=== PATIENT | female | born 1980 | race Caucasian/White ===

== ENCOUNTER → 2019-04-16 10:40 | Outpatient (BNVA) | payer MEDICARE, MEDICAID, SELFPAY | PROVIDERS: Family Provider Nurse Practitioner Family; PCP Nurse Practitioner Family; Visit Provider Social Worker Clinical | DX: F31.63 Bipolar disorder, current episode mixed, severe, without psychotic features (principal); F43.12 Post-traumatic stress disorder, chronic; F41.0 Panic disorder [episodic paroxysmal anxiety]; F60.3 Borderline personality disorder; Z63.4 Disappearance and death of family member | CPT/HCPCS: 90791 ==

== ENCOUNTER → 2019-04-23 10:50 | Outpatient (BNVA) | payer MEDICARE, MEDICAID, SELFPAY | PROVIDERS: Family Provider Nurse Practitioner Family; PCP Nurse Practitioner Family; Visit Provider Nurse Practitioner Psychiatric/Mental Health | DX: F60.3 Borderline personality disorder (principal); F41.0 Panic disorder [episodic paroxysmal anxiety]; F43.12 Post-traumatic stress disorder, chronic; F31.63 Bipolar disorder, current episode mixed, severe, without psychotic features; Z63.4 Disappearance and death of family member | CPT/HCPCS: 99214 ==

== ENCOUNTER → 2019-05-05 08:44 | Outpatient (BNVA) | payer MEDICARE, MEDICAID, SELFPAY | PROVIDERS: Family Provider Nurse Practitioner Family; PCP Nurse Practitioner Family; Visit Provider Social Worker Clinical | DX: F43.12 Post-traumatic stress disorder, chronic (principal); Z63.4 Disappearance and death of family member; F31.63 Bipolar disorder, current episode mixed, severe, without psychotic features | CPT/HCPCS: 90834 ==

== ENCOUNTER → 2019-05-20 09:46 | Outpatient (BNVA) | payer MEDICARE, MEDICAID, SELFPAY | PROVIDERS: Family Provider Nurse Practitioner Family; PCP Nurse Practitioner Family; Visit Provider Social Worker Clinical | DX: F43.12 Post-traumatic stress disorder, chronic (principal); Z63.4 Disappearance and death of family member; F31.63 Bipolar disorder, current episode mixed, severe, without psychotic features | CPT/HCPCS: 90834 ==

== ENCOUNTER → 2019-05-27 09:42 | Outpatient (BNVA) | payer MEDICARE, MEDICAID, SELFPAY | PROVIDERS: Family Provider Nurse Practitioner Family; PCP Nurse Practitioner Family; Visit Provider Social Worker Clinical | DX: F60.3 Borderline personality disorder (principal); F43.12 Post-traumatic stress disorder, chronic; F31.63 Bipolar disorder, current episode mixed, severe, without psychotic features | CPT/HCPCS: 90834 ==

== ENCOUNTER → 2019-06-09 09:43 | Outpatient (BNVA) | payer MEDICARE, MEDICAID, SELFPAY | PROVIDERS: Family Provider Nurse Practitioner Family; PCP Nurse Practitioner Family; Visit Provider Social Worker Clinical | DX: F60.3 Borderline personality disorder (principal); Z63.4 Disappearance and death of family member; F31.63 Bipolar disorder, current episode mixed, severe, without psychotic features; F43.12 Post-traumatic stress disorder, chronic | CPT/HCPCS: 90834 ==

== ENCOUNTER → 2019-06-16 10:03 | Outpatient (BNVA) | payer MEDICARE, MEDICAID, SELFPAY | PROVIDERS: Family Provider Nurse Practitioner Family; PCP Nurse Practitioner Family; Visit Provider Social Worker Clinical | DX: F60.3 Borderline personality disorder (principal); Z63.4 Disappearance and death of family member; F41.0 Panic disorder [episodic paroxysmal anxiety]; F43.12 Post-traumatic stress disorder, chronic; F31.63 Bipolar disorder, current episode mixed, severe, without psychotic features | CPT/HCPCS: 90834 ==

== ENCOUNTER → 2019-06-22 08:57 | Outpatient (BNVA) | payer MEDICARE, MEDICAID, SELFPAY | PROVIDERS: Family Provider Nurse Practitioner Family; PCP Nurse Practitioner Family; Visit Provider Nurse Practitioner Psychiatric/Mental Health | DX: Z63.4 Disappearance and death of family member (principal); F60.3 Borderline personality disorder; F41.0 Panic disorder [episodic paroxysmal anxiety]; F43.12 Post-traumatic stress disorder, chronic; F31.63 Bipolar disorder, current episode mixed, severe, without psychotic features | CPT/HCPCS: 90834; 99214 ==

== ENCOUNTER → 2019-06-30 10:34 | Outpatient (BNVA) | payer MEDICARE, MEDICAID, SELFPAY | PROVIDERS: Family Provider Nurse Practitioner Family; PCP Nurse Practitioner Family; Visit Provider Social Worker Clinical | DX: Z63.4 Disappearance and death of family member (principal); F60.3 Borderline personality disorder; F43.12 Post-traumatic stress disorder, chronic; F31.63 Bipolar disorder, current episode mixed, severe, without psychotic features | CPT/HCPCS: 90834 ==

== ENCOUNTER → 2019-07-07 08:07 | Outpatient (BNVA) | payer MEDICARE, MEDICAID, SELFPAY | PROVIDERS: Family Provider Nurse Practitioner Family; PCP Nurse Practitioner Family; Visit Provider Social Worker Clinical | DX: Z63.4 Disappearance and death of family member (principal); F60.3 Borderline personality disorder; F43.12 Post-traumatic stress disorder, chronic; F31.63 Bipolar disorder, current episode mixed, severe, without psychotic features | CPT/HCPCS: 90834 ==

== ENCOUNTER → 2019-07-08 07:29 | Outpatient (BNVA) | payer MEDICARE, MEDICAID, SELFPAY | PROVIDERS: Family Provider Nurse Practitioner Family; PCP Nurse Practitioner Family; Visit Provider Nurse Practitioner Psychiatric/Mental Health | DX: F60.3 Borderline personality disorder (principal); F41.0 Panic disorder [episodic paroxysmal anxiety]; Z63.4 Disappearance and death of family member; F43.12 Post-traumatic stress disorder, chronic; F31.63 Bipolar disorder, current episode mixed, severe, without psychotic features | CPT/HCPCS: 99214 ==

== ENCOUNTER → 2019-07-13 08:12 | Outpatient (BNVA) | payer MEDICARE, MEDICAID, SELFPAY | PROVIDERS: Family Provider Nurse Practitioner Family; PCP Nurse Practitioner Family; Visit Provider Social Worker Clinical | DX: F60.3 Borderline personality disorder (principal); F43.12 Post-traumatic stress disorder, chronic; F31.4 Bipolar disorder, current episode depressed, severe, without psychotic features; Z63.4 Disappearance and death of family member | CPT/HCPCS: 90834 ==

== ENCOUNTER → 2019-07-20 08:27 | Outpatient (BNVA) | payer MEDICARE, MEDICAID, SELFPAY | PROVIDERS: Family Provider Nurse Practitioner Family; PCP Nurse Practitioner Family; Visit Provider Social Worker Clinical | DX: Z63.4 Disappearance and death of family member (principal); F60.3 Borderline personality disorder; F41.0 Panic disorder [episodic paroxysmal anxiety]; F43.12 Post-traumatic stress disorder, chronic | CPT/HCPCS: 90834 ==

== ENCOUNTER → 2019-07-22 08:29 | Outpatient (BNVA) | payer MEDICARE, MEDICAID, SELFPAY | PROVIDERS: Family Provider Nurse Practitioner Family; PCP Nurse Practitioner Family; Visit Provider Nurse Practitioner Psychiatric/Mental Health | DX: F41.0 Panic disorder [episodic paroxysmal anxiety] (principal); F43.12 Post-traumatic stress disorder, chronic; Z63.4 Disappearance and death of family member; F60.3 Borderline personality disorder; F31.63 Bipolar disorder, current episode mixed, severe, without psychotic features | CPT/HCPCS: 99214 ==

== ENCOUNTER → 2019-07-28 08:09 | Outpatient (BNVA) | payer MEDICARE, MEDICAID, SELFPAY | PROVIDERS: Family Provider Nurse Practitioner Family; PCP Nurse Practitioner Family; Visit Provider Social Worker Clinical | DX: Z63.4 Disappearance and death of family member (principal); F60.3 Borderline personality disorder; F41.0 Panic disorder [episodic paroxysmal anxiety]; F43.12 Post-traumatic stress disorder, chronic; F31.63 Bipolar disorder, current episode mixed, severe, without psychotic features | CPT/HCPCS: 90834 ==

== ENCOUNTER → 2019-08-04 08:11 | Outpatient (BNVA) | payer MEDICARE, MEDICAID, SELFPAY ==
[2019-05-25 13:06] VITALS: BP 101/73; BMI 35.1
== END ==
PROVIDERS: Family Provider Nurse Practitioner Family; PCP Nurse Practitioner Family; Visit Provider Social Worker Clinical
DX: Z63.4 Disappearance and death of family member (principal); F31.63 Bipolar disorder, current episode mixed, severe, without psychotic features; F43.12 Post-traumatic stress disorder, chronic; F60.3 Borderline personality disorder
CPT/HCPCS: 90834

== ENCOUNTER → 2019-08-05 08:12 | Outpatient (BNVA) | payer MEDICARE, MEDICAID, SELFPAY ==
[2019-05-25 13:06] VITALS: BP 101/73; BMI 35.1
== END ==
PROVIDERS: Family Provider Nurse Practitioner Family; PCP Nurse Practitioner Family; Visit Provider Nurse Practitioner Psychiatric/Mental Health
DX: F60.3 Borderline personality disorder (principal); F41.0 Panic disorder [episodic paroxysmal anxiety]; F43.12 Post-traumatic stress disorder, chronic; F31.63 Bipolar disorder, current episode mixed, severe, without psychotic features; Z63.4 Disappearance and death of family member
CPT/HCPCS: 99214

== ENCOUNTER → 2019-08-11 08:17 | Outpatient (BNVA) | payer MEDICARE, MEDICAID, SELFPAY ==
[2019-05-25 13:06] VITALS: BP 101/73; BMI 35.1
== END ==
PROVIDERS: Family Provider Nurse Practitioner Family; PCP Nurse Practitioner Family; Visit Provider Social Worker Clinical
DX: Z63.4 Disappearance and death of family member (principal); F60.3 Borderline personality disorder; F43.12 Post-traumatic stress disorder, chronic; F31.63 Bipolar disorder, current episode mixed, severe, without psychotic features
CPT/HCPCS: 90834

== ENCOUNTER → 2019-08-18 08:09 | Outpatient (BNVA) | payer MEDICARE, MEDICAID, SELFPAY ==
[2019-05-25 13:06] VITALS: BP 101/73; BMI 35.1
== END ==
PROVIDERS: Family Provider Nurse Practitioner Family; PCP Nurse Practitioner Family; Visit Provider Social Worker Clinical
DX: F60.3 Borderline personality disorder (principal); F43.12 Post-traumatic stress disorder, chronic; F31.63 Bipolar disorder, current episode mixed, severe, without psychotic features
CPT/HCPCS: 90834

== ENCOUNTER → 2019-08-19 08:22 | Outpatient (BNVA) | payer MEDICARE, MEDICAID, SELFPAY ==
[2019-05-25 13:06] VITALS: BP 101/73; BMI 35.1
== END ==
PROVIDERS: Family Provider Nurse Practitioner Family; PCP Nurse Practitioner Family; Visit Provider Nurse Practitioner Psychiatric/Mental Health
DX: Z63.4 Disappearance and death of family member (principal); F60.3 Borderline personality disorder; F41.0 Panic disorder [episodic paroxysmal anxiety]; F43.12 Post-traumatic stress disorder, chronic; F31.63 Bipolar disorder, current episode mixed, severe, without psychotic features
CPT/HCPCS: 99214

== ENCOUNTER → 2019-08-25 08:21 | Outpatient (BNVA) | payer MEDICARE, MEDICAID, SELFPAY ==
[2019-05-25 13:06] VITALS: BP 101/73; BMI 35.1
== END ==
PROVIDERS: Family Provider Nurse Practitioner Family; PCP Nurse Practitioner Family; Visit Provider Social Worker Clinical
DX: Z63.4 Disappearance and death of family member (principal); F60.3 Borderline personality disorder; F43.12 Post-traumatic stress disorder, chronic; F31.63 Bipolar disorder, current episode mixed, severe, without psychotic features
CPT/HCPCS: 90834

== ENCOUNTER → 2019-08-31 07:59 | Outpatient (BNVA) | payer MEDICARE, MEDICAID, SELFPAY ==
[2019-05-25 13:06] VITALS: BP 101/73; BMI 35.1
== END ==
PROVIDERS: Family Provider Nurse Practitioner Family; PCP Nurse Practitioner Family; Visit Provider Social Worker Clinical
DX: Z63.4 Disappearance and death of family member (principal); F60.3 Borderline personality disorder; F43.12 Post-traumatic stress disorder, chronic; F31.63 Bipolar disorder, current episode mixed, severe, without psychotic features
CPT/HCPCS: 90834

== ENCOUNTER → 2019-09-02 07:36 | Outpatient (BNVA) | payer MEDICARE, MEDICAID, SELFPAY ==
[2019-05-25 13:06] VITALS: BP 101/73; BMI 35.1
== END ==
PROVIDERS: Family Provider Nurse Practitioner Family; PCP Nurse Practitioner Family; Visit Provider Nurse Practitioner Psychiatric/Mental Health
DX: F41.0 Panic disorder [episodic paroxysmal anxiety] (principal); F43.12 Post-traumatic stress disorder, chronic; Z63.4 Disappearance and death of family member; F60.3 Borderline personality disorder; F31.63 Bipolar disorder, current episode mixed, severe, without psychotic features
CPT/HCPCS: 99214

== ENCOUNTER → 2019-09-08 08:11 | Outpatient (BNVA) | payer MEDICARE, MEDICAID, SELFPAY ==
[2019-05-25 13:06] VITALS: BP 101/73; BMI 35.1
== END ==
PROVIDERS: Family Provider Nurse Practitioner Family; PCP Nurse Practitioner Family; Visit Provider Social Worker Clinical
DX: Z63.4 Disappearance and death of family member (principal); F60.3 Borderline personality disorder; F41.0 Panic disorder [episodic paroxysmal anxiety]; F43.12 Post-traumatic stress disorder, chronic; F31.63 Bipolar disorder, current episode mixed, severe, without psychotic features
CPT/HCPCS: 90834

== ENCOUNTER → 2019-09-23 07:52 | Outpatient (BNVA) | payer MEDICARE, MEDICAID, SELFPAY ==
[2019-05-25 13:06] VITALS: BP 101/73; BMI 35.1
== END ==
PROVIDERS: Family Provider Nurse Practitioner Family; PCP Nurse Practitioner Family; Visit Provider Social Worker Clinical
DX: Z63.4 Disappearance and death of family member (principal); F60.3 Borderline personality disorder; F41.0 Panic disorder [episodic paroxysmal anxiety]; F43.12 Post-traumatic stress disorder, chronic; F31.63 Bipolar disorder, current episode mixed, severe, without psychotic features
CPT/HCPCS: 90834

== ENCOUNTER → 2019-09-29 08:23 | Outpatient (BNVA) | payer MEDICARE, MEDICAID, SELFPAY ==
[2019-05-25 13:06] VITALS: BP 101/73; BMI 35.1
== END ==
PROVIDERS: Family Provider Nurse Practitioner Family; PCP Nurse Practitioner Family; Visit Provider Social Worker Clinical
DX: F43.12 Post-traumatic stress disorder, chronic (principal); F60.3 Borderline personality disorder
CPT/HCPCS: 90834

== ENCOUNTER → 2019-09-30 07:56 | Outpatient (BNVA) | payer MEDICARE, MEDICAID, SELFPAY ==
[2019-05-25 13:06] VITALS: BP 101/73; BMI 35.1
== END ==
PROVIDERS: Family Provider Nurse Practitioner Family; PCP Nurse Practitioner Family; Visit Provider Nurse Practitioner Psychiatric/Mental Health
DX: F31.63 Bipolar disorder, current episode mixed, severe, without psychotic features (principal); Z63.4 Disappearance and death of family member; F60.3 Borderline personality disorder; F41.0 Panic disorder [episodic paroxysmal anxiety]; F43.12 Post-traumatic stress disorder, chronic
CPT/HCPCS: 99214

== ENCOUNTER → 2019-10-14 07:57 | Outpatient (BNVA) | payer MEDICARE, MEDICAID, SELFPAY ==
[2019-05-25 13:06] VITALS: BP 101/73; BMI 35.1
== END ==
PROVIDERS: Family Provider Nurse Practitioner Family; PCP Nurse Practitioner Family; Visit Provider Social Worker Clinical
DX: F60.3 Borderline personality disorder (principal); F43.12 Post-traumatic stress disorder, chronic; F31.63 Bipolar disorder, current episode mixed, severe, without psychotic features
CPT/HCPCS: 90834

== ENCOUNTER → 2019-10-19 08:33 | Outpatient (BNVA) | payer MEDICARE, MEDICAID, SELFPAY ==
[2019-05-25 13:06] VITALS: BP 101/73; BMI 35.1
== END ==
PROVIDERS: Family Provider Nurse Practitioner Family; PCP Nurse Practitioner Family; Visit Provider Social Worker Clinical
DX: Z63.4 Disappearance and death of family member (principal); F60.3 Borderline personality disorder; F41.0 Panic disorder [episodic paroxysmal anxiety]; F43.12 Post-traumatic stress disorder, chronic; F31.63 Bipolar disorder, current episode mixed, severe, without psychotic features
CPT/HCPCS: 90832

== ENCOUNTER 2019-10-19 12:21 | Outpatient (CLI) | payer MEDICARE, MEDICAID, SELFPAY ==
[2019-05-25 13:06] VITALS: BP 101/73; BMI 35.1
[2019-10-19 13:05] LABS: Basophils % 0.3 %; Eosinophils # 0.1 10^3/uL (0.0-0.8); Eosinophils % 1.6 %; Hematocrit 43.2 % (37.0-47.0); Hemoglobin 14.1 g/dL (11.5-15.3); Lymphocytes % 31.7 %; Mean Corpuscular HGB Conc 32.6 g/dL (30.0-36.0); Monocytes # 0.4 10^3/uL (0.2-0.9); Monocytes % 6.2 %; Neutrophils # 3.75 10^3/uL (1.8-7.7); Neutrophils % 59.7 %; Nucleated Red Blood Cells % 0 %; Platelet Count 277 10^3/cmm (130-400); Red Blood Count 4.41 10^6/uL (4.1-5.3); Red Cell Distribution Width 12.3 % (12.1-15.1); White Blood Count 6.3 10^3/uL (4.0-10.0)
[2019-10-19 13:39] LABS: INR 0.92 (0.8-1.2)
[2019-10-19 13:56] LABS: Calcium 9.3 mg/dL (8.5-10.5); Parathyroid Hormone 46.3 pg/mL (15-65)
[2019-10-19 14:05] LABS: Folate Level 6.8 ng/mL (4.8-37.3)
[2019-10-19 14:07] LABS: Alanine Aminotransferase 7 U/L (0-33); Albumin Level 4.5 g/dL (3.5-5.2); Alkaline Phosphatase 90 IU/L (35-105); Anion Gap 13.9 (5-19); Aspartate Amino Transferase 20 U/L (0-32); Blood Urea Nitrogen 7 mg/dL (6-20); Calcium 8.8 mg/dL (8.5-10.5); Carbon Dioxide 23 mmol/L (22-29); Chloride 105 mmol/L (98-107); Chol HDL Ratio 3.27 mg/dL (0.0-4.40); Cholesterol 170 mg/dL (0-200); Estmated Average Glucose 103; Globulin 2.5 g/dL (1.3-4.6); Glomerular Filtration Rate 79.9 mL/min (90-130); Glucose 122 mg/dL (65-115); HDL Cholesterol 52 mg/dL (60-100); Hemoglobin A1C 5.2 % (4.0-6.0); Iron 169 ug/dL (37-145); LDL Cholesterol Calculated 96 mg/dL (50-129); LDL HDL Ratio 1.85 RATIO (0.00-3.22); Osmolality Calculated 283 mOsm/kg (285-295); Percent Saturation 58.8 % (20-50); Phosphorus 2.4 mg/dL (2.5-4.5); Potassium 3.9 mmol/L (3.5-5.1); Sodium 138 mmol/L (136-145); Thyroid Stimulating Hormone 0.82 uIU/mL (0.27-4.20); Total Bilirubin 0.4 mg/dL (0.15-1.2); Total Iron Binding Capacity 287 mcg/dl; Triglycerides 112 mg/dL (0-150); Unsaturated Iron Binding 118 ug/dL (112-347); Vitamin B12 677 pg/mL (232-1245)
== END 2019-10-19 12:22 | disposition home or self-care (01) ==
LOC: LAB 12:25
PROVIDERS: PCP Nurse Practitioner Family; Visit Provider Surgery
DX: E66.9 Obesity, unspecified (principal); E11.9 Type 2 diabetes mellitus without complications
CPT/HCPCS: 36415; 80053; 80061; 82248; 82310; 82607; 82746; 83036; 83540; 83550; 83735; 83970; 84100; 84443; 85025; 85610

== ENCOUNTER → 2019-10-21 09:24 | Outpatient (BNVA) | payer MEDICARE, MEDICAID, SELFPAY ==
[2019-05-25 13:06] VITALS: BP 101/73; BMI 35.1
== END ==
PROVIDERS: PCP Nurse Practitioner Family; Visit Provider Nurse Practitioner Psychiatric/Mental Health
DX: F31.63 Bipolar disorder, current episode mixed, severe, without psychotic features (principal); Z63.4 Disappearance and death of family member; F60.3 Borderline personality disorder; F41.0 Panic disorder [episodic paroxysmal anxiety]; F43.12 Post-traumatic stress disorder, chronic
CPT/HCPCS: 99214

== ENCOUNTER → 2019-10-27 08:49 | Outpatient (BNVA) | payer MEDICARE, MEDICAID, SELFPAY ==
[2019-05-25 13:06] VITALS: BP 101/73; BMI 35.1
== END ==
PROVIDERS: Family Provider Nurse Practitioner Family; PCP Nurse Practitioner Family; Visit Provider Social Worker Clinical
DX: Z63.4 Disappearance and death of family member (principal); F60.3 Borderline personality disorder; F43.12 Post-traumatic stress disorder, chronic; F31.63 Bipolar disorder, current episode mixed, severe, without psychotic features
CPT/HCPCS: 90834

== ENCOUNTER → 2019-10-28 08:30 | Outpatient (BNVA) | payer MEDICARE, MEDICAID, SELFPAY ==
[2019-05-25 13:06] VITALS: BP 101/73; BMI 35.1
== END ==
PROVIDERS: Family Provider Nurse Practitioner Family; PCP Nurse Practitioner Family; Visit Provider Nurse Practitioner Psychiatric/Mental Health
DX: F31.63 Bipolar disorder, current episode mixed, severe, without psychotic features (principal); Z63.4 Disappearance and death of family member; F60.3 Borderline personality disorder; F41.0 Panic disorder [episodic paroxysmal anxiety]; F43.12 Post-traumatic stress disorder, chronic
CPT/HCPCS: 99214

== ENCOUNTER → 2019-11-03 08:12 | Outpatient (BNVA) | payer MEDICARE, MEDICAID, SELFPAY ==
[2019-05-25 13:06] VITALS: BP 101/73; BMI 35.1
== END ==
PROVIDERS: Family Provider Nurse Practitioner Family; PCP Nurse Practitioner Family; Visit Provider Social Worker Clinical
DX: Z63.4 Disappearance and death of family member (principal); F60.3 Borderline personality disorder; F41.0 Panic disorder [episodic paroxysmal anxiety]; F43.12 Post-traumatic stress disorder, chronic; F31.63 Bipolar disorder, current episode mixed, severe, without psychotic features
CPT/HCPCS: 90832

== ENCOUNTER → 2019-11-04 08:06 | Outpatient (BNVA) | payer MEDICARE, MEDICAID, SELFPAY ==
[2019-05-25 13:06] VITALS: BP 101/73; BMI 35.1
== END ==
PROVIDERS: Family Provider Nurse Practitioner Family; PCP Nurse Practitioner Family; Visit Provider Nurse Practitioner Psychiatric/Mental Health
DX: F31.63 Bipolar disorder, current episode mixed, severe, without psychotic features (principal); Z63.4 Disappearance and death of family member; F60.3 Borderline personality disorder; F41.0 Panic disorder [episodic paroxysmal anxiety]; F43.12 Post-traumatic stress disorder, chronic; F41.1 Generalized anxiety disorder
CPT/HCPCS: 99214

== ENCOUNTER → 2019-11-13 08:42 | Outpatient (BNVA) | payer MEDICARE, MEDICAID, SELFPAY ==
[2019-05-25 13:06] VITALS: BP 101/73; BMI 35.1
== END ==
PROVIDERS: PCP Nurse Practitioner Family; Visit Provider Internal Medicine
DX: E66.9 Obesity, unspecified (principal)
CPT/HCPCS: 87635

== ENCOUNTER 2019-11-17 07:27 | Inpatient (IN) | payer MEDICARE, MEDICAID, SELFPAY ==
[2019-05-25 13:06] VITALS: BP 101/73; BMI 35.1
[2019-11-05 11:09] VITALS: BMI 32.3
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
[2019-11-17] VITALS (21 sets, daily range): BP systolic 101–177; BP diastolic 72–86; PULSE 71–106; RESP 14–22; TEMP 36.6–37.5; O2SAT 94–100
[2019-11-17] MEDS: heparin 5,000 unit/mL INJ 1 mL 5000 UNIT SUBCUT (08:06)
[2019-11-17] MEDS: sodium chloride 0.9% 1,000 ML 999 ML IV (08:06)
--- NOTE | 2019-11-17 08:12 | P.ANESUD_ITS ---
Pre-Anesthetic Update Pre-Anesthetic Assessment: Date of Surgery/Procedure: 11/17/19 Preop Maite gnosis: obesity Proposed Procedure: Operation Date: 11/17/19 09:35 Proposed Procedures p Laparoscopic Gastric Sleeve w/ EGD 84104 60197 E66.9(Not Applicable) - Jesse Pacheco MD s EGD(Not Applicable) - Jesse Pacheco MD Any changes to Pre-Anesthetic Assessment?: No Last Intake: Intake Last Liquid Date 11/16/19 Last Liquid Time 22:00 Last Solid Date 10/25/19 Last Solid Time 18:00 Vitals: Temperature 98.0 F 11/17/19 07:49 Temperature Source Temporal Artery S can 11/17/19 07:49 Pulse Rate 88 11/17/19 07:49 Pulse Rhythm 11/17/19 07:49 Pulse Strength 3+ Normal 11/17/19 07:49 Respiratory Rate 18 11/17/19 07:49 Blood Pressure 177/77 11/17/19 07:49 Blood Pressure Jenny n 110 11/17/19 07:49 Pulse Oximetry 100 11/17/19 07:49 Oxygen Delivery Me thod 11/17/19 07:49 Exam: Pre-Anes Outpt Exam: alert, oriented x 3, clear to auscultation bilaterally and regular rate & rhythm Other Pertinent Information: Other Pertinent Information: Scopolamine patch applied - patient had some ponv previously Cardiac Studies: No Data to Display
[2019-11-17] MEDS: scopolamine 1.5 Patch 1 PATCH TRANSDERMA (08:18)
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
[2019-11-17] MEDS: pantoprazole 40 mg SDV IVP (09:18)
[2019-11-17] MEDS: midazolam 1 mg/mL INJ 2 mL 2 MG IVP (09:18)
--- NOTE | 2019-11-17 11:01 | PC.CHAP ---
Pastoral Care Encounter/Spiritual Assessment Type of Contact [] Declined latex caster visit [] Patient/Family/Request visit [] Outpatient visit [] Follow-up visit [] Physician referral [] Code/Alert [] Routine visit [] Staff referral [] Actively dying [] Patient sleeping [] Family support [] [] Out of room [] Palliative care [] [] Receiving care in room [] Pre-surgical visit [] Trauma [] Long length of stay [] ICU visit [] Other: Relational/Emotional Strength [] Patient feels connected with others/family/visitors/staff [] Distress [] Loneliness/isolation [] Abandonment Spirituality of Patient [] Person of Kristy [] Attends Jewish of their Kristy [] Believes in Prayer [] Reads Bible or Quaker materials [] There are Spiritual issues to be addressed Catering Assistant Interventions [] Prayer [] Active listening [] Non-anxious presence [] Spiritual/emotional support [] Crisis/trauma care [] Spiritual counseling [] Bereavement support [] Provided bereavement packet [] Provided Bible/devotional materials [] Provided toy/stuffed animal, coloring book to patient or family member [] Provided Communion [] Anointing/Corrigan [] Salvation [] Completed spiritual assessment [] Other: Impact on Illness or Injury [] Angry [] Fearful [] Anxious [] Often cries [] Exhaustion [] Unable to work [] Unable to attend church [] Unable to walk/stand [] Unable to read [] Unable to drive [] Unable to eat/drink [] Unable to sleep [] Unable to be with family [] Patient intubated [] Other: Summary Patient discharged. Time spent with patient
[2019-11-17] MEDS: lidocaine 2% INJ 20 mL INJECTION (11:59)
--- NOTE | 2019-11-17 12:10 | SUR.OPER ---
family updated of surgical status
--- NOTE | 2019-11-17 13:49 | PM.OP ---
Operative Report Date of procedure: November 17, 2019 Pre-op Diagnosis: obesity Post-op diagnosis: same Procedure Done: Laparoscopic vertical Sleeve Gastrectomy Implants: Large piece of Surgicel Specimens removed/disposition: Subtotal gastrectomy sutures marked proximal/fundus Surgeon: Jesse Pacheco Supervisor Covering And Lining: Surgical pravin Gordon Circulating nurse Flaca Anesthesia: General (health care specialist Yogi and Leo) Estimated blood loss (mL): 25 IV fluids (mL): 1,100 Urine output (mL): 500 Complications: No immediate complications Condition: stable Disposition: floor Brief History: This is a pleasant 39-year-old female patient with his obesity and multiple medical comorbidities associated with this condition, patient undergone supervised medical weight loss and met the criteria for laparoscopic vertical sleeve gastrectomy. Informed consent per chart Procedure: Patient was identified in holding area , appropriate pharmacologic DVT prophylaxis was given and preoperative IV fluid hydration, patient was then taken to the operating room where the patient was placed in supine position, intubated by anesthesia prophylactic antibiotics were given per protocol,Time-out was done verifying the patient's name/date of /planned procedure and destination after the procedure, all were in agreement. SCDs confirmed to be functioning, and beta judy protocol was confirmed. A Gonzalez catheter was inserted by the circulating nurse revealing clear urine. A foot board was applied to secure the patient while the patient is placed in reversed Trendelenburg, all pressure points were padded, and the patient was appropriately secured to the table, anesthesia was asked to rotate the table back and forth to verify that the patient is appropriately secured, and that was the case. The abdomen was prepped and draped under the usual sterile technique. A 1 cm transverse incision was made with a 15 blade scalpel approximately 15 cm below the xiphoid process and 3 cm left of the midline. A 12 mm optical trocar port was placed under direct vision into the peritoneal cavity without evidence of injury to peritoneal structures upon entry. The peritoneal cavity was insufflated with carbon dioxide gas up to 15 mmHg pressure. A 45? angle laparoscopy was placed through the port into the peritoneal cavity there was no significant blood, fluid, or evidence of intra-abdominal injury under direct visualization a 5 mm trocar port was placed in the left lateral flank and 12 mm trocar port was placed in the right epigastric region and a fourth 5 mm trocar port was placed in the mid epigastric region more caudad than and medial to the previous port. A subxiphoid stab incision was made and dissection into the peritoneum with 5 mm obturator. A grasping laparoscopic clamp was inserted through here and clamped to the right carmita of the diaphragm to elevate The liver for the entirety of the case. Patient was then placed in the reversed Trendelenburg Following this, the greater curvature of the stomach was freed from the omentum using the harmonic scalpel. This division included the short gastric vessels proximally. This dissection was carried from approximately 4 cm-6 cm proximal to the pylorus and extending all the way up to the angle of Hiss. During this process the posterior aspect of the stomach was mobilized from the underlying peritoneum. With the greater curvature of the stomach exposed from within 4-6 cm of the pylorus and extending to the angle of Hiss, which also included the posterior stomach, a 40 Polish bougie passed under direct vision through the esophagus, stomach, and into the first part of the duodenum by the anesthesia provider and under direct guidance and visualization by me, via the laparoscopy. Using the bougie 40 Polish aligned along the lesser curvature of the stomach as a template the laparoscopic vertical gastric sleeve was performed starting from a point about 5 cm from the pylorus along the greater curvature. Using the [place] Laparoscopic VY linear cutting stapler with Seam guarded enforcement, a series of phil were used to transect the stomach in a vertical fashion along the left side of the template. This was carried all the way to the angle of Hiss.Green loads were used for all stapler loads with buttress material. The staple line along the remaining tubularized stomach was tested for leaks and bleeding under direct vision as the 40 Polish bougie was exchanged (and there was no evidence of blood on the tip of the bougie) by a standard diagnostic EGD via the mouth by my self after I scrubbed out and insufflation and the staple line submerged under water,meanwhile a clamp was applied distally onto the end of the tubularized stomach to allow insufflation test for leak. There was no evidence of leak .There was adequate hemostasis along the staple line. EGD was taken out at this point after deflation of the tubularized stomach. I scrubbed back in, multiple 5 mm clip perinatal coordinator were applied onto the staple line for minor oozing There was a small hematoma at the posterior aspect of the proximal part of the conduit 1 x 1 cm. I elected to place a [id number] 0 silk suture for stabilization and I did place a large piece of Surgicel at that site. The transected partial stomach, which included the greater curvature, was removed from the peritoneum through the first 12 mm trocar site. Prior to closure of the fascia. An interrupted 0 Vicryl suture on a granny needle suture passer was used to close the right epigastric and the other 12 mm trocar left of the midline fascial defects under direct visualization. The other trocars were removed under direct vision and no evidence of bleeding was identified. The pneumoperitoneum was decompressed. All skin incisions were irrigated with saline, then closed with phil, followed by application of sterile dressings. The patient was extubated and taken to the recovery room with normal vital signs. I was present for the whole entire procedure.
--- NOTE | 2019-11-17 14:11 | PM.PACU ---
PACU note PACU note: Feeling some tightness in her abdomen, pain /10 Post-Anesthesia Exam: awake and vital signs stable Disposition: admitted
[2019-11-17] MEDS: ondansetron 2 mg/ML SDV 2 mL 4 MG IVP ×3 (14:28→19:45)
[2019-11-17] MEDS: fentaNYL 50 mcg/mL INJ 2mL IVP (14:39)
[2019-11-17] MEDS: metoclopramide 5 mg/mL SDV 2 mL 10 MG IVP (14:39)
[2019-11-17] MEDS: lactated ringers 1,000 ML 150 ML IV ×2 (15:16→23:55)
[2019-11-17] MEDS: famotidine 20 mg/2 mL INJ IVP (16:01)
[2019-11-17 16:38] LABS: Glucose Point of Care 136 mg/dL (70-110)
[2019-11-17] MEDS: morphine 4 mg/mL SDV 1 mL 2 MG IVP ×3 (17:05→23:51)
--- NOTE | 2019-11-17 17:33 | PC.NUTR ---
NUTR CONSULT: interviewed pt post op, sleeve. Pt reported 87 lb wt loss in 1 yr prior to surgery. Discussed PRO goals of 65 g/day and fluid goals of 64 oz per day. Pt reported understanding. Will send 1 prosource jello /day after diet advances.
--- NOTE | 2019-11-17 18:02 | PC.NURSE ---
SHIFT SUMMARY PATIENT HAS DONE WELL SINCE ARRIVING TO FLOOR FROM THE OR. SURGICAL INCISION SITES C/D/I. PAIN CONTROLLED WELL NAUSEA. PATIENT RECEIVED OFFIRMEV AND ONE DOSE OF MORPHINE. PATIENT HAD 300ML OF URINE OUTPUT. GOOD VITALS. PATIENT AMBULATED 224 FEET AROUND THE FLOOR FOR THE FIRST TIME AROUND 1700. TOLERATED VERY WELL. CURRENTLY RESTING IN BED WITH NO COMPLAINTS AT THIS TIME.
[2019-11-17 20:28] LABS: Glucose Point of Care 129 mg/dL (70-110)
[2019-11-18] VITALS (13 sets, daily range): BP systolic 114–161; BP diastolic 76–89; PULSE 52–82; RESP 14–18; TEMP 36.5–36.9; O2SAT 94–98
[2019-11-18 05:09] LABS: Hematocrit 38.6 % (37.0-47.0); Hemoglobin 12.8 g/dL (11.5-15.3)
[2019-11-18] MEDS: famotidine 20 mg/2 mL INJ IVP ×2 (05:18→15:44)
[2019-11-18] MEDS: ondansetron 2 mg/ML SDV 2 mL 4 MG IVP (05:19)
[2019-11-18] MEDS: morphine 4 mg/mL SDV 1 mL 2 MG IVP ×4 (05:19→23:39)
[2019-11-18] MEDS: lactated ringers 1,000 ML 150 ML IV ×4 (05:25→23:34)
[2019-11-18 05:33] LABS: Anion Gap 12.7 (5-19); Blood Urea Nitrogen 5 mg/dL (6-20); Calcium 8.5 mg/dL (8.5-10.5); Carbon Dioxide 24 mmol/L (22-29); Chloride 106 mmol/L (98-107); Glomerular Filtration Rate 137.4 mL/min (90-130); Glucose 95 mg/dL (65-115); Osmolality Calculated 284 mOsm/kg (285-295); Potassium 3.7 mmol/L (3.5-5.1); Sodium 139 mmol/L (136-145)
--- NOTE | 2019-11-18 06:04 | P.PN_ITS ---
Subjective Subjective: Interval history: Patient overall did well overnight and no acute events reported. Pain is under control. Vitals/I&O/Wt Last Vital Signs Temp 98.1 F 11/18/19 04:00 Pulse 71 11/18/19 05:42 Resp 18 11/18/19 05:19 BP 161/83 11/18/19 04:00 Pulse Ox 96 11/18/19 05:42 11/17/19 11/17/19 11/18/19 14:59 22:59 06:59 Intake Total 1150 / 1150 1000 / 2150 825 / 2975 Output Total 1025 / 1025 300 / 1325 Balance 125 / 125 700 / 825 825 / 1650 Physical Exam Narrative: EXAM NARRATIVE: Patient is conscious alert oriented X3 BMI 32 Head and neck examination PERRLA no masses no cervical lymphadenopathy no jaundice Cardiac examination audible S1-S2 no murmurs no gallops no arrhythmias Chest is clear bilateral,abscence of Rhonchi or wheezes,no surgical emphysema Abdomen nontender nondistended soft no organomegaly guarding or rigidity/no signs of peritonitis Dressing in place dry Extremities no cyanosis no clubbing no edema Urinary Catheter Management^: Gonzalez: Cath Placed During This Visit: yes Urinary Catheter Date of Insertion: 11/17/19 Urinary Catheter Time of Insertion: 11:42 Data : 11/18/19 04:10 11/18/19 04:10 A&P Assessment and plan (1) S/P laparoscopic sleeve gastrectomy: Patient undergone uneventful laparoscopic sleeve gastrectomy 11/17/2019 Encourage ambulation Incentive spirometer every hour Resume heparin subcu every 8 hours DC Gonzalez catheter Upper GI study pending once this is cleared with start the patient on her phase 1 of her diet Assurance and education All questions have been answered and all concerns have been addressed to patient's satisfaction. Status: Acute Attestations Medical Necessity Statement*: Medical necessity care is expected to cross 2 midnights Time Spent in Patient Care: (>than 50% of time spent in counselling and/or direct pt care on unit) . Coding Level of Care Code Acute Hand Buffing Wheel Former for Chg Fwd Diagnoses S/P laparoscopic sleeve gastrectomy Z98.84
[2019-11-18 07:00] LABS: Glucose Point of Care 99 mg/dL (70-110)
[2019-11-18] MEDS: heparin 5,000 unit/mL INJ 1 mL 5000 UNIT SUBCUT ×3 (07:16→23:34)
--- NOTE | 2019-11-18 08:00 | FL_ITS ---
WS: [id number] Limited upper GI examination. HISTORY: Status post gastric sleeve. Fluoroscopy time: 1.3 minutes. Patient swallowed Gastrografin mixture without difficulty. There is delayed emptying from the esophag us into the stomach pouch. To and fro motion of barium in the distal esophagus. The distal esophagus was mildly dilated. There is edema at the surgical site but contrast does eventually flow through the gastric sleeve. There is no extravasation of contrast. FL/FL upper GI series [id number] IMPRESSION: 1. No extravasation of Gastrografin from the stomach. 2. Mild delayed emptying of the esophagus resulting in mild distal esophageal d ilatation.
--- NOTE | 2019-11-18 09:16 | ANE.PACU2 ---
Inpatient post-anesthesia follow up: Airway intact: Yes Vital signs: Temperature 97.8 F Pulse Rate 52 Respiratory Rate 18 Blood Pressure 130/84 Pulse Oximetry 94 Oxygen Delivery Me thod [ Room Air Current Rate & Del shaheen] Oxygen Delivery Me thod Room Air Oxygen Flow Rate Fraction of Inspir ed Oxygen Hydration adequate: Yes Nausea and vomiting: No Pain level: 6 Mental status: Baseline Additional Comments: some mild ponv
[2019-11-18 10:58] LABS: Glucose Point of Care 103 mg/dL (70-110)
[2019-11-18] MEDS: HYDROcodone-acetaminophen 5-325 mg Tablet 1 TAB PO ×2 (12:43→18:37)
[2019-11-18 17:00] LABS: Glucose Point of Care 99 mg/dL (70-110)
--- NOTE | 2019-11-18 18:00 | PC.NURSE ---
SHIFT SUMMARY PATIENT HAS DONE WELL TODAY. SHE HAS AMBULATED 325 FEET 4 DIFFERENT TIMES TODAY. PAIN IS MORE CONTROLLED WITH THE ORAL PAIN MEDICATION. PATIENT HAS HAD 600ML OF URINE OUTPUT THIS FAR. GOOD PO INTAKE. CONTINUE TO ENCOURAGE AMBULATION.
--- NOTE | 2019-11-18 21:06 | PC.NURSE ---
UPON DOING PHYSICAL ASSESSMENT ON PT, SHE TOLD THIS NURSE SHE HAD TAKEN HER NIGHTTIME MEDICATIONS . THIS NURSE ASKED IF THESE WERE MEDICATIONS SHE BROUGHT FROM HOME AND THE PT SAID YES, SHE STATED SHE TOOK HER TRAZADONE, GABAPENTIN, AND PRAZOSIN. THIS NURSE THEN EXPLAINED THE HOSPITAL HOME MEDICATION POLICY, AND THAT WE CANNOT GIVE HER HER HOME MEDS UNLESS CONTINUED BY THE DOCTOR AND THAT THE MEDICATIONS WOULD NEED TO BE LOCKED AWAY IN THE PYXIS. SHE STATED SHE UNDERSTANDS AND DID NOT REALIZE OUR POLICY. DR. GARAY WAS NOTIFIED AND THE PT'S MEDICATIONS ARE LOCKED IN THE PYXIS NOW.
[2019-11-18 21:15] LABS: Glucose Point of Care 92 mg/dL (70-110)
[2019-11-19] VITALS: BP 130/73; PULSE 72; RESP 18; TEMP 36.9; O2SAT 94
[2019-11-19] MEDS: famotidine 20 mg/2 mL INJ IVP (03:40)
[2019-11-19] MEDS: HYDROcodone-acetaminophen 5-325 mg Tablet 1 TAB PO (03:44)
[2019-11-19 04:00] VITALS: BP 129/77; PULSE 61; RESP 18; TEMP 36.9; O2SAT 96
[2019-11-19 05:00] LABS: Hematocrit 37.7 % (37.0-47.0); Hemoglobin 12.3 g/dL (11.5-15.3)
[2019-11-19 05:28] LABS: Anion Gap 12.6 (5-19); Blood Urea Nitrogen 4 mg/dL (6-20); Calcium 8.4 mg/dL (8.5-10.5); Carbon Dioxide 26 mmol/L (22-29); Chloride 106 mmol/L (98-107); Glomerular Filtration Rate 111.3 mL/min (90-130); Glucose 93 mg/dL (65-115); Osmolality Calculated 287 mOsm/kg (285-295); Potassium 3.6 mmol/L (3.5-5.1); Sodium 141 mmol/L (136-145)
--- NOTE | 2019-11-19 07:08 | PM.DCS ---
Discharge Providers Date of Admission: 11/17/19 07:27 Date of Discharge: November 19, 2019 Attending Provider at Admission: Jesse Pacheco MD Attending Provider at Discharge: Jesse Pacheco MD Primary Care Provider: Antoinette Purdy APN Diagnoses at Discharge Discharge Diagnosis (1) S/P laparoscopic sleeve gastrectomy: Status: Resolved Reason for Visit Reason for Visit: Obesity Hospital Course Discharge Summary: This is a pleasant 39 years old female patient with history of obesity and associated multiple medical comorbidities. Patient undergone uneventful laparoscopic vertical sleeve gastrectomy on 11 16 and she was kept as an inpatient past 2 midnights to make sure that she is tolerating well p.o. intake and continues to have bowel activity and kept hydrated with IV fluids. Patient laboratory blood work showed stable H&H and patient continue to ambulate with stable vital signs and good urine output. Patient continues to pass gas and tolerating p.o. intake well. We will plan to discharge home today and return to Bariatric surgery office in 1 week. Upper GI study showed: Addendum. Contrast was noted extending into the duodenum real-time fluoroscopic evaluation. Addendum Dictated By: Sera Arntet DO Addendum Signed By: Sera Arnett DOSigned Date/Time:11/18/19 1159 Addendum Cosigned By: WS: [id number] Limited upper GI examination. HISTORY: Status post gastric sleeve. Fluoroscopy time: 1.3 minutes. Patient swallowed Gastrografin mixture without difficulty. There is delayed emptying from the esophagus into the stomach pouch. To and fro motion of barium in the distal esophagus. The distal esophagus was mildly dilated. There is edema at the surgical site but contrast does eventually flow through the gastric sleeve. There is no extravasation of contrast. FL/FL upper GI series [id number] IMPRESSION: 1. No extravasation of Gastrografin from the stomach. Medical necessity: She required hospitalization past 2 midnights to make sure that she continues to tolerate p.o. intake and continue hydration. Physical Exam Narrative: EXAM NARRATIVE: Patient is conscious alert oriented X3 BMI 32 Head and neck examination PERRLA no masses no cervical lymphadenopathy no jaundice Cardiac examination audible S1-S2 no murmurs no gallops no arrhythmias Chest is clear bilateral,abscence of Rhonchi or wheezes,no surgical emphysema Abdomen nontender nondistended soft no organomegaly guarding or rigidity/no signs of peritonitis, incisions are clean dry and intact and skin phil in place Extremities no cyanosis no clubbing no edema Urinary Catheter Management^: Gonzalez: Cath Placed During This Visit: yes Urinary Catheter Date of Insertion: 11/17/19 Urinary Catheter Time of Insertion: 11:42 Discharge Data Data Completed and Pending: Completed Studies During Hospitalization Category Date Time Status FL upper GI rebecca s [id number] Routine Exams 11/18/19 08:00 Completed Pending at discharge Category Date Time Status Pathology: Surgic al [PTH] Routine Pth 11/17/19 14:05 Received Labs from last 24 hours 11/19/19 11/19/19 11/18/19 04:15 04:15 21:04 Hgb 12.3 Hct 37.7 Sodium 141 Potassium 3.6 Chloride 106 Carbon Dioxide 26 Anion Gap 12.6 BUN 4 L Creatinine 0.6 GFR Calculation 111.3 Glucose 93 POC Glucose 92 Calculated Osmolal ity 287 Calcium 8.4 L 11/18/19 11/18/19 16:33 10:55 Hgb Hct Sodium Potassium Chloride Carbon Dioxide Anion Gap BUN Creatinine GFR Calculation Glucose POC Glucose 99 103 Calculated Osmolal ity Calcium Vitals: Last Vital Signs Temp 98.5 F 11/19/19 04:00 Pulse 61 11/19/19 04:00 Resp 18 11/19/19 04:00 BP 129/77 11/19/19 04:00 Pulse Ox 96 11/19/19 04:00 Discharge Plan Discharge Patient Disposition: Home Condition: Stable Prescriptions: [place] 5-325 mg tablet 1 tab PO Q6H PRN (Reason: pain) Qty: 28 RF: 0 scopolamine base 1 mg over 3 days patch 3 day 1 patch TRANSDERMA Q3D PRN (Reason: nausea and vomiting) Qty: 1 RF: 3 Continued haloperidol 5 mg tablet 5 mg PO BID PRN (Reason: agitation) Qty: 60 RF: 3 gabapentin 600 mg tablet 600 mg PO TID Qty: 90 RF: 3 lamotrigine [Lamictal] 100 mg tablet 100 mg PO QAM Qty: 30 RF: 3 prazosin 2 mg capsule 4 mg PO .bedtime Qty: 60 RF: 3 trazodone 100 mg tablet 100 mg PO .bedtime PRN (Reason: sleep) Qty: 30 RF: 3 venlafaxine [Effexor XR] 150 mg capsule,extended release 24hr 150 mg PO QAM Qty: 30 RF: 3 potassium chloride 10 mEq tablet,ER particles/crystals 10 meq PO DAILY RF: 0 furosemide [Lasix] 20 mg tablet 20 mg PO QAM RF: 0 linaclotide 145 mcg capsule 145 mcg PO QAM RF: 0 lorazepam 1 mg tablet 1 mg PO BID PRN (Reason: anxiety) Qty: 60 RF: 3 Discontinued phentermine 37.5 mg tablet 37.5 mg PO QAM RF: 0 Discharge Orders: Discharge Order (Routine); Ordered 11/19/19 Ordered By: Jesse Pacheco Referrals: Jesse Pacheco MD [Physician] - (Return to Bariatric surgery in 1 week) Discharge Diet: As Directed Discharge Activity: Limit activity as instructed Activity Restrictions/Additional Instructions: 1. Patient can shower after 48 hours from surgery 2. Patient can shower but no soaking in a tub or [place] or swimming pool 3. Up and walking as tolerated 4. Do lift more than 5 pounds first 2 weeks after surgery and not more than 25 pounds 6 to 8 weeks after surgery. 5. Do not operate heavy machinery or drive while using pain medications. 6.Contact the office or return to the ER for worsening nausea vomiting fevers or chills, or noticing any redness around incision sites or discharge. 7. Avoid constipation 8. Stop Phentermine. 9. Please contact me through the hospital reduction furnace operator helper at any time for any concerns or questions. Discharge Attestations Time Spent in Discharge Care*: less than 30 min Specific Discharge Activities: Specific discharge activities: educating patient Status at Discharge: Cognitive status at discharge: cognitively intact, Behavioral status at discharge: cooperative, Overall status at discharge: patient is progressing back to baseline Quality Metrics Clinical Quality Measures During this hospital stay, did patient experience: None Coding Level of Care Code Acute Comptometrist for Chg Fwd Diagnoses S/P laparoscopic sleeve gastrectomy Z98.84
--- NOTE | 2019-11-19 07:28 | P.PN_ITS ---
Subjective Subjective: Interval history: Overall patient did well overnight and had no acute events. Continues to tolerate well p.o. intake and continues to pass gas. Lab work appropriate and stable. Upper GI study was done and showed normal surgical anatomy status post laparoscopic vertical sleeve gastrectomy Vitals/I&O/Wt Last Vital Signs Temp 98.5 F 11/19/19 04:00 Pulse 61 11/19/19 04:00 Resp 18 11/19/19 04:00 BP 129/77 11/19/19 04:00 Pulse Ox 96 11/19/19 04:00 11/18/19 11/19/19 11/19/19 22:59 06:59 14:59 Intake Total 1460 / 2460 600 / 3060 Output Total 300 / 600 1500 / 2100 Balance 1160 / 1860 -900 / 960 Physical Exam Narrative: EXAM NARRATIVE: Patient is conscious alert oriented X3 BMI 32 Head and neck examination PERRLA no masses no cervical lymphadenopathy no jaundice Cardiac examination audible S1-S2 no murmurs no gallops no arrhythmias Chest is clear bilateral,abscence of Rhonchi or wheezes,no surgical emphysema Abdomen nontender nondistended soft no organomegaly guarding or rigidity/no signs of peritonitis Incisions are clean dry and intact Extremities no cyanosis no clubbing no edema Urinary Catheter Management^: Gonzalez: Cath Placed During This Visit: yes Urinary Catheter Date of Insertion: 11/17/19 Urinary Catheter Time of Insertion: 11:42 Data : 11/19/19 04:15 11/19/19 04:15 A&P Assessment and plan (1) S/P laparoscopic sleeve gastrectomy: Patient undergone uneventful laparoscopic sleeve gastrectomy 11/17/2019 Encourage ambulation Incentive spirometer every hour We will plan to discharge home today Assurance and education All questions have been answered and all concerns have been addressed to patient's satisfaction. Status: Resolved Attestations Medical Necessity Statement*: Patient required inpatient admission to make sure patient's pain under control with IV pain medications and maintained to continue appropriate tolerance to p.o. intake. Time Spent in Patient Care: (>than 50% of time spent in counselling and/or direct pt care on unit) . Coding Level of Care Code Acute Curtain Roller Assembler for Chg Fwd Diagnoses S/P laparoscopic sleeve gastrectomy Z98.84
[2019-11-19 07:31] LABS: Glucose Point of Care 93 mg/dL (70-110)
[2019-11-19 07:32] VITALS: BP 128/79; PULSE 76; RESP 16; TEMP 36.9; O2SAT 92
[2019-11-19] MEDS: ondansetron 2 mg/ML SDV 2 mL 4 MG IVP (07:44)
[2019-11-19] MEDS: heparin 5,000 unit/mL INJ 1 mL 5000 UNIT SUBCUT (07:54)
[2019-11-19 08:57] VITALS: BP 128/79; PULSE 76; RESP 16; TEMP 36.9; O2SAT 92
== END 2019-11-19 09:14 | disposition home or self-care (01) | DRG 620 ==
PROVIDERS: Admitting Provider Surgery; PCP Nurse Practitioner Family; Visit Provider Surgery
PROC: 0DB64Z3 Excision of Stomach, Percutaneous Endoscopic Approach, Vertical (ICD-10-PCS; CPT 43775; principal; 2019-11-17 09:35)
PROC: 0DJ08ZZ Inspection of Upper Intestinal Tract, Via Natural or Artificial Opening Endoscopic (ICD-10-PCS; CPT 43235; 2019-11-17 09:35)
DX: E66.9 Obesity, unspecified (principal); F31.63 Bipolar disorder, current episode mixed, severe, without psychotic features; Z68.32 Body mass index [BMI] 32.0-32.9, adult; Z63.4 Disappearance and death of family member; F60.3 Borderline personality disorder; H60-H95 Diseases of the ear and mastoid process; K58.9 Irritable bowel syndrome, unspecified; Z87.891 Personal history of nicotine dependence; F41.0 Panic disorder [episodic paroxysmal anxiety]; F43.12 Post-traumatic stress disorder, chronic; G47.30 Sleep apnea, unspecified
CPT/HCPCS: 12345; 36415; 36416; 51702; 74240; 80048; 82962; 85014; 85018; 88309; 96365; 96372; 96374; 96375; C9113; J0131; J0690; J1100; J1644; J2250; J2270; J2405; J2704; J2710; J2765; J3010; J3490; J7030

== ENCOUNTER → 2019-11-24 08:41 | Outpatient (BNVA) | payer MEDICARE, MEDICAID, SELFPAY ==
[2019-05-25 13:06] VITALS: BP 101/73; BMI 35.1
== END ==
PROVIDERS: PCP Nurse Practitioner Family; Visit Provider Social Worker Clinical
DX: F43.12 Post-traumatic stress disorder, chronic (principal); F31.63 Bipolar disorder, current episode mixed, severe, without psychotic features; F60.3 Borderline personality disorder; Z63.4 Disappearance and death of family member
CPT/HCPCS: 90832

== ENCOUNTER → 2019-12-15 07:39 | Outpatient (BNVA) | payer MEDICARE, MEDICAID, SELFPAY ==
[2019-05-25 13:06] VITALS: BP 101/73; BMI 35.1
== END ==
PROVIDERS: PCP Nurse Practitioner Family; Visit Provider Nurse Practitioner Psychiatric/Mental Health
DX: F31.63 Bipolar disorder, current episode mixed, severe, without psychotic features (principal); Z63.4 Disappearance and death of family member; F60.3 Borderline personality disorder; F41.0 Panic disorder [episodic paroxysmal anxiety]; F43.12 Post-traumatic stress disorder, chronic
CPT/HCPCS: 99214

== ENCOUNTER → 2019-12-21 08:39 | Outpatient (BNVA) | payer MEDICARE, MEDICAID, SELFPAY ==
[2019-05-25 13:06] VITALS: BP 101/73; BMI 35.1
== END ==
PROVIDERS: PCP Nurse Practitioner Family; Visit Provider Social Worker Clinical
DX: Z63.4 Disappearance and death of family member (principal); F60.3 Borderline personality disorder; F43.12 Post-traumatic stress disorder, chronic; F31.63 Bipolar disorder, current episode mixed, severe, without psychotic features
CPT/HCPCS: 90834

== ENCOUNTER → 2019-12-28 08:22 | Outpatient (BNVA) | payer MEDICARE, MEDICAID, SELFPAY ==
[2019-05-25 13:06] VITALS: BP 101/73; BMI 35.1
== END ==
PROVIDERS: PCP Nurse Practitioner Family; Visit Provider Social Worker Clinical
DX: F31.63 Bipolar disorder, current episode mixed, severe, without psychotic features (principal); F43.12 Post-traumatic stress disorder, chronic; F60.3 Borderline personality disorder; Z63.4 Disappearance and death of family member
CPT/HCPCS: 90834

== ENCOUNTER → 2019-12-29 07:38 | Outpatient (BNVA) | payer MEDICARE, MEDICAID, SELFPAY ==
[2019-05-25 13:06] VITALS: BP 101/73; BMI 35.1
== END ==
PROVIDERS: PCP Nurse Practitioner Family; Visit Provider Nurse Practitioner Psychiatric/Mental Health
DX: F31.63 Bipolar disorder, current episode mixed, severe, without psychotic features (principal); Z63.4 Disappearance and death of family member; F60.3 Borderline personality disorder; F41.0 Panic disorder [episodic paroxysmal anxiety]; F43.12 Post-traumatic stress disorder, chronic; F33.1 Major depressive disorder, recurrent, moderate; F41.1 Generalized anxiety disorder
CPT/HCPCS: 99214

== ENCOUNTER 2020-01-05 12:07 | Emergency (ER) | payer MEDICARE, MEDICAID, SELFPAY ==
[2019-05-25 13:06] VITALS: BP 101/73; BMI 35.1
[2020-01-05 12:28] VITALS: BP 113/70; PULSE 93; RESP 20; TEMP 36.7; O2SAT 100; BMI 28.2
--- NOTE | 2020-01-05 12:44 | XRR_ITS ---
PROCEDURE INFORMATION: Exam: XR Left Ribs with PA Chest, 3 Views Exam date and time: 01/05/2020 1:18 PM Age: 39 years old Clinical indication: Pain and injury or trauma; Fall; Rib area, left side; Blunt trauma; Chest wall pain; Injury date: 01/04/20; Additional info: Pain, trauma TECHNIQUE: Imaging protocol: XR Left ribs 3 views with PA chest. COMPARISON: No relevant prior studies available. FINDINGS: Lungs: Unremarkable. No consolidation. Pleural space: Unremarkable. No pleural effusion. No pneumothorax. Heart/Mediastinum: Unremarkable. No cardiomegaly. Bones/joints: Unremarkable. XR/XR ribs LT mn 3V w CXR1V [id number] IMPRESSION: There is no evidence for acute fracture or malalignment.
[2020-01-05] MEDS: HYDROcodone-acetaminophen 5-325 mg Tablet 2 TAB PO (13:47)
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
[2020-01-05 14:00] VITALS: BP 135/79; PULSE 70; RESP 15; O2SAT 97
== END 2020-01-05 14:00 | disposition home or self-care (01) ==
PROVIDERS: Emergency Provider Family Medicine; PCP Nurse Practitioner Family
DX: R07.81 Pleurodynia (principal); Z87.891 Personal history of nicotine dependence
CPT/HCPCS: 12345; 71101; 99282; 99283

== ENCOUNTER → 2020-01-11 07:59 | Outpatient (BNVA) | payer MEDICARE, MEDICAID, SELFPAY ==
[2019-05-25 13:06] VITALS: BP 101/73; BMI 35.1
== END ==
PROVIDERS: PCP Nurse Practitioner Family; Visit Provider Social Worker Clinical
DX: Z63.4 Disappearance and death of family member (principal); F60.3 Borderline personality disorder; F43.12 Post-traumatic stress disorder, chronic; F31.63 Bipolar disorder, current episode mixed, severe, without psychotic features
CPT/HCPCS: 90834

== ENCOUNTER 2020-01-11 12:42 | Emergency (ER) | payer MEDICARE, MEDICAID, SELFPAY ==
[2019-05-25 13:06] VITALS: BP 101/73; BMI 35.1
[2020-01-11 13:00] VITALS: BP 114/79; PULSE 92; RESP 14; TEMP 36.7; O2SAT 98; BMI 28.8
[2020-01-11 13:24] LABS: HCG Qualitative Urine. Negative (Negative)
[2020-01-11 13:29] LABS: Add Urine Microscopic? YES; Bilirubin Urine Neg (Negative); Blood Urine Neg (Negative); Glucose Urine UA Norm (Normal); Ketones Urine Negative (Negative); Leukocyte Esterase Urine 2+ (Negative); Nitrate Urine Negative (Negative); Protein Urine Neg (Negative); Sulfosalicylic Acid Urine Negative (Negative); Urine Appearance Clear (CLEAR); Urine Color Straw (Yellow); Urobilinogen Urine Norm (Negative); pH Urine 8 (5-7)
[2020-01-11 13:30] LABS: Add Urine Culture? Yes; Bacteria Urine 2+ /hpf
--- NOTE | 2020-01-11 13:43 | ECG_ITS ---
[facility] Test Date: 2020-01-11 Pat Name: Kristy Saba Department: Room: Gender: Female Marine Resource Economist: chris WEIB: 1980 Requested By: Rohan Dillon Order Number: [id number] Tse MD: Lyn Bernstein M.D. Measurements Intervals [place] Rate: 72 P: 30 FL: 143 QRS: 42 QRSD: 87 T: 30 QT: 371 QTc: 406 Interpretive Statements SINUS RHYTHM Compared to ECG 10/14/2017 13:49:30 No significant changes Electronically Signed On 01-12-2020 7:17:54 CDT by Lyn Bernstein M.D. [email or web address]
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
[2020-01-11 14:00] LABS: Basophils % 0.4 %; Eosinophils # 0.2 10^3/uL (0.0-0.8); Eosinophils % 3.1 %; Hematocrit 42.6 % (37.0-47.0); Hemoglobin 14.1 g/dL (11.5-15.3); Lymphocytes # 2.2 10^3/uL (0.8-4.8); Lymphocytes % 30.3 %; Mean Corpuscular HGB Conc 33.1 g/dL (30.0-36.0); Mean Corpuscular Volume 96.8 fL (81-99); Mean Platelet Volume 11.3 fL (7.4-10.4); Monocytes # 0.5 10^3/uL (0.2-0.9); Monocytes % 7.2 %; Neutrophils # 4.32 10^3/uL (1.8-7.7); Neutrophils % 58.7 %; Nucleated Red Blood Cells % 0 %; Platelet Count 260 10^3/cmm (130-400); Red Cell Distribution Width 13.8 % (12.1-15.1); White Blood Count 7.4 10^3/uL (4.0-10.0)
[2020-01-11 14:13] LABS: Alanine Aminotransferase < 5 U/L (0-33); Albumin Level 4.3 g/dL (3.5-5.2); Alkaline Phosphatase 112 IU/L (35-105); Anion Gap 11.8 (5-19); Aspartate Amino Transferase 12 U/L (0-32); Blood Urea Nitrogen 7 mg/dL (6-20); Calcium 9.5 mg/dL (8.5-10.5); Carbon Dioxide 27 mmol/L (22-29); Chloride 104 mmol/L (98-107); Globulin 1.7 g/dL (1.3-4.6); Glomerular Filtration Rate 111.3 mL/min (90-130); Glucose 102 mg/dL (65-115); Lipase 28 U/L (13-60); Osmolality Calculated 286 mOsm/kg (285-295); Potassium 3.8 mmol/L (3.5-5.1); Sodium 139 mmol/L (136-145); Total Bilirubin 0.3 mg/dL (0.15-1.2)
[2020-01-11 14:21] LABS: Troponin T (5th) Once 6 ng/L (0-10)
[2020-01-11] MEDS: morphine 4 mg/mL SDV 1 mL 2 MG IVP (14:38)
[2020-01-11 15:11] VITALS: BP 116/80; PULSE 75; RESP 15; O2SAT 97
--- NOTE | 2020-01-11 17:35 | PC.NURSE ---
Read and agree with assessment.
== END 2020-01-11 15:11 | disposition home or self-care (01) ==
PROVIDERS: Emergency Medicine; Emergency Provider Physician Assistant; PCP Nurse Practitioner Family
DX: R07.81 Pleurodynia (principal); R07.89 Other chest pain; K59.01 Slow transit constipation; Z87.891 Personal history of nicotine dependence; Z79.899 Other long term (current) drug therapy
CPT/HCPCS: 12345; 80053; 81001; 81025; 83690; 84484; 85025; 87086; 93005; 96374; 99282; 99283; J2270

== ENCOUNTER → 2020-01-12 07:58 | Outpatient (BNVA) | payer MEDICARE, MEDICAID, SELFPAY ==
[2019-05-25 13:06] VITALS: BP 101/73; BMI 35.1
== END ==
PROVIDERS: PCP Nurse Practitioner Family; Visit Provider Nurse Practitioner Psychiatric/Mental Health
DX: F31.63 Bipolar disorder, current episode mixed, severe, without psychotic features (principal); F41.0 Panic disorder [episodic paroxysmal anxiety]; F60.3 Borderline personality disorder; F43.12 Post-traumatic stress disorder, chronic; Z63.4 Disappearance and death of family member
CPT/HCPCS: 99214

== ENCOUNTER → 2020-01-18 07:52 | Outpatient (BNVA) | payer MEDICARE, MEDICAID, SELFPAY ==
[2019-05-25 13:06] VITALS: BP 101/73; BMI 35.1
== END ==
PROVIDERS: PCP Nurse Practitioner Family; Visit Provider Social Worker Clinical
DX: F43.12 Post-traumatic stress disorder, chronic (principal); F31.63 Bipolar disorder, current episode mixed, severe, without psychotic features; F60.3 Borderline personality disorder
CPT/HCPCS: 90832

== ENCOUNTER → 2020-01-25 08:10 | Outpatient (BNVA) | payer MEDICARE, MEDICAID, SELFPAY ==
[2019-05-25 13:06] VITALS: BP 101/73; BMI 35.1
== END ==
PROVIDERS: PCP Nurse Practitioner Family; Visit Provider Social Worker Clinical
DX: Z63.4 Disappearance and death of family member (principal); F60.3 Borderline personality disorder; F43.12 Post-traumatic stress disorder, chronic; F31.63 Bipolar disorder, current episode mixed, severe, without psychotic features; F41.0 Panic disorder [episodic paroxysmal anxiety]
CPT/HCPCS: 90832

== ENCOUNTER → 2020-01-26 07:49 | Outpatient (BNVA) | payer MEDICARE, MEDICAID, SELFPAY ==
[2019-05-25 13:06] VITALS: BP 101/73; BMI 35.1
== END ==
PROVIDERS: PCP Nurse Practitioner Family; Visit Provider Nurse Practitioner Psychiatric/Mental Health
DX: F31.63 Bipolar disorder, current episode mixed, severe, without psychotic features (principal); F43.12 Post-traumatic stress disorder, chronic; F60.3 Borderline personality disorder; F41.0 Panic disorder [episodic paroxysmal anxiety]; Z63.4 Disappearance and death of family member
CPT/HCPCS: 99214

== ENCOUNTER → 2020-02-01 08:16 | Outpatient (BNVA) | payer MEDICARE, MEDICAID, SELFPAY ==
[2019-05-25 13:06] VITALS: BP 101/73; BMI 35.1
== END ==
PROVIDERS: PCP Nurse Practitioner Family; Visit Provider Social Worker Clinical
DX: F60.3 Borderline personality disorder (principal); F43.12 Post-traumatic stress disorder, chronic; F31.63 Bipolar disorder, current episode mixed, severe, without psychotic features; F41.0 Panic disorder [episodic paroxysmal anxiety]
CPT/HCPCS: 90832

== ENCOUNTER 2020-02-17 10:12 | Outpatient (CLI) | payer MEDICARE, MEDICAID, SELFPAY ==
[2019-05-25 13:06] VITALS: BP 101/73; BMI 35.1
[2020-02-17 11:04] LABS: Basophils % 0.5 %; Eosinophils # 0.2 10^3/uL (0.0-0.8); Eosinophils % 2.5 %; Hematocrit 41.8 % (37.0-47.0); Hemoglobin 14.6 g/dL (11.5-15.3); Lymphocytes # 2.2 10^3/uL (0.8-4.8); Mean Corpuscular HGB Conc 34.9 g/dL (30.0-36.0); Mean Corpuscular Hemoglobin 32.4 pg (28.0-34.0); Mean Corpuscular Volume 92.9 fL (81-99); Mean Platelet Volume 10.4 fL (7.4-10.4); Monocytes # 0.7 10^3/uL (0.2-0.9); Monocytes % 9.1 %; Neutrophils # 4.21 10^3/uL (1.8-7.7); Neutrophils % 57.4 %; Nucleated Red Blood Cells % 0 %; Platelet Count 283 10^3/cmm (130-400); Red Cell Distribution Width 13.4 % (12.1-15.1); White Blood Count 7.3 10^3/uL (4.0-10.0)
[2020-02-17 11:48] LABS: Alanine Aminotransferase 9 U/L (0-33); Albumin Level 4.7 g/dL (3.5-5.2); Alkaline Phosphatase 133 IU/L (35-105); Anion Gap 17.3 (5-19); Aspartate Amino Transferase 15 U/L (0-32); Blood Urea Nitrogen 6 mg/dL (6-20); Calcium 9.8 mg/dL (8.5-10.5); Carbon Dioxide 25 mmol/L (22-29); Chloride 98 mmol/L (98-107); Globulin 2.4 g/dL (1.3-4.6); Glomerular Filtration Rate 111.3 mL/min (90-130); Glucose 98 mg/dL (65-115); Iron 81 ug/dL (37-145); Magnesium 1.8 mg/dL (1.7-2.3); Osmolality Calculated 282 mOsm/kg (285-295); Percent Saturation 29.1 % (20-50); Phosphorus 3.7 mg/dL (2.5-4.5); Potassium 3.3 mmol/L (3.5-5.1); Sodium 137 mmol/L (136-145); Total Bilirubin 0.9 mg/dL (0.15-1.2); Total Iron Binding Capacity 278 mcg/dl; Total Protein 7.1 g/dL (6.6-8.7); Unsaturated Iron Binding 197 ug/dL (112-347); Vitamin B12 1031 pg/mL (232-1245)
[2020-02-17 11:54] LABS: Calcium 10.1 mg/dL (8.5-10.5); Parathyroid Hormone 44.2 pg/mL (15-65)
[2020-02-17 12:02] LABS: Folate Level 6.2 ng/mL (4.8-37.3)
== END 2020-02-17 10:13 | disposition home or self-care (01) ==
LOC: LAB 10:19
PROVIDERS: PCP Nurse Practitioner Family; Visit Provider Surgery
DX: E88.81 Metabolic syndrome and other insulin resistance (principal)
CPT/HCPCS: 80053; 82310; 82607; 82746; 83540; 83550; 83735; 83970; 84100; 84443; 85025

== ENCOUNTER → 2020-02-18 07:49 | Outpatient (BNVA) | payer MEDICARE, MEDICAID, SELFPAY ==
[2019-05-25 13:06] VITALS: BP 101/73; BMI 35.1
== END ==
PROVIDERS: PCP Nurse Practitioner Family; Visit Provider Social Worker Clinical
DX: F60.3 Borderline personality disorder (principal); F43.12 Post-traumatic stress disorder, chronic; F31.63 Bipolar disorder, current episode mixed, severe, without psychotic features; Z63.4 Disappearance and death of family member
CPT/HCPCS: 90834

== ENCOUNTER → 2020-02-23 07:34 | Outpatient (BNVA) | payer MEDICARE, MEDICAID, SELFPAY ==
[2019-05-25 13:06] VITALS: BP 101/73; BMI 35.1
== END ==
PROVIDERS: PCP Nurse Practitioner Family; Visit Provider Nurse Practitioner Psychiatric/Mental Health
DX: F31.63 Bipolar disorder, current episode mixed, severe, without psychotic features (principal); F41.0 Panic disorder [episodic paroxysmal anxiety]; F43.12 Post-traumatic stress disorder, chronic; F17.210 Nicotine dependence, cigarettes, uncomplicated; F60.3 Borderline personality disorder
CPT/HCPCS: 99214

== ENCOUNTER → 2020-02-29 08:07 | Outpatient (BNVA) | payer MEDICARE, MEDICAID, SELFPAY ==
[2019-05-25 13:06] VITALS: BP 101/73; BMI 35.1
== END ==
PROVIDERS: PCP Nurse Practitioner Family; Visit Provider Social Worker Clinical
DX: F43.12 Post-traumatic stress disorder, chronic (principal); F31.63 Bipolar disorder, current episode mixed, severe, without psychotic features; F60.3 Borderline personality disorder
CPT/HCPCS: 90832

== ENCOUNTER → 2020-03-16 07:49 | Outpatient (BNVA) | payer MEDICARE, MEDICAID, SELFPAY ==
[2019-05-25 13:06] VITALS: BP 101/73; BMI 35.1
== END ==
PROVIDERS: PCP Nurse Practitioner Family; Visit Provider Social Worker Clinical
DX: Z63.4 Disappearance and death of family member (principal); F60.3 Borderline personality disorder; F43.12 Post-traumatic stress disorder, chronic; F31.63 Bipolar disorder, current episode mixed, severe, without psychotic features
CPT/HCPCS: 90834

== ENCOUNTER → 2020-03-21 07:38 | Outpatient (BNVA) | payer MEDICARE, MEDICAID, SELFPAY ==
[2019-05-25 13:06] VITALS: BP 101/73; BMI 35.1
== END ==
PROVIDERS: PCP Nurse Practitioner Family; Visit Provider Nurse Practitioner Psychiatric/Mental Health
DX: F31.63 Bipolar disorder, current episode mixed, severe, without psychotic features (principal); F43.12 Post-traumatic stress disorder, chronic; F60.3 Borderline personality disorder; F41.0 Panic disorder [episodic paroxysmal anxiety]; Z63.4 Disappearance and death of family member
CPT/HCPCS: 99214

== ENCOUNTER → 2020-03-23 09:13 | Outpatient (BNVA) | payer MEDICARE, MEDICAID, SELFPAY ==
[2019-05-25 13:06] VITALS: BP 101/73; BMI 35.1
== END ==
PROVIDERS: PCP Nurse Practitioner Family; Visit Provider Social Worker Clinical
DX: Z63.4 Disappearance and death of family member (principal); F60.3 Borderline personality disorder; F41.0 Panic disorder [episodic paroxysmal anxiety]; F43.12 Post-traumatic stress disorder, chronic; F31.63 Bipolar disorder, current episode mixed, severe, without psychotic features
CPT/HCPCS: 90832

== ENCOUNTER → 2020-03-30 08:46 | Outpatient (BNVA) | payer MEDICARE, MEDICAID, SELFPAY ==
[2019-05-25 13:06] VITALS: BP 101/73; BMI 35.1
== END ==
PROVIDERS: PCP Nurse Practitioner Family; Visit Provider Social Worker Clinical
DX: F31.63 Bipolar disorder, current episode mixed, severe, without psychotic features (principal); F43.12 Post-traumatic stress disorder, chronic; F41.0 Panic disorder [episodic paroxysmal anxiety]; F60.3 Borderline personality disorder
CPT/HCPCS: 90832

== ENCOUNTER → 2020-04-04 08:48 | Outpatient (BNVA) | payer MEDICARE, MEDICAID, SELFPAY ==
[2019-05-25 13:06] VITALS: BP 101/73; BMI 35.1
== END ==
PROVIDERS: PCP Nurse Practitioner Family; Visit Provider Nurse Practitioner Psychiatric/Mental Health
DX: F31.63 Bipolar disorder, current episode mixed, severe, without psychotic features (principal); Z63.4 Disappearance and death of family member; F60.3 Borderline personality disorder; F41.0 Panic disorder [episodic paroxysmal anxiety]; F43.12 Post-traumatic stress disorder, chronic
CPT/HCPCS: 99214

== ENCOUNTER → 2020-04-13 08:47 | Outpatient (BNVA) | payer MEDICARE, MEDICAID, SELFPAY ==
[2019-05-25 13:06] VITALS: BP 101/73; BMI 35.1
== END ==
PROVIDERS: PCP Nurse Practitioner Family; Visit Provider Social Worker Clinical
DX: F31.63 Bipolar disorder, current episode mixed, severe, without psychotic features (principal); F60.3 Borderline personality disorder; F43.12 Post-traumatic stress disorder, chronic; Z63.4 Disappearance and death of family member; F10.20 Alcohol dependence, uncomplicated
CPT/HCPCS: 90834

== ENCOUNTER → 2020-04-18 08:12 | Outpatient (BNVA) | payer MEDICARE, MEDICAID, SELFPAY ==
[2019-05-25 13:06] VITALS: BP 101/73; BMI 35.1
== END ==
PROVIDERS: PCP Nurse Practitioner Family; Visit Provider Nurse Practitioner Psychiatric/Mental Health
DX: F31.63 Bipolar disorder, current episode mixed, severe, without psychotic features (principal); F43.12 Post-traumatic stress disorder, chronic; Z63.4 Disappearance and death of family member; F60.3 Borderline personality disorder; F10.10 Alcohol abuse, uncomplicated; F41.0 Panic disorder [episodic paroxysmal anxiety]
CPT/HCPCS: 99214

== ENCOUNTER → 2020-04-20 09:02 | Outpatient (BNVA) | payer MEDICARE, MEDICAID, SELFPAY ==
[2019-05-25 13:06] VITALS: BP 101/73; BMI 35.1
== END ==
PROVIDERS: PCP Nurse Practitioner Family; Visit Provider Social Worker Clinical
DX: F60.3 Borderline personality disorder (principal); F43.12 Post-traumatic stress disorder, chronic; F31.63 Bipolar disorder, current episode mixed, severe, without psychotic features; Z63.4 Disappearance and death of family member; F10.10 Alcohol abuse, uncomplicated
CPT/HCPCS: 90832

== ENCOUNTER → 2020-04-27 08:28 | Outpatient (BNVA) | payer MEDICARE, MEDICAID, SELFPAY ==
[2019-05-25 13:06] VITALS: BP 101/73; BMI 35.1
== END ==
PROVIDERS: PCP Nurse Practitioner Family; Visit Provider Social Worker Clinical
DX: F10.10 Alcohol abuse, uncomplicated (principal); F60.3 Borderline personality disorder; F43.12 Post-traumatic stress disorder, chronic; F31.63 Bipolar disorder, current episode mixed, severe, without psychotic features
CPT/HCPCS: 90832

== ENCOUNTER → 2020-05-12 07:48 | Outpatient (BNVA) | payer MEDICARE, MEDICAID, SELFPAY ==
[2019-05-25 13:06] VITALS: BP 101/73; BMI 35.1
== END ==
PROVIDERS: PCP Nurse Practitioner Family; Visit Provider Social Worker Clinical
DX: F10.10 Alcohol abuse, uncomplicated (principal); F60.3 Borderline personality disorder; Z63.4 Disappearance and death of family member; F43.12 Post-traumatic stress disorder, chronic; F31.63 Bipolar disorder, current episode mixed, severe, without psychotic features
CPT/HCPCS: 90832

== ENCOUNTER 2020-05-18 11:55 | Emergency (ER) | payer MEDICARE, MEDICAID, SELFPAY ==
[2019-05-25 13:06] VITALS: BP 101/73; BMI 35.1
[2020-05-18 12:22] VITALS: BP 103/71; PULSE 89; RESP 18; TEMP 36.1; O2SAT 99; BMI 27.4
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
[2020-05-18 12:42] VITALS: BP 112/78; PULSE 90; RESP 29; O2SAT 100
--- NOTE | 2020-05-18 12:47 | XR_ITS ---
WS: [id number] Portable AP upright chest, 05/18/2020 Clinical Data: chest pain/syncope Comparison: [place] chest, 01/05/2020. Findings: No nodules, masses or effusions are seen. The heart is normal. The pulmonary vascularity is not increased. No pneumonia or pneumothorax is seen. Monitor leads are on the chest wall. XR/XR chest 1V portable [id number] Impression: Negative chest.
[2020-05-18 13:10] VITALS: BP 103/73; PULSE 86; RESP 28; O2SAT 100
--- NOTE | 2020-05-18 13:10 | ECG_ITS ---
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 Measurements Intervals [place] Rate: 66 P: 37 DE: 149 QRS: 48 QRSD: 85 T: 47 QT: 380 QTc: 399 Interpretive Statements SINUS RHYTHM Compared to ECG 01/11/2020 14:25:22 No significant changes Electronically Signed On 05-18-2020 20:56:24 ENVIRONMENTAL QUALITY ANALYST by Dany Aguirre M.D. [id number]
[2020-05-18 13:15] LABS: Basophils % 0.5 %; Eosinophils # 0.3 10^3/uL (0.0-0.8); Eosinophils % 3.1 %; Hematocrit 43.1 % (37.0-47.0); Hemoglobin 14.5 g/dL (11.5-15.3); Lymphocytes # 2.8 10^3/uL (0.8-4.8); Lymphocytes % 34.5 %; Mean Corpuscular HGB Conc 33.6 g/dL (30.0-36.0); Mean Corpuscular Hemoglobin 33.6 pg (28.0-34.0); Mean Corpuscular Volume 99.8 fL (81-99); Mean Platelet Volume 10.9 fL (7.4-10.4); Monocytes # 0.5 10^3/uL (0.2-0.9); Monocytes % 5.8 %; Neutrophils # 4.48 10^3/uL (1.8-7.7); Nucleated Red Blood Cells % 0 %; Platelet Count 253 10^3/cmm (130-400); Red Blood Count 4.32 10^6/uL (4.1-5.3)
[2020-05-18 13:16] LABS: Add Urine Microscopic? NO
[2020-05-18 13:18] VITALS: BP 106/74; BP 107/72; BP 82/54; PULSE 67; PULSE 68; PULSE 69
[2020-05-18 13:25] VITALS: BP 82/54; PULSE 74; RESP 31; O2SAT 99
[2020-05-18 13:29] LABS: Amphetamines Screen Urine Positive (Negative); Barbiturates Screen Urine Negative (Negative); Benzodiazepines Screen Urine Positive (Negative); Cocaine Screen Urine Negative (Negative); Opiate Screen Urine Negative (Negative); PCP Screen Urine Negative (Negative); THC Screen Urine Positive (Negative)
[2020-05-18] MEDS: ketorolac 30 mg/mL INJ IVP (13:52)
[2020-05-18] MEDS: sodium chloride 0.9% 1,000 ML 999 ML IV (13:53)
[2020-05-18 14:24] LABS: HCG, Serum Qual Negative (Negative)
[2020-05-18 14:36] LABS: Troponin(5th) Baseline 6 ng/L (0-10)
[2020-05-18 14:36] LABS: D Dimer 0.28 ug/mIFEU (0-0.59)
[2020-05-18 14:42] LABS: Bilirubin Urine Neg (Negative); Blood Urine Neg (Negative); Glucose Urine UA Norm (Normal); Ketones Urine Negative (Negative); Leukocyte Esterase Urine Negative (Negative); Nitrate Urine Negative (Negative); Protein Urine Neg (Negative); Sulfosalicylic Acid Urine Negative (Negative); Urine Appearance Clear (CLEAR); Urine Color Yellow (Yellow); Urobilinogen Urine Norm (Negative); pH Urine 7 (5-7)
--- NOTE | 2020-05-18 15:10 | ECG_ITS ---
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 Measurements Intervals [place] Rate: 63 P: 35 VA: 151 QRS: 38 QRSD: 90 T: 47 QT: 407 QTc: 420 Interpretive Statements SINUS RHYTHM Compared to ECG 05/18/2020 13:26:19 No significant changes Electronically Signed On 05-18-2020 21:01:52 TANK CLEANER by Dany Aguirre M.D. [id number]
[2020-05-18 15:28] LABS: Alanine Aminotransferase < 5 U/L (0-33); Albumin Level 4.3 g/dL (3.5-5.2); Alkaline Phosphatase 102 IU/L (35-105); Anion Gap 13.7 (5-19); Aspartate Amino Transferase 13 U/L (0-32); Blood Urea Nitrogen 6 mg/dL (6-20); Calcium 8.8 mg/dL (8.5-10.5); Carbon Dioxide 24 mmol/L (22-29); Chloride 106 mmol/L (98-107); Globulin 2.2 g/dL (1.3-4.6); Glomerular Filtration Rate 79.4 mL/min (90-130); Glucose 70 mg/dL (65-115); NT Pro B Type Natriuretic Pept 70 pg/mL (0-125); Osmolality Calculated 286 mOsm/kg (285-295); Potassium 3.7 mmol/L (3.5-5.1); Sodium 140 mmol/L (136-145); Total Bilirubin 0.3 mg/dL (0.15-1.2); Total Protein 6.5 g/dL (6.6-8.7)
[2020-05-18 16:02] LABS: Troponin 5 2HR Delta 0 ABS# (0-10)
[2020-05-18 16:47] VITALS: BP 115/77; PULSE 67; RESP 22; O2SAT 97
[2020-05-23 12:24] LABS: Lamotrigine (Lamictal) Level 2.6 mcg/mL (4.0-18.0)
== END 2020-05-18 16:51 | disposition home or self-care (01) ==
PROVIDERS: Emergency Provider Physician Assistant; PCP Nurse Practitioner Family
DX: I95.2 Hypotension due to drugs (principal); F17.210 Nicotine dependence, cigarettes, uncomplicated; Z79.899 Other long term (current) drug therapy; R07.9 Chest pain, unspecified
CPT/HCPCS: 36415; 71045; 80053; 80175; 80306; 81003; 83880; 84484; 84703; 85025; 85378; 93005; 96361; 96374; 99284; J1885; J7030

== ENCOUNTER → 2020-05-23 09:37 | Outpatient (BNVA) | payer OTHER, SELFPAY ==
[2019-05-25 13:06] VITALS: BP 101/73; BMI 35.1
== END ==
PROVIDERS: PCP Nurse Practitioner Family; Visit Provider Nurse Practitioner Psychiatric/Mental Health
DX: F31.63 Bipolar disorder, current episode mixed, severe, without psychotic features (principal)
CPT/HCPCS: 80061; 83036

== ENCOUNTER → 2020-06-02 08:00 | Outpatient (BNVA) | payer MEDICARE, MEDICAID, SELFPAY ==
[2020-05-24 10:26] VITALS: BP 111/73; BMI 27.4
== END ==
PROVIDERS: PCP Nurse Practitioner Family; Visit Provider Nurse Practitioner Psychiatric/Mental Health
DX: F31.63 Bipolar disorder, current episode mixed, severe, without psychotic features (principal); F43.12 Post-traumatic stress disorder, chronic; F10.10 Alcohol abuse, uncomplicated; F12.20 Cannabis dependence, uncomplicated; Z63.4 Disappearance and death of family member; F60.3 Borderline personality disorder; F41.0 Panic disorder [episodic paroxysmal anxiety]
CPT/HCPCS: 99214

== ENCOUNTER → 2020-07-06 07:12 | Outpatient (BNVA) | payer MEDICARE, MEDICAID, SELFPAY ==
[2020-05-24 10:26] VITALS: BP 111/73; BMI 27.4
== END ==
PROVIDERS: PCP Nurse Practitioner Family; Visit Provider Nurse Practitioner Psychiatric/Mental Health
DX: F31.63 Bipolar disorder, current episode mixed, severe, without psychotic features (principal); F43.12 Post-traumatic stress disorder, chronic; F60.3 Borderline personality disorder; F12.20 Cannabis dependence, uncomplicated; F41.0 Panic disorder [episodic paroxysmal anxiety]; Z63.4 Disappearance and death of family member; F10.10 Alcohol abuse, uncomplicated
CPT/HCPCS: 99214

== ENCOUNTER → 2020-07-20 12:01 | Outpatient (BNVA) | payer MEDICARE, MEDICAID, SELFPAY ==
[2020-05-24 10:26] VITALS: BP 111/73; BMI 27.4
== END ==
PROVIDERS: PCP Nurse Practitioner Family; Visit Provider Nurse Practitioner Psychiatric/Mental Health
DX: F43.12 Post-traumatic stress disorder, chronic (principal); F31.63 Bipolar disorder, current episode mixed, severe, without psychotic features; F41.0 Panic disorder [episodic paroxysmal anxiety]; F17.210 Nicotine dependence, cigarettes, uncomplicated; F60.3 Borderline personality disorder; F12.20 Cannabis dependence, uncomplicated; Z63.4 Disappearance and death of family member; Z79.899 Other long term (current) drug therapy
CPT/HCPCS: 99214

== ENCOUNTER → 2020-07-22 08:33 | Outpatient (BNVA) | payer MEDICARE, MEDICAID, SELFPAY ==
[2020-05-24 10:26] VITALS: BP 111/73; BMI 27.4
== END ==
PROVIDERS: PCP Nurse Practitioner Family; Visit Provider Nurse Practitioner Psychiatric/Mental Health
DX: Z79.899 Other long term (current) drug therapy (principal); F12.20 Cannabis dependence, uncomplicated; F10.10 Alcohol abuse, uncomplicated
CPT/HCPCS: 80053; 80306; 80307

== ENCOUNTER → 2020-08-03 09:22 | Outpatient (BNVA) | payer MEDICARE, MEDICAID, SELFPAY ==
[2020-05-24 10:26] VITALS: BP 111/73; BMI 27.4
== END ==
PROVIDERS: PCP Nurse Practitioner Family; Visit Provider Nurse Practitioner Psychiatric/Mental Health
DX: F31.63 Bipolar disorder, current episode mixed, severe, without psychotic features (principal); F43.12 Post-traumatic stress disorder, chronic; F12.20 Cannabis dependence, uncomplicated; F17.210 Nicotine dependence, cigarettes, uncomplicated; F41.0 Panic disorder [episodic paroxysmal anxiety]; F60.3 Borderline personality disorder; F10.10 Alcohol abuse, uncomplicated; Z63.4 Disappearance and death of family member
CPT/HCPCS: 99214

== ENCOUNTER → 2020-09-14 09:54 | Outpatient (BNVA) | payer MEDICARE, MEDICAID, SELFPAY ==
[2020-05-24 10:26] VITALS: BP 111/73; BMI 27.4
== END ==
PROVIDERS: PCP Nurse Practitioner Family; Visit Provider Nurse Practitioner Psychiatric/Mental Health
DX: F31.63 Bipolar disorder, current episode mixed, severe, without psychotic features (principal); F43.12 Post-traumatic stress disorder, chronic; F10.10 Alcohol abuse, uncomplicated; F12.20 Cannabis dependence, uncomplicated; Z03.89 Encounter for observation for other suspected diseases and conditions ruled out; Z63.4 Disappearance and death of family member; F60.3 Borderline personality disorder; F41.0 Panic disorder [episodic paroxysmal anxiety]
CPT/HCPCS: 99214

== ENCOUNTER → 2020-09-28 07:09 | Outpatient (BNVA) | payer MEDICARE, MEDICAID, SELFPAY ==
[2020-05-24 10:26] VITALS: BP 111/73; BMI 27.4
== END ==
PROVIDERS: PCP Nurse Practitioner Family; Visit Provider Nurse Practitioner Psychiatric/Mental Health
DX: F31.63 Bipolar disorder, current episode mixed, severe, without psychotic features (principal); F43.12 Post-traumatic stress disorder, chronic; F10.10 Alcohol abuse, uncomplicated; F12.20 Cannabis dependence, uncomplicated; Z63.4 Disappearance and death of family member; F60.3 Borderline personality disorder; F41.0 Panic disorder [episodic paroxysmal anxiety]
CPT/HCPCS: 99214

== ENCOUNTER → 2020-10-03 08:49 | Outpatient (BNVA) | payer MEDICARE, MEDICAID, SELFPAY ==
[2020-05-24 10:26] VITALS: BP 111/73; BMI 27.4
== END ==
PROVIDERS: PCP Nurse Practitioner Family; Visit Provider Social Worker Clinical
DX: F60.3 Borderline personality disorder (principal); F43.12 Post-traumatic stress disorder, chronic; F10.10 Alcohol abuse, uncomplicated; F31.63 Bipolar disorder, current episode mixed, severe, without psychotic features
CPT/HCPCS: 90834

== ENCOUNTER → 2020-10-12 07:06 | Outpatient (BNVA) | payer MEDICARE, MEDICAID, SELFPAY ==
[2020-05-24 10:26] VITALS: BP 111/73; BMI 27.4
== END ==
PROVIDERS: PCP Nurse Practitioner Family; Visit Provider Nurse Practitioner Psychiatric/Mental Health
DX: F31.63 Bipolar disorder, current episode mixed, severe, without psychotic features (principal); F43.12 Post-traumatic stress disorder, chronic; F10.10 Alcohol abuse, uncomplicated; F12.20 Cannabis dependence, uncomplicated; Z63.4 Disappearance and death of family member; F60.3 Borderline personality disorder; F41.0 Panic disorder [episodic paroxysmal anxiety]
CPT/HCPCS: 99214

== ENCOUNTER → 2020-10-26 07:12 | Outpatient (BNVA) | payer MEDICARE, MEDICAID, SELFPAY ==
[2020-05-24 10:26] VITALS: BP 111/73; BMI 27.4
== END ==
PROVIDERS: PCP Nurse Practitioner Family; Visit Provider Nurse Practitioner Psychiatric/Mental Health
DX: F31.63 Bipolar disorder, current episode mixed, severe, without psychotic features (principal); F43.12 Post-traumatic stress disorder, chronic; F10.10 Alcohol abuse, uncomplicated; F12.20 Cannabis dependence, uncomplicated; Z63.4 Disappearance and death of family member; F60.3 Borderline personality disorder; F41.0 Panic disorder [episodic paroxysmal anxiety]
CPT/HCPCS: 99214

== ENCOUNTER → 2020-11-09 07:32 | Outpatient (BNVA) | payer MEDICARE, MEDICAID, SELFPAY ==
[2020-05-24 10:26] VITALS: BP 111/73; BMI 27.4
== END ==
PROVIDERS: PCP Nurse Practitioner Family; Visit Provider Nurse Practitioner Psychiatric/Mental Health
DX: F43.12 Post-traumatic stress disorder, chronic (principal); F31.63 Bipolar disorder, current episode mixed, severe, without psychotic features; F10.10 Alcohol abuse, uncomplicated; F12.20 Cannabis dependence, uncomplicated; Z63.4 Disappearance and death of family member; F60.3 Borderline personality disorder; F41.0 Panic disorder [episodic paroxysmal anxiety]
CPT/HCPCS: 99214

== ENCOUNTER → 2020-11-23 08:15 | Outpatient (BNVA) | payer MEDICARE, MEDICAID, SELFPAY ==
[2020-05-24 10:26] VITALS: BP 111/73; BMI 27.4
== END ==
PROVIDERS: PCP Nurse Practitioner Family; Visit Provider Nurse Practitioner Psychiatric/Mental Health
DX: F31.63 Bipolar disorder, current episode mixed, severe, without psychotic features (principal); F43.12 Post-traumatic stress disorder, chronic; F10.10 Alcohol abuse, uncomplicated; F12.20 Cannabis dependence, uncomplicated; Z63.4 Disappearance and death of family member; F60.3 Borderline personality disorder; F41.0 Panic disorder [episodic paroxysmal anxiety]
CPT/HCPCS: 99214

== ENCOUNTER → 2020-11-24 11:59 | Outpatient (BNVA) | payer MEDICARE, MEDICAID, SELFPAY ==
[2020-05-24 10:26] VITALS: BP 111/73; BMI 27.4
== END ==
PROVIDERS: PCP Nurse Practitioner Family; Visit Provider Nurse Practitioner Family
DX: M79.604 Pain in right leg (principal); M79.671 Pain in right foot; M25.571 Pain in right ankle and joints of right foot
CPT/HCPCS: 73590; 73610; 73630

== ENCOUNTER → 2020-11-28 14:01 | Outpatient (BNVA) | payer MEDICARE, MEDICAID, SELFPAY ==
[2020-05-24 10:26] VITALS: BP 111/73; BMI 27.4
== END ==
PROVIDERS: PCP Nurse Practitioner Family; Visit Provider Surgery
DX: E66.9 Obesity, unspecified (principal); Z98.84 Bariatric surgery status
CPT/HCPCS: 80053; 80061; 82310; 82607; 82728; 82746; 83550; 83735; 83970; 84100; 84443; 85025; 85610

== ENCOUNTER → 2021-01-04 10:08 | Outpatient (BNVA) | payer MEDICARE, MEDICAID, SELFPAY ==
[2020-12-12 13:27] VITALS: BP 111/73; BMI 27.4
== END ==
PROVIDERS: PCP Nurse Practitioner Family; Visit Provider Nurse Practitioner Psychiatric/Mental Health
DX: F31.63 Bipolar disorder, current episode mixed, severe, without psychotic features (principal); F43.12 Post-traumatic stress disorder, chronic; F41.0 Panic disorder [episodic paroxysmal anxiety]; F60.3 Borderline personality disorder; F12.20 Cannabis dependence, uncomplicated; Z63.4 Disappearance and death of family member; F10.10 Alcohol abuse, uncomplicated
CPT/HCPCS: 99214

== ENCOUNTER → 2021-01-06 09:35 | Outpatient (BNVA) | payer MEDICARE, MEDICAID, SELFPAY ==
[2020-12-12 13:27] VITALS: BP 111/73; BMI 27.4
== END ==
PROVIDERS: PCP Nurse Practitioner Family; Visit Provider Surgery
DX: Z20.822 Contact with and (suspected) exposure to COVID-19 (principal)
CPT/HCPCS: 87635

== ENCOUNTER 2021-01-11 06:56 | Day surgery (SDC) | payer MEDICARE, MEDICAID, SELFPAY ==
[2020-05-24 10:26] VITALS: BP 111/73; BMI 27.4
[2020-12-12 13:27] VITALS: BP 111/73; BMI 27.4
[2021-01-05 13:14] VITALS: BMI 22.1
--- NOTE | 2021-01-11 07:10 | ANES.PREANE2 ---
Pre-Anesthetic Assessment Pre-Anesthetic Assessment: Height/Weight: Height 1.65 m Weight 62.142 kg Preop Diagnosis: obesity Proposed Procedure: Operation Date: 01/11/21 07:45 Proposed Procedures p EGD/colon 59074 [id number](Not Applicable) - Jesse Pacheco MD s Colonoscopy(Not Applicable) - Jesse Pacheco MD Was Beta Hesham taken within 24 hours: N/A Was Clonidine taken within 24 hours: N/A Social: Social History: Alcohol and Tobacco Packs per day: 1 Exam: Pre-Anes Outpt Exam: alert, oriented x 3, clear to auscultation bilaterally and regular rate & rhythm Airway: Submandibular: WNL Cervical ROM: WNL MP: 2 GI: GI: GERD Neuropsych: Neuropsych: Anxiety and Bipolar Anesthetic Plan: ASA status: 3 Anesthesia: Anesthesia Evaluation and MAC Risk of > 500 ml blood loss (7ml/kg in children): No PFSH Anesthesia PFSH: Medical History Alcohol abuse, episodic drinking behavior Bereavement Bipolar disorder, current episode mixed, severe, without psychotic features Borderline personality disorder Cannabis dependence, episodic use In early remission Hearing loss associated with syndrome of both ears Irritable bowel syndrome Nicotine dependence, cigarettes, uncomplicated Panic attack Post-traumatic stress disorder, chronic Progressive deafness with fixation of stapes Sleep apnea Surgical History History of endometrial ablation History of partial hysterectomy History of tonsillectomy S/P laparoscopic sleeve gastrectomy Family History Mother CHF (congestive heart failure) COPD (chronic obstructive pulmonary disease) Arthritis, rheumatoid Panic disorder Father , Unknown No problems noted. Grandmother , COPD COPD (chronic obstructive pulmonary disease) Grandfather , CHF CHF (congestive heart failure) Denies family history of Anesthesia complication Bleeding disorder Social History Second hand smoke exposure: Yes Smoking risk assessment/counseling performed?: No Alcohol intake: current Alcohol intake frequency: few times a month Alcohol type: wine Desire information about substance/drug rehabilitation?: No Adopted: No Caregiver/support person: No Lives independently: Yes Household members: children Housing: Manufactured/Mobile home Marital status: Legally Number of children: 2 Number of grandchildren: 0 Highest education level completed: Associate Degree: Occupational, Technical, Vocational Program Education level details: Business service: No Current occupational status: disabled Current occupational exposures/hazards: No Pets and animals: Yes Pets & animals: cat(s), dog(s) and turtle(s) History of recent travel: Yes Details: [place] and doctor is in [place] Out of state: Yes Leisure activites: music, reading and other Leisure activities details: clean Sexually active: Yes Are you practicing safe sex: Yes Current gender identity: Female Kristy/Synagogue: [employer] Special kristy needs: No Agree to transfusion: Yes Financial difficulty paying for basics: Somewhat Hard Female Reproductive History: Para: 2 Spontaneous abortions: No Data Anesthesia Cardiac Studies: No Data to Display
[2021-01-11 07:27] VITALS: BP 116/82; PULSE 77; RESP 16; TEMP 36.6; O2SAT 100
--- NOTE | 2021-01-11 07:28 | P.HP_ITS ---
Same Day Surgery H&P Indication for Procedure/HPI DATE OF PROCEDURE: January 11, 2021 CHIEF COMPLAINT/INDICATIONFOR SURGICAL PROCEDURE: Blood in stool PREOP DIAGNOSIS: Bleeding per rectum PLANNED PROCEDRUE: Operation Date: 01/11/21 07:45 Proposed Procedures p EGD/colon 62082 [id number](Not Applicable) - Jesse Pacheco MD s Colonoscopy(Not Applicable) - Jesse Pacheco MD 10/20/2020 Patient has a follow-up today over telehealth. She is a status post laparoscopic vertical sleeve gastrectomy November 2019. And she is down to 152 pounds. Patient overall is doing well and has been having some hypoglycemic episodes likely due to dumping syndrome and has been followed up on by her primary care provider closely. Patient was educated in the past about the importance of less carbs and more proteins. She does report that her blood pressure is better now and she does not have more syncopal episodes. Overall has been compliant with physical activity and exercise in addition to bariatric vitamins. November 16, 2020 Patient comes today as a follow-up and she has been a year out from her laparoscopic vertical sleeve gastrectomy. Patient has been compliant with her bariatric vitamins, proteins and hydration in addition to physical activity. She is managed to decrease concentrated sweets and her dumping episodes are much less, she reports that she has been having muscle spasms and she is seeing Dr. Ruth with that regard. The weight that the patient is describing is more like a carpopedal spasms and last time her calcium was checked was within normal limits, 8.7 and that was on July 22, 2020, and parathyroid hormone last time was checked on February 17, 2020 and that was 44.2 which is within normal limits also. She reports that she had a big splash of blood per stool today and she has been very concerned about that. Patient is down to 152 pounds with a BMI of 24.5 Interim history 01/11/2021 Patient comes today for diagnostic EGD and colonoscopy. Patient reports that she continues to have blood in stool. ROS All systems have been reviewed negative except as per the above or per problem list. Medications/Allergies* Home Medications Medication Instructions Recorded Confirmed Type linaclotide 145 mcg capsule 145 mcg PO QAM 03/25/19 01/05/21 History ihfmdggw-zjzlbfxv-dyzj 45 mg-folic 1 cap PO QAM cap 05/05/20 01/05/21 History acid 800 mcg-vit K 120 mcg capsule hkozqcn-zkhpwlcvnlbsb-lgbzveoo 2 tab PO PRN 05/18/20 01/05/21 History [Excedrin Migraine] cetirizine [Zyrtec] 10 mg PO QAM 05/18/20 01/05/21 History furosemide [Lasix] See Rx Instructions .ROUTE .COMPLEX 05/18/20 01/05/21 History gabapentin See Rx Instructions .ROUTE .COMPLEX 05/18/20 01/05/21 History venlafaxine 75 mg capsule,extended 75 mg PO QAM 09/14/20 01/05/21 History release 24 hr Allergies/Adverse Reactions Allergy/AdvReac Type Severity Reaction Status Date / Time monosodium glutamate Allergy Severe ALGY-Anaphy Verified 01/11/21 07:30 laxis duloxetine Allergy Intermediate Break out/ Verified 01/11/21 07:30 Hives gluten Allergy Intermediate Break out/ Verified 01/11/21 07:30 Hives lactase [From Dairy Aid] Allergy Intermediate Break out/ Verified 01/11/21 07:30 Hives paroxetine Allergy Intermediate Break out/ Verified 01/11/21 07:30 Hives soy Allergy Intermediate Break out/ Verified 01/11/21 07:30 Hives propranolol Allergy rash Verified 01/11/21 07:30 scopolamine Allergy Unknown Verified 01/11/21 07:30 [From Transderm-Scop] atropine AdvReac Intermediate Break out Verified 01/11/21 07:30 /Hives citalopram AdvReac Intermediate Hives Verified 01/11/21 07:30 Pertinent History/Comorbid Conditions* Medical History (Updated 01/04/21 @ 11:55 by Sri Wellington [facility]) Alcohol abuse, episodic drinking behavior Bereavement Bipolar disorder, current episode mixed, severe, without psychotic features Borderline personality disorder Cannabis dependence, episodic use Hearing loss associated with syndrome of both ears Irritable bowel syndrome Nicotine dependence, cigarettes, uncomplicated Panic attack Post-traumatic stress disorder, chronic Progressive deafness with fixation of stapes Sleep apnea Surgical History (Updated 10/22/20 @ 09:12 by Jesse Pacheco MD) History of endometrial ablation History of partial hysterectomy History of tonsillectomy S/P laparoscopic sleeve gastrectomy Family History (Updated 05/07/19 @ 13:49 by Tamiko Pace, RN) Father, Unknown Grandfather, CHF Grandmother, COPD Arthritis, rheumatoid Mother CHF (congestive heart failure) Mother Grandfather Panic disorder Mother COPD (chronic obstructive pulmonary disease) Mother Grandmother Denies family history of Anesthesia complication Bleeding disorder Social History Second hand smoke exposure: Yes Smoking risk assessment/counseling performed?: No Alcohol intake: current Alcohol intake frequency: few times a month Alcohol type: wine Desire information about substance/drug rehabilitation?: No Adopted: No Caregiver/support person: No Lives independently: Yes Household members: children Housing: Manufactured/Mobile home Marital status: Legally Number of children: 2 Number of grandchildren: 0 Highest education level completed: Associate Degree: Occupational, Technical, Vocational Program Education level details: Business service: No Current occupational status: disabled Current occupational exposures/hazards: No Pets and animals: Yes Pets & animals: cat(s), dog(s) and turtle(s) History of recent travel: Yes Details: [place] and doctor is in [place] Out of state: Yes Leisure activites: music, reading and other Leisure activities details: clean Sexually active: Yes Are you practicing safe sex: Yes Current gender identity: Female Kristy/Bahai: Cheondoism Special kristy needs: No Agree to transfusion: Yes Financial difficulty paying for basics: Somewhat Hard Pertinent Exam Findings alert, oriented x 3, clear to auscultation bilaterally, regular rate & rhythm and procedure specific exam findings (Abdominal examination nontender nondistended soft) Recommendations Surgery/Procedure today (Diagnostic EGD and colonoscopy) Other Plans: Plan of care; After thorough history and physical examination and reviewing the chart, plan to perform a diagnostic esophagogastroduodenoscopy and diagnostic colonoscopy with possible biopsy and possible polypectomy. I discussed with the patient in detail the risks,benefits,alternatives and indications.The risk of aspiration, bleeding, soft tissue injury, perforation of the stomach/esophagus/colon and other potential concomitant complications were explained to the patient in details also the potential need for Thoracotomy and or Laproscoy/Laparotomy to repair any related complications including but not limited to colectomy and or Closotomy. The patient understood this well and did agree to proceed. Rationale was carefully and clearly discussed with the patient.Appropriate informed consent have been reviewed and signed Verbal and written Instructions were given to the patient for colonoscopy prep Coding Level of Care Code Acute Director Of Event Sales for [facility] Fwd
[2021-01-11] MEDS: sodium chloride 0.9% 1,000 ML 30 ML IV (07:29)
[2021-01-11 08:20] VITALS: BP 81/49; PULSE 77; RESP 16; TEMP 36.1; O2SAT 97
[2021-01-11 08:33] VITALS: BP 94/60; PULSE 78; RESP 18; O2SAT 99
[2021-01-11 08:41] VITALS: BP 101/68; PULSE 73; RESP 18; TEMP 36.2; O2SAT 99
--- NOTE | 2021-01-11 08:45 | ANE.PACU2 ---
Inpatient post-anesthesia follow up: Airway intact: Yes Vital signs: Temperature 97.1 F Pulse Rate 73 Respiratory Rate 18 Blood Pressure 101/68 Pulse Oximetry 99 Oxygen Delivery Me thod Room Air Oxygen Flow Rate 3 Fraction of Inspir ed Oxygen Hydration adequate: Yes Nausea and vomiting: No Pain level: 1 Mental status: Baseline
[2021-01-12 13:16] LABS: H. Pylori / CLO Test Negative
== END 2021-01-11 09:00 | disposition home or self-care (01) ==
PROVIDERS: PCP Nurse Practitioner Family; Visit Provider Surgery
PROC: 0DJ08ZZ Inspection of Upper Intestinal Tract, Via Natural or Artificial Opening Endoscopic (ICD-10-PCS; CPT 43235; principal; 2021-01-11 07:45)
PROC: 0DJD8ZZ Inspection of Lower Intestinal Tract, Via Natural or Artificial Opening Endoscopic (ICD-10-PCS; CPT 45378; 2021-01-11 07:45)
DX: K92.1 Melena (principal); Z98.84 Bariatric surgery status; G47.30 Sleep apnea, unspecified; Z82.49 Family history of ischemic heart disease and other diseases of the circulatory system; K21.00 Gastro-esophageal reflux disease with esophagitis, without bleeding; D12.4 Benign neoplasm of descending colon
CPT/HCPCS: 43239; 45380; 87077; 88305; 96360; J2704; J7030

== ENCOUNTER 2021-01-20 13:50 | Emergency (ER) | payer MEDICARE, MEDICAID, SELFPAY ==
[2020-12-12 13:27] VITALS: BP 111/73; BMI 27.4
[2021-01-20 16:28] VITALS: BP 154/84; PULSE 120; RESP 22; TEMP 37.6; O2SAT 99; BMI 23.4
[2021-01-20 17:33] VITALS: BP 148/78; PULSE 117; RESP 20; O2SAT 98
--- NOTE | 2021-01-20 17:43 | W.ED.ANXIETY ---
HPI - Anxiety General: Chief Complaint: Anxiety Stated Complaint: hands tammy, much pain Time Seen by Provider: 01/20/21 17:38 History of Present Illness: HPI narrative: 40-year-old female comes in today with hand cramps and shaking. Patient states that she has had this on and off since her bariatric surgery. Patient appears well. Patient appears in no acute distress. Patient does have some tremors in her hands. Patient has a history of GERD, bipolar disorder, alcohol abuse, MD complaint: anxiety Review of Systems General: Reports: 10 or more systems reviewed and unremarkable except in HPI and below Musc: Reports: other (Cramps in hands and tremors) PFSH ED PFSH: Medical History Alcohol abuse, episodic drinking behavior Bereavement Bipolar disorder, current episode mixed, severe, without psychotic features Borderline personality disorder Cannabis dependence, episodic use In early remission Hearing loss associated with syndrome of both ears Irritable bowel syndrome Nicotine dependence, cigarettes, uncomplicated Panic attack Post-traumatic stress disorder, chronic Progressive deafness with fixation of stapes Sleep apnea Surgical History History of endometrial ablation History of partial hysterectomy History of tonsillectomy S/P laparoscopic sleeve gastrectomy Family History Mother CHF (congestive heart failure) COPD (chronic obstructive pulmonary disease) Arthritis, rheumatoid Panic disorder Father , Unknown No problems noted. Grandmother , COPD COPD (chronic obstructive pulmonary disease) Grandfather , CHF CHF (congestive heart failure) Denies family history of Anesthesia complication Bleeding disorder Social History Second hand smoke exposure: Yes Smoking risk assessment/counseling performed?: No Alcohol intake: current Alcohol intake frequency: few times a month Alcohol type: wine Desire information about substance/drug rehabilitation?: No Adopted: No Caregiver/support person: No Lives independently: Yes Household members: children Housing: Manufactured/Mobile home Marital status: Legally Number of children: 2 Number of grandchildren: 0 Highest education level completed: Associate Degree: Occupational, Technical, Vocational Program Education level details: Business service: No Current occupational status: disabled Current occupational exposures/hazards: No Pets and animals: Yes Pets & animals: cat(s), dog(s) and turtle(s) History of recent travel: Yes Details: [place] and doctor is in [place] Out of state: Yes Leisure activites: music, reading and other Leisure activities details: clean Sexually active: Yes Are you practicing safe sex: Yes Current gender identity: Female Kristy/Jainism: Caodaism Special kristy needs: No Agree to transfusion: Yes Financial difficulty paying for basics: Somewhat Hard Female Reproductive History: Para: 2 Spontaneous abortions: No Physical Exam Const: COMMON NORMALS: no acute distress and patient oriented x3 GENERAL APPEARANCE: cooperative HENMT: COMMON NORMALS: normocephalic and Normal external nose present HEAD & SCALP: normal to inspection and normocephalic NOSE: Normal external nose present MOUTH: Normal oral and palatal mucosa present Eye: GENERAL EYE: appearance normal, both eyes and all related structures Neck/C-Spine: COMMON NORMALS: full ROM Chest: COMMONS NORMALS: normal inspection of the chest Resp: COMMON NORMALS: normal respiratory effort EFFORT & INSPECTION: Yes able to speak in complete sentences Cardio: COMMON NORMALS: regular rate and regular rhythm RATE: regular rate RHYTHM: regular rhythm GI: COMMON NORMALS: non-tender : COMMON NORMALS: Yes no CVA tenderness BLADDER/KIDNEY EXAM: Yes no CVA tenderness Back/Pelvis: COMMON NORMALS: no CVA tenderness and thoracic and lumbar spine normal to inspection Extremity: COMMON NORMALS: normal to inspection NARRATIVE EXTREMITY EXAM: Patient's hands have 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 Normal sensation to touch. Neuro: COMMON NORMALS: patient oriented x3 and moves all extremities Psych: COMMON NORMALS: mental status grossly normal and cooperative Skin: COMMON NORMALS: no rashes or lesions noted GENERAL SKIN EXAM: no rashes or lesions noted Course Vital Signs: Vital signs: Vital Signs Temperature 99.7 F H 01/20/21 16:28 Pulse Rate 117 H 01/20/21 17:33 Respiratory Rate 20 H 01/20/21 17:33 Blood Pressure 148/78 01/20/21 17:33 Pulse Oximetry 98 01/20/21 17:33 MDM - Anxiety MDM Narrative: Medical decision making narrative: Patient came in for evaluation of cramps in her hands. Patient reports that she gets spasms in the. Patient appears well. Patient appears no acute distress. Patient has had a bariatric procedure done for weight loss. Differential diagnosis includes electrolyte imbalance, anxiety, carpal tunnel syndrome. Laboratory values noted a low magnesium at 1.5, patient was given 1/2 mg Ativan for some relief of symptoms. Patient be started on magnesium 400 mg 3 times a day to help with the cramps in her muscles. Patient was recommended to follow-up with primary care for further instruction and evaluation. Patient was physically stable and had no signs of serious illness or injury. Lab Data: Labs: Lab Results 01/20/21 18:03 Sodium 140 mmol/L mmol/L (136-145) Potassium 3.5 mmol/L mmol/L (3.5-5.1) Chloride 103 mmol/L mmol/L (98-107) Carbon Dioxide 24 mmol/L mmol/L (22-29) Anion Gap 16.5 (5-19) BUN 9 mg/dL mg/dL (6-20) Creatinine 0.4 mg/dL L mg/dL (0.5-0.9) GFR Calculation 176.8 mL/min H mL /min (90-130) Glucose 95 mg/dL mg/dL (65-115) Calculated Osmolal ity 288 mOsm/kg mOsm/ kg (285-295) Calcium 8.7 mg/dL mg/dL (8.5-10.5) Magnesium 1.5 mg/dL L mg/dL (1.7-2.3) Total Bilirubin 1.5 mg/dL H mg/dL (0.15-1.2) AST 23 U/L U/L (0-32) ALT 9 U/L U/L (0-33) Alkaline Phosphata se 106 IU/L H IU/L (35-105) Total Protein 6.1 g/dL L g/dL (6.6-8.7) Albumin 4.0 g/dL g/dL (3.5-5.2) Globulin 2.1 g/dL g/dL (1.3-4.6) Discharge Plan Discharge Patient Disposition: Home Clinical Impression: Hypomagnesemia, Cramp in muscle Condition: Stable Prescriptions: New magnesium oxide 400 mg magnesium tablet 400 mg PO TID Qty: 30 RF: 0 lorazepam 0.5 mg tablet 0.5 mg PO BID PRN (Reason: muscle spasm, anxiety) Qty: 10 RF: 0 No Action Bariatric Multivitamins 45 mg iron- 800 mcg-120 mcg capsule 1 cap PO QAM RF: 0 prazosin 1 mg capsule 1 mg PO BEDTIME Qty: 30 RF: 3 naltrexone 50 mg tablet 50 mg PO .morning Qty: 30 RF: 3 lamotrigine [Lamictal] 25 mg tablet 50 mg PO .morning Qty: 60 RF: 3 ondansetron HCl [Zofran] 4 mg tablet 4 mg PO Q8H PRN (Reason: Nausea) Qty: 90 RF: 2 olanzapine [Zyprexa Zydis] 5 mg tablet,disintegrating 5 mg PO DAILY PRN (Reason: severe anxiety/agitation) Qty: 30 RF: 2 linaclotide 145 mcg capsule 145 mcg PO QAM RF: 0 pantoprazole [Protonix] 40 mg tablet,delayed release (DR/EC) 40 mg PO DAILY Qty: 30 RF: 2 venlafaxine [Effexor XR] 75 mg capsule,extended release 24hr 75 mg PO QAM RF: 0 (DME) pair of crutches See Rx Instructions .Route .MEDSUPPLY Qty: 1 RF: 0 polyethylene glycol 3350 [Miralax] 17 gram/dose powder 17 gm PO DAILY PRN (Reason: constipation) Qty: 119 RF: 0 gabapentin 600 mg Tablet See Rx Instructions .ROUTE .COMPLEX RF: 0 cetirizine [Zyrtec] 10 mg Tablet 10 mg PO QAM RF: 0 furosemide [Lasix] 20 mg Tablet See Rx Instructions .ROUTE .COMPLEX RF: 0 Excedrin Migraine 250-250-65 mg Tablet 2 tab PO PRN RF: 0 Discharge Orders: Discharge ED (Routine); Ordered 01/20/21 Ordered By: Nicholas Quarles Referrals: Antoinette Purdy APN [Primary Care Provider] - Discharge Diet: Usual diet Discharge Activity: Increase activity as tolerated Patient Instructions: Hypomagnesemia (ED), Opioid Safety Activity Restrictions/Additional Instructions: Healthy diet and activity. Plenty of water with medication. Take magnesium with each meal 3 times a day. Follow-up with primary care in 1 week for recheck. Return to the emergency department for new concerns. Coding Level of Care Code ED Inventory Specialist for Crist[facility] Exam Comprehensive
[2021-01-20] MEDS: LORazepam 0.5 mg Tablet PO (18:11)
[2021-01-20 18:32] LABS: Alanine Aminotransferase 9 U/L (0-33); Alkaline Phosphatase 106 IU/L (35-105); Anion Gap 16.5 (5-19); Aspartate Amino Transferase 23 U/L (0-32); Blood Urea Nitrogen 9 mg/dL (6-20); Calcium 8.7 mg/dL (8.5-10.5); Carbon Dioxide 24 mmol/L (22-29); Chloride 103 mmol/L (98-107); Globulin 2.1 g/dL (1.3-4.6); Glomerular Filtration Rate 176.8 mL/min (90-130); Glucose 95 mg/dL (65-115); Magnesium 1.5 mg/dL (1.7-2.3); Osmolality Calculated 288 mOsm/kg (285-295); Potassium 3.5 mmol/L (3.5-5.1); Sodium 140 mmol/L (136-145); Total Bilirubin 1.5 mg/dL (0.15-1.2); Total Protein 6.1 g/dL (6.6-8.7)
[2021-01-20 18:36] LABS: Creatinine Clr Calc Pharmacy 176.4423
[2021-01-20] MEDS: magnesium oxide 400 mg tablet PO (19:38)
[2021-01-20 19:39] VITALS: BP 148/78; PULSE 117; RESP 20; TEMP 37.6; O2SAT 98
== END 2021-01-20 19:40 | disposition home or self-care (01) ==
PROVIDERS: Emergency Provider Nurse Practitioner Family; PCP Nurse Practitioner Family
DX: E83.42 Hypomagnesemia (principal); R25.2 Cramp and spasm; Z77.22 Contact with and (suspected) exposure to environmental tobacco smoke (acute) (chronic)
CPT/HCPCS: 80053; 83735; 99283

== ENCOUNTER 2021-01-23 08:06 | Emergency (ER) | payer MEDICARE, MEDICAID, SELFPAY ==
[2020-12-12 13:27] VITALS: BP 111/73; BMI 27.4
[2021-01-23 08:11] VITALS: BP 129/92; PULSE 86; RESP 18; TEMP 36.6; O2SAT 98; BMI 22.7
--- NOTE | 2021-01-23 08:17 | ED_ITS ---
Documented by User: ANU Reynoso 01/23/21 10:01 HPI - Extremity Problem General: Chief complaint: Extremity Injury, Upper Stated complaint: Right shoulder pain from fall Time Seen by Provider: 01/23/21 08:08 History of Present Illness: HPI Narrative: Patient is a 40-year-old female comes to the ED with right shoulder pain. Patient says symptoms started after she had a fall yesterday. Patient says she was at home when she tripped over some stuff on the floor and fell into some wooden furniture. She says her right shoulder hit the furniture. She denies any head trauma or loss of consciousness. She is taking some Tylenol last night to help with pain but has not taken anything this morning. She has a shoulder sling that she put on before coming to the ED. She rates her pain currently a 9 out of 10. She says any movement of right arm causes pain in the shoulder. Associated symptoms: Deny chest pain, fever(s) or rash Review of Systems Const: Denies: fever(s), chills or fatigue Eyes: Denies: change in vision or eye discomfort ENMT: Denies: throat pain, odynophagia, nasal discharge or nasal congestion Card: Denies: chest pain, palpitations, edema, swelling of feet/ankles, dyspnea on exertion or orthopnea Resp: Denies: dyspnea, productive cough or non-productive cough GI: Denies: abdominal pain, nausea, vomiting, diarrhea, constipation or hematochezia : Denies: flank pain, dysuria or hematuria Musc: Reports: extremity pain (right shoulder) and limited range of motion (right shoulder due to pain); Denies: neck pain, back pain or extremity swelling Skin/Breast: Denies: rash or new lesions Neuro: Denies: headache(s), numbness in extremities or weakness in extremities PFSH ED PFSH: Medical History Alcohol abuse, episodic drinking behavior Bereavement Bipolar disorder, current episode mixed, severe, without psychotic features Borderline personality disorder Cannabis dependence, episodic use Hearing loss associated with syndrome of both ears Irritable bowel syndrome Nicotine dependence, cigarettes, uncomplicated Panic attack Post-traumatic stress disorder, chronic Progressive deafness with fixation of stapes Sleep apnea Surgical History History of endometrial ablation History of partial hysterectomy History of tonsillectomy S/P laparoscopic sleeve gastrectomy Family History Mother CHF (congestive heart failure) COPD (chronic obstructive pulmonary disease) Arthritis, rheumatoid Panic disorder Father , Unknown No problems noted. Grandmother , COPD COPD (chronic obstructive pulmonary disease) Grandfather , CHF CHF (congestive heart failure) Denies family history of Anesthesia complication Bleeding disorder Social History Second hand smoke exposure: Yes Smoking risk assessment/counseling performed?: No Alcohol intake: current Alcohol intake frequency: few times a month Alcohol type: wine Desire information about substance/drug rehabilitation?: No Adopted: No Caregiver/support person: No Lives independently: Yes Household members: children Housing: Manufactured/Mobile home Marital status: Legally Number of children: 2 Number of grandchildren: 0 Highest education level completed: Associate Degree: Occupational, Technical, Vocational Program Education level details: Business service: No Current occupational status: disabled Current occupational exposures/hazards: No Pets and animals: Yes Pets & animals: cat(s), dog(s) and turtle(s) History of recent travel: Yes Details: [place] and doctor is in [place] Out of state: Yes Leisure activites: music, reading and other Leisure activities details: clean Sexually active: Yes Are you practicing safe sex: Yes Current gender identity: Female Kristy/Scientology: Jain Special kristy needs: No Agree to transfusion: Yes Financial difficulty paying for basics: Somewhat Hard Female Reproductive History: Para: 2 Spontaneous abortions: No Physical Exam Const: COMMON NORMALS: no acute distress, patient oriented x3, healthy appearing and alert GENERAL APPEARANCE: cooperative and comfortable HENMT: COMMON NORMALS: normocephalic HEAD & SCALP: normocephalic MOUTH: Normal oral and palatal mucosa present THROAT: posterior oropharynx normal and uvula midline Eye: COMMON NORMALS: Equal, round and reactive pupils present PUPIL: Yes Equal, round and reactive pupils present Neck/C-Spine: COMMON NORMALS: supple GENERAL: Yes normal visual inspection Resp: COMMON NORMALS: normal respiratory effort, No retractions, No use of accessory muscles and clear to auscultation bilaterally AUSCULTATION: clear to auscultation bilaterally Cardio: COMMON NORMALS: regular rate, regular rhythm, S1 normal heart sound present, S2 normal heart sound present, No gallops present (Cardio), No clicks present (Cardio), No murmurs present (Cardio) and Peripheral pulses 2+ throughout RATE: regular rate RHYTHM: regular rhythm HEART SOUNDS: S1 normal heart sound present and S2 normal heart sound present PERIPHERAL PULSES: Peripheral pulses 2+ throughout GI: COMMON NORMALS: Normal to inspection, nondistended, normoactive bowel sherman nds present, Soft to palpation, non-tender and no masses PALPATION: Yes Soft to palpation : COMMON NORMALS: Yes no CVA tenderness BLADDER/KIDNEY EXAM: Yes no CVA tenderness Back/Pelvis: COMMON NORMALS: no CVA tenderness Extremity: GENERAL: Yes normal exam except as noted RIGHT UPPER EXTREMITY: Yes shoulder joint (Tenderness over AC joint. No tenderness over right clavicle.) Right shoulder: Yes Right shoulder joint inspection exam (No visible tenting, swelling or ecchymosis noted.), Yes palpation, Yes Right shoulder joint ROM exam (Limited abduction due to pain.) and Yes Right shoulder joint neurovascular exam (Intact) Neuro: COMMON NORMALS: patient oriented x3 and moves all extremities SENSORIUM/ORIENTATION: Yes alert Skin: GENERAL SKIN EXAM: dry skin Course Vital Signs: Vital signs: Vital Signs Temperature 97.9 F 01/23/21 08:11 Pulse Rate 86 01/23/21 08:11 Respiratory Rate 18 01/23/21 08:11 Blood Pressure 129/92 01/23/21 08:11 Pulse Oximetry 98 01/23/21 08:11 MDM - Extremity (Nontraumatic) MDM Narrative: Medical decision making narrative: Patient is a 40-year-old female comes to the ED with right shoulder injury. Exam shows some right shoulder AC joint tenderness and limited range of motion in right arm due to pain. Neurovascular tact. X-ray of right shoulder showed nondisplaced mildly comminuted fracture involving right humeral head and neck. Patient was put in a shoulder immobilizer and I placed order with case management for patient referred to orthopedic for follow-up and further evaluation of shoulder fracture. Patient was diagnosed with a right humeral head fracture and discharged home in a shoulder immobilizer. She was sent home with a prescript ion for ibuprofen 800 mg and hydrocodone 5-325 mg 8 tablets. She was told case management will contact her in the next several days set up an appoint with orthopedic doctor for further evaluation. Return to ED precautions given. Patient understood and agreed with plan. Imaging Data^: Xray Ortho: Attestation: I personally reviewed and interpreted this imaging study as follows: Radiologist's impression: [facility] [address] [place] [address] XRay Report Signed Patient: Kristy Saba Unit #: [id number] : 1980 Age/Sex: 40 / F ADM Date: 01/23/21 Loc: ER Room/Bed: Attending Dr: Ordering Provider/Ordering MD: Rohan Dillon Date of Service: 01/23/21 Procedure(s): XR shoulder RT min 2V* [id number] Accession Number(s): [id number] Report Number: [id number] WS: [id number] RIGHT SHOULDER: 3 VIEW(S) TECHNIQUE: Internal and external rotation with Y view. HISTORY: fall with shoulder pain COMPARISON: 05/21/2006 Comminuted nondisplaced fracture involving the RIGHT humeral neck and head. Avulsion fractures extend to the greater and lesser trochanters. Fracture extends through the head and neck. Mild narrowing of the AC joint. Slight subluxation inferiorly at the glenohumeral joint. XR/XR shoulder RT min 2V* [id number] IMPRESSION: 1. Nondisplaced mildly comminuted fracture involving the RIGHT humeral head and neck. 2. Mild inferior subluxation of the humeral head is probably related to joint effusion from the trauma. Dictated By: Sera Arnett DO Signed By: Sera Arnett DO Signed Date/Time: 01/23/21835 DD/ 3 Discharge Plan Discharge Patient Disposition: Home Clinical Impression: Fracture of head of humerus Qualifiers: Encounter type: initial encounter Fracture type: closed Laterality: right Qualified Code(s): S42.291A - Other displaced fracture of upper end of right humerus, initial encounter for closed fracture Condition: Stable Prescriptions: New ibuprofen 800 mg tablet 800 mg PO Q8H PRN (Reason: pain) Qty: 30 RF: 0 No Action Bariatric Multivitamins 45 mg iron- 800 mcg-120 mcg capsule 1 cap PO QAM RF: 0 prazosin 1 mg capsule 1 mg PO BEDTIME Qty: 30 RF: 3 naltrexone 50 mg tablet 50 mg PO .morning Qty: 30 RF: 3 lamotrigine [Lamictal] 25 mg tablet 50 mg PO .morning Qty: 60 RF: 3 ondansetron HCl [Zofran] 4 mg tablet 4 mg PO Q8H PRN (Reason: Nausea) Qty: 90 RF: 2 olanzapine [Zyprexa Zydis] 5 mg tablet,disintegrating 5 mg PO DAILY PRN (Reason: severe anxiety/agitation) Qty: 30 RF: 2 linaclotide 145 mcg capsule 145 mcg PO QAM RF: 0 pantoprazole [Protonix] 40 mg tablet,delayed release (DR/EC) 40 mg PO DAILY Qty: 30 RF: 2 venlafaxine [Effexor XR] 75 mg capsule,extended release 24hr 75 mg PO QAM RF: 0 (DME) pair of crutches See Rx Instructions .Route .MEDSUPPLY Qty: 1 RF: 0 magnesium oxide 400 mg magnesium tablet 400 mg PO TID Qty: 30 RF: 0 lorazepam 0.5 mg tablet 0.5 mg PO BID PRN (Reason: muscle spasm, anxiety) Qty: 10 RF: 0 polyethylene glycol 3350 [Miralax] 17 gram/dose powder 17 gm PO DAILY PRN (Reason: constipation) Qty: 119 RF: 0 gabapentin 600 mg Tablet See Rx Instructions .ROUTE .COMPLEX RF: 0 cetirizine [Zyrtec] 10 mg Tablet 10 mg PO QAM RF: 0 furosemide [Lasix] 20 mg Tablet See Rx Instructions .ROUTE .COMPLEX RF: 0 Excedrin Migraine 250-250-65 mg Tablet 2 tab PO PRN RF: 0 Discharge Orders: Discharge ED (Routine); Ordered 01/23/21 Ordered By: Rohan Dillon Referrals: Antoinette Purdy APN [Primary Care Provider] - Discharge Diet: Regular Discharge Activity: Limit activity as instructed Patient Instructions: Fractures - Humerus, Shoulder Immobilizer (ED), Opioid Safety Activity Restrictions/Additional Instructions: Follow-up with medical provider as directed. Case management will be contacting you in the next several days to set up an appointment with orthopedic doctor. take medications as prescribed. Wear shoulder immobilizer and limit any activity with right arm. Return to the ER or your medical provider if condition worsens. Please read and understand discharge instructions. Thank you for choosing [facility] for your healthcare needs today. Please realize this is an emergency room and that we are providing you with a medical screening exam and this may not be complete and all inclusive of all the testing and or work up that you may need to determine your ailment or severity of your illness. It is very important that you follow up as instructed or that you return to the Emergency Department should you have concerns or if your condition changes or worsens in any way. Coding Level of Care Code ED Supervisor Felting for Chg Fwd Exam Comprehensive Documented by User: Robert Cespedes DO 01/23/21 14:23 HPI - Extremity Problem General: Chief complaint: Extremity Injury, Upper Stated complaint: Right shoulder pain from fall Time Seen by Provider: 01/23/21 08:08 [facility] ED [facility]: Medical History Alcohol abuse, episodic drinking behavior Bereavement Bipolar disorder, current episode mixed, severe, without psychotic features Borderline personality disorder Cannabis dependence, episodic use Hearing loss associated with syndrome of both ears Irritable bowel syndrome Nicotine dependence, cigarettes, uncomplicated Panic attack Post-traumatic stress disorder, chronic Progressive deafness with fixation of stapes Sleep apnea Surgical History History of endometrial ablation History of partial hysterectomy History of tonsillectomy S/P laparoscopic sleeve gastrectomy Family History Mother CHF (congestive heart failure) COPD (chronic obstructive pulmonary disease) Arthritis, rheumatoid Panic disorder Father , Unknown No problems noted. Grandmother , COPD COPD (chronic obstructive pulmonary disease) Grandfather , CHF CHF (congestive heart failure) Denies family history of Anesthesia complication Bleeding disorder Social History Second hand smoke exposure: Yes Smoking risk assessment/counseling performed?: No Alcohol intake: current Alcohol intake frequency: few times a month Alcohol type: wine Desire information about substance/drug rehabilitation?: No Adopted: No Caregiver/support person: No Lives independently: Yes Household members: children Housing: Manufactured/Mobile home Marital status: Legally Number of children: 2 Number of grandchildren: 0 Highest education level completed: Associate Degree: Occupational, Technical, Vocational Program Education level details: Business service: No Current occupational status: disabled Current occupational exposures/hazards: No Pets and animals: Yes Pets & animals: cat(s), dog(s) and turtle(s) History of recent travel: Yes Details: [place] and doctor is in [place] Out of state: Yes Leisure activites: music, reading and other Leisure activities details: clean Sexually active: Yes Are you practicing safe sex: Yes Current gender identity: Female Kristy/Scientology: Jain Special kristy needs: No Agree to transfusion: Yes Financial difficulty paying for basics: Somewhat Hard Course Vital Signs: Vital signs: Vital Signs Temperature 97.9 F 01/23/21 08:11 Pulse Rate 86 01/23/21 08:11 Respiratory Rate 18 01/23/21 08:11 Blood Pressure 129/92 01/23/21 08:11 Pulse Oximetry 98 01/23/21 08:11 MDM - Extremity (Nontraumatic) MDM Narrative: Medical decision making narrative: Reviewed chart agree with assessment and plan Discharge Plan Discharge Patient Disposition: Home Clinical Impression: Fracture of head of humerus Qualifiers: Encounter type: initial encounter Fracture type: closed Laterality: right Qualified Code(s): S42.291A - Other displaced fracture of upper end of right humerus, initial encounter for closed fracture Condition: Stable Prescriptions: New ibuprofen 800 mg tablet 800 mg PO Q8H PRN (Reason: pain) Qty: 30 RF: 0 No Action Bariatric Multivitamins 45 mg iron- 800 mcg-120 mcg capsule 1 cap PO QAM RF: 0 prazosin 1 mg capsule 1 mg PO BEDTIME Qty: 30 RF: 3 naltrexone 50 mg tablet 50 mg PO .morning Qty: 30 RF: 3 lamotrigine [Lamictal] 25 mg tablet 50 mg PO .morning Qty: 60 RF: 3 ondansetron HCl [Zofran] 4 mg tablet 4 mg PO Q8H PRN (Reason: Nausea) Qty: 90 RF: 2 olanzapine [Zyprexa Zydis] 5 mg tablet,disintegrating 5 mg PO DAILY PRN (Reason: severe anxiety/agitation) Qty: 30 RF: 2 linaclotide 145 mcg capsule 145 mcg PO QAM RF: 0 pantoprazole [Protonix] 40 mg tablet,delayed release (DR/EC) 40 mg PO DAILY Qty: 30 RF: 2 venlafaxine [Effexor XR] 75 mg capsule,extended release 24hr 75 mg PO QAM RF: 0 (DME) pair of crutches See Rx Instructions .Route .MEDSUPPLY Qty: 1 RF: 0 magnesium oxide 400 mg magnesium tablet 400 mg PO TID Qty: 30 RF: 0 lorazepam 0.5 mg tablet 0.5 mg PO BID PRN (Reason: muscle spasm, anxiety) Qty: 10 RF: 0 polyethylene glycol 3350 [Miralax] 17 gram/dose powder 17 gm PO DAILY PRN (Reason: constipation) Qty: 119 RF: 0 gabapentin 600 mg Tablet See Rx Instructions .ROUTE .COMPLEX RF: 0 cetirizine [Zyrtec] 10 mg Tablet 10 mg PO QAM RF: 0 furosemide [Lasix] 20 mg Tablet See Rx Instructions .ROUTE .COMPLEX RF: 0 Excedrin Migraine 250-250-65 mg Tablet 2 tab PO PRN RF: 0 Discharge Orders: Discharge ED (Routine); Ordered 01/23/21 Ordered By: Rohan Dillon Referrals: Purdy,TEOFILO Curry [Primary Care Provider] - Discharge Diet: Regular Discharge Activity: Limit activity as instructed Patient Instructions: Fractures - Humerus, Shoulder Immobilizer (ED), Opioid Safety Activity Restrictions/Additional Instructions: Follow-up with medical provider as directed. Case management will be contacting you in the next several days to set up an appointment with orthopedic doctor. take medications as prescribed. Wear shoulder immobilizer and limit any activity with right arm. Return to the ER or your medical provider if condition worsens. Please read and understand discharge instructions. Thank you for choosing [facility] for your healthcare needs today. Please realize this is an emergency room and that we are providing you with a medical screening exam and this may not be complete and all inclusive of all the testing and or work up that you may need to determine your ailment or severity of your illness. It is very important that you follow up as instructed or that you return to the Emergency Department should you have concerns or if your condition changes or worsens in any way. Coding Level of Care Code ED Supervisor Felting for Cristhian Lu Exam Comprehensive
--- NOTE | 2021-01-23 08:24 | XR_ITS ---
WS: [id number] RIGHT SHOULDER: 3 VIEW(S) TECHNIQUE: Internal and external rotation with Y view. HISTORY: fall with shoulder pain COMPARISON: 05/21/2006 Comminuted nondisplaced fracture involving the RIGHT humeral neck and head. Avulsion fractures extend to the greater and lesser trochanters. Fracture extends through the head and neck. Mild narrowing of the AC joint. Slight subluxation inferiorly at the glenohumeral joint. XR/XR shoulder RT min 2V* [id number] IMPRESSION: 1. Nondisplaced mildly comminuted fracture involving the RIGHT humeral head an d neck. 2. Mild inferior subluxation of the humeral head is probably related to joint effusion from the trauma.
[2021-01-23] MEDS: HYDROcodone-acetaminophen 5-325 mg Tablet 1 TAB PO (08:39)
--- NOTE | 2021-01-23 09:56 | DCPLANNER ---
department store manager had message to schedule a follow up appointment for patient with ortho. department store manager called the ortho clinic, spoke with Jessenia, gave clinic patients information. department store manager was told that patients information would be printed and reviewed. Clinic will call patient with appointment information.
--- NOTE | 2021-01-25 15:02 | DCPLANNER ---
Patient had a follow up appointment scheduled for 01.25.[address] Melvin at [facility] - patient did attend appointment.
== END 2021-01-23 09:18 | disposition home or self-care (01) ==
PROVIDERS: Emergency Provider Physician Assistant; PCP Nurse Practitioner Family
DX: S42.291A Other displaced fracture of upper end of right humerus, initial encounter for closed fracture (principal); W01.190A Fall on same level from slipping, tripping and stumbling with subsequent striking against furniture, initial encounter; Y92.019 Unspecified place in single-family (private) house as the place of occurrence of the external cause
CPT/HCPCS: 29240; 73030; 99283

== ENCOUNTER → 2021-02-06 07:11 | Outpatient (BNVA) | payer MEDICARE, MEDICAID, SELFPAY ==
[2020-12-12 13:27] VITALS: BP 111/73; BMI 27.4
== END ==
PROVIDERS: PCP Nurse Practitioner Family; Visit Provider Nurse Practitioner Psychiatric/Mental Health
DX: F60.3 Borderline personality disorder (principal); F31.63 Bipolar disorder, current episode mixed, severe, without psychotic features; F43.12 Post-traumatic stress disorder, chronic; F10.10 Alcohol abuse, uncomplicated; F41.0 Panic disorder [episodic paroxysmal anxiety]; F12.20 Cannabis dependence, uncomplicated; Z63.4 Disappearance and death of family member
CPT/HCPCS: 99214

== ENCOUNTER → 2021-02-28 07:58 | Outpatient (BNVA) | payer MEDICARE, MEDICAID, SELFPAY ==
[2020-12-12 13:27] VITALS: BP 111/73; BMI 27.4
== END ==
PROVIDERS: PCP Nurse Practitioner Family; Visit Provider Social Worker Clinical
DX: F60.3 Borderline personality disorder (principal); F43.12 Post-traumatic stress disorder, chronic; F10.10 Alcohol abuse, uncomplicated; F31.63 Bipolar disorder, current episode mixed, severe, without psychotic features
CPT/HCPCS: 90834

== ENCOUNTER → 2021-03-08 16:03 | Outpatient (BNVA) | payer MEDICARE, MEDICAID, SELFPAY ==
[2020-12-12 13:27] VITALS: BP 111/73; BMI 27.4
== END ==
PROVIDERS: PCP Nurse Practitioner Family; Visit Provider Specialist
DX: S42.211D Unspecified displaced fracture of surgical neck of right humerus, subsequent encounter for fracture with routine healing (principal); X58.XXXD Exposure to other specified factors, subsequent encounter; M75.01 Adhesive capsulitis of right shoulder
CPT/HCPCS: 73030

== ENCOUNTER → 2021-03-13 07:36 | Outpatient (BNVA) | payer MEDICARE, MEDICAID, SELFPAY ==
[2020-12-12 13:27] VITALS: BP 111/73; BMI 27.4
== END ==
PROVIDERS: PCP Nurse Practitioner Family; Visit Provider Nurse Practitioner Psychiatric/Mental Health
DX: F31.63 Bipolar disorder, current episode mixed, severe, without psychotic features (principal); F43.12 Post-traumatic stress disorder, chronic; F60.3 Borderline personality disorder; F10.10 Alcohol abuse, uncomplicated; F41.0 Panic disorder [episodic paroxysmal anxiety]; F12.20 Cannabis dependence, uncomplicated; Z63.4 Disappearance and death of family member
CPT/HCPCS: 99214

== ENCOUNTER → 2021-05-19 09:44 | Outpatient (BNVA) | payer MEDICARE, MEDICAID, SELFPAY ==
[2020-12-12 13:27] VITALS: BP 111/73; BMI 27.4
== END ==
PROVIDERS: PCP Nurse Practitioner Family; Visit Provider Social Worker Clinical
DX: F60.3 Borderline personality disorder (principal); F43.12 Post-traumatic stress disorder, chronic; F10.10 Alcohol abuse, uncomplicated; F31.63 Bipolar disorder, current episode mixed, severe, without psychotic features
CPT/HCPCS: 90834

== ENCOUNTER 2021-05-25 12:05 | Inpatient (IN) | payer MEDICARE, MEDICAID, SELFPAY ==
[2020-12-12 13:27] VITALS: BP 111/73; BMI 27.4
[2021-05-25 12:17] VITALS: BP 144/105; PULSE 122; RESP 20; TEMP 36.6; O2SAT 95; BMI 22.8
--- NOTE | 2021-05-25 12:40 | W.ED.GENADLT ---
HPI - General Adult General: Chief complaint: Psychiatric Symptoms Stated complaint: SI Time Seen by Provider: 05/25/21 12:30 History of Present Illness: HPI: [41]yo patient w/ hx of depression and PTSD BIBA for suicidal ideation, depression, and worsening PTSD symptoms. She tells me that she is having flashbacks of her and for the last few days is contemplating suicide. On arrival, the patient is AAOx3 and cooperative with my evaluation. No focal complaints of chest pain, shortness of breath, palpitations, N/V, focal GI/ complaints. Currently HI. No complaints of hallucinations. Onset: 3-4 days ago Duration: ongoing Location: home Severity: severe Associated symptoms: Deny chest pain, dyspnea, nausea, rash, palpitations or vomiting Review of Systems Const: Denies: fever(s) or chills Eyes: Denies: change in vision ENMT: Denies: mouth pain Card: Denies: chest pain or palpitations Resp: Denies: dyspnea or non-productive cough GI: Denies: abdominal pain, nausea, vomiting or diarrhea : Denies: dysuria Musc: Denies: extremity pain Skin/Breast: Denies: rash or new lesions Neuro: Denies: weakness in extremities Psych: Reports: other (+depressed mood) Lennox/Lymph: Denies: easy bruising PFSH ED PFSH: Medical History Alcohol abuse, episodic drinking behavior Bereavement Bipolar disorder, current episode mixed, severe, without psychotic features Bleeding per rectum Borderline personality disorder Cannabis dependence, episodic use Hearing 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 Grandmother , COPD COPD (chronic obstructive pulmonary disease) Grandfather , CHF CHF (congestive heart failure) Denies family history of Anesthesia complication Bleeding disorder Social History Smoking and tobacco status: current every day smoker cigarettes Packs smoked per day: 0.5 Second hand smoke exposure: Yes Smoking risk assessment/counseling performed?: No Alcohol intake: current Alcohol intake frequency: few times a month Alcohol type: wine Desire information about substance/drug rehabilitation?: No Adopted: No Caregiver/support person: No Lives independently: Yes Household members: children Housing: Manufactured/Mobile home Marital status: Legally Number of children: 2 Number of grandchildren: 0 Highest education level completed: Associate Degree: Occupational, Technical, Vocational Program Education level details: Business service: No Current occupational status: disabled Current occupational exposures/hazards: No Pets and animals: Yes Pets & animals: cat(s), dog(s) and turtle(s) History of recent travel: Yes Details: [place] and doctor is in [place] Out of state: Yes Leisure activites: music, reading and other Leisure activities details: clean Sexually active: Yes Are you practicing safe sex: Yes Current gender identity: Female Kristy/Pentecostal: Spiritism Special kristy needs: No Agree to transfusion: Yes Financial difficulty paying for basics: Somewhat Hard Female Reproductive History: Para: 2 Spontaneous abortions: No Physical Exam Const: COMMON NORMALS: alert HENMT: COMMON NORMALS: atraumatic HEAD & SCALP: atraumatic MOUTH: moist mucous membranes not abnormal Eye: COMMON NORMALS: EOMs intact bilaterally and conjunctivae normal CONJUNCTIVA: Yes conjunctivae normal Neck/C-Spine: COMMON NORMALS: full ROM and supple Resp: COMMON NORMALS: normal respiratory effort and clear to auscultation bilaterally AUSCULTATION: clear to auscultation bilaterally Cardio: COMMON NORMALS: regular rate RATE: regular rate GI: COMMON NORMALS: Soft to palpation and non-tender PALPATION: Yes Soft to palpation Extremity: COMMON NORMALS: full ROM Neuro: SENSORIUM/ORIENTATION: Yes alert MOTOR EXAM: No Abnormal motor strength present and Other motor observations present (no focal motor deficits) Psych: COMMON NORMALS: speech normal SPEECH: Yes normal speech MOOD & AFFECT: Yes depressed mood Course Vital Signs: Vital signs: Vital Signs Temperature 97.8 F 05/25/21 12:17 Pulse Rate 122 H 05/25/21 12:17 Respiratory Rate 20 H 05/25/21 12:17 Blood Pressure 144/105 05/25/21 12:17 Pulse Oximetry 95 05/25/21 12:17 MDM - General Adult Medical Decision Making [41]yo patient w/ hx of PTSD, depression presenting for depression, PTSD flare, and suicidal ideation. HDS, exam within normal limit Thoughts are linear and organized, and the patient has no AH/VH, or HI. Clinically the patient displays no overt toxidrome; they are well appearing, with low suspicion for toxic ingestion given history and exam. Symptoms unlikely 2/2 anemia, hypothyroidism, infection, or ICH. Workup: CBC, CMP, Lipase, salicylate/tylenol, TSH/free T4, UDS, hcg Lab findings: wnl [1:30pm] On reassessment, labs and workup wnl. Patient is hemodynamically stable with no acute medical complaints. Case discussed with psychiatric provider Dr. Link at [facility] psych inpatient with recommendation for admission Disposition: Psych Discharge Plan Discharge Patient Disposition: Admitted As Inpatient Clinical Impression: Depression, Acute post-traumatic stress disorder Condition: Stable Coding Level of Care Code ED Dynamite Cartridge Crimper for Cristhian Lu
[2021-05-25] MEDS: LORazepam 2 mg Tablet PO (12:43)
[2021-05-25 13:11] LABS: Basophils % 0.7 %; Eosinophils % 0.7 %; Hematocrit 39.6 % (37.0-47.0); Hemoglobin 13.8 g/dL (11.5-15.3); Lymphocytes # 1.6 10^3/uL (0.8-4.8); Lymphocytes % 37.6 %; Mean Corpuscular HGB Conc 34.8 g/dL (30.0-36.0); Mean Corpuscular Hemoglobin 37.2 pg (28.0-34.0); Mean Corpuscular Volume 106.7 fl (81-99); Mean Platelet Volume 9.1 fL (7.4-10.4); Monocytes # 0.5 10^3/uL (0.2-0.9); Monocytes % 10.8 %; Neutrophils # 2.13 10^3/uL (1.8-7.7); Nucleated Red Blood Cells % 0 %; Platelet Count 170 10^3/cmm (130-400); Red Blood Count 3.71 10^6/uL (4.1-5.3); Red Cell Distribution Width 13.7 % (12.1-15.1); White Blood Count 4.3 10^3/uL (4.0-10.0)
[2021-05-25 13:42] LABS: Alanine Aminotransferase 40 U/L (0-33); Albumin Level 3.9 g/dL (3.5-5.2); Alkaline Phosphatase 201 IU/L (35-105); Anion Gap 17.2 (5-19); Aspartate Amino Transferase 122 U/L (0-32); Blood Urea Nitrogen 7 mg/dL (6-20); Calcium 8.4 mg/dL (8.5-10.5); Carbon Dioxide 23 mmol/L (22-29); Chloride 106 mmol/L (98-107); Free T4 Free Thyroxine 0.67 ng/dL (0.82-1.77); Globulin 2.1 g/dL (1.3-4.6); Glucose 107 mg/dL (65-115); Lipase 55 U/L (13-60); Osmolality Calculated 294 mOsm/kg (285-295); Potassium 3.2 mmol/L (3.5-5.1); Sodium 143 mmol/L (136-145); Thyroid Stimulating Hormone 0.97 uIU/mL (0.27-4.20); Total Bilirubin 0.7 mg/dL (0.15-1.2)
[2021-05-25 13:43] LABS: HCG, Serum Qual Negative (Negative)
[2021-05-25] MEDS: LORazepam 1 mg Tablet PO (14:46)
[2021-05-25 15:30] LABS: Add Urine Microscopic? NO; Charge for UA Resulting for Rev
[2021-05-25 15:32] LABS: Bilirubin Urine Neg (Negative); Blood Urine Neg (Negative); Glucose Urine UA Norm (Normal); Ketones Urine Negative (Negative); Leukocyte Esterase Urine Negative (Negative); Nitrate Urine Negative (Negative); Protein Urine Neg (Negative); Urine Appearance Clear (CLEAR); Urine Color Yellow (Yellow); Urobilinogen Urine Neg (Negative); pH Urine 7 (5-7)
[2021-05-25 16:13] LABS: Amphetamines Screen Urine Negative (Negative); Barbiturates Screen Urine Negative (Negative); Benzodiazepines Screen Urine Negative (Negative); Cocaine Screen Urine Negative (Negative); Opiate Screen Urine Negative (Negative); PCP Screen Urine Negative (Negative); THC Screen Urine Negative (Negative)
[2021-05-25 16:15] VITALS: BP 115/82; PULSE 100; RESP 20; O2SAT 98
[2021-05-25 18:37] VITALS: BP 112/67; PULSE 97; RESP 18; TEMP 36.4; O2SAT 97
[2021-05-25 19:00] VITALS: BP 100/67; PULSE 114; RESP 17; TEMP 36.6; O2SAT 98
[2021-05-25] MEDS: prazosin 1 mg Capsule PO (20:11)
[2021-05-25] MEDS: gabapentin 300 mg Capsule PO (20:11)
[2021-05-26] MEDS: venlafaxine ER (24HR) 150 mg Capsule PO (05:49)
[2021-05-26] MEDS: naltrexone hcl 50 mg Tablet PO (05:49)
[2021-05-26] MEDS: lamoTRIgine 25 mg Tablet 50 MG PO (05:49)
[2021-05-26] MEDS: ibuprofen 800 mg tablet PO (05:49)
[2021-05-26] MEDS: ondansetron 4 MG Tablet PO (05:49)
[2021-05-26 06:00] VITALS: BP 119/75; PULSE 78; RESP 16; TEMP 36.8; O2SAT 96
[2021-05-26] MEDS: pantoprazole DR 40 mg Tablet PO (06:00)
[2021-05-26] MEDS: multivitamin therapeutic Tablet 1 TAB PO (08:14)
[2021-05-26] MEDS: folic acid 1 mg Tablet PO (08:14)
[2021-05-26] MEDS: thiamine 100 mg Tablet PO (08:14)
[2021-05-26] MEDS: OLANZapine 5 mg ODT PO ×2 (08:15→16:14)
[2021-05-26] MEDS: gabapentin 300 mg Capsule PO ×3 (08:21→19:38)
[2021-05-26 08:51] LABS: Alanine Aminotransferase 39 U/L (0-33); Albumin Level 4.2 g/dL (3.5-5.2); Alkaline Phosphatase 213 IU/L (35-105); Anion Gap 16.6 (5-19); Aspartate Amino Transferase 128 U/L (0-32); Blood Urea Nitrogen 11 mg/dL (6-20); Calcium 9.4 mg/dL (8.5-10.5); Carbon Dioxide 24 mmol/L (22-29); Chloride 100 mmol/L (98-107); Glomerular Filtration Rate 110.2 mL/min (90-130); Glucose 142 mg/dL (65-115); Osmolality Calculated 286 mOsm/kg (285-295); Potassium 3.6 mmol/L (3.5-5.1); Sodium 137 mmol/L (136-145); Total Bilirubin 2.1 mg/dL (0.15-1.2); Total Protein 6.2 g/dL (6.6-8.7)
[2021-05-26] MEDS: LORazepam 2 mg Tablet PO (09:02)
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
[2021-05-26 14:00] VITALS: BP 124/78; PULSE 90; RESP 18; TEMP 36.6; O2SAT 100
[2021-05-26] MEDS: acetaminophen 325 mg Tablet 650 MG PO (16:14)
[2021-05-26 19:25] VITALS: BP 114/69; PULSE 77; RESP 17; TEMP 36.6; O2SAT 96
[2021-05-26] MEDS: prazosin 1 mg Capsule PO (19:38)
[2021-05-26 22:47] VITALS: BP 114/69; PULSE 77; RESP 17; TEMP 36.6; O2SAT 96
[2021-05-27 06:00] VITALS: BP 109/65; PULSE 67; RESP 17; TEMP 36.7; O2SAT 96
[2021-05-27] MEDS: ibuprofen 800 mg tablet PO (06:29)
[2021-05-27] MEDS: lamoTRIgine 25 mg Tablet 50 MG PO (06:29)
[2021-05-27] MEDS: naltrexone hcl 50 mg Tablet PO (06:29)
[2021-05-27] MEDS: pantoprazole DR 40 mg Tablet PO (06:30)
[2021-05-27] MEDS: ondansetron 4 MG Tablet PO (06:30)
[2021-05-27] MEDS: venlafaxine ER (24HR) 150 mg Capsule PO ×2 (06:32→08:35)
[2021-05-27] MEDS: multivitamin therapeutic Tablet 1 TAB PO (08:17)
[2021-05-27] MEDS: gabapentin 300 mg Capsule PO ×3 (08:17→20:02)
[2021-05-27] MEDS: thiamine 100 mg Tablet PO (08:17)
[2021-05-27] MEDS: folic acid 1 mg Tablet PO (08:17)
[2021-05-27] MEDS: OLANZapine 5 mg ODT PO ×2 (12:11→20:48)
--- NOTE | 2021-05-27 12:14 | W.PM.NPUPNS ---
Subjective NPU Subjective: She did not sleep very well again last night. I forgot to put in the order for the Restoril. She is more anxious at this moment because she has no interaction with one of the other female patients that she did not want to describe. She feels that overall her anxiety is still bad but about the same as when she came in. Her is much younger, only 25 years old. He has called the unit and insisted that she be released. She says that it is because he is and very attached to her. They have been together for 2 years. She has 4 children. The older 2 are older and raised younger actually stepchildren. They are the children of her . The tubes that are home are 18 and 16 years old and female. They did not see her as their parent. They are very responsible and do not really need supervision. They get along well with her . Mental Status Exam MSE Comments: This is an appropriate weight 41-year-old female who appears approximately her stated age and is in no acute distress.? She is pleasant and cooperative with the evaluation.? She is fairly well groomed and in hospital scrubs.? She was found in the day room just finishing her lunch.? psychomotor activity is normal. Speech is at a regular rate and rhythm, normal volume, good articulation, not pressured. Alert, oriented X3 Attention and concentration appear to be normal. Memory is intact Mood is depressed and anxious Affect is more dysphoric. Thought process is logical and goal-directed. Thought content: Denies auditory and visual hallucinations. No delusions or paranoia are noted. recent but no current suicidal ideation, and no homicidal ideation. Fund of knowledge is average. Insight and judgment appear to be fair. Impulse control is fair. Cognition: Patient Appearance: Appropriate Level of Consciousness: Awake, Alert and Appropriate Patient Cognition Impaired: No Ability to Follow Directions: Excellent Patient Orientation (long list): Person, Place, Time, Name, Birthday, Day of Week and Month Comprehension Ability: No Impairment Hallucination Type: None Delusion Description: Not Present Thought Process: Appropriate Affect: Affect Description: Calm and Flat Depressive Symptoms: Feelings of Worthlessness, Hopelessness, Increased Anxiety, Increased Irritability and Unhappiness Behavior: Patient Behavior: Appropriate Speech Pattern: Mumbled Vitals/I&O/Wt Last Vital Signs Temp 98.1 F 05/27/21 06:00 Pulse 67 03/12/22 06:00 Resp 17 05/27/21 06:00 BP 109/65 05/27/21 06:00 Pulse Ox 96 05/27/21 06:00 Weight last 48 hrs Weight 64.41 kg Data NPU : 05/25/21 12:55 05/26/21 08:15 A&P Assessment and plan (1) Depression: Status: Acute (2) Acute post-traumatic stress disorder: Status: Acute (3) Cannabis dependence, episodic use: Status: Acute (4) Bipolar disorder, current episode mixed, severe, without psychotic features: Status: Suspected (5) Post-traumatic stress disorder, chronic: Status: Chronic (6) Bereavement: Status: Acute (7) Borderline personality disorder: Status: Chronic Plan This is a 42-year-old female with multiple traumatic events in her history and multiple past suicide attempts and hospitalizations with a diagnosis of bipolar, PTSD and borderline personality disorder Plan: 1. Continue current medication. Increase Effexor to 300 mg and add Restoril 15 mg QHS PRN. 2. Continue every 15 minute checks for safety. 3. Encourage individual, group and milieu therapies. 4. Encourage sober living treatment after discharge at the highest level of care to which she is willing to commit. 5. We will monitor for safety for herself in the community prior to discharge. Involuntary Hold Information 96 Hour Hold: 96 Hour Involuntary Admission: No Attestations NPU Medical Necessity Statement*: Inpatient hospitalization is medically necessary and the clinically appropriate intervention at this time. We will initiate medications and make changes as indicated. Coding Level of Care Code Acute Market Research Interviewer for Cristhian Lu Diagnoses Depression F32.A Acute post-traumatic stress disorder F43.11 Cannabis dependence, episodic use F12.20 Bipolar disorder, current episode mixed, severe, without psychotic features F31.63 Post-traumatic stress disorder, chronic F43.12 Bereavement Z63.4 Borderline personality disorder F60.3
[2021-05-27] MEDS: LORazepam 2 mg Tablet PO (12:58)
[2021-05-27 13:22] VITALS: BP 97/62; PULSE 103; RESP 17; TEMP 36.7; O2SAT 99
[2021-05-27] MEDS: blistex lip oint 7 gm Tube 1 APPLIC TOPICAL (16:24)
[2021-05-27] MEDS: nicotine 21 mg Patch 1 PATCH TRANSDERMA (16:32)
[2021-05-27] MEDS: prazosin 1 mg Capsule PO (20:02)
[2021-05-27] MEDS: temazepam 15 mg Capsule PO (20:06)
[2021-05-27 22:00] VITALS: BP 123/88; PULSE 88; RESP 17; TEMP 36.6; O2SAT 97
[2021-05-28 05:49] VITALS: BP 109/65; PULSE 77; RESP 17; TEMP 36.8; O2SAT 98
[2021-05-28 05:50] VITALS: BMI 23.2
[2021-05-28] MEDS: ibuprofen 800 mg tablet PO (05:58)
[2021-05-28] MEDS: ondansetron 4 MG Tablet PO (05:59)
[2021-05-28] MEDS: lamoTRIgine 25 mg Tablet 50 MG PO (05:59)
[2021-05-28] MEDS: pantoprazole DR 40 mg Tablet PO (05:59)
[2021-05-28] MEDS: naltrexone hcl 50 mg Tablet PO (05:59)
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
[2021-05-28 08:20] VITALS: BP 109/65; PULSE 77; RESP 17; TEMP 36.8; O2SAT 98
[2021-05-28] MEDS: gabapentin 300 mg Capsule PO (11:20)
[2021-05-28] MEDS: folic acid 1 mg Tablet PO (11:20)
[2021-05-28] MEDS: thiamine 100 mg Tablet PO (11:21)
[2021-05-28] MEDS: multivitamin therapeutic Tablet 1 TAB PO (11:21)
[2021-05-28] MEDS: venlafaxine ER (24HR) 150 mg Capsule 300 MG PO (11:21)
== END 2021-05-28 09:45 | disposition home or self-care (01) | DRG 882 ==
LOC: ER 13:02 → NP 15:56
PROVIDERS: Admitting Provider Psychiatry & Neurology Psychiatry; Emergency Provider Emergency Medicine; PCP Nurse Practitioner Family; Visit Provider Psychiatry & Neurology Psychiatry
DX: F43.11 Post-traumatic stress disorder, acute (principal); F31.63 Bipolar disorder, current episode mixed, severe, without psychotic features; R45.851 Suicidal ideations; F60.3 Borderline personality disorder; Z63.4 Disappearance and death of family member; F43.12 Post-traumatic stress disorder, chronic; F12.20 Cannabis dependence, uncomplicated; F17.210 Nicotine dependence, cigarettes, uncomplicated; Z91.51 Personal history of suicidal behavior
CPT/HCPCS: 36415; 80053; 80306; 81003; 83690; 84439; 84443; 84703; 85025; 97150; 97165; 99285; Q0162

== ENCOUNTER → 2021-06-02 08:42 | Outpatient (BNVA) | payer MEDICARE, MEDICAID, SELFPAY ==
[2020-12-12 13:27] VITALS: BP 111/73; BMI 27.4
== END ==
PROVIDERS: PCP Nurse Practitioner Family; Visit Provider Nurse Practitioner Psychiatric/Mental Health
DX: F31.63 Bipolar disorder, current episode mixed, severe, without psychotic features (principal); F43.12 Post-traumatic stress disorder, chronic; F60.3 Borderline personality disorder; F41.0 Panic disorder [episodic paroxysmal anxiety]; F12.20 Cannabis dependence, uncomplicated; Z63.4 Disappearance and death of family member; F10.10 Alcohol abuse, uncomplicated
CPT/HCPCS: 99214

== ENCOUNTER → 2021-06-12 10:19 | Outpatient (BNVA) | payer MEDICARE, MEDICAID, SELFPAY ==
[2020-12-12 13:27] VITALS: BP 111/73; BMI 27.4
== END ==
PROVIDERS: PCP Nurse Practitioner Family; Visit Provider Social Worker Clinical
DX: F60.3 Borderline personality disorder (principal); F43.12 Post-traumatic stress disorder, chronic; F10.10 Alcohol abuse, uncomplicated; F31.63 Bipolar disorder, current episode mixed, severe, without psychotic features
CPT/HCPCS: 90834

== ENCOUNTER 2021-06-21 17:02 | Emergency (ER) | payer MEDICARE, MEDICAID, SELFPAY ==
[2020-12-12 13:27] VITALS: BP 111/73; BMI 27.4
[2021-06-21] VITALS (10 sets, daily range): BP systolic 103–114; BP diastolic 71–81; PULSE 88–122; RESP 18–22; TEMP 36.8; O2SAT 93–100; BMI 22.6
--- NOTE | 2021-06-21 17:50 | ED_ITS ---
HPI - Extremity Problem General: Chief complaint: Extremity Injury, Lower Stated complaint: CARPAL PEDAL SPASMS/ ANXIETY Time Seen by Provider: 06/21/21 17:49 Source: patient Mode of arrival: EMS Limitations: no limitations History of Present Illness: Patient is a 41-year-old female who presents to ED today with a complaint of carpal spasms over the past 2 to 3 days. Patient feels like her arms are getting sore secondary to the spasms. She has had these previously and was told that she had hypomagnesemia. Patient has not had any volume loss over the last couple of days. Does have Lasix medication but states she only takes PRN for swelling and has not had to take this recently. She does report a history of anxiety and reportedly feels very anxious currently. She states she is not sure if her anxiety is related to the spasming but states once she begins developing spasms she will then in turn become anxious. She is not having any chest pain, shortness of breath, difficulty breathing, palpitations. She has not noticed any numbness, tingling, loss of sensation to her extremities. No color/temperature changes. MD Complaint: other (bilateral UE spasms) Onset (ago): day(s) Pain Consistency: intermittent Location: left, right and upper extremity Quality: other (spasm) Radiation: none Relieving factors: nothing Exacerbating factors: nothing Associated symptoms: Reports other (anxiety); Deny chest pain, fever(s) or rash Review of Systems Const: Denies: fever(s), chills, body aches, fatigue or malaise Card: Denies: chest pain, palpitations, irregular heart rhythm, edema, lightheadedness, syncope or pre-syncope Resp: Denies: dyspnea Musc: Reports: extremity pain and muscle cramps; Denies: neck pain, back pain, extremity swelling, joint pain, joint swelling, nelia int redness, joint warmth, joint stiffness, limited range of motion, muscle weakness or decrease in muscle mass Skin/Breast: Denies: rash Neuro: Denies: headache(s), numbness in extremities, weakness in extremities or sensory changes [facility] ED PFSH: Medical History Acute post-traumatic stress disorder Alcohol abuse, episodic drinking behavior Bereavement Bipolar disorder, current episode mixed, severe, without psychotic features Bleeding per rectum Borderline personality disorder Cannabis dependence, episodic use Hearing 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 Grandmother , COPD COPD (chronic obstructive pulmonary disease) Grandfather , CHF CHF (congestive heart failure) Denies family history of Anesthesia complication Bleeding disorder Social History Smoking and tobacco status: current every day smoker cigarettes Packs smoked per day: 0.5 Second hand smoke exposure: Yes Smoking risk assessment/counseling performed?: No Alcohol intake: current Alcohol intake frequency: few times a month Alcohol type: wine Desire information about substance/drug rehabilitation?: No Adopted: No Caregiver/support person: No Lives independently: Yes Household members: children Housing: Manufactured/Mobile home Marital status: Legally Number of children: 2 Number of grandchildren: 0 Highest education level completed: Associate Degree: Occupational, Technical, Vocational Program Education level details: Business service: No Current occupational status: disabled Current occupational exposures/hazards: No Pets and animals: Yes Pets & animals: cat(s), dog(s) and turtle(s) History of recent travel: Yes Details: [place] and doctor is in [place] Out of state: Yes Leisure activites: music, reading and other Leisure activities details: clean Sexually active: Yes Are you practicing safe sex: Yes Current gender identity: Female Kristy/Catholic: Buddhist Special kristy needs: No Agree to transfusion: Yes Financial difficulty paying for basics: Somewhat Hard Female Reproductive History: Para: 2 Spontaneous abortions: No Physical Exam Const: COMMON NORMALS: no acute distress, patient oriented x3, no limitations and alert GENERAL APPEARANCE: cooperative and anxious (hyperventilating ) ORIENTATION/CONSCIOUSNESS: Yes awake, Yes oriented to person, Yes oriented to place and Yes oriented to time HENMT: COMMON NORMALS: normocephalic and atraumatic HEAD & SCALP: normal to inspection, normocephalic and atraumatic Resp: COMMON NORMALS: normal respiratory effort and clear to auscultation bilaterally AUSCULTATION: clear to auscultation bilaterally Cardio: COMMON NORMALS: regular rhythm RATE: tachycardic RHYTHM: regular rhythm Extremity: COMMON NORMALS: normal to inspection, full ROM, capillary refill normal, no joint enlargement, no clubbing, cyanosis or edema, no calf tenderness and no pedal edema NARRATIVE EXTREMITY EXAM: no spasms currently GENERAL: Yes normal exam except as noted Neuro: JOHNNIE COMA SCALE: document GCS findings Johnnie coma scale eye opening: Spontaneous Johnnie coma scale verbal response: Orientated Johnnie coma scale motor response: Obey commands [place] coma scale total score: 15 COMMON NORMALS: patient oriented x3, moves all extremities, no focal motor deficits and no sensory deficits noted SENSORIUM/ORIENTATION: Yes alert, Yes oriented to person, Yes oriented to place and Yes oriented to time Skin: COMMON NORMALS: no rashes or lesions noted GENERAL SKIN EXAM: no rashes or lesions noted Course Vital Signs: Vital signs: Vital Signs Temperature 98.2 F 06/21/21 17:40 Pulse Rate 104 H 06/21/21 20:09 Respiratory Rate 20 H 06/21/21 20:09 Blood Pressure 103/71 06/21/21 18:58 Pulse Oximetry 100 06/21/21 20:09 MDM - Extremity (Nontraumatic) Medical Decision Making Patient is visibly anxious and hyperventilating upon initial assessment. This did improve with Ativan. She has not had any further spasms Her initial ABG shows respiratory alkalosis consistent with hyperventilation. Chemistry panel shows a critically low potassium of 2.3. Her mag is also low at 1.6. This was repeated for confirmation. Patient was started on IV magnesium and IV/PO potassium replacement. EKG showing sinus tach. Dr. Downey aware of patient and did speak to hospitalist for admission due to potassium of 2.3 but he wanted us to attempt replacement in ED. This was completed and K+ at time of discharge was 4.2. Will place on oral potassium x 3 days at home and give PRN anxiety medication. Recommended having labs checked at PCP early next week. She can speak to her psychiatrist at [facility] in regards to her anxiety. Dr. Downey is in agreement with plan for discharge. Lab Data I reviewed the patient's lab results. : 06/21/21 18:03 06/21/21 23:56 Laboratory Results WBC 4.3 10^3/uL (4.0-10.0) 06/21/21 18:03 RBC 4.32 10^6/uL (4.1-5.3) 06/21/21 18:03 Hgb 15.8 g/dL (11.5-15.3) H 06/21/21 18:03 Hct 44.1 % (37.0-47.0) 06/21/21 18:03 MCV 102.1 fl (81-99) H 06/21/21 18:03 MCH 36.6 pg (28.0-34.0) H 06/21/21 18:03 MCHC 35.8 g/dL (30.0-36.0) 06/21/21 18:03 RDW 12.7 % (12.1-15.1) 06/21/21 18:03 Plt Count 228 10^3/cmm (130-400) 06/21/21 18:03 MPV 9.6 fL (7.4-10.4) 06/21/21 18:03 Neut % (Auto) 48.4 % 06/21/21 18:03 Lymph % (Auto) 40.3 % 06/21/21 18:03 [place] % (Auto) 10.2 % 06/21/21 18:03 Eos % (Auto) 0.2 % 06/21/21 18:03 Baso % (Auto) 0.7 % 06/21/21 18:03 Neut # (Auto) 2.09 10^3/uL (1.8-7.7) 06/21/21 18:03 Lymph # (Auto) 1.7 10^3/uL (0.8-4.8) 06/21/21 18:03 [place] # (Auto) 0.4 10^3/uL (0.2-0.9) 06/21/21 18:03 Eos # (Auto) 0.0 10^3/uL (0.0-0.8) 06/21/21 18:03 Baso # (Auto) 0.0 10^3/uL (0.0-0.1) 06/21/21 18:03 Nucleated RBC % (auto) 0 % 06/21/21 18:03 Nucleated RBCs # 0.0 /100WBC 06/21/21 18:03 Specimen Type Arterial 06/21/21 18:21 Sample Site Radial, left 06/21/21 18:21 ABG pH 7.60 (7.35-7.45) H* 06/21/21 18: ABG pCO2 15.3 mmHg (35-45) L* 06/21/21 18: ABG pO2 123.0 mmHg (80.0-100.0) H 06/21/21 18: ABG HCO3 15.0 mmol/L (22-26) L 06/21/21 18: ABG O2 Saturation 99.7 06/21/21 18: ABG Base Excess -3.0 mmol/L (-2.0-2.0) L 06/21/21 18:21 Enoch Test Pos 06/21/21 18:21 A-a O2 Gradient 0.4 mmHg (5-10) L 06/21/21 18:21 Hematocrit 48.1 % (37-47) H 06/21/21 18:21 Hgb O2 Saturation 97.8 % (95-100) 06/21/21 18: Carboxyhemoglobin 1.1 %THgb (0.4-20.1) 06/21/21 18: Methemoglobin 0.8 % (0.4-1.5) 06/21/21 18:21 Total Hemoglobin 15.7 g/dL (12-16) 06/21/21 18:21 Sodium 137.0 mmol/L (131-143) 06/21/21 18:21 Potassium 2.7 mmol/L (3.5-5.0) L 06/21/21 18:21 Glucose 115.0 mg/dL (70-115) 06/21/21 18:21 Ionized Calcium 1.0 mmol/L (1.1-1.4) L 06/21/21 18:21 O2 Delivery Device Room air 06/21/21 18:21 FiO2 21.0 % 06/21/21 18:21 Staff Psychologist ID Cak 06/21/21 18:21 Sodium 138 mmol/L (136-145) 06/21/21 20:20 Potassium 4.2 mmol/L (3.5-5.1) 06/21/21 23:56 Chloride 97 mmol/L (98-107) L 06/21/21 20:20 Carbon Dioxide 19 mmol/L (22-29) L 06/21/21 20:20 Anion Gap 24.6 (5-19) H 06/21/21 20:20 BUN 7 mg/dL (6-20) 06/21/21 20:20 Creatinine 0.6 mg/dL (0.5-0.9) 06/21/21 20:20 GFR Calculation 110.2 mL/min (90-130) 06/21/21 20:20 Glucose 107 mg/dL (65-115) 06/21/21 20:20 Calculated Osmolality 284 mOsm/kg (285-295) L 06/21/21 20:20 Calcium 8.7 mg/dL (8.5-10.5) 06/21/21 20:20 Magnesium 1.6 mg/dL (1.7-2.3) L 06/21/21 18:03 Discharge Plan Discharge Patient Disposition: Home Clinical Impression: Acute hypokalemia, Hypomagnesemia, Acute hyperventilation syndrome Condition: Stable Prescriptions: New hydroxyzine pamoate [Vistaril] 50 mg capsule 50 mg PO Q6H PRN (Reason: anxiety) Qty: 14 0RF potassium chloride [Klor-Con M20] 20 mEq tablet,ER particles/crystals 20 meq PO BID Qty: 6 0RF No Action Bariatric Multivitamins 45 mg iron- 800 mcg-120 mcg capsule 1 cap PO QAM 0RF linaclotide 145 mcg capsule 145 mcg PO QAM 0RF (DME) pair of crutches See Rx Instructions .Route .MEDSUPPLY Qty: 1 0RF Rx Instructions: As directed prazosin 1 mg capsule 1 mg PO BEDTIME Qty: 30 3RF naltrexone 50 mg tablet 50 mg PO QAM Qty: 30 3RF Rx Instructions: Take one tablet every morning lamotrigine [Lamictal] 25 mg tablet 50 mg PO QAM Qty: 60 3RF Rx Instructions: Take two tablets every morning olanzapine [Zyprexa Zydis] 5 mg tablet,disintegrating 5 mg PO DAILY PRN (Reason: severe anxiety/agitation) Qty: 30 2RF magnesium oxide 400 mg magnesium tablet 400 mg PO TID Qty: 30 0RF Rx Instructions: take with meals polyethylene glycol 3350 [Miralax] 17 gram/dose powder 17 gm PO DAILY PRN (Reason: constipation) Qty: 119 0RF cetirizine [Zyrtec] 10 mg Tablet 10 mg PO QAM PRN (Reason: Allergy Symptoms) 0RF furosemide [Lasix] 20 mg Tablet 20 mg PO DAILY PRN (Reason: Edema) 0RF omeprazole 20 mg capsule,delayed release(DR/EC) 40 mg PO QAM 0RF ibuprofen 800 mg tablet 800 mg PO QAM 0RF ondansetron HCl [Zofran] 4 mg tablet 4 mg PO QAM 0RF gabapentin 300 mg Capsule 300 mg PO TID 0RF venlafaxine 150 mg Capsule,Extended Release 24hr 300 mg PO DAILY 30 Days Qty: 60 1RF temazepam 15 mg Capsule 15 mg PO BEDTIME PRN (Reason: Insomnia) 30 Days Qty: 30 0RF Discharge Orders: Discharge ED (Routine); Ordered 06/22/21 Ordered By: Bessy Sheehan Referrals: Antoinette Purdy APN [Primary Care Provider] - Activity Restrictions/Additional Instructions: As we discussed you need to follow-up with primary care early next week to have labs rechecked. You need to return to the emergency department for continued or worsening carpal spasms, severe muscle weakness, dizziness, palpitations, chest pains, or any other concerns you may have. As we discussed if you feel like you are becoming increasingly anxious and hyperventilating you may try several of the breathing exercises that we went over. You may also speak to your provider at [facility] if you do not feel like your anxiety is being controlled with your current medication regimen. Coding Level of Care Code ED [employer] Fwd Exam Detailed
[2021-06-21 18:09] LABS: Basophils % 0.7 %; Eosinophils % 0.2 %; Hematocrit 44.1 % (37.0-47.0); Hemoglobin 15.8 g/dL (11.5-15.3); Lymphocytes # 1.7 10^3/uL (0.8-4.8); Lymphocytes % 40.3 %; Mean Corpuscular HGB Conc 35.8 g/dL (30.0-36.0); Mean Corpuscular Hemoglobin 36.6 pg (28.0-34.0); Mean Corpuscular Volume 102.1 fl (81-99); Mean Platelet Volume 9.6 fL (7.4-10.4); Monocytes # 0.4 10^3/uL (0.2-0.9); Monocytes % 10.2 %; Neutrophils # 2.09 10^3/uL (1.8-7.7); Neutrophils % 48.4 %; Nucleated Red Blood Cells % 0 %; Platelet Count 228 10^3/cmm (130-400); Red Blood Count 4.32 10^6/uL (4.1-5.3); Red Cell Distribution Width 12.7 % (12.1-15.1); White Blood Count 4.3 10^3/uL (4.0-10.0)
[2021-06-21] MEDS: LORazepam 1 mg Tablet PO (18:09)
[2021-06-21 18:32] LABS: Alveolar-Arterial Oxygen Gradi 0.4 mmHg (5-10); Arterial Blood Gas Hematocrit 48.1 % (37-47); Blood Gas Allen Test Pos; Blood Gas Operator Identificat CAK; Blood Gas Sample Site Radial, left; Blood Gas Sample Type Arterial; Carboxyhemoglobin 1.1 %THgb (0.4-20.1); HGB O2 Sat 97.8 % (95-100); Methemoglobin 0.8 % (0.4-1.5); Oxygen Device ROOM AIR; Oxygen Saturation ABG 99.7; Potassium Level - ABG 2.7 mmol/L (3.5-5.0); Total Hemoglobin 15.7 g/dL (12-16)
[2021-06-21 18:33] LABS: ABG PCO2 15.3 mmHg (35-45)
[2021-06-21 18:44] LABS: Anion Gap 26.3 (5-19); Blood Urea Nitrogen 7 mg/dL (6-20); Carbon Dioxide 18 mmol/L (22-29); Chloride 98 mmol/L (98-107); Glomerular Filtration Rate 110.2 mL/min (90-130); Glucose 103 mg/dL (65-115); Magnesium 1.6 mg/dL (1.7-2.3); Osmolality Calculated 288 mOsm/kg (285-295); Sodium 140 mmol/L (136-145)
[2021-06-21] MEDS: LORazepam 2 mg/mL INJ 1 mL 1 MG IVP (19:05)
[2021-06-21 19:17] LABS: Potassium 2.3 mmol/L (3.5-5.1)
--- NOTE | 2021-06-21 19:22 | PC.NURSE ---
Critical Potassium 2.3 Reported to Luz BRENNAN.
--- NOTE | 2021-06-21 19:23 | ECG_ITS ---
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 Measurements Intervals Echo Rate: 106 P: 76 CT: 139 QRS: 84 QRSD: 85 T: 88 QT: 337 QTc: 449 Interpretive Statements SINUS TACHYCARDIA NONSPECIFIC ST & T-WAVE ABNORMALITY ABNORMAL RHYTHM ECG Compared to ECG 05/18/2020 15:33:05 T-wave abnormality now present Sinus rhythm no longer present Electronically Signed On 06-22-2021 7:16:57 CDT by Lyn Bernstein M.D. [id number]
[2021-06-21] MEDS: sodium chloride 0.9% 1,000 ML 999 ML IV (20:10)
[2021-06-21] MEDS: potassium chloride ER 20 mEq Tablet 40 MEQ PO (20:13)
[2021-06-21 20:46] LABS: Anion Gap 24.6 (5-19); Blood Urea Nitrogen 7 mg/dL (6-20); Calcium 8.7 mg/dL (8.5-10.5); Carbon Dioxide 19 mmol/L (22-29); Chloride 97 mmol/L (98-107); Glomerular Filtration Rate 110.2 mL/min (90-130); Glucose 107 mg/dL (65-115); Osmolality Calculated 284 mOsm/kg (285-295); Sodium 138 mmol/L (136-145)
[2021-06-21 20:47] LABS: Potassium 2.6 mmol/L (3.5-5.1)
[2021-06-21] MEDS: LORazepam 2 mg/mL INJ 1 mL IVP (21:16)
[2021-06-21] MEDS: potassium chloride premix 100 ML 25 MEQ IV (21:26)
[2021-06-21] MEDS: potassium chloride ER 20 mEq Tablet 80 MEQ PO (21:27)
[2021-06-22] VITALS: BP 117/73; PULSE 101; RESP 19; O2SAT 99
[2021-06-22 00:25] LABS: Potassium 4.2 mmol/L (3.5-5.1)
[2021-06-22] MEDS: LORazepam 2 mg/mL INJ 1 mL 1 MG IVP (00:29)
[2021-06-22 00:30] VITALS: BP 111/73; PULSE 118; RESP 25; O2SAT 98
[2021-06-22 01:05] VITALS: BP 119/78; PULSE 99; RESP 16; O2SAT 98
== END 2021-06-22 01:15 | disposition home or self-care (01) ==
PROVIDERS: Emergency Medicine; Emergency Provider Physician Assistant; PCP Nurse Practitioner Family
DX: E87.6 Hypokalemia (principal); E83.42 Hypomagnesemia; F45.8 Other somatoform disorders; F17.210 Nicotine dependence, cigarettes, uncomplicated
CPT/HCPCS: 36600; 80048; 80051; 82330; 82805; 83735; 84132; 85025; 93005; 96365; 96366; 96367; 96375; 96376; 99284; J2060; J3475; J3480; J7030

== ENCOUNTER → 2021-06-26 09:02 | Outpatient (BNVA) | payer MEDICARE, MEDICAID, SELFPAY ==
[2020-12-12 13:27] VITALS: BP 111/73; BMI 27.4
== END ==
PROVIDERS: PCP Nurse Practitioner Family; Visit Provider Social Worker Clinical
DX: F31.63 Bipolar disorder, current episode mixed, severe, without psychotic features (principal); F43.12 Post-traumatic stress disorder, chronic; F60.3 Borderline personality disorder; F41.0 Panic disorder [episodic paroxysmal anxiety]; F10.10 Alcohol abuse, uncomplicated
CPT/HCPCS: 90791

== ENCOUNTER 2021-07-10 15:58 | Inpatient (IN) | payer MEDICARE, MEDICAID, SELFPAY ==
[2020-12-12 13:27] VITALS: BP 111/73; BMI 27.4
[2021-07-10 16:28] VITALS: PULSE 122; RESP 18; O2SAT 95
--- NOTE | 2021-07-10 16:37 | ED.C_ITS ---
HPI - Psych General: Chief Complaint: Psychiatric Symptoms Stated Complaint: DEPRESSION, SI Time Seen by Provider: 07/10/21 16:35 Source: patient Mode of arrival: EMS Limitations: no limitations History of Present Illness: 41-year-old female presents to the emergency room with complaints of suicidal ideation. Patient states she has been depressed and contemplating suicide is plan to either cut her wrists or take large numbers of pills. She did drink several beers this morning. She is also been stressed out in a relationship with her , she says that has been exacerbating her symptoms. She usually sees a counselor missed that appointment last week and feels worse. She denies any recent change in medications. She states she has been taking her medications. MD complaint: suicidal ideation and feels depressed Duration: constant Relieving factors: none Exacerbating factors: none Associated psychiatric symptoms: depression and suicidal ideation Associated symptoms: Reports depression and suicidal ideation; Deny auditory hallucinations, visual hallucinations, delusions, homicidal ideation or racing thoughts Treatments prior to arrival: none If self harm: admits thoughts of self harm and has plan Review of Systems Const: Denies: fever(s), chills, body aches, change in appetite, fatigue or malaise ENMT: Denies: throat pain, ear or mastoid pain, nasal discharge or nasal congestion Card: Denies: chest pain, edema, dyspnea on exertion or orthopnea Resp: Denies: dyspnea, productive cough or non-productive cough GI: Denies: abdominal pain, nausea, vomiting, hematemesis, coffee ground emesis, diarrhea, constipation, bloating, hematochezia or melena : Denies: flank pain, difficulty voiding, dysuria, urinary frequency or urinary urgency Skin/Breast: Denies: rash or pruritus Psych: Reports: anxiety, depression, mood swings, sleeping more, irritability and suicidal ideation; Denies: visual hallucinations, auditory hallucinations or homicidal ideation PFS ED PFSH: Medical History Acute post-traumatic stress disorder Alcohol abuse, episodic drinking behavior Bereavement Bipolar disorder, current episode mixed, severe, without psychotic features Bleeding per rectum Borderline personality disorder Cannabis dependence, episodic use Hearing 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 Grandmother , COPD COPD (chronic obstructive pulmonary disease) Grandfather , CHF CHF (congestive heart failure) Denies family history of Anesthesia complication Bleeding disorder Social History Smoking and tobacco status: current every day smoker cigarettes Packs smoked per day: 0.5 Second hand smoke exposure: Yes Smoking risk assessment/counseling performed?: No Alcohol intake: current Alcohol intake frequency: few times a month Alcohol type: wine Desire information about substance/drug rehabilitation?: No Adopted: No Caregiver/support person: No Lives independently: Yes Household members: children Housing: Manufactured/Mobile home Marital status: Legally Number of children: 2 Number of grandchildren: 0 Highest education level completed: Associate Degree: Occupational, Technical, Vocational Program Education level details: Business service: No Current occupational status: disabled Current occupational exposures/hazards: No Pets and animals: Yes Pets & animals: cat(s), dog(s) and turtle(s) History of recent travel: Yes Details: [place] and doctor is in [place] Out of state: Yes Leisure activites: music, reading and other Leisure activities details: clean Sexually active: Yes Are you practicing safe sex: Yes Current gender identity: Female Kristy/Holiness: Gnosticism Special kristy needs: No Agree to transfusion: Yes Financial difficulty paying for basics: Somewhat Hard Female Reproductive History: Para: 2 Spontaneous abortions: No Physical Exam Const: COMMON NORMALS: no acute distress GENERAL APPEARANCE: cooperative and comfortable ORIENTATION/CONSCIOUSNESS: Yes awake, Yes oriented to person, Yes oriented to place and Yes oriented to time HENMT: COMMON NORMALS: normocephalic, atraumatic and hearing grossly normal bilaterally HEAD & SCALP: normocephalic and atraumatic Neck/C-Spine: COMMON NORMALS: no JVD Resp: COMMON NORMALS: normal respiratory effort, No retractions, No use of accessory muscles and clear to auscultation bilaterally AUSCULTATION: clear to auscultation bilaterally Cardio: COMMON NORMALS: no JVD, regular rate, regular rhythm and No murmurs present (Cardio) RATE: regular rate RHYTHM: regular rhythm Extremity: COMMON NORMALS: normal to inspection, capillary refill normal, no clubbing, cyanosis or edema, no calf tenderness and no pedal edema Neuro: SENSORIUM/ORIENTATION: Yes oriented to person, Yes oriented to place and Yes oriented to time Psych: THOUGHT CONTENT: No delusions Skin: COMMON NORMALS: no rashes or lesions noted GENERAL SKIN EXAM: no rashes or lesions noted Course Vital Signs: Vital signs: Vital Signs Temperature 97.8 F 07/11/21 06:00 Pulse Rate 115 H 07/11/21 06:00 Respiratory Rate 19 H 07/11/21 06:00 Blood Pressure 116/74 07/11/21 06:00 Pulse Oximetry 100 07/11/21 06:00 [facility] - Psych Medical Decision Making Patient placed on 96-hour hold based on her expressed suicidal ideation with plan. She did try to leave the department about an hour after she was initially seen we are waiting lab work to be completed. She was advised she was here under 96-hour hold while she did become angry she complied. Discussed Dr. Giron will admit orders are written. Medical Records I reviewed the patient's medical records. Lab Data I reviewed the patient's lab results. : 07/10/21 19:05 07/10/21 19:05 Laboratory Results WBC 6.2 10^3/uL (4.0-10.0) 07/10/21 19:05 RBC 3.26 10^6/uL (4.1-5.3) L 07/10/21 19:05 Hgb 12.2 g/dL (11.5-15.3) 07/10/21 19:05 Hct 36.9 % (37.0-47.0) L 07/10/21 19:05 MCV 113.2 fl (81-99) H 07/10/21 19:05 MCH 37.4 pg (28.0-34.0) H 07/10/21 19:05 MCHC 33.1 g/dL (30.0-36.0) 07/10/21 19:05 RDW 13.1 % (12.1-15.1) 07/10/21 19:05 Plt Count 159 10^3/cmm (130-400) 07/10/21 19:05 MPV 10.3 fL (7.4-10.4) 07/10/21 19:05 Neut % (Auto) 44.4 % 07/10/21 19:05 Lymph % (Auto) 48.1 % 07/10/21 19:05 [place] % (Auto) 4.7 % 07/10/21 19:05 Eos % (Auto) 1.9 % 07/10/21 19:05 Baso % (Auto) 0.6 % 07/10/21 19:05 Neut # (Auto) 2.73 10^3/uL (1.8-7.7) 07/10/21 19:05 Lymph # (Auto) 3.0 10^3/uL (0.8-4.8) 07/10/21 19:05 [place] # (Auto) 0.3 10^3/uL (0.2-0.9) 07/10/21 19:05 Eos # (Auto) 0.1 10^3/uL (0.0-0.8) 07/10/21 19:05 Baso # (Auto) 0.0 10^3/uL (0.0-0.1) 07/10/21 19:05 Nucleated RBC % (auto) 0 % 07/10/21 19:05 Nucleated RBCs # 0.0 /100WBC 07/10/21 19:05 Sodium 140 mmol/L (136-145) 07/10/21 19:05 Potassium 3.7 mmol/L (3.5-5.1) 07/10/21 19:05 Chloride 108 mmol/L (98-107) H 07/10/21 19:05 Carbon Dioxide 20 mmol/L (22-29) L 07/10/21 19:05 Anion Gap 15.7 (5-19) 07/10/21 19:05 BUN 5 mg/dL (6-20) L 07/10/21 19:05 Creatinine 0.6 mg/dL (0.5-0.9) 07/10/21 19:05 GFR Calculation 110.2 mL/min (90-130) 04/25/22 19:05 Glucose 117 mg/dL (65-115) H 07/10/21 19:05 Calculated Osmolality 288 mOsm/kg (285-295) 07/10/21 19:05 Calcium 7.2 mg/dL (8.5-10.5) L 07/10/21 19:05 Total Bilirubin 0.4 mg/dL (0.15-1.2) 07/10/21 19:05 AST 118 U/L (0-32) H 07/10/21 19:05 ALT 23 U/L (0-33) 07/10/21 19:05 Alkaline Phosphatase 157 IU/L (35-105) H 07/10/21 19:05 Total Protein 4.9 g/dL (6.6-8.7) L 07/10/21 19:05 Albumin 3.0 g/dL (3.5-5.2) L 07/10/21 19:05 Globulin 1.9 g/dL (1.3-4.6) 07/10/21 19:05 Urine Color Yellow (Yellow) 07/10/21 18:47 Urine Appearance Hazy (CLEAR) A 07/10/21 18:47 Urine pH 7 (5-7) 07/10/21 18:47 Ur Specific [place] 1.015 (1.005-1.030) 07/10/21 18:47 Urine Protein Neg (Negative) 07/10/21 18:47 Urine Glucose (UA) Norm (Normal) 07/10/21 18:47 Urine Ketones Negative (Negative) 07/10/21 18:47 Urine Blood Neg (Negative) 07/10/21 18:47 Urine Nitrate Negative (Negative) 07/10/21 18:47 Urine Bilirubin Neg (Negative) 07/10/21 18:47 Urine Urobilinogen Norm mg/dL (Negative) 07/10/21 18:47 Ur Leukocyte Esterase Trace (Negative) H 07/10/21 18:47 Urine RBC 0-4 /hpf (0-2) H 07/10/21 18:47 Urine WBC 5-10 /hpf (0-5) H 07/10/21 18:47 Ur Squamous Epith Cells 25-40 /hpf (0-5) H 07/10/21 18:47 Amorphous Sediment Not Reportable 07/10/21 18:47 Urine Bacteria 3+ /hpf (NONE) H 07/10/21 18:47 Urine Mucus 2+ /hpf 07/10/21 18:47 Salicylates < 0.3 mg/dL (3-10) L 07/10/21 19:05 Urine Opiates Screen Positive ng/mL (Negative) H 07/10/21 18:47 Acetaminophen < 5.0 ug/mL (10-30) L 07/10/21 19:05 Ur Barbiturates Screen Negative ng/mL (Negative) 07/10/21 18:47 Ur Phencyclidine Scrn Negative ng/mL (Negative) 07/10/21 18:47 Ur Amphetamines Screen Negative ng/mL (Negative) 07/10/21 18:47 U Benzodiazepines Scrn Positive ng/mL (Negative) H 07/10/21 18:47 Urine Cocaine Screen Negative ng/mL (Negative) 07/10/21 18:47 U Marijuana (THC) Screen Negative ng/mL (Negative) 07/10/21 18:47 Ethyl Alcohol 248 mg/dL (0-10) H 07/10/21 19:05 Discharge Plan Discharge Patient Disposition: Admitted As Inpatient Admit Provider: Chivo Giron Clinical Impression: Suicidal ideation, Depression Condition: Stable Coding Level of Care Code ED Merchandise Presentation Associate for Cristhian Fwd Exam Problem Focused
[2021-07-10] MEDS: ziprasidone 20 mg/mL SDV 10 MG IM (18:13)
[2021-07-10] MEDS: LORazepam 2 mg/mL INJ 1 mL IM (18:13)
[2021-07-10 19:11] LABS: Add Urine Microscopic? YES; Bilirubin Urine Neg (Negative); Blood Urine Neg (Negative); Glucose Urine UA Norm (Normal); Ketones Urine Negative (Negative); Leukocyte Esterase Urine Trace (Negative); Nitrate Urine Negative (Negative); Protein Urine Neg (Negative); Specific Gravity, Urine 1.015 (1.005-1.030); Urine Appearance Hazy (CLEAR); Urine Color Yellow (Yellow); Urobilinogen Urine Norm (Negative); pH Urine 7 (5-7)
[2021-07-10 19:12] LABS: Add Urine Culture? No; Bacteria Urine 3+ /hpf; Mucus Urine 2+ /hpf; RBC Urine 0-4 /hpf (0-2); Squamous Epithelial Cell Urine 25-40 /hpf (0-5)
[2021-07-10 19:14] LABS: Amphetamines Screen Urine Negative (Negative); Barbiturates Screen Urine Negative (Negative); Benzodiazepines Screen Urine Positive (Negative); Cocaine Screen Urine Negative (Negative); Opiate Screen Urine Positive (Negative); PCP Screen Urine Negative (Negative); THC Screen Urine Negative (Negative)
[2021-07-10 19:23] LABS: Basophils % 0.6 %; Eosinophils # 0.1 10^3/uL (0.0-0.8); Eosinophils % 1.9 %; Hematocrit 36.9 % (37.0-47.0); Hemoglobin 12.2 g/dL (11.5-15.3); Lymphocytes % 48.1 %; Mean Corpuscular HGB Conc 33.1 g/dL (30.0-36.0); Mean Corpuscular Hemoglobin 37.4 pg (28.0-34.0); Mean Corpuscular Volume 113.2 fl (81-99); Mean Platelet Volume 10.3 fL (7.4-10.4); Monocytes # 0.3 10^3/uL (0.2-0.9); Monocytes % 4.7 %; Neutrophils # 2.73 10^3/uL (1.8-7.7); Neutrophils % 44.4 %; Nucleated Red Blood Cells % 0 %; Platelet Count 159 10^3/cmm (130-400); Red Blood Count 3.26 10^6/uL (4.1-5.3); Red Cell Distribution Width 13.1 % (12.1-15.1); White Blood Count 6.2 10^3/uL (4.0-10.0)
[2021-07-10 19:38] LABS: Alanine Aminotransferase 23 U/L (0-33); Alkaline Phosphatase 157 IU/L (35-105); Blood Urea Nitrogen 5 mg/dL (6-20); Calcium 7.2 mg/dL (8.5-10.5); Carbon Dioxide 20 mmol/L (22-29); Chloride 108 mmol/L (98-107); Globulin 1.9 g/dL (1.3-4.6); Glomerular Filtration Rate 110.2 mL/min (90-130); Glucose 117 mg/dL (65-115); Osmolality Calculated 288 mOsm/kg (285-295); Sodium 140 mmol/L (136-145); Total Bilirubin 0.4 mg/dL (0.15-1.2); Total Protein 4.9 g/dL (6.6-8.7)
[2021-07-10 19:39] LABS: Acetaminophen < 5.0 ug/mL (10-30); Salicylate < 0.3 mg/dL (3-10)
[2021-07-10 19:41] LABS: Anion Gap 15.7 (5-19); Aspartate Amino Transferase 118 U/L (0-32); Potassium 3.7 mmol/L (3.5-5.1)
[2021-07-10 20:53] VITALS: BP 86/63; PULSE 92; RESP 17; TEMP 36.8; O2SAT 98
[2021-07-10 21:20] VITALS: BP 86/63; PULSE 92; RESP 17; TEMP 36.8; O2SAT 98
[2021-07-10] MEDS: acetaminophen 325 mg Tablet 650 MG PO (21:20)
[2021-07-10 21:21] VITALS: BMI 23.4
[2021-07-10] MEDS: hyDROXYzine 25 mg Capsule 50 MG PO (21:21)
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
[2021-07-11] MEDS: pantoprazole DR 40 mg Tablet PO (04:52)
[2021-07-11] MEDS: lamoTRIgine 25 mg Tablet 50 MG PO (04:52)
[2021-07-11] MEDS: hyDROXYzine 25 mg Capsule 50 MG PO (04:54)
--- NOTE | 2021-07-11 05:07 | PC.NURSE ---
PTCAME TO DESK REQUESTING MEDICATION FOR ANXIETY. PT HAD NOTABLE SEVER TREMORS. CIWA SCORE OF 12 OBTAINED. ON ADMIT, PT STATED SHE WANTED ATIVAN BY NAME AND SOMETHING FOR PAIN . VISTRAIL 50MG GIVENAT TIME OF ADMIT, AND PT RESPONDED WELL. vISTARIL 50MG PO GIVEN AT THIS TIME ALSO.
[2021-07-11 05:58] LABS: Alcohol Level 248 mg/dL (0-10)
[2021-07-11 06:00] VITALS: BP 116/74; PULSE 115; RESP 19; TEMP 36.6; O2SAT 100
[2021-07-11] MEDS: OLANZapine 5 mg ODT PO (06:12)
--- NOTE | 2021-07-11 06:13 | PC.NURSE ---
Patient at the nurses station still very anxious. She had vistaril 50mg po 1 hour ago. Zyprexa 5 mg po given for symptoms.
[2021-07-11] MEDS: ibuprofen 800 mg tablet PO (09:54)
[2021-07-11] MEDS: potassium chloride ER 20 mEq Tablet PO ×2 (09:55→17:06)
[2021-07-11] MEDS: venlafaxine ER (24HR) 150 mg Capsule 300 MG PO (09:55)
[2021-07-11] MEDS: gabapentin 300 mg Capsule 600 MG PO ×3 (09:56→20:32)
[2021-07-11] MEDS: cetirizine 10 mg Tablet PO (09:56)
[2021-07-11] MEDS: folic acid 1 mg Tablet PO (09:56)
[2021-07-11] MEDS: multivitamin therapeutic Tablet 1 TAB PO (09:56)
[2021-07-11] MEDS: thiamine 100 mg Tablet PO (09:56)
[2021-07-11] MEDS: magnesium oxide 400 mg tablet PO ×3 (09:56→20:32)
[2021-07-11] MEDS: LORazepam 2 mg Tablet PO ×4 (10:00→18:07)
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
[2021-07-11 14:00] VITALS: BP 104/71; PULSE 127; RESP 18; TEMP 36.8; O2SAT 99
[2021-07-11] MEDS: nicotine 2 mg Gum BUCCAL (14:59)
--- NOTE | 2021-07-11 17:06 | PC.NURSE ---
Administered 2mg of Ativan PO for pt scoring 17 on CIWA scale.
--- NOTE | 2021-07-11 18:51 | PC.NURSE ---
1807 administered 2mgAtivan PO for severe anxiety, and scored an 18 on CIWA.
[2021-07-11 20:22] VITALS: BP 115/77; PULSE 108; RESP 16; TEMP 36.4; O2SAT 97
[2021-07-11] MEDS: prazosin 1 mg Capsule PO (20:32)
[2021-07-12 06:00] VITALS: BP 107/68; PULSE 98; RESP 16; TEMP 36.7; O2SAT 99
[2021-07-12] MEDS: pantoprazole DR 40 mg Tablet PO (06:11)
[2021-07-12] MEDS: lamoTRIgine 25 mg Tablet 50 MG PO (06:11)
[2021-07-12] MEDS: potassium chloride ER 20 mEq Tablet PO ×2 (11:52→20:18)
[2021-07-12] MEDS: gabapentin 300 mg Capsule 600 MG PO ×3 (11:52→20:18)
[2021-07-12] MEDS: thiamine 100 mg Tablet PO (11:52)
[2021-07-12] MEDS: magnesium oxide 400 mg tablet PO ×3 (11:52→20:18)
[2021-07-12] MEDS: folic acid 1 mg Tablet PO (11:53)
[2021-07-12] MEDS: venlafaxine ER (24HR) 150 mg Capsule 300 MG PO (11:53)
[2021-07-12] MEDS: multivitamin therapeutic Tablet 1 TAB PO (11:53)
[2021-07-12 14:00] VITALS: BP 100/65; PULSE 86; RESP 17; TEMP 36.5; O2SAT 99
--- NOTE | 2021-07-12 14:16 | P.NPUPN_ITS ---
Subjective NPU Subjective: Patient presents today reporting that she is feeling a little more calm. She continues to be shaky but she reports that she is commonly worse and her tremulousness at this point and her withdrawal and she is now. She was able to have a robust conversation about past trauma, the issues that have contributed to her increase in drinking and the stressors that she is trying to juggle at this time. We discussed our conversation with doretha tavera about their predicted availability and also they are concerned that they would have about her initiating benzodiazepines prior to coming for her inpatient rehab. She endorsed understanding. We discussed the risk benefits and alternatives of a few changes in her medication specifically Lamictal which she understood and agreed to consider making those changes. Mental Status Exam MSE Comments: This is an well-nourished well-developed white female in hospital scrubs with limited grooming and eye contact. No abnormal movements except for mild psychomotor retardation and some tremulousness.? Cooperative with exam in mild to moderate distress. Speech was normal rate and volume. Mood described as anxious, affect congruent and slightly subdued. Thought process organized. Thought contact: patient denies suicidal or homicidal ideation, there were no delusions reported or noted, patient denied auditory or visual hallucinations. Attention and concentration appeared intact and memory appeared reliable but none were formally tested. Patient is alert and oriented times three. Insight and judgment appear fair and impulse control appears impaired. Vitals/I&O/Wt Last Vital Signs Temp 98.0 F 07/12/21 06:00 Pulse 98 07/12/21 06:00 Resp 16 07/12/21 06:00 BP 107/68 07/12/21 06:00 Pulse Ox 99 07/12/21 06:00 Weight last 48 hrs Weight 65.828 kg Data NPU : 07/10/21 19:05 07/10/21 19:05 A&P Assessment and plan (1) Alcohol withdrawal: Status: Acute (2) Alcohol use disorder, severe, dependence: Status: Acute (3) Suicidal ideation: Status: Acute (4) Depression: Status: Acute (5) Bipolar disorder, current episode mixed, severe, without psychotic features: Status: Suspected (6) Post-traumatic stress disorder, chronic: Status: Chronic (7) Borderline personality disorder: Status: Chronic (8) Bereavement: Status: Acute (9) Cannabis dependence, episodic use: Status: Acute Plan This is a 41-year-old white female with a long history of trauma and PTSD, depression anxiety and active alcohol use disorder who presents after having a mild breakdown and wanting to get herself stabilized so that she can address her recovery with an inpatient rehab soon. 1.? Continue current medication.? We will explore possibilities for medication changes. 2.? Continue every 15 minute checks for safety. 3.? Encourage individual, group and milieu therapies. 4.? Encourage sober living treatment after discharge at the highest level of care to which she is willing to commit. Involuntary Hold Information 96 Hour Hold: 96 Hour Involuntary Admission: Yes 96 Hour Hold Ending Date: 07/14/21 96 Hour Hold Ending Time: 16:35 Attestations NPU Medical Necessity Statement*: Inpatient hospitalization is medically necessary and the clinically appropriate intervention at this time. We will monitor medication to make changes as indicated. Likely length of stay 2-4 days. Coding Level of Care Code Acute Final Block Press Operator for Cristhian Lu Diagnoses Alcohol withdrawal F10.239 Alcohol use disorder, severe, dependence F10.20 Suicidal ideation R45.851 Depression F32.A Bipolar disorder, current episode mixed, severe, without psychotic features F31.63 Post-traumatic stress disorder, chronic F43.12 Borderline personality disorder F60.3 Bereavement Z63.4 Cannabis dependence, episodic use F12.20
[2021-07-12] MEDS: hyDROXYzine 25 mg Capsule 50 MG PO ×2 (15:13→21:53)
[2021-07-12] MEDS: prazosin 1 mg Capsule PO (20:17)
[2021-07-12] MEDS: ibuprofen 800 mg tablet PO (20:17)
[2021-07-12 21:26] VITALS: BP 113/80; PULSE 109; RESP 16; TEMP 36.7; O2SAT 98
[2021-07-13 06:00] VITALS: BP 108/66; PULSE 76; RESP 16; TEMP 36.5; O2SAT 98
[2021-07-13] MEDS: pantoprazole DR 40 mg Tablet PO (06:39)
[2021-07-13] MEDS: lamoTRIgine 25 mg Tablet 50 MG PO (06:39)
[2021-07-13] MEDS: ibuprofen 800 mg tablet PO (08:30)
[2021-07-13] MEDS: venlafaxine ER (24HR) 150 mg Capsule 300 MG PO (08:31)
[2021-07-13] MEDS: magnesium oxide 400 mg tablet PO ×3 (08:31→20:23)
[2021-07-13] MEDS: hyDROXYzine 25 mg Capsule 50 MG PO ×2 (08:31→17:01)
[2021-07-13] MEDS: potassium chloride ER 20 mEq Tablet PO ×2 (08:32→20:23)
[2021-07-13] MEDS: thiamine 100 mg Tablet PO (08:33)
[2021-07-13] MEDS: folic acid 1 mg Tablet PO (08:35)
[2021-07-13] MEDS: multivitamin therapeutic Tablet 1 TAB PO (08:35)
[2021-07-13] MEDS: gabapentin 300 mg Capsule 600 MG PO ×3 (08:36→20:23)
[2021-07-13] MEDS: OLANZapine 5 mg ODT PO (11:04)
[2021-07-13 14:00] VITALS: BP 101/71; PULSE 82; RESP 17; TEMP 36.6; O2SAT 100
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
[2021-07-13] MEDS: prazosin 1 mg Capsule PO (20:23)
[2021-07-13 20:26] VITALS: BP 101/71; PULSE 82; RESP 17; TEMP 36.6; O2SAT 100
== END 2021-07-13 20:34 | disposition home or self-care (01) | DRG 885 ==
LOC: ER 17:43 → NP 20:25
PROVIDERS: Admitting Provider Psychiatry & Neurology Psychiatry; Emergency Provider Family Medicine; PCP Nurse Practitioner Family; Visit Provider Psychiatry & Neurology Psychiatry
DX: F31.63 Bipolar disorder, current episode mixed, severe, without psychotic features (principal); F10.239 Alcohol dependence with withdrawal, unspecified; R45.851 Suicidal ideations; Y90.9 Presence of alcohol in blood, level not specified; F43.12 Post-traumatic stress disorder, chronic; Z63.4 Disappearance and death of family member; F60.3 Borderline personality disorder; F17.210 Nicotine dependence, cigarettes, uncomplicated; F12.20 Cannabis dependence, uncomplicated; F41.9 Anxiety disorder, unspecified
CPT/HCPCS: 36415; 70450; 71045; 80053; 80306; 80307; 81001; 81003; 82550; 83735; 84100; 84443; 84703; 85025; 93005; 96361; 96374; 96375; 97150; 97165; 99283; 99285; J2060; J2270; J3486; J7030

== ENCOUNTER 2021-07-16 17:50 | Emergency (ER) | payer MEDICARE, MEDICAID, SELFPAY ==
[2020-12-12 13:27] VITALS: BP 111/73; BMI 27.4
[2021-07-16 17:59] VITALS: BP 107/74; PULSE 141; RESP 14; TEMP 36.8; O2SAT 93; BMI 22.6
--- NOTE | 2021-07-16 18:03 | XRR_ITS ---
PROCEDURE INFORMATION: Exam: XR Chest Exam date and time: 07/16/2021 6:07 PM Age: 41 years old Clinical indication: Pain; Chest pressure; Additional info: Cp TECHNIQUE: Imaging protocol: XR of the chest. Views: 1 view. COMPARISON: CR (CHEST, ) 07/09/2021 4:12 AM FINDINGS: Lungs: Unremarkable. No consolidation. Pleural spaces: Unremarkable. No pleural effusion. No pneumothorax. Heart/Mediastinum: Unremarkable. No cardiomegaly. Diaphragm: Minimal elevation of the left hemidiaphragm with transposition of the splenic flexure colon superior to the spleen. This is a normal variant and unchanged from the prior study. Bones/joints: Unremarkable. XR/XR chest 1V portable [id number] IMPRESSION: No evidence for acute cardiopulmonary disease.
--- NOTE | 2021-07-16 18:16 | ED_ITS ---
HPI - Chest Pain General: Chief Complaint: Chest Pain Stated Complaint: CHEST PAIN Time Seen by Provider: 07/16/21 17:53 Source: patient and EMS Mode of arrival: EMS Limitations: no limitations History of Present Illness: 41-year-old female who is very well-known to the ER has been seen here multiple times for anxiety along with psychiatric complaints and is chronic alcoholic. Patient has been drinking today she is having anxiety attack along with chest pain was found screaming and yelling patient given Ativan by EMS she states her pain is improved she is lethargic at this time states that she has no chest pain she does have some tachycardia she also states she has been having suicidal thoughts still she just left the psych facility here 2 days ago Associated symptoms: Reports palpitations; Deny abdominal pain, dyspnea, fever(s), nausea or vomiting Review of Systems Const: Denies: fever(s), chills, body aches or change in appetite Eyes: Denies: blurry vision or eye discomfort ENMT: Denies: throat pain or dental pain Card: Reports: chest pain and palpitations Resp: Denies: dyspnea GI: Denies: abdominal pain, nausea, vomiting or diarrhea : Denies: dysuria Musc: Denies: neck pain or back pain Skin/Breast: Denies: rash Neuro: Denies: headache(s) Psych: Reports: depression Lennox/Lymph: Denies: easy bruising All/Imm: Denies: urticaria PFSH ED PFSH: Medical History Acute post-traumatic stress disorder Alcohol abuse, episodic drinking behavior Bereavement Bipolar disorder, current episode mixed, severe, without psychotic features Bleeding per rectum Borderline personality disorder Cannabis dependence, episodic use Hearing 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 Grandmother , COPD COPD (chronic obstructive pulmonary disease) Grandfather , CHF CHF (congestive heart failure) Denies family history of Anesthesia complication Bleeding disorder Social History Smoking and tobacco status: current every day smoker cigarettes Packs smoked per day: 0.5 Second hand smoke exposure: Yes Smoking risk assessment/counseling performed?: No Alcohol intake: current Alcohol intake frequency: few times a month Alcohol type: wine Desire information about substance/drug rehabilitation?: No Adopted: No Caregiver/support person: No Lives independently: Yes Household members: children Housing: Manufactured/Mobile home Marital status: Legally Number of children: 2 Number of grandchildren: 0 Highest education level completed: Associate Degree: Occupational, Technical, Vocational Program Education level details: Business service: No Current occupational status: disabled Current occupational exposures/hazards: No Pets and animals: Yes Pets & animals: cat(s), dog(s) and turtle(s) History of recent travel: Yes Details: [place] and doctor is in [place] Out of state: Yes Leisure activites: music, reading and other Leisure activities details: clean Sexually active: Yes Are you practicing safe sex: Yes Current gender identity: Female Kristy/Nondenominational: Faith Special kristy needs: No Agree to transfusion: Yes Financial difficulty paying for basics: Somewhat Hard Female Reproductive History: Para: 2 Spontaneous abortions: No Physical Exam Const: COMMON NORMALS: patient oriented x3 GENERAL APPEARANCE: disheveled and odor of alcohol detected HENMT: COMMON NORMALS: normocephalic and atraumatic HEAD & SCALP: normocephalic and atraumatic Eye: COMMON NORMALS: Equal, round and reactive pupils present and EOMs intact bilaterally PUPIL: Yes Equal, round and reactive pupils present Neck/C-Spine: COMMON NORMALS: full ROM and supple Chest: COMMONS NORMALS: normal inspection of the chest and normal palpation of entire chest wall Resp: COMMON NORMALS: normal respiratory effort, No retractions, No use of accessory muscles and clear to auscultation bilaterally AUSCULTATION: clear to auscultation bilaterally Cardio: COMMON NORMALS: regular rhythm and No murmurs present (Cardio) RATE: tachycardic RHYTHM: regular rhythm GI: COMMON NORMALS: Normal to inspection, nondistended, normoactive bowel sounds present, Soft to palpation, non-tender and no masses PALPATION: Yes Soft to palpation Extremity: COMMON NORMALS: normal to inspection and full ROM Neuro: COMMON NORMALS: patient oriented x3, moves all extremities and no focal motor deficits Psych: COMMON NORMALS: Normal thought process present and cooperative MOOD & AFFECT: Yes depressed mood THOUGHT PROCESS: Normal thought process present Skin: COMMON NORMALS: no rashes or lesions noted and no wounds GENERAL SKIN EXAM: no rashes or lesions noted Course Vital Signs: Vital signs: Vital Signs Temperature 98.2 F 07/16/21 17:59 Pulse Rate 115 H 07/16/21 20:33 Respiratory Rate 20 H 07/16/21 20:33 Blood Pressure 111/70 07/16/21 20:33 Pulse Oximetry 100 07/16/21 20:33 MDM - Chest Pain Medical Decision Making Kristy presents here with chest pains very atypical in nature troponins are normal she is intoxicated patient made statements about self-harm I did discuss case with Dr. Giron who knows patient very well she was just discharged 2 days ago he feels that she is safe on her own I spoke to her again in after bein g more sober she denies at this time I feel she is stable for discharge she is able ambulate answer all my questions appropriately has a ride home. Lab Data : 07/16/21 18:38 07/16/21 18:38 Radiology Impressions Chest X-Ray 07/16/21 18:03 IMPRESSION: No evidence for acute cardiopulmonary disease. Laboratory Results WBC 5.5 10^3/uL (4.0-10.0) 07/16/21 18:38 RBC 3.71 10^6/uL (4.1-5.3) L 07/16/21 18:38 Hgb 13.7 g/dL (11.5-15.3) 07/16/21 18:38 Hct 39.8 % (37.0-47.0) 07/16/21 18:38 MCV 107.3 fl (81-99) H 07/16/21 18:38 MCH 36.9 pg (28.0-34.0) H 07/16/21 18:38 MCHC 34.4 g/dL (30.0-36.0) 07/16/21 18:38 RDW 13.2 % (12.1-15.1) 07/16/21 18:38 Plt Count 213 10^3/cmm (130-400) 07/16/21 18:38 MPV 9.1 fL (7.4-10.4) 07/16/21 18:38 Neut % (Auto) 50.1 % 07/16/21 18:38 Lymph % (Auto) 39.3 % 07/16/21 18:38 [place] % (Auto) 9.1 % 07/16/21 18:38 Eos % (Auto) 0.4 % 07/16/21 18:38 Baso % (Auto) 0.7 % 07/16/21 18:38 Neut # (Auto) 2.75 10^3/uL (1.8-7.7) 07/16/21 18:38 Lymph # (Auto) 2.2 10^3/uL (0.8-4.8) 07/16/21 18:38 [place] # (Auto) 0.5 10^3/uL (0.2-0.9) 07/16/21 18:38 Eos # (Auto) 0.0 10^3/uL (0.0-0.8) 07/16/21 18:38 Baso # (Auto) 0.0 10^3/uL (0.0-0.1) 07/16/21 18:38 Nucleated RBC % (auto) 0 % 07/16/21 18: Nucleated RBCs # 0.0 /100WBC 07/16/21 18:38 Sodium 145 mmol/L (136-145) 07/16/21 18:38 Potassium 3.7 mmol/L (3.5-5.1) 07/16/21 18:38 Chloride 106 mmol/L (98-107) 07/16/21 18:38 Carbon Dioxide 25 mmol/L (22-29) 07/16/21 18:38 Anion Gap 17.7 (5-19) 07/16/21 18:38 BUN 7 mg/dL (6-20) 07/16/21 18:38 Creatinine 0.5 mg/dL (0.5-0.9) 07/16/21 18:38 GFR Calculation 136.0 mL/min (90-130) H 07/16/21 18:38 Glucose 86 mg/dL (65-115) 07/16/21 18:38 Calculated Osmolality 297 mOsm/kg (285-295) H 07/16/21 18:38 Calcium 8.4 mg/dL (8.5-10.5) L 07/16/21 18:38 Total Bilirubin 0.3 mg/dL (0.15-1.2) 07/16/21 18:38 AST 43 U/L (0-32) H 07/16/21 18:38 ALT 19 U/L (0-33) 07/16/21 18:38 Alkaline Phosphatase 171 IU/L (35-105) H 07/16/21 18:38 Troponin T Baseline 7 ng/L (0-10) 07/16/21 18:38 Troponin T 120 Minute 6.65 ng/L (0-10) 07/16/21 20:02 Total Protein 5.8 g/dL (6.6-8.7) L 07/16/21 18:38 Albumin 3.4 g/dL (3.5-5.2) L 07/16/21 18:38 Globulin 2.4 g/dL (1.3-4.6) 07/16/21 18:38 Salicylates 1.2 mg/dL (3-10) L 07/16/21 18:38 Acetaminophen < 5.0 ug/mL (10-30) L 07/16/21 18:38 Ethyl Alcohol 345 mg/dL (0-10) H* 07/16/21 18:38 Discharge Plan Discharge Patient Disposition: Home Clinical Impression: Atypical chest pain, Alcohol use disorder, severe, dependence Condition: Stable Prescriptions: No Action Bariatric Multivitamins 45 mg iron- 800 mcg-120 mcg capsule 1 cap PO QAM 0RF (DME) pair of crutches See Rx Instructions .Route .MEDSUPPLY Qty: 1 0RF Rx Instructions: As directed prazosin 1 mg capsule 1 mg PO BEDTIME Qty: 30 3RF lamotrigine [Lamictal] 25 mg tablet 50 mg PO QAM Qty: 60 3RF Rx Instructions: Take two tablets every morning olanzapine [Zyprexa Zydis] 5 mg tablet,disintegrating 5 mg PO DAILY PRN (Reason: severe anxiety/agitation) Qty: 30 2RF magnesium oxide 400 mg magnesium tablet 400 mg PO TID Qty: 30 0RF Rx Instructions: take with meals polyethylene glycol 3350 [Miralax] 17 gram/dose powder 17 gm PO DAILY PRN (Reason: constipation) Qty: 119 0RF cetirizine [Zyrtec] 10 mg Tablet 10 mg PO QAM PRN (Reason: Allergy Symptoms) 0RF furosemide [Lasix] 20 mg Tablet 20 mg PO DAILY PRN (Reason: Edema) 0RF omeprazole 20 mg capsule,delayed release(DR/EC) 40 mg PO QAM 0RF ibuprofen 800 mg tablet 800 mg PO QAM 0RF gabapentin 300 mg Capsule 600 mg PO TID 0RF venlafaxine 150 mg Capsule,Extended Release 24hr 300 mg PO DAILY 30 Days Qty: 60 1RF potassium chloride [Klor-Con M20] 20 mEq tablet,ER particles/crystals 20 meq PO BID Qty: 6 0RF hydroxyzine pamoate [Vistaril] 50 mg capsule 50 mg PO Q6H PRN (Reason: anxiety) Qty: 14 0RF Vitamin B-1 (mononitrate) 100 mg Tablet 100 mg PO DAILY 30 Days Qty: 30 1RF Discharge Orders: Discharge ED (Routine); Ordered 07/16/21 Ordered By: Rik Downey Referrals: Purdy,TEOFILO Curry [Primary Care Provider] - Discharge Diet: Advance as tolerated Discharge Activity: Resume usual activity Patient Instructions: Chest Pain (ED) Coding Level of Care Code ED Speech And Language Tutor for Chg Fwd Exam Comprehensive
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
[2021-07-16] MEDS: sodium chloride 0.9% 1,000 ML 999 ML IV (18:24)
[2021-07-16 18:57] LABS: Basophils % 0.7 %; Eosinophils % 0.4 %; Hematocrit 39.8 % (37.0-47.0); Hemoglobin 13.7 g/dL (11.5-15.3); Lymphocytes # 2.2 10^3/uL (0.8-4.8); Lymphocytes % 39.3 %; Mean Corpuscular HGB Conc 34.4 g/dL (30.0-36.0); Mean Corpuscular Hemoglobin 36.9 pg (28.0-34.0); Mean Corpuscular Volume 107.3 fl (81-99); Mean Platelet Volume 9.1 fL (7.4-10.4); Monocytes # 0.5 10^3/uL (0.2-0.9); Monocytes % 9.1 %; Neutrophils # 2.75 10^3/uL (1.8-7.7); Neutrophils % 50.1 %; Nucleated Red Blood Cells % 0 %; Platelet Count 213 10^3/cmm (130-400); Red Blood Count 3.71 10^6/uL (4.1-5.3); Red Cell Distribution Width 13.2 % (12.1-15.1); White Blood Count 5.5 10^3/uL (4.0-10.0)
[2021-07-16 19:15] LABS: Troponin(5th) Baseline 7 ng/L (0-10)
[2021-07-16 19:18] LABS: Alanine Aminotransferase 19 U/L (0-33); Albumin Level 3.4 g/dL (3.5-5.2); Alkaline Phosphatase 171 IU/L (35-105); Anion Gap 17.7 (5-19); Aspartate Amino Transferase 43 U/L (0-32); Blood Urea Nitrogen 7 mg/dL (6-20); Calcium 8.4 mg/dL (8.5-10.5); Carbon Dioxide 25 mmol/L (22-29); Chloride 106 mmol/L (98-107); Globulin 2.4 g/dL (1.3-4.6); Glucose 86 mg/dL (65-115); Osmolality Calculated 297 mOsm/kg (285-295); Potassium 3.7 mmol/L (3.5-5.1); Salicylate 1.2 mg/dL (3-10); Sodium 145 mmol/L (136-145); Total Bilirubin 0.3 mg/dL (0.15-1.2); Total Protein 5.8 g/dL (6.6-8.7)
[2021-07-16 19:20] LABS: Acetaminophen < 5.0 ug/mL (10-30)
[2021-07-16 19:22] LABS: Alcohol Level 345 mg/dL (0-10)
--- NOTE | 2021-07-16 20:03 | ECG_ITS ---
[facility] Test Date: 2021-07-16 Pat Name: Kristy Saba Department: Room: Gender: Female Chief Innovation Officer: : 1980 Requested By: Rik Downey Order Number: [id number] Carmencita MD: Mukul Watson M.D. Measurements Intervals [place] Rate: 86 P: 54 MO: 146 QRS: 46 QRSD: 88 T: 50 QT: 367 QTc: 439 Interpretive Statements SINUS RHYTHM Compared to ECG 07/09/2021 03:17:31 Sinus tachycardia no longer present Electronically Signed On 07-17-2021 16:34:33 CDT by Mukul Watson M.D. [email or web address]
[2021-07-16 20:33] VITALS: BP 111/70; PULSE 115; RESP 20; O2SAT 100
[2021-07-16 20:33] LABS: Troponin 5 2HR 6.65 ng/L (0-10)
== END 2021-07-16 20:35 | disposition home or self-care (01) ==
PROVIDERS: Emergency Provider Emergency Medicine; PCP Nurse Practitioner Family
DX: R07.89 Other chest pain (principal); F10.20 Alcohol dependence, uncomplicated; Y90.8 Blood alcohol level of 240 mg/100 ml or more; F17.210 Nicotine dependence, cigarettes, uncomplicated
CPT/HCPCS: 36415; 71045; 80053; 80307; 84484; 85025; 93005; 99283; J7030

== ENCOUNTER → 2021-07-17 13:06 | Outpatient (BNVA) | payer MEDICARE, MEDICAID, SELFPAY ==
[2020-12-12 13:27] VITALS: BP 111/73; BMI 27.4
== END ==
PROVIDERS: PCP Nurse Practitioner Family; Visit Provider Social Worker Clinical
DX: F60.3 Borderline personality disorder (principal); F43.12 Post-traumatic stress disorder, chronic; F10.10 Alcohol abuse, uncomplicated
CPT/HCPCS: 90832

== ENCOUNTER → 2021-08-01 07:44 | Outpatient (BNVA) | payer MEDICARE, MEDICAID, SELFPAY ==
[2020-12-12 13:27] VITALS: BP 111/73; BMI 27.4
== END ==
PROVIDERS: PCP Nurse Practitioner Family; Visit Provider Social Worker Clinical
DX: F60.3 Borderline personality disorder (principal); F43.12 Post-traumatic stress disorder, chronic; F10.10 Alcohol abuse, uncomplicated; F31.63 Bipolar disorder, current episode mixed, severe, without psychotic features
CPT/HCPCS: 90834

== ENCOUNTER → 2021-08-09 09:42 | Outpatient (BNVA) | payer MEDICARE, MEDICAID, SELFPAY ==
[2020-12-12 13:27] VITALS: BP 111/73; BMI 27.4
== END ==
PROVIDERS: PCP Nurse Practitioner Family; Visit Provider Social Worker Clinical
DX: F60.3 Borderline personality disorder (principal); F43.12 Post-traumatic stress disorder, chronic; F10.10 Alcohol abuse, uncomplicated; F31.63 Bipolar disorder, current episode mixed, severe, without psychotic features
CPT/HCPCS: 90834

== ENCOUNTER 2021-09-10 16:22 | Emergency (ER) | payer MEDICARE, MEDICAID, SELFPAY ==
[2020-12-12 13:27] VITALS: BP 111/73; BMI 27.4
[2021-09-10 16:24] VITALS: PULSE 81; RESP 16; TEMP 36.6; O2SAT 94; BMI 22.6
--- NOTE | 2021-09-10 16:24 | ED_ITS ---
Documented by User: Ghanshyam Espitia MD 09/22/21 01:13 HPI - Seizure General: Chief Complaint: Seizure Stated Complaint: SEIZURES Time Seen by Provider: 09/10/21 16:23 History of Present Illness: HPI Narrative: 41-year-old lady with history of allergies and scattered disorder presenting with seizure-like episode. No tongue biting or loss of continence. She endorses continued bilateral inability to relax wrist which has happened before and is typical of electrolyte problems for her. She has been under increased rest. Intensity of symptoms is moderate. She is increased palpation after these events. No other specific changes in health, exacerbating, or alleviating factors identified. Onset (ago): hour(s) Witnessed: Yes - by Bystander Trauma: No Seizure History: Yes Possible Precipitating Event: stress Associated symptoms: Reports other (pain) Review of Systems General: Reports: 10 or more systems reviewed and unremarkable except in HPI and below PFSH ED PFSH: Medical History Acute post-traumatic stress disorder Alcohol abuse, episodic drinking behavior Bereavement Bipolar disorder, current episode mixed, severe, without psychotic features Bleeding per rectum Borderline personality disorder Cannabis dependence, episodic use Hearing 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 Grandmother , COPD COPD (chronic obstructive pulmonary disease) Grandfather , CHF CHF (congestive heart failure) Denies family history of Anesthesia complication Bleeding disorder Social History Smoking and tobacco status: current every day smoker cigarettes Packs smoked per day: 0.5 Second hand smoke exposure: Yes Smoking risk assessment/counseling performed?: No Alcohol intake: current Alcohol intake frequency: few times a month Alcohol type: wine Desire information about substance/drug rehabilitation?: No Adopted: No Caregiver/support person: No Lives independently: Yes Household members: children Housing: Manufactured/Mobile home Marital status: Legally Number of children: 2 Number of grandchildren: 0 Highest education level completed: Associate Degree: Occupational, Technical, Vocational Program Education level details: Business service: No Current occupational status: disabled Current occupational exposures/hazards: No Pets and animals: Yes Pets & animals: cat(s), dog(s) and turtle(s) History of recent travel: Yes Details: [place] and doctor is in [place] Out of state: Yes Leisure activites: music, reading and other Leisure activities details: clean Sexually active: Yes Are you practicing safe sex: Yes Current gender identity: Female Kristy/Hoahaoism: Anabaptism Special kristy needs: No Agree to transfusion: Yes Financial difficulty paying for basics: Somewhat Hard Female Reproductive History: Para: 2 Spontaneous abortions: No Physical Exam Const: COMMON NORMALS: patient oriented x3 and alert GENERAL APPEARANCE: cooperative and well developed HENMT: COMMON NORMALS: normocephalic and atraumatic HEAD & SCALP: normocephalic and atraumatic THROAT: posterior oropharynx normal Eye: COMMON NORMALS: conjunctivae normal CONJUNCTIVA: Yes conjunctivae normal SCLERA: sclerae normal Neck/C-Spine: COMMON NORMALS: supple GENERAL: Yes trachea midline Resp: COMMON NORMALS: normal respiratory effort EFFORT & INSPECTION: Yes able to speak in complete sentences Cardio: COMMON NORMALS: regular rate and regular rhythm RATE: regular rate RHYTHM: regular rhythm GI: COMMON NORMALS: Soft to palpation PALPATION: Yes Soft to palpation and No Tenderness to palpation present (GI) PERCUSSION: normal to percussion Extremity: GENERAL: Yes normal exam except as noted and No edema Neuro: COMMON NORMALS: patient oriented x3, CN's II-XII intact bilaterally, moves all extremities, no focal motor deficits (carpal spasms) and no sensory deficits noted SENSORIUM/ORIENTATION: Yes alert and No Orientation impaired Psych: COMMON NORMALS: mental status grossly normal and Normal thought process present THOUGHT PROCESS: Normal thought process present Course ED course: - Patient was seen and evaluated by me at bedside - Patient placed on cardiac monitors, IV access obtained - Initial evaluation notable for exam as above. Nonfocal neurologic exam, bilateral carpal spasms with hyperalgia. - Labs and xrays personally interpreted by me. EKG and telemetry showing showing PVCs with sinus rhythm and no STEMI. - Ativan given given anxiety/hyperventilation likely with improvement - Patient care handed off to Dr. Ellis pending completion of patient evaluation including metabolic panel for electrolyte arrangements Vital Signs: Vital signs: Vital Signs Temperature 97.8 F 09/10/21 16:24 Pulse Rate 98 09/10/21 21:06 Respiratory Rate 17 09/10/21 21:06 Blood Pressure 114/69 09/10/21 21:06 Pulse Oximetry 95 09/10/21 21:06 MDM - Seizure Medical Records Attestation: I reviewed the patient's medical records. Lab Data Attestation: I reviewed the patient's lab results. Result diagrams: 09/10/21 17:32 09/10/21 17:32 Labs: Laboratory Results WBC 5.6 10^3/uL (4.0-10.0) 09/10/21 17:32 RBC 3.88 10^6/uL (4.1-5.3) L 09/10/21 17:32 Hgb 14.0 g/dL (11.5-15.3) 09/10/21 17:32 Hct 38.9 % (37.0-47.0) 09/10/21 17:32 MCV 100.3 fl (81-99) H 09/10/21 17:32 MCH 36.1 pg (28.0-34.0) H 09/10/21 17:32 MCHC 36.0 g/dL (30.0-36.0) 09/10/21 17:32 RDW 14.1 % (12.1-15.1) 09/10/21 17:32 Plt Count 260 10^3/cmm (130-400) 09/10/21 17:32 MPV 9.4 fL (7.4-10.4) 09/10/21 17:32 Neut % (Auto) 74.6 % 09/10/21 17: Lymph % (Auto) 13.9 % 09/10/21 17:32 Colbert % (Auto) 7.6 % 09/10/21 17:32 Eos % (Auto) 2.7 % 09/10/21 17:32 Baso % (Auto) 0.7 % 09/10/21 17:32 Neut # (Auto) 4.14 10^3/uL (1.8-7.7) 09/10/21 17:32 Lymph # (Auto) 0.8 10^3/uL (0.8-4.8) 09/10/21 17:32 Colbert # (Auto) 0.4 10^3/uL (0.2-0.9) 09/10/21 17:32 Eos # (Auto) 0.2 10^3/uL (0.0-0.8) 09/10/21 17:32 Baso # (Auto) 0.0 10^3/uL (0.0-0.1) 09/10/21 17:32 Nucleated RBC % (auto) 0 % 09/10/21 17:32 Nucleated RBCs # 0.0 /100WBC 09/10/21 17:32 Sodium 139 mmol/L (136-145) 09/10/21 17:32 Potassium 2.9 mmol/L (3.5-5.1) L 09/10/21 17:32 Chloride 97 mmol/L (98-107) L 09/10/21 17:32 Carbon Dioxide 16 mmol/L (22-29) L 09/10/21 17:32 Anion Gap 28.9 (5-19) H 09/10/21 17:32 BUN 7 mg/dL (6-20) 09/10/21 17:32 Creatinine 0.4 mg/dL (0.5-0.9) L 09/10/21 17:32 GFR Calculation 175.9 mL/min (90-130) H 09/10/21 17:32 Glucose 90 mg/dL (65-115) 09/10/21 17:32 Calculated Osmolality 286 mOsm/kg (285-295) 09/10/21 17:32 Calcium 8.7 mg/dL (8.5-10.5) 09/10/21 17:32 Ionized Calcium Renea 1.0 mmol/L (1.1-1.4) L 09/10/21 17:32 Magnesium 1.7 mg/dL (1.7-2.3) 09/10/21 17:32 Total Bilirubin 1.0 mg/dL (0.15-1.2) 09/10/21 17:32 AST 143 U/L (0-32) H 09/10/21 17:32 ALT 42 U/L (0-33) H 09/10/21 17:32 Alkaline Phosphatase 256 IU/L (35-105) H 09/10/21 17:32 Total Protein 5.7 g/dL (6.6-8.7) L 09/10/21 17:32 Albumin 3.2 g/dL (3.5-5.2) L 09/10/21 17:32 Globulin 2.5 g/dL (1.3-4.6) 09/10/21 17:32 Prolactin 6.37 ng/mL (4.8-23.3) 09/10/21 17:32 Discharge Plan Discharge Patient Disposition: Home Clinical Impression: Seizure-like activity, Carpopedal spasm, Frequent PVCs, Acute hypokalemia, Hypocalcemia, Hypomagnesemia Condition: Stable Prescriptions: No Action Bariatric Multivitamins 45 mg iron- 800 mcg-120 mcg capsule 1 cap PO QAM 0RF (DME) pair of crutches See Rx Instructions .Route .MEDSUPPLY Qty: 1 0RF Rx Instructions: As directed prazosin 1 mg capsule 1 mg PO BEDTIME Qty: 30 3RF lamotrigine [Lamictal] 25 mg tablet 50 mg PO QAM Qty: 60 3RF Rx Instructions: Take two tablets every morning olanzapine [Zyprexa Zydis] 5 mg tablet,disintegrating 5 mg PO DAILY PRN (Reason: severe anxiety/agitation) Qty: 30 2RF magnesium oxide 400 mg magnesium tablet 400 mg PO TID Qty: 30 0RF Rx Instructions: take with meals polyethylene glycol 3350 [Miralax] 17 gram/dose powder 17 gm PO DAILY PRN (Reason: constipation) Qty: 119 0RF cetirizine [Zyrtec] 10 mg Tablet 10 mg PO QAM PRN (Reason: Allergy Symptoms) 0RF furosemide [Lasix] 20 mg Tablet 20 mg PO DAILY PRN (Reason: Edema) 0RF omeprazole 20 mg capsule,delayed release(DR/EC) 40 mg PO QAM 0RF ibuprofen 800 mg tablet 800 mg PO TID PRN (Reason: Pain) 0RF hydroxyzine pamoate [Vistaril] 50 mg capsule 50 mg PO Q6H PRN (Reason: anxiety) Qty: 14 0RF venlafaxine 75 mg capsule,extended release 24hr 150 mg PO DAILY 0RF potassium 99 mg Tablet 99 mg PO DAILY 0RF Discharge Orders: Discharge ED (Routine); Ordered 09/10/21 Ordered By: Dima Ellis Other Ambulatory Orders: ECG holter monitor 7 Days (Routine) Timeframe: 1 Week Facility: [facility] - Location: Radiology Ordered By: Ghanshyam Espitia Referrals: Purdy,Antoinette FISHER TRAMMEL NET [Primary Care Provider] - Discharge Diet: Usual diet Discharge Activity: Limit activity as instructed Patient Instructions: Recurrent Seizures in Adults (ED), Premature Ventricular Contractions (ED) Activity Restrictions/Additional Instructions: Thank you for visiting the emergency department. You were seen and evaluated for seizure-like episodes associated with contracture of the wrists. The exact cause of your symptoms is unclear. I will message case management for rescheduling of your neurology appointment. I will also refer you for outpatient EEG. Additionally you were noted to have frequent premature ventricular contractions. I will order a outpatient Holter monitor and you should be contacted for placement of this. For seizures you should not drive, operate machinery, swim or bathe in a bathtub, cook over open flame, climb tall objects, or performing any other task which could be dangerous if you have another seizure. I recommend continued use of your medications as prescribed. You should also have your potassium magnesium and calcium checked in 2 to 3 days at your primary care provider office. Please return to the emergency department for anything that you are concerned about and feel needs emergency department evaluation. Coding Level of Care Code ED Manager Internship for Chg Fwd Documented by User: Dima Ellis, 09/10/21 20:41 HPI - Seizure General: Chief Complaint: Seizure Stated Complaint: SEIZURES Time Seen by Provider: 09/10/21 16:23 [facility] ED PFSH: Medical History Acute post-traumatic stress disorder Alcohol abuse, episodic drinking behavior Bereavement Bipolar disorder, current episode mixed, severe, without psychotic features Bleeding per rectum Borderline personality disorder Cannabis dependence, episodic use Hearing 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 Grandmother , COPD COPD (chronic obstructive pulmonary disease) Grandfather , CHF CHF (congestive heart failure) Denies family history of Anesthesia complication Bleeding disorder Social History Smoking and tobacco status: current every day smoker cigarettes Packs smoked per day: 0.5 Second hand smoke exposure: Yes Smoking risk assessment/counseling performed?: No Alcohol intake: current Alcohol intake frequency: few times a month Alcohol type: wine Desire information about substance/drug rehabilitation?: No Adopted: No Caregiver/support person: No Lives independently: Yes Household members: children Housing: Manufactured/Mobile home Marital status: Legally Number of children: 2 Number of grandchildren: 0 Highest education level completed: Associate Degree: Occupational, Technical, Vocational Program Education level details: Business service: No Current occupational status: disabled Current occupational exposures/hazards: No Pets and animals: Yes Pets & animals: cat(s), dog(s) and turtle(s) History of recent travel: Yes Details: [place] and doctor is in [place] Out o f state: Yes Leisure activites: music, reading and other Leisure activities details: clean Sexually active: Yes Are you practicing safe sex: Yes Current gender identity: Female Kristy/Hoahaoism: Anabaptism Special kristy needs: No Agree to transfusion: Yes Financial difficulty paying for basics: Somewhat Hard Course Vital Signs: Vital signs: Vital Signs Temperature 97.8 F 09/10/21 16:24 Pulse Rate 98 09/10/21 21:06 Respiratory Rate 17 09/10/21 21:06 Blood Pressure 114/69 09/10/21 21:06 Pulse Oximetry 95 09/10/21 21:06 MDM - Seizure MDM Narrative Medical decision making narrative: 41-year-old female checked out to me by the previous physician at shift change. This young lady came in after a seizure . She presented with carpopedal spasm. She was found to have multiple electrolyte disorders including hypomagnesemia, hypokalemia, and hypocalcemia. These were repleted. We had originally ordered IV potassium, but she became a bit agitated and wanted to leave to go home. Extra oral potassium was therefore ordered. She had frequent PVCs on the monitor, and bigeminy at times. Frequency of PVCs seem to decrease with electrolyte repletion. Still yet she needs a further outpatient work-up, which has been ordered. She will need her electrolytes checked in 2 days or so as an outpatient. Lab Data Result diagrams: 09/10/21 17:32 09/10/21 17: Labs: Laboratory Results WBC 5.6 10^3/uL (4.0-10.0) 09/10/21 17: RBC 3.88 10^6/uL (4.1-5.3) L 09/10/21 17: Hgb 14.0 g/dL (11.5-15.3) 09/10/21 17: Hct 38.9 % (37.0-47.0) 09/10/21 17: MCV 100.3 fl (81-99) H 09/10/21 17: MCH 36.1 pg (28.0-34.0) H 09/10/21 17: MCHC 36.0 g/dL (30.0-36.0) 09/10/21 17: RDW 14.1 % (12.1-15.1) 09/10/21 17: Plt Count 260 10^3/cmm (130-400) 09/10/21 17: MPV 9.4 fL (7.4-10.4) 09/10/21 17: Neut % (Auto) 74.6 % 09/10/21 17: Lymph % (Auto) 13.9 % 09/10/21 17: Colbert % (Auto) 7.6 % 09/10/21: Eos % (Auto) 2.7 % 09/10/21 17:32 Baso % (Auto) 0.7 % 09/10/21 17:32 Neut # (Auto) 4.14 10^3/uL (1.8-7.7) 09/10/21 17:32 Lymph # (Auto) 0.8 10^3/uL (0.8-4.8) 09/10/21 17:32 Colbert # (Auto) 0.4 10^3/uL (0.2-0.9) 09/10/21 17:32 Eos # (Auto) 0.2 10^3/uL (0.0-0.8) 09/10/21 17:32 Baso # (Auto) 0.0 10^3/uL (0.0-0.1) 09/10/21 17:32 Nucleated RBC % (auto) 0 % 09/10/21 17:32 Nucleated RBCs # 0.0 /100WBC 09/10/21 17:32 Sodium 139 mmol/L (136-145) 09/10/21 17:32 Potassium 2.9 mmol/L (3.5-5.1) L 09/10/21 17:32 Chloride 97 mmol/L (98-107) L 09/10/21 17:32 Carbon Dioxide 16 mmol/L (22-29) L 09/10/21 17:32 Anion Gap 28.9 (5-19) H 09/10/21 17:32 BUN 7 mg/dL (6-20) 09/10/21 17:32 Creatinine 0.4 mg/dL (0.5-0.9) L 09/10/21 17:32 GFR Calculation 175.9 mL/min (90-130) H 09/10/21 17:32 Glucose 90 mg/dL (65-115) 09/10/21 17:32 Calculated Osmolality 286 mOsm/kg (285-295) 09/10/21 17:32 Calcium 8.7 mg/dL (8.5-10.5) 09/10/21 17:32 Ionized Calcium Renea 1.0 mmol/L (1.1-1.4) L 09/10/21 17:32 Magnesium 1.7 mg/dL (1.7-2.3) 09/10/21 17:32 Total Bilirubin 1.0 mg/dL (0.15-1.2) 09/10/21 17:32 AST 143 U/L (0-32) H 09/10/21 17:32 ALT 42 U/L (0-33) H 09/10/21 17:32 Alkaline Phosphatase 256 IU/L (35-105) H 09/10/21 17:32 Total Protein 5.7 g/dL (6.6-8.7) L 09/10/21 17:32 Albumin 3.2 g/dL (3.5-5.2) L 09/10/21 17:32 Globulin 2.5 g/dL (1.3-4.6) 09/10/21 17:32 Prolactin 6.37 ng/mL (4.8-23.3) 09/10/21 17:32 Discharge Plan Discharge Patient Disposition: Home Clinical Impression: Seizure-like activity, Carpopedal spasm, Frequent PVCs, Acute hypokalemia, Hypocalcemia, Hypomagnesemia Condition: Stable Prescriptions: No Action Bariatric Multivitamins 45 mg iron- 800 mcg-120 mcg capsule 1 cap PO QAM 0RF (DME) pair of crutches See Rx Instructions .Route .MEDSUPPLY Qty: 1 0RF Rx Instructions: As directed prazosin 1 mg capsule 1 mg PO BEDTIME Qty: 30 3RF lamotrigine [Lamictal] 25 mg tablet 50 mg PO QAM Qty: 60 3RF Rx Instructions: Take two tablets every morning olanzapine [Zyprexa Zydis] 5 mg tablet,disintegrating 5 mg PO DAILY PRN (Reason: severe anxiety/agitation) Qty: 30 2RF magnesium oxide 400 mg magnesium tablet 400 mg PO TID Qty: 30 0RF Rx Instructions: take with meals polyethylene glycol 3350 [Miralax] 17 gram/dose powder 17 gm PO DAILY PRN (Reason: constipation) Qty: 119 0RF cetirizine [Zyrtec] 10 mg Tablet 10 mg PO QAM PRN (Reason: Allergy Symptoms) 0RF furosemide [Lasix] 20 mg Tablet 20 mg PO DAILY PRN (Reason: Edema) 0RF omeprazole 20 mg capsule,delayed release(DR/EC) 40 mg PO QAM 0RF ibuprofen 800 mg tablet 800 mg PO TID PRN (Reason: Pain) 0RF hydroxyzine pamoate [Vistaril] 50 mg capsule 50 mg PO Q6H PRN (Reason: anxiety) Qty: 14 0RF venlafaxine 75 mg capsule,extended release 24hr 150 mg PO DAILY 0RF potassium 99 mg Tablet 99 mg PO DAILY 0RF Discharge Orders: Discharge ED (Routine); Ordered 09/10/21 Ordered By: Dima Ellis Other Ambulatory Orders: ECG holter monitor 7 Days (Routine) Timeframe: 1 Week Facility: [facility] - Location: Radiology Ordered By: Ghanshyam Espitia Referrals: Antoinette Purdy APN [Primary Care Provider] - Discharge Diet: Usual diet Discharge Activity: Limit activity as instructed Patient Instructions: Recurrent Seizures in Adults (ED), Premature Ventricular Contractions (ED) Activity Restrictions/Additional Instructions: Thank you for visiting the emergency department. You were seen and evaluated for seizure-like episodes associated with contracture of the wrists. The exact cause of your symptoms is unclear. I will message case management for rescheduling of your neurology appointment. I will also refer you for outpatient EEG. Additionally you were noted to have frequent premature ventricular contractions. I will order a outpatient Holter monitor and you should be contacted for placement of this. For seizures you should not drive, operate machinery, swim or bathe in a bathtub, cook over open flame, climb tall objects, or performing any other task which could be dangerous if you have another seizure. I recommend continued use of your medications as prescribed. You should also have your potassium magnesium and calcium checked in 2 to 3 days at your primary care provider office. Please return to the emergency department for anything that you are concerned about and feel needs emergency department evaluation. Coding Level of Care Code ED Manager Internship for Cristhian Lu
--- NOTE | 2021-09-10 16:51 | ECG_ITS ---
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 Measurements Intervals [employer] Rate: 80 P: 62 VT: 147 QRS: 65 QRSD: 86 T: 55 QT: 405 QTc: 468 Interpretive Statements SINUS RHYTHM WITH FREQUENT VENTRICULAR PREMATURE COMPLEXES Compared to ECG 07/16/2021 20:19:18 Ventricular premature complex(es) now present Electronically Signed On 09-11-2021 17:34:31 CDT by Fadi Gar M.D. [email or web address] [email or web address] [email or web address].[email or web address]/store/[id number]
--- NOTE | 2021-09-10 17:15 | PC.PHAR ---
pt states she has been taking Venlafaxine 300mg daily (last filled 06/22/21 x 30 days) 150mg (2) daily - most recently filled is 75mg once daily; pt states she was unaware that she was to take 75mg once daily (family assures that 75mg once daily is what was last picked up from pharmacy) pt states she has been taking 2 caps daily which would equal 150mg once daily
[2021-09-10] MEDS: sodium chloride 0.9% 1,000 ML 999 ML IV (17:41)
[2021-09-10] MEDS: LORazepam 2 mg/mL INJ 1 mL 0.5 MG IVP (17:42)
[2021-09-10 17:50] LABS: Basophils % 0.7 %; Eosinophils # 0.2 10^3/uL (0.0-0.8); Eosinophils % 2.7 %; Hematocrit 38.9 % (37.0-47.0); Lymphocytes # 0.8 10^3/uL (0.8-4.8); Lymphocytes % 13.9 %; Mean Corpuscular Hemoglobin 36.1 pg (28.0-34.0); Mean Corpuscular Volume 100.3 fl (81-99); Mean Platelet Volume 9.4 fL (7.4-10.4); Monocytes # 0.4 10^3/uL (0.2-0.9); Monocytes % 7.6 %; Neutrophils # 4.14 10^3/uL (1.8-7.7); Neutrophils % 74.6 %; Nucleated Red Blood Cells % 0 %; Platelet Count 260 10^3/cmm (130-400); Red Blood Count 3.88 10^6/uL (4.1-5.3); Red Cell Distribution Width 14.1 % (12.1-15.1); White Blood Count 5.6 10^3/uL (4.0-10.0)
[2021-09-10 18:08] VITALS: BP 115/81; PULSE 83; RESP 16; O2SAT 98
[2021-09-10 18:22] LABS: Alanine Aminotransferase 42 U/L (0-33); Albumin Level 3.2 g/dL (3.5-5.2); Alkaline Phosphatase 256 IU/L (35-105); Anion Gap 28.9 (5-19); Aspartate Amino Transferase 143 U/L (0-32); Blood Urea Nitrogen 7 mg/dL (6-20); Calcium 8.7 mg/dL (8.5-10.5); Carbon Dioxide 16 mmol/L (22-29); Chloride 97 mmol/L (98-107); Globulin 2.5 g/dL (1.3-4.6); Glomerular Filtration Rate 175.9 mL/min (90-130); Glucose 90 mg/dL (65-115); Magnesium 1.7 mg/dL (1.7-2.3); Osmolality Calculated 286 mOsm/kg (285-295); Sodium 139 mmol/L (136-145); Total Protein 5.7 g/dL (6.6-8.7)
[2021-09-10 18:26] LABS: Potassium 2.9 mmol/L (3.5-5.1)
--- NOTE | 2021-09-10 18:26 | PC.NURSE ---
Potassium of 2.9, reported to Dr. Espitia and Dr. Ellis.
[2021-09-10] MEDS: calcium gluconate 0.9% NaCL 1 GM/50 ML PREMIX IV (18:27)
[2021-09-10] MEDS: ketorolac 30 mg/mL INJ 15 MG IVP (18:27)
[2021-09-10 18:31] LABS: Prolactin 6.37 ng/mL (4.8-23.3)
[2021-09-10] MEDS: magnesium sulfate premix 2 GM/50 ML PIGGYBACK IV (19:12)
[2021-09-10] MEDS: potassium chloride oral liq 20 mEq/15 mL UDC 40 MEQ PO (19:13)
[2021-09-10 19:16] VITALS: BP 108/77; PULSE 92; RESP 18; O2SAT 100
[2021-09-10] MEDS: LORazepam 2 mg/mL INJ 1 mL 1 MG IVP (20:29)
[2021-09-10] MEDS: potassium chloride oral liq 20 mEq/15 mL UDC PO (21:00)
[2021-09-10 21:06] VITALS: BP 114/69; PULSE 98; RESP 17; O2SAT 95
--- NOTE | 2021-09-20 14:47 | DCPLANNER ---
Addendum entered by Hoda Martell 11/07/21 12:34: patient had an EEG scheduled for 10.18.21 - patient did not attend appointment. Patient had a follow up appointment scheduled with neurology - appointment was cancelled. Addendum entered by Hoda Martell 09/29/21 12:10: Patient has an outpatient EEG scheduled for Monday, October 18, 2021 at 10:30 with neurology. Clinic will call patient with appointment information. Patient has a follow up appointment scheduled for Sunday, October 31, 2021 at 8:[address] Ruth at neurology. Clinic will call patient with appointment information. Original Note: convention services manager had message to schedule an outpatient EEG for patient and follow up with neurology. convention services manager faxed signed order to neurology for an EEG, clinic will call patient with appointment information. convention services manager also had message to schedule a follow up appointment for patient with neurology. convention services manager sent patients information to the front office staff at neurology. Patients information will be printed and reviewed. Clinic will call patient with appointment information.
== END 2021-09-10 21:07 | disposition home or self-care (01) ==
PROVIDERS: Emergency Medicine; Emergency Provider Emergency Medicine; PCP Nurse Practitioner Family
DX: R56.9 Unspecified convulsions (principal); R29.0 Tetany; I49.3 Ventricular premature depolarization; E87.6 Hypokalemia; E83.51 Hypocalcemia; E83.42 Hypomagnesemia; F17.210 Nicotine dependence, cigarettes, uncomplicated
CPT/HCPCS: 80053; 82330; 83735; 84146; 85025; 93005; 96365; 96367; 96375; 99284; J0610; J1885; J2060; J3475; J7030

== ENCOUNTER → 2021-12-11 09:25 | Outpatient (BNVA) | payer MEDICARE, MEDICAID, SELFPAY ==
[2020-12-12 13:27] VITALS: BP 111/73; BMI 27.4
== END ==
PROVIDERS: PCP Nurse Practitioner Family; Visit Provider Surgery
DX: Z98.84 Bariatric surgery status (principal); K21.9 Gastro-esophageal reflux disease without esophagitis; K29.70 Gastritis, unspecified, without bleeding; E88.81 Metabolic syndrome and other insulin resistance
CPT/HCPCS: 99213

== ENCOUNTER 2021-12-16 20:26 | Emergency (ER) | payer MEDICARE, MEDICAID, SELFPAY ==
[2020-12-12 13:27] VITALS: BP 111/73; BMI 27.4
[2021-12-16 20:31] VITALS: BP 82/44; PULSE 65; RESP 16; O2SAT 93; BMI 24.2
[2021-12-16 21:05] VITALS: BP 83/43; PULSE 67; RESP 16; O2SAT 94
--- NOTE | 2021-12-16 21:19 | XRR_ITS ---
PROCEDURE INFORMATION: Exam: XR Chest Exam date and time: 12/16/2021 10:02 PM Age: 41 years old Clinical indication: Other: AMS; Hypotensive TECHNIQUE: Imaging protocol: Radiologic exam of the chest. Views: 1 view. COMPARISON: CR (CHEST, ) 07/16/2021 6:07 PM FINDINGS: Lungs: Unremarkable. No consolidation. Pleural spaces: Unremarkable. No pleural effusion. No pneumothorax. Heart/Mediastinum: Unremarkable. No cardiomegaly. Bones/joints: Unremarkable. XR/XR chest 1V portable [id number] IMPRESSION: No acute findings.
--- NOTE | 2021-12-16 21:19 | CTR_ITS ---
PROCEDURE INFORMATION: Exam: CT Head Without Contrast Exam date and time: 12/16/2021 9:58 PM Age: 41 years old Clinical indication: Altered mental status/memory loss; Additional info: AMS TECHNIQUE: Imaging protocol: Computed tomography of the head without contrast. Radiation optimization: All CT scans at this facility use at least one of these dose optimization techniques: automated exposure control; mA and/or kV adjustment per patient size (includes targeted exams where dose is matched to clinical indication); or iterative reconstruction. COMPARISON: CT head wo con* [id number] 07/09/2021 3:31 AM RADIATION DOSE METRICS: Total DLP (mGy-cm): 1073.86 FINDINGS: Brain: Normal. No hemorrhage. Unremarkable white matter. No mass effect. Cerebral ventricles: No ventriculomegaly. Paranasal sinuses: Visualized sinuses are unremarkable. No fluid levels. Mastoid air cells: Visualized mastoid air cells are well aerated. Bones/joints: Unremarkable. No acute fracture. Soft tissues: Unremarkable. CT/CT head wo con* [id number] IMPRESSION: No acute intracranial abnormality.
--- NOTE | 2021-12-16 21:20 | ECG_ITS ---
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 Measurements Intervals [place] Rate: 65 P: 33 UT: 144 QRS: 68 QRSD: 100 T: 49 QT: 463 QTc: 485 Interpretive Statements SINUS RHYTHM PROLONGED QT INTERVAL Compared to ECG 09/10/2021 18:09:51 Prolonged QT interval now present Ventricular premature complex(es) no longer present Electronically Signed On 12-17-2021 22:02:02 CDT by Fadi Gar M.D. [id number]
[2021-12-16 21:31] VITALS: BP 78/41; PULSE 69; RESP 18; O2SAT 95
[2021-12-16] MEDS: sodium chloride 0.9% 1,000 ML 999 ML IV ×3 (21:32→22:56)
[2021-12-16 21:39] LABS: Basophils % 0.1 %; Hematocrit 28.9 % (37.0-47.0); Hemoglobin 9.4 g/dL (11.5-15.3); Lymphocytes # 1.3 10^3/uL (0.8-4.8); Lymphocytes % 11.8 %; Mean Corpuscular HGB Conc 32.5 g/dL (30.0-36.0); Mean Corpuscular Hemoglobin 35.5 pg (28.0-34.0); Mean Corpuscular Volume 109.1 fl (81-99); Mean Platelet Volume 9.2 fL (7.4-10.4); Monocytes # 0.4 10^3/uL (0.2-0.9); Monocytes % 3.4 %; Neutrophils # 9.19 10^3/uL (1.8-7.7); Neutrophils % 83.4 %; Nucleated Red Blood Cells # 0.1 /100WBC; Nucleated Red Blood Cells % 0.5 %; Platelet Count 434 10^3/cmm (130-400); Red Blood Count 2.65 10^6/uL (4.1-5.3); Red Cell Distribution Width 18.4 % (12.1-15.1)
[2021-12-16 21:54] LABS: Lactate (Lactic Acid level) 1.3 mmol/L (0.5-2.2)
[2021-12-16 22:04] LABS: Bilirubin Urine Negative (Negative); Blood Urine Negative (Negative); Glucose Urine UA Negative (Normal); Ketones Urine Negative (Negative); Leukocyte Esterase Urine Negative (Negative); Nitrate Urine Negative; Protein Urine 1+ (Negative); Urine Appearance Clear (CLEAR); Urine Color Yellow (Yellow); Urobilinogen Urine 0.2 mg/dL (Negative)
[2021-12-16 22:05] LABS: Add Urine Microscopic? YES; HCG Qualitative Urine. Negative (Negative)
[2021-12-16 22:07] LABS: Alanine Aminotransferase < 5 U/L (0-33); Albumin Level 2.6 g/dL (3.5-5.2); Alkaline Phosphatase 162 U/L (35-105); Anion Gap 13.5 (5-19); Aspartate Amino Transferase 10 U/L (0-32); Blood Urea Nitrogen 7 mg/dL (6-20); Carbon Dioxide 16 mmol/L (22-29); Chloride 110 mmol/L (98-107); Creatine Phosphokinase 24 U/L (26-192); Globulin 2.6 g/dL (1.3-4.6); Glomerular Filtration Rate 61.1 mL/min (90-130); Glucose 146 mg/dL (65-115); Magnesium 1.8 mg/dL (1.7-2.3); Osmolality Calculated 283 mOsm/kg (285-295); Potassium 3.5 mmol/L (3.5-5.1); Sodium 136 mmol/L (136-145); Total Bilirubin 0.2 mg/dL (0.15-1.2); Total Protein 5.2 g/dL (6.6-8.7)
[2021-12-16 22:08] LABS: Alcohol Level < 10 mg/dL (0-10)
[2021-12-16 22:08] LABS: Add Urine Culture? No; Bacteria Urine TRACE /hpf; Hyaline Casts Urine 0-4 /lpf; RBC Urine 0-4 /hpf (0-2); WBC Urine 0-4 /hpf (0-5)
--- NOTE | 2021-12-16 22:09 | W.ED.GENADLT ---
HPI - General Adult General: Chief complaint: General Medical Stated complaint: hypotension / altered mental status Time Seen by Provider: 12/16/21 20:34 History of Present Illness: 41-year-old female. She recently began taking Klonopin for anxiety. She notes that she has not had much intake. She had a sleeve gastrectomy 2 years ago. She had some mental status changes, was lethargic, and was hypotensive at home. She denies fever. She denies vomiting or significant diarrhea. Onset (ago): hour(s) Radiation: non-radiation Quality: other Pain Consistency: other Relieving factors: other Exacerbating factors: other Associated symptoms: Reports confusion (improved), decreased appetite and nausea; Deny chest pain, diaphoresis, dyspnea, fevers/chills, headache(s), rash or vomiting Review of Systems Const: Denies: diaphoresis ENMT: Denies: throat pain Card: Denies: chest pain Resp: Denies: dyspnea GI: Reports: nausea; Denies: abdominal pain or vomiting Skin/Breast: Denies: rash Neuro: Reports: confusion (improved); Denies: headache(s) PFSH ED PFSH: Medical History Acute post-traumatic stress disorder Alcohol abuse, episodic drinking behavior Bereavement Bipolar disorder, current episode mixed, severe, without psychotic features Bleeding per rectum Borderline personality disorder Cannabis dependence, episodic use Hearing loss associated with syndrome of both ears Irritable bowel syndrome Nicotine dependence, cigarettes, uncomplicated Obesity Panic attack Post-traumatic stress disorder, chronic Progressive deafness with fixation of stapes Sleep apnea Surgical History History of endometrial ablation History of partial hysterectomy History of tonsillectomy Family History Mother CHF (congestive heart failure) COPD (chronic obstructive pulmonary disease) Arthritis, rheumatoid Panic disorder Father , Unknown No problems noted. Grandmother , COPD COPD (chronic obstructive pulmonary disease) Grandfather , CHF CHF (congestive heart failure) Denies family history of Anesthesia complication Bleeding disorder Social History Smoking and tobacco status: current every day smoker (half pack a day ) cigarettes Packs smoked per day: 0.5 Second hand smoke exposure: Yes Smoking risk assessment/counseling performed?: No Alcohol intake: current Alcohol intake frequency: few times a month Alcohol type: wine Desire information about substance/drug rehabilitation?: No Adopted: No Caregiver/support person: No Lives independently: Yes Household members: children Housing: Manufactured/Mobile home Marital status: Legally Number of children: 2 Number of grandchildren: 0 Highest education level completed: Associate Degree: Occupational, Technical, Vocational Program Education level details: Business service: No Current occupational status: disabled Current occupational exposures/hazards: No Pets and animals: Yes Pets & animals: cat(s), dog(s) and turtle(s) History of recent travel: Yes Details: [place] and doctor is in [place] Out of state: Yes Leisure activites: music, reading and other Leisure activities details: clean Sexually active: Yes Are you practicing safe sex: Yes Current gender identity: Female Kristy/Pentecostal: Zoroastrianism Special kristy needs: No Agree to transfusion: Yes Financial difficulty paying for basics: Somewhat Hard Female Reproductive History: Para: 2 Spontaneous abortions: No Physical Exam Const: GENERAL APPEARANCE: cooperative and ill appearing (mildly); not well hydrated HENMT: COMMON NORMALS: normocephalic, atraumatic and Normal external nose present HEAD & SCALP: normocephalic and atraumatic NOSE: Normal external nose present MOUTH: Normal oral and palatal mucosa present THROAT: posterior oropharynx normal Eye: COMMON NORMALS: Equal, round and reactive pupils present and EOMs intact bilaterally PUPIL: Yes Equal, round and reactive pupils present Neck/C-Spine: GENERAL: Yes trachea midline Chest: CHEST: Yes Symmetrical chest wall rise Resp: COMMON NORMALS: normal respiratory effort, No use of accessory muscles and clear to auscultation bilaterally AUSCULTATION: clear to auscultation bilaterally Cardio: COMMON NORMALS: regular rate and regular rhythm RATE: regular rate RHYTHM: regular rhythm GI: COMMON NORMALS: Normal to inspection, nondistended, normoactive bowel sounds present, Soft to palpation and non-tender PALPATION: Yes Soft to palpation Psych: COMMON NORMALS: mental status grossly normal and cooperative ATTITUDE: Yes calm SPEECH: Yes slurred Skin: GENERAL SKIN EXAM: pallor Course Vital Signs: Vital signs: Vital Signs Pulse Rate 75 12/17/21 02:20 Respiratory Rate 18 10/02/22 02:20 Blood Pressure 116/79 12/17/21 02:20 Pulse Oximetry 98 12/17/21 02:20 Oxygen Delivery Me thod 12/16/21 21:31 MDM - General Adult Medical Decision Making 41-year-old female presenting with some lethargy, mild confusion, and hypotension. Her lethargy is improved. Hypotension is improved as well. She has had 3 L of fluid. White blood cell count is 11. Hemoglobin is 9.4. This is a significant drop since this August. She says that she has not had any black stool or significant vaginal bleeding abnormally. Her bicarbonate level is 16. Her lactate is normal. Her blood sugar is only 138. Potassium is 3.3 and is repleted. She is given 3 L of fluid with resolution of her hypotension. She is feeling much better. With improvement in her condition, she will be allowed home. Close outpatient follow-up given her anemia and low bicarbonate and potassium. Lab Data : 12/16/21 21:34 12/17/21 01:32 Radiology Impressions Chest X-Ray 12/16/21 21:19 IMPRESSION: No acute findings. Head CT 12/16/21 21:19 IMPRESSION: No acute intracranial abnormality. Laboratory Results WBC 11.0 10^3/uL (4.0-10.0) H 12/16/21 21:34 RBC 2.65 10^6/uL (4.1-5.3) L 12/16/21 21:34 Hgb 9.4 g/dL (11.5-15.3) L 12/16/21 21:34 Hct 28.9 % (37.0-47.0) L 12/16/21 21:34 MCV 109.1 fl (81-99) H 12/16/21 21:34 MCH 35.5 pg (28.0-34.0) H 12/16/21 21:34 MCHC 32.5 g/dL (30.0-36.0) 12/16/21 21:34 RDW 18.4 % (12.1-15.1) H 12/16/21 21:34 Plt Count 434 10^3/cmm (130-400) H 12/16/21 21:34 MPV 9.2 fL (7.4-10.4) 12/16/21 21:34 Neut % (Auto) 83.4 % 12/16/21 21:34 Lymph % (Auto) 11.8 % 12/16/21 21:34 [place] % (Auto) 3.4 % 12/16/21 21:34 Eos % (Auto) 0.0 % 12/16/21 21:34 Baso % (Auto) 0.1 % 12/16/21 21:34 Neut # (Auto) 9.19 10^3/uL (1.8-7.7) H 12/16/21 21:34 Lymph # (Auto) 1.3 10^3/uL (0.8-4.8) 12/16/21 21:34 [place] # (Auto) 0.4 10^3/uL (0.2-0.9) 12/16/21 21:34 Eos # (Auto) 0.0 10^3/uL (0.0-0.8) 12/16/21 21:34 Baso # (Auto) 0.0 10^3/uL (0.0-0.1) 12/16/21 21:34 Nucleated RBC % (auto) 0.5 % 12/16/21 21:34 Nucleated RBCs # 0.1 /100WBC 12/16/21 21:34 Sodium 142 mmol/L (136-145) 12/17/21 01:32 Potassium 3.3 mmol/L (3.5-5.1) L 12/17/21 01:32 Chloride 118 mmol/L (98-107) H 12/17/21 01:32 Carbon Dioxide 16 mmol/L (22-29) L 12/17/21 01:32 Anion Gap 11.3 (5-19) 12/17/21 01:32 BUN 6 mg/dL (6-20) 12/17/21 01:32 Creatinine 0.8 mg/dL (0.5-0.9) 12/17/21 01:32 GFR Calculation 79.0 mL/min (90-130) L 12/17/21 01:32 Glucose 138 mg/dL (65-115) H 12/17/21 01:32 Calculated Osmolality 294 mOsm/kg (285-295) 12/17/21 01:32 Lactate 1.3 mmol/L (0.5-2.2) 12/16/21 21:34 Calcium 7.7 mg/dL (8.5-10.5) L 12/17/21 01:32 Magnesium 1.8 mg/dL (1.7-2.3) 12/16/21 21:34 Total Bilirubin 0.2 mg/dL (0.15-1.2) 12/16/21 21:34 AST 10 U/L (0-32) 12/16/21 21:34 ALT < 5 U/L (0-33) 12/16/21 21:34 Alkaline Phosphatase 162 U/L (35-105) H 12/16/21 21:34 Creatine Kinase 24 U/L (26-192) L 12/16/21 21:34 Total Protein 5.2 g/dL (6.6-8.7) L 12/16/21 21:34 Albumin 2.6 g/dL (3.5-5.2) L 12/16/21 21:34 Globulin 2.6 g/dL (1.3-4.6) 12/16/21 21:34 HCG, Qual Negative (Negative) 12/16/21 21:55 Urine Color Yellow (Yellow) 12/16/21 21:55 Urine Appearance Clear (CLEAR) 12/16/21 21:55 Urine pH 6.0 (5-7) 12/16/21 21:55 Ur Specific [place] 1.020 (1.005-1.030) 12/16/21 21:55 Urine Protein 1+ (Negative) A 12/16/21 21:55 Urine Glucose (UA) Negative (Normal) 12/16/21 21: Urine Ketones Negative (Negative) 12/16/21 21:55 Urine Blood Negative (Negative) 12/16/21 21:55 Urine Nitrate Negative 12/16/21 21:55 Urine Bilirubin Negative (Negative) 12/16/21 21:55 Urine Urobilinogen 0.2 mg/dL (Negative) 12/16/21 21:55 Ur Leukocyte Esterase Negative (Negative) 12/16/21 21:55 Urine RBC 0-4 /hpf (0-2) H 12/16/21 21:55 Urine WBC 0-4 /hpf (0-5) H 12/16/21 21:55 Ur Squamous Epith Cells 5-10 /hpf (0-5) H 12/16/21 21:55 Amorphous Sediment Not Reportable 12/16/21 21:55 Urine Bacteria Trace /hpf (NONE) 12/16/21 21:55 Hyaline Casts 0-4 /lpf H 12/16/21 21:55 Urine Opiates Screen Negative ng/mL (Negative) 12/16/21 21:55 Ur Barbiturates Screen Negative ng/mL (Negative) 12/16/21 21:55 Ur Phencyclidine Scrn Negative ng/mL (Negative) 12/16/21 21:55 Ur Amphetamines Screen Negative ng/mL (Negative) 12/16/21 21:55 U Benzodiazepines Scrn Negative ng/mL (Negative) 12/16/21 21:55 Urine Cocaine Screen Negative ng/mL (Negative) 12/16/21 21:55 U Marijuana (THC) Screen Negative ng/mL (Negative) 12/16/21 21:55 Ethyl Alcohol < 10 mg/dL (0-10) 12/16/21 21:34 Discharge Plan Discharge Patient Disposition: Home Clinical Impression: Acute hypotension, Acute alteration in mental status Condition: Stable Prescriptions: No Action Bariatric Multivitamins 45 mg iron- 800 mcg-120 mcg capsule 1 cap PO QAM (DME) pair of crutches See Rx Instructions .Route .MEDSUPPLY Qty: 1 0RF Rx Instructions: As directed prazosin 1 mg capsule 1 mg PO BEDTIME Qty: 30 3RF lamotrigine [Lamictal] 25 mg tablet 50 mg PO QAM Qty: 60 3RF Rx Instructions: Take two tablets every morning propranolol 10 mg tablet 10 mg PO BID olanzapine [Zyprexa Zydis] 5 mg tablet,disintegrating 5 mg PO DAILY PRN (Reason: severe anxiety/agitation) Qty: 30 2RF magnesium oxide 400 mg magnesium tablet 400 mg PO TID Qty: 30 0RF Rx Instructions: take with meals polyethylene glycol 3350 [Miralax] 17 gram/dose powder 17 gm PO DAILY PRN (Reason: constipation) Qty: 119 0RF cetirizine [Zyrtec] 10 mg Tablet 10 mg PO QAM PRN (Reason: Allergy Symptoms) furosemide [Lasix] 20 mg Tablet 20 mg PO DAILY PRN (Reason: Edema) omeprazole 20 mg capsule,delayed release(DR/EC) 40 mg PO QAM ibuprofen 800 mg tablet 800 mg PO TID PRN (Reason: Pain) hydroxyzine pamoate [Vistaril] 50 mg capsule 50 mg PO Q6H PRN (Reason: anxiety) Qty: 14 0RF venlafaxine 75 mg capsule,extended release 24hr 150 mg PO DAILY potassium 99 mg Tablet 99 mg PO DAILY Discharge Orders: Discharge ED (Routine); Ordered 12/17/21 Ordered By: Dima Ellis Referrals: Purdy,Antoinette, [employer]SEMBLER [Primary Care Provider] - 1-3 days Patient Instructions: Hypotension (ED), Altered Mental Status (ED), Pain Management Activity Restrictions/Additional Instructions: Stop your new medication until re-evaluated by your doctor. Stay hydrated. Check your blood pressure twice daily. Return for any change in mental status, low blood pressure, or any other concenring symptoms. Coding Level of Care Code ED Terminal Manager for Cristhian Lu
[2021-12-16 22:14] LABS: Amphetamines Screen Urine Negative (Negative); Barbiturates Screen Urine Negative (Negative); Benzodiazepines Screen Urine Negative (Negative); Cocaine Screen Urine Negative (Negative); Opiate Screen Urine Negative (Negative); PCP Screen Urine Negative (Negative); THC Screen Urine Negative (Negative)
[2021-12-16 22:57] VITALS: BP 96/61; PULSE 62; RESP 18; O2SAT 97
[2021-12-16 23:18] VITALS: BP 99/72; PULSE 70; RESP 18; O2SAT 99
[2021-12-16 23:38] VITALS: BP 107/66; PULSE 74; RESP 18; O2SAT 99
[2021-12-17 00:07] VITALS: BP 108/72; PULSE 73; RESP 18; O2SAT 100
[2021-12-17 00:43] VITALS: BP 111/66; PULSE 74; RESP 16; O2SAT 100
[2021-12-17 01:12] VITALS: BP 94/62; PULSE 73; RESP 18; O2SAT 96
[2021-12-17 01:48] VITALS: BP 100/66; PULSE 71; RESP 18; O2SAT 97
[2021-12-17 01:53] LABS: Anion Gap 11.3 (5-19); Blood Urea Nitrogen 6 mg/dL (6-20); Calcium 7.7 mg/dL (8.5-10.5); Carbon Dioxide 16 mmol/L (22-29); Chloride 118 mmol/L (98-107); Glucose 138 mg/dL (65-115); Osmolality Calculated 294 mOsm/kg (285-295); Potassium 3.3 mmol/L (3.5-5.1); Sodium 142 mmol/L (136-145)
[2021-12-17 02:20] VITALS: BP 116/79; PULSE 75; RESP 18; O2SAT 98
[2021-12-17] MEDS: potassium chloride ER 20 mEq Tablet PO (02:20)
== END 2021-12-17 02:24 | disposition home or self-care (01) ==
PROVIDERS: Emergency Provider Emergency Medicine; PCP Nurse Practitioner Family
DX: R41.82 Altered mental status, unspecified (principal); I95.9 Hypotension, unspecified; F17.210 Nicotine dependence, cigarettes, uncomplicated
CPT/HCPCS: 70450; 71045; 80048; 80053; 80306; 80307; 81001; 81025; 82550; 83605; 83735; 85025; 93005; 96360; 96361; 99285; J7030

== ENCOUNTER 2022-01-17 14:52 | Outpatient (CLI) | payer MEDICARE, MEDICAID, SELFPAY ==
[2020-12-12 13:27] VITALS: BP 111/73; BMI 27.4
[2022-01-17 16:09] LABS: Basophils % 0.4 %; Eosinophils # 0.1 10^3/uL (0.0-0.8); Hemoglobin 11.5 g/dL (11.5-15.3); Lymphocytes # 2.8 10^3/uL (0.8-4.8); Lymphocytes % 33.4 %; Mean Corpuscular HGB Conc 33.8 g/dL (30.0-36.0); Mean Corpuscular Hemoglobin 35.3 pg (28.0-34.0); Mean Corpuscular Volume 104.3 fl (81-99); Mean Platelet Volume 10.5 fL (7.4-10.4); Monocytes # 0.6 10^3/uL (0.2-0.9); Monocytes % 7.1 %; Neutrophils # 4.81 10^3/uL (1.8-7.7); Neutrophils % 57.6 %; Nucleated Red Blood Cells % 0 %; Platelet Count 307 10^3/cmm (130-400); Red Blood Count 3.26 10^6/uL (4.1-5.3); Red Cell Distribution Width 13.6 % (12.1-15.1); White Blood Count 8.3 10^3/uL (4.0-10.0)
[2022-01-17 16:44] LABS: Calcium 9.3 mg/dL (8.5-10.5)
[2022-01-17 16:46] LABS: Parathyroid Hormone 51.9 pg/mL (15-65)
[2022-01-17 17:00] LABS: Alanine Aminotransferase 7 U/L (0-33); Albumin Level 4.4 g/dL (3.5-5.2); Alkaline Phosphatase 91 U/L (35-105); Aspartate Amino Transferase 14 U/L (0-32); Blood Urea Nitrogen 7 mg/dL (6-20); Calcium 9.3 mg/dL (8.5-10.5); Carbon Dioxide 21 mmol/L (22-29); Chloride 104 mmol/L (98-107); Cholesterol 187 mg/dL (0-200); Ferritin 161 ng/mL (15-150); Globulin 2.3 g/dL (1.3-4.6); Glucose 87 mg/dL (65-115); HDL Cholesterol 72 mg/dL (60-100); Iron 111 ug/dL (37-145); LDL Cholesterol Calculated 102 mg/dL (50-129); LDL HDL Ratio 1.42 RATIO (0.00-3.22); Magnesium 1.8 mg/dL (1.7-2.3); Osmolality Calculated 281 mOsm/kg (285-295); Percent Saturation 29.8 % (20-50); Sodium 137 mmol/L (136-145); Thyroid Stimulating Hormone 4.32 uIU/mL (0.27-4.20); Total Bilirubin 0.5 mg/dL (0.15-1.2); Total Iron Binding Capacity 372 mcg/dl; Total Protein 6.7 g/dL (6.6-8.7); Triglycerides 67 mg/dL (0-150); Unsaturated Iron Binding 261 ug/dL (112-347); Vitamin B12 179 pg/mL (232-1245)
[2022-01-17 21:58] LABS: Folate Level 9.6 ng/mL (4.8-37.3)
[2022-01-21 19:17] LABS: Zinc Level, Serum or Plasma 46 mcg/dL (60-130)
[2022-01-22 09:57] LABS: Vit D 1,25 (Oh)2, Total 55 pg/mL (18-72); Vit D2 1,25 (Oh)2 <8 pg/mL; Vit D3 1,25 (Oh)2 55 pg/mL
[2022-01-22 17:03] LABS: Vitamin B1(Thiamin) Plas/Ser 11 nmol/L (8-30)
== END 2022-01-17 14:53 | disposition home or self-care (01) ==
LOC: LAB 15:00
PROVIDERS: PCP Nurse Practitioner Family; Visit Provider Surgery
DX: Z98.84 Bariatric surgery status (principal); K29.70 Gastritis, unspecified, without bleeding; K63.5 Polyp of colon; K21.9 Gastro-esophageal reflux disease without esophagitis
CPT/HCPCS: 80053; 80061; 82310; 82607; 82652; 82728; 82746; 83540; 83550; 83735; 83970; 84425; 84443; 84630; 85025

== ENCOUNTER → 2022-01-25 15:52 | Outpatient (BNVA) | payer MEDICARE, MEDICAID, SELFPAY ==
[2020-12-12 13:27] VITALS: BP 111/73; BMI 27.4
== END ==
PROVIDERS: PCP Nurse Practitioner Family; Visit Provider Surgery
DX: Z98.84 Bariatric surgery status (principal)
CPT/HCPCS: 99212

== ENCOUNTER → 2022-02-27 14:14 | Outpatient (BNVA) | payer MEDICARE, MEDICAID, SELFPAY ==
[2022-02-16 16:10] VITALS: BP 111/73; BMI 27.4
== END ==
PROVIDERS: PCP Nurse Practitioner Family; Visit Provider Surgery
DX: Z98.84 Bariatric surgery status (principal); M79.3 Panniculitis, unspecified
CPT/HCPCS: 99213

== ENCOUNTER → 2022-06-05 11:55 | Outpatient (BNVA) | payer MEDICARE, MEDICAID, OTHER, SELFPAY ==
[2022-02-16 16:10] VITALS: BP 111/73; BMI 27.4
== END ==
PROVIDERS: PCP Nurse Practitioner Family; Visit Provider Nurse Practitioner Psychiatric/Mental Health
DX: Z79.899 Other long term (current) drug therapy (principal)
CPT/HCPCS: 80053; 80061; 80307; 83036

== ENCOUNTER 2022-11-11 07:57 | Emergency (ER) | payer MEDICARE, MEDICAID, SELFPAY ==
[2022-02-16 16:10] VITALS: BP 111/73; BMI 27.4
[2022-11-11 08:18] VITALS: BP 113/74; PULSE 106; TEMP 36.7; O2SAT 98; BMI 29.9
--- NOTE | 2022-11-11 08:32 | XRR_ITS ---
PROCEDURE INFORMATION: Exam: XR Left Wrist Exam date and time: 11/11/2022 8:46 AM Age: 42 years old Clinical indication: Fall with blunt trauma involving the left wrist. TECHNIQUE: Imaging protocol: Radiologic exam of the left wrist. Views: 3 or more views. COMPARISON: No relevant prior studies available. FINDINGS: Bones/joints: There is a comminuted, mildly displaced, intra-articular fracture involving the distal ulna. The scapholunate and lunotriquetral intervals are maintained. No chondrocalcinosis is seen. Soft tissues: There is soft tissue swelling about the wrist. XR/XR wrist LT min 3V* [id number] IMPRESSION: 1. Comminuted, mildly displaced, intra-articular fracture involving the distal ulna. 2. Soft tissue swelling about the wrist.
--- NOTE | 2022-11-11 08:32 | ED_ITS ---
HPI - Extremity Problem General: Chief complaint: Extremity Injury, Upper Stated complaint: left lower injury Time Seen by Provider: 11/11/22 08:19 Source: patient Mode of arrival: ambulatory Limitations: no limitations History of Present Illness: 42yo female presents with family for left wrist pain and swelling after a trip and fall that occurred at approximately 1999 last night. Patient reports she tripped as she was going out of her door. She states that there is a step at the door that she tripped over. She reports that she put her arms out to catch herself and has had pain to the left wrist since. States that she did take Tylenol last night, but it is not helping. Patient reports she is right-hand dominant. She denies hitting her head, neck pain, back pain, any other concerns at this time. Associated symptoms: Deny chest pain or fever(s) Review of Systems Const: Denies: fever(s) Card: Denies: chest pain Resp: Denies: dyspnea Musc: Reports: extremity pain (Left wrist), extremity swelling (Left wrist) and limited range of motion (Left wrist); Denies: neck pain or back pain PFSH ED PFSH: Medical History Acute post-traumatic stress disorder Alcohol abuse, episodic drinking behavior Bereavement Bipolar disorder, current episode mixed, severe, without psychotic features Bleeding per rectum Borderline personality disorder Cannabis dependence, episodic use Hearing loss associated with syndrome of both ears Irritable bowel syndrome Nicotine dependence, cigarettes, uncomplicated Obesity Panic attack Post-traumatic stress disorder, chronic Progressive deafness with fixation of stapes Sleep apnea Surgical History History of endometrial ablation History of partial hysterectomy History of tonsillectomy Family History Mother CHF (congestive heart failure) COPD (chronic obstructive pulmonary disease) Arthritis, rheumatoid Panic disorder Father , Unknown No problems noted. Grandmother , COPD COPD (chronic obstructive pulmonary disease) Grandfather , CHF CHF (congestive heart failure) Denies family history of Anesthesia complication Bleeding disorder Social History Smoking and tobacco status: current every day smoker cigarettes Packs smoked per day: 0.5 Second hand smoke exposure: Yes Smoking risk assessment/counseling performed?: No Alcohol intake: current Alcohol intake frequency: few times a month Alcohol type: wine Substance/Drug Use: never Desire information about substance/drug rehabilitation?: No Adopted: No Caregiver/support person: No Lives independently: Yes Household members: children Housing: Manufactured/Mobile home Marital status: Legally Number of children: 2 Number of grandchildren: 0 Highest education level completed: Associate Degree: Occupational, Technical, Vocational Program Education level details: Business service: No Current occupational status: disabled Current occupational exposures/hazards: No Pets and animals: Yes Pets & animals: cat(s), dog(s) and turtle(s) Leisure activites: music, reading and other Leisure activities details: clean Sexually active: Yes Are you practicing safe sex: Yes Do you think of yourself as: Straight/Heterosexual Current gender identity: Female Kristy/Faith: Evangelical Special kristy needs: No Agree to transfusion: Yes Financial difficulty paying for basics: Somewhat Hard Female Reproductive History: Para: 2 Spontaneous abortions: No Physical Exam Const: COMMON NORMALS: no acute distress and alert GENERAL APPEARANCE: cooperative ORIENTATION/CONSCIOUSNESS: Yes awake OTHER: Patient is ambulatory to the exam room unassisted. She is sitting upright on the stretcher in no acute distress. She is able to give history with no difficulty. Family is at bedside HENMT: COMMON NORMALS: normocephalic, atraumatic and Normal external nose present HEAD & SCALP: normocephalic and atraumatic NOSE: Normal external nose present Eye: GENERAL EYE: appearance normal, both eyes and all related structures Neck/C-Spine: COMMON NORMALS: full ROM Chest: CHEST: Yes Symmetrical chest wall rise Resp: COMMON NORMALS: normal respiratory effort EFFORT & INSPECTION: Yes able to speak in complete sentences Cardio: COMMON NORMALS: regular rate RATE: regular rate Back/Pelvis: COMMON NORMALS: thoraco-lumbar ROM normal Extremity: COMMON NORMALS: capillary refill normal LEFT UPPER EXTREMITY: Yes wrist Left wrist: Yes palpation (Tenderness to palpation), Yes ROM (Decreased) and Yes other (Patient is able to move her fingers with no difficulty, radial pulse 2+) Neuro: SENSORIUM/ORIENTATION: Yes alert SPEECH: speech normal Psych: COMMON NORMALS: cooperative ATTITUDE: Yes calm Skin: COMMON NORMALS: no wounds Course Vital Signs: Vital signs: Vital Signs Temperature 98.1 F 11/11/22 08:18 Pulse Rate 106 H 11/11/22 08:18 Blood Pressure 113/74 11/11/22 08:18 Pulse Oximetry 98 11/11/22 08:18 Oxygen Delivery Me thod Room Air 11/11/22 08:18 MDM - Extremity (Nontraumatic) Medical Decision Making 42yo female here with family for left wrist pain and swelling after a trip and fall that occurred last night around 1999. Patient was attempting to go outside of her door when she tripped over a step. She reports she attempted to catch herself with her arms outstretched. States that she did use Tylenol last night, but continues to have pain today. Patient reports she is right-hand dominant. She denies hitting her head, neck pain, back pain, any other concerns at this time. Patient is nontoxic in appearance. Vital signs are stable. Differential diagnosis includes fracture, sprain, strain X-ray reveals a comminuted distal ulna fracture, pending radiology review. Discussed findings with patient and family. Advised that we would splint and have her follow-up with orthopedics. Short course hydrocodone was prescribed, sedation precautions provided. Consult to medical management for orthopedics follow-up. Volar splint to be placed by nursing. Recommend she rest, ice, elevate the wrist. Advised to follow-up with orthopedics as soon as possible. Recommend return to the emergency department if any further injury, rapid worsening symptoms, and as needed Lab Data Radiology Impressions Wrist X-Ray 11/11/22 08:32 IMPRESSION: 1. Comminuted, mildly displaced, intra-articular fracture involving the distal ulna. 2. Soft tissue swelling about the wrist. Imaging Data Xray Ortho: I personally reviewed and interpreted this imaging study as follows: My impression: Distal ulna fracture Discharge Plan Discharge Patient Disposition: Home Clinical Impression: Fall from slip, trip, or stumble Closed fracture of distal end of left ulna Qualifiers: Encounter type: initial encounter Fracture morphology: unspecified fracture morphology Qualified Code(s): S52.602A - Unspecified fracture of lower end of left ulna, initial encounter for closed fracture Condition: Stable Prescriptions: New hydrocodone-acetaminophen 5-325 mg tablet 1 tab PO Q6H PRN (Reason: pain) Qty: 12 0RF No Action Bariatric Multivitamins 45 mg iron- 800 mcg-120 mcg capsule 1 cap PO QAM (DME) pair of crutches See Rx Instructions .Route .MEDSUPPLY Qty: 1 0RF Rx Instructions: As directed baclofen 10 mg tablet 10 mg PO TID hydroxyzine pamoate [Vistaril] 50 mg capsule 50 mg PO Q6H PRN (Reason: anxiety) Linzess 290 mcg capsule 290 mcg PO DAILY prazosin 2 mg capsule 4 mg PO BEDTIME Qty: 60 3RF Rx Instructions: Take two capsules at bedtime propranolol 10 mg tablet 10 mg PO BID Qty: 60 3RF Rx Instructions: Take one tablet twice per day venlafaxine [Effexor XR] 150 mg capsule,extended release 24hr 150 mg PO QAM Qty: 30 3RF Rx Instructions: Take one capsule every morning Vraylar 3 mg capsule 3 mg PO .morning Qty: 30 3RF Rx Instructions: Take one capsule every morning magnesium oxide 400 mg magnesium tablet 400 mg PO TID Qty: 30 0RF Rx Instructions: take with meals polyethylene glycol 3350 [Miralax] 17 gram/dose powder 17 gm PO DAILY PRN (Reason: constipation) Qty: 119 0RF cetirizine [Zyrtec] 10 mg Tablet 10 mg PO QAM PRN (Reason: Allergy Symptoms) furosemide [Lasix] 20 mg Tablet 20 mg PO DAILY PRN (Reason: Edema) omeprazole 20 mg capsule,delayed release(DR/EC) 40 mg PO QAM ibuprofen 800 mg tablet 800 mg PO TID PRN (Reason: Pain) potassium 99 mg Tablet 99 mg PO DAILY Discharge Orders: Discharge ED (Routine); Ordered 11/11/22 Ordered By: Jerardo Ansari Referrals: Antoinette Purdy APN [Primary Care Provider] - Discharge Diet: Usual diet Discharge Activity: Increase activity as tolerated Patient Instructions: Wrist Fracture in Adults (ED), Opioid Safety Coding Level of Care Code ED Acidizer Water Well for Cristhian Lu
[2022-11-11] MEDS: HYDROcodone-acetaminophen 5-325 mg Tablet 1 TAB PO (09:07)
--- NOTE | 2022-11-12 10:19 | DCPLANNER ---
Addendum entered by Hoda Martell 11/19/22 09:07: Patient did attend appointment scheduled with ortho Addendum entered by Hoda Martell 11/13/22 14:19: Patient has a follow up appointment scheduled for Wednesday, November 16, 2022 at 10:00 with Rohan Dillon at ortho. Original Note: value stream manager had message to schedule a follow up appointment for patient for ortho. value stream manager sent patients information to the front office staff at ortho. Patients information will be printed and reviewed. Clinic will call patient with appointment information.
== END 2022-11-11 09:51 | disposition home or self-care (01) ==
PROVIDERS: Emergency Provider Nurse Practitioner; PCP Nurse Practitioner Family
DX: S52.692A Other fracture of lower end of left ulna, initial encounter for closed fracture (principal); F17.210 Nicotine dependence, cigarettes, uncomplicated; W01.0XXA Fall on same level from slipping, tripping and stumbling without subsequent striking against object, initial encounter
CPT/HCPCS: 73110; 99283

== ENCOUNTER 2022-11-16 06:00 | Outpatient (CLI) | payer MEDICARE, MEDICAID, SELFPAY ==
[2022-02-16 16:10] VITALS: BP 111/73; BMI 27.4
== END 2022-11-16 06:01 ==
LOC: SOT 11-20 11:22
PROVIDERS: PCP Nurse Practitioner Family; Visit Provider Physician Assistant
DX: Z46.89 Encounter for fitting and adjustment of other specified devices (principal); S52.202D Unspecified fracture of shaft of left ulna, subsequent encounter for closed fracture with routine healing; X58.XXXD Exposure to other specified factors, subsequent encounter
CPT/HCPCS: 25650; 97760; 99213; L3763

== ENCOUNTER → 2022-11-16 09:56 | Outpatient (BNVA) | payer MEDICARE, MEDICAID, SELFPAY ==
[2022-02-16 16:10] VITALS: BP 111/73; BMI 27.4
== END ==
PROVIDERS: PCP Nurse Practitioner Family; Referring Provider Nurse Practitioner; Visit Provider Physician Assistant
DX: S52.602A Unspecified fracture of lower end of left ulna, initial encounter for closed fracture (principal); W10.1XXA Fall (on)(from) sidewalk curb, initial encounter
CPT/HCPCS: 25650; 73110; 97760; 99213; L3763

== ENCOUNTER 2023-03-16 12:28 | Inpatient (IN) | payer MEDICARE, MEDICAID, SELFPAY ==
[2022-02-16 16:10] VITALS: BP 111/73; BMI 27.4
[2023-03-16 12:31] VITALS: BP 94/51; PULSE 124; RESP 20; O2SAT 96
[2023-03-16 12:44] LABS: Glucose Point of Care 76 mg/dL (70-110)
--- NOTE | 2023-03-16 12:55 | XRR_ITS ---
PROCEDURE INFORMATION: Exam: XR Chest Exam date and time: 03/16/2023 1:43 PM Age: 43 years old Clinical indication: Patient HX: Tachycardia; AMS; Overdose; ETOH TECHNIQUE: Imaging protocol: Radiologic exam of the chest. Views: 1 view. COMPARISON: CR XR chest 1V portable [id number] 12/16/2021 10:02 PM FINDINGS: Lungs: Unremarkable. No consolidation. Pleural spaces: Unremarkable. No pleural effusion. No pneumothorax. Heart/Mediastinum: Unremarkable. No cardiomegaly. Bones/joints: Unremarkable. XR/XR chest 1V portable [id number] IMPRESSION: No acute findings.
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
[2023-03-16 12:58] LABS: Basophils # 0.1 10^3/uL (0.0-0.1); Basophils % 0.8 %; Eosinophils % 0.6 %; Hematocrit 40.3 % (36-47); Lymphocytes # 2.6 10^3/uL (0.8-4.8); Lymphocytes % 42.5 %; Mean Corpuscular HGB Conc 32.3 g/dL (30-55); Mean Corpuscular Hemoglobin 33.5 pg (27-33); Mean Corpuscular Volume 103.9 fl (85-98); Mean Platelet Volume 9.8 fL (7.4-10.4); Monocytes # 0.4 10^3/uL (0.2-0.9); Monocytes % 6.3 %; Neutrophils # 3.02 10^3/uL (1.8-7.7); Nucleated Red Blood Cells % 0 %; Platelet Count 361 10^3/cmm (157-399); Red Blood Count 3.88 10^6/uL (3.85-5.65); Red Cell Distribution Width 16.3 % (12.1-15.1); White Blood Count 6.17 10^3/uL (3.29-11.43)
[2023-03-16] MEDS: sodium chloride 0.9% 1,000 ML 999 ML IV (13:23)
--- NOTE | 2023-03-16 13:23 | PC.PHAR ---
pt unable to verify medications. Sharmaine Bender. MO verified all current medications. 03/16/23
[2023-03-16 13:30] LABS: Alanine Aminotransferase 31 U/L (0-33); Albumin Level 3.6 g/dL (3.5-5.2); Alkaline Phosphatase 164 U/L (35-105); Anion Gap 23.3 (5-19); Aspartate Amino Transferase 90 U/L (0-32); Blood Urea Nitrogen 5 mg/dL (6-20); Calcium 8.7 mg/dL (8.5-10.5); Carbon Dioxide 20 mmol/L (22-29); Chloride 106 mmol/L (98-107); Globulin 2.9 g/dL (1.3-4.6); Glomerular Filtration Rate 174.2 mL/min (90-130); Glucose 79 mg/dL (65-115); Magnesium 2.1 mg/dL (1.7-2.3); Osmolality Calculated 298 mOsm/kg (285-295); Potassium 3.3 mmol/L (3.5-5.1); Sodium 146 mmol/L (136-145); Total Bilirubin 0.3 mg/dL (0.15-1.2); Total Protein 6.5 g/dL (6.6-8.7)
[2023-03-16 13:34] LABS: Acetaminophen < 5.0 ug/mL (10-30); Salicylate < 0.3 mg/dL (3-10)
[2023-03-16 13:35] LABS: Alcohol Level 334 mg/dL (0-10)
[2023-03-16 13:35] LABS: HCG Qualitative Urine. Negative (Negative)
[2023-03-16 13:36] LABS: Amphetamines Screen Urine Negative (Negative); Barbiturates Screen Urine Negative (Negative); Benzodiazepines Screen Urine Negative (Negative); Cocaine Screen Urine Negative (Negative); Opiate Screen Urine Negative (Negative); PCP Screen Urine Negative (Negative); THC Screen Urine Negative (Negative)
[2023-03-16 13:44] LABS: NT Pro B Type Natriuretic Pept 47 pg/mL (0-125); Thyroid Stimulating Hormone 0.58 uIU/mL (0.27-4.20)
[2023-03-16 13:59] LABS: Troponin(5th) Baseline < 6 ng/L (0-10)
[2023-03-16 14:12] LABS: Add Urine Microscopic? NO; Urine Appearance Clear (CLEAR); Urine Color Yellow (Yellow)
[2023-03-16 14:13] LABS: Bilirubin Urine Neg (Negative); Blood Urine Neg (Negative); Charge for UA Resulting for Rev; Glucose Urine UA Norm (Normal); Ketones Urine 1+ (Negative); Leukocyte Esterase Urine Negative (Negative); Nitrate Urine Negative (Negative); Protein Urine Neg (Negative); Specific Gravity, Urine 1.005 (1.005-1.030); Urobilinogen Urine Norm (Negative); pH Urine 6 (5-7)
[2023-03-16 14:31] VITALS: BP 111/60; PULSE 86; RESP 20; O2SAT 95
[2023-03-16 16:31] LABS: Alcohol Level 249 mg/dL (0-10)
[2023-03-16 16:35] LABS: Troponin 5 2HR 7.25 ng/L (0-10); Troponin 5 2HR Delta 1.25001 ABS# (0-10)
[2023-03-16 17:25] VITALS: BP 110/74; PULSE 119; RESP 17; TEMP 36.7; O2SAT 99
[2023-03-16] MEDS: hyDROXYzine 25 mg Capsule 50 MG PO (17:40)
[2023-03-16] MEDS: LORazepam 2 mg Tablet PO (19:31)
[2023-03-16 19:41] VITALS: BP 135/88; PULSE 111; RESP 18; TEMP 36.8; O2SAT 98
[2023-03-16] MEDS: baclofen 10 mg Tablet PO (20:07)
[2023-03-17 06:00] VITALS: BP 110/75; PULSE 89; RESP 15; TEMP 36.8; O2SAT 98
[2023-03-17] MEDS: venlafaxine ER (24HR) 150 mg Capsule PO (06:04)
[2023-03-17] MEDS: baclofen 10 mg Tablet PO ×3 (08:31→19:57)
[2023-03-17] MEDS: thiamine 100 mg Tablet PO (08:31)
[2023-03-17] MEDS: multivitamin therapeutic Tablet 1 TAB PO (08:32)
[2023-03-17] MEDS: folic acid 1 mg Tablet PO (08:32)
[2023-03-17] MEDS: pantoprazole DR 40 mg Tablet PO (08:32)
[2023-03-17] MEDS: hyDROXYzine 25 mg Capsule 50 MG PO ×2 (08:34→17:08)
[2023-03-17] MEDS: OLANZapine 5 mg ODT PO (12:27)
[2023-03-17 14:00] VITALS: BP 125/81; PULSE 90; RESP 16; TEMP 36.7; O2SAT 99
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
[2023-03-17] MEDS: lurasidone 20 mg Tablet PO (18:21)
[2023-03-17 19:19] VITALS: BP 112/74; PULSE 99; RESP 16; TEMP 36.6; O2SAT 99
[2023-03-17] MEDS: prazosin 1 mg Capsule 2 MG PO (19:57)
[2023-03-17] MEDS: gabapentin 300 mg Capsule PO (19:57)
[2023-03-18] MEDS: hyDROXYzine 25 mg Capsule 50 MG PO ×2 (02:45→14:32)
[2023-03-18 06:00] VITALS: RESP 16
[2023-03-18] MEDS: pantoprazole DR 40 mg Tablet PO (09:32)
[2023-03-18] MEDS: thiamine 100 mg Tablet PO (09:32)
[2023-03-18] MEDS: multivitamin therapeutic Tablet 1 TAB PO (09:32)
[2023-03-18] MEDS: folic acid 1 mg Tablet PO (09:32)
[2023-03-18] MEDS: venlafaxine ER (24HR) 37.5 mg Capsule 112.5 MG PO (09:32)
[2023-03-18] MEDS: gabapentin 300 mg Capsule PO ×3 (09:32→20:04)
[2023-03-18] MEDS: baclofen 10 mg Tablet PO ×3 (09:32→20:04)
--- NOTE | 2023-03-18 10:01 | PC.NURSE ---
Late note: 96H hold. Read rights on 03/16/23 at 1535 by myself with RIK Barnard as witness. Patient stated understanding and was given a copy to keep with her belongings.
--- NOTE | 2023-03-18 13:17 | P.NPUPN_ITS ---
Subjective NPU 2 Subjective: Patient is a 43-year-old female with a history of PTSD, panic disorder, alcohol abuse, and bipolar 2 disorder currently endorsing depression with suicidal ideation. Patient reported that her Vraylar had not been working as well. She had reported an exacerbation of her PTSD symptoms due to the argument with her . She reported adequate sleep. The patient had reported struggles with managing her alcohol use. She had described having problems with binge drinking in the past but states that maybe she did have more cravings than she had anticipated. She had reported a previous trial on naltrexone oral but it never been on naltrexone intramuscular on a monthly basis. She had reported desire to consider dual diagnosis treatment potentially. She had reported no side effects from her Latuda for targeting bipolar depression. Mental Status Exam 2 MSE Comments: She she is a casually dressed overweight white female who appeared her stated age. Her gait was within normal limits. Her hygiene was adequate. There was no evidence of any abnormal involuntary motor movements tics or tremors appreciated. There was evidence of mild psychomotor retardation. Her speech was normal in regards to rate rhythm and prosody. Her mood was described as depressed. Her affect remained restricted. She was alert and oriented to person, place, time, and situation. Her recent and remote memory were grossly intact. Her thought process was linear, logical, and goal-directed. Her thought content showed evidence of passive suicidal ideation with no active plan. She did not appear to be responding internal stimuli. There is no clear evidence of delusional thinking. Her attention span was fair. Her insight is poor. Her judgment is poor. Her impulse control appeared poor. Vitals/I&O/Wt Last Vital Signs Temp 97.9 F 03/17/23 19:19 Pulse 99 03/17/23 19:19 Resp 16 03/18/23 06:00 BP 112/74 03/17/23 19:19 Pulse Ox 99 03/17/23 19:19 O2 Del Method Room Air 03/17/23 19:19 Weight last 48 hrs Weight 78.982 kg Weight 78.982 kg Data NPU 03/16/23 12:53 03/16/23 12:53 A&P Assessment and plan (1) Bipolar disorder, current episode mixed, severe, without psychotic features: (2) Borderline personality disorder: (3) Panic attack: (4) Post-traumatic stress disorder, chronic: (5) Suicidal ideation: Plan Patient is a 43-year-old white female currently not receiving psychotherapy with a history of PTSD, bipolar disorder, borderline personality disorder, and alcohol abuse admitted while intoxicated and endorsing suicidal ideation with worsening depression. 1. Encourage individual, group and milieu therapy. 2.Recommend sober living treatment at the highest level of care to which the patient is willing to commit. 3.Continue q-15 minute checks for safety.? 4. Discussed complications of gastric sleeve surgery and medication metabolism. It was recommended that the patient avoid extended release formulations of medications and Effexor will be switched from extended release to 37.5 mg 3 times a day immediate release. 5. CIWA protocol 6. Add naltrexone oral 50mg with plan to initiate naltrexone IM (vivitrol tommorow) if tolerated. 7. Continue latuda 20mg with increase to 40mg tommorow. Involuntary Hold Information 2 96 Hour Hold: 96 Hour Involuntary Admission: Yes 96 Hour Hold Ending Date: 03/22/23 96 Hour Hold Ending Time: 15:15 Attestations NPU 2 Medical Necessity Statement*: Inpatient hospitalization is medically necessary and the clinically appropriate intervention at this time. We will monitor medication to make changes as indicated.The patient's likely length of stay 3 to 5 days. Coding Level of Care Code Acute Code for [facility] Fwd Diagnoses Bipolar disorder, current episode mixed, severe, without psychotic features F31.63 Borderline personality disorder F60.3 Panic attack F41.0 Post-traumatic stress disorder, chronic F43.12 Suicidal ideation R45.851
[2023-03-18 14:00] VITALS: BP 141/93; PULSE 85; RESP 17; TEMP 36.3; O2SAT 100
[2023-03-18] MEDS: venlafaxine 75 mg Tablet 37.5 MG PO ×2 (14:30→20:03)
[2023-03-18] MEDS: naltrexone hcl 50 mg Tablet PO (14:30)
[2023-03-18] MEDS: lurasidone 20 mg Tablet PO (18:37)
[2023-03-18 19:31] VITALS: BP 106/74; PULSE 90; RESP 18; TEMP 36.8; O2SAT 98
[2023-03-18] MEDS: prazosin 1 mg Capsule 2 MG PO (20:04)
[2023-03-19 06:00] VITALS: RESP 16
[2023-03-19] MEDS: venlafaxine 75 mg Tablet 37.5 MG PO ×3 (09:17→19:57)
[2023-03-19] MEDS: pantoprazole DR 40 mg Tablet PO (09:18)
[2023-03-19] MEDS: naltrexone hcl 50 mg Tablet PO (09:18)
[2023-03-19] MEDS: multivitamin therapeutic Tablet 1 TAB PO (09:18)
[2023-03-19] MEDS: baclofen 10 mg Tablet PO ×3 (09:18→19:57)
[2023-03-19] MEDS: gabapentin 300 mg Capsule PO ×3 (09:18→19:56)
[2023-03-19] MEDS: folic acid 1 mg Tablet PO (09:18)
[2023-03-19] MEDS: thiamine 100 mg Tablet PO (09:18)
[2023-03-19] MEDS: hyDROXYzine 25 mg Capsule 50 MG PO ×2 (09:39→18:13)
--- NOTE | 2023-03-19 10:58 | PC.NURSE ---
Patient denies si/hi and avh. She does endorse high anxiety this morning. She states it is because she had been thinking about all of the things she needed to do when she leaves. She had just talked to her significant other and they had talked about everything that needed to be done for her granddaughter's birthday democrat within the week and it had overwhelmed her. Patient was playing solitaire to calm herself. Vistaril 50mg po was also administered.
[2023-03-19] MEDS: OLANZapine 5 mg ODT PO (12:30)
[2023-03-19 14:00] VITALS: BP 126/83; PULSE 73; RESP 14; TEMP 36.4; O2SAT 100
--- NOTE | 2023-03-19 14:26 | P.NPUPN_ITS ---
Subjective NPU 2 Subjective: Patient presented today reporting that she is feeling a little better. She reports that she is adjusting to the medications and we discussed the nurse working on attempting to get her Vivitrol injection so that we can administer it for her here. Otherwise she reported that she is feeling optimistic that we are moving in the right direction. We discussed the game plan of getting that injection and working with the social work team on outpatient planning for discharge in the next few days. Mental Status Exam 2 MSE Comments: This is an overweight, well-developed white female in hospital scrubs with limited grooming and eye contact. No abnormal movements except for mild psychomotor retardation Cooperative with exam in mild distress. Speech was normal rate and volume. Mood described as better, affect slightly subdued. Thought process organized. Thought contact: patient denies suicidal or homicidal ideation, there were no delusions reported or noted, patient denied auditory or visual hallucinations. Attention and concentration appeared intact and memory appeared reliable but none were formally tested. Patient is alert and oriented times three. Insight and judgment appear fair and impulse control appears impaired. Vitals/I&O/Wt Last Vital Signs Temp 98.3 F 03/18/23 19:31 Pulse 90 03/18/23 19:31 Resp 16 03/19/23 06:00 BP 106/74 03/18/23 19:31 Pulse Ox 98 03/18/23 19:31 O2 Del Method Room Air 03/18/23 19:31 Data NPU 03/16/23 12:53 03/16/23 12:53 A&P Assessment and plan (1) Bipolar disorder, current episode mixed, severe, without psychotic features: (2) Borderline personality disorder: (3) Panic attack: (4) Post-traumatic stress disorder, chronic: (5) Suicidal ideation: Plan Patient is a 43-year-old white female currently not receiving psychotherapy with a history of PTSD, bipolar disorder, borderline personality disorder, and alcohol abuse admitted while intoxicated and endorsing suicidal ideation with worsening depression. 1. Encourage individual, group and milieu therapy. 2.Recommend sober living treatment at the highest level of care to which the patient is willing to commit. 3.Continue q-15 minute checks for safety.? 4. Discussed complications of gastric sleeve surgery and medication metabolism. It was recommended that the patient avoid extended release formulations of medications and Effexor will be switched from extended release to 37.5 mg 3 times a day immediate release. 5. CIWA protocol 6. Add naltrexone oral 50mg with plan to initiate naltrexone IM (vivitrol tommorow) if tolerated. Nurse awaiting outpatient pharmacy to administer injection. 7. Continue latuda 20mg with increase to 40mg 03/20/2023. Involuntary Hold Information 2 96 Hour Hold: 96 Hour Involuntary Admission: Yes 96 Hour Hold Ending Date: 03/22/23 96 Hour Hold Ending Time: 15:15 Attestations NPU 2 Medical Necessity Statement*: Inpatient hospitalization is medically necessary and the clinically appropriate intervention at this time. We will monitor medication to make changes as indicated.The patient's likely length of stay 2-4 days. Coding Level of Care Code Acute Code for g Fwd Diagnoses Bipolar disorder, current episode mixed, severe, without psychotic features F31.63 Borderline personality disorder F60.3 Panic attack F41.0 Post-traumatic stress disorder, chronic F43.12 Suicidal ideation R45.851
[2023-03-19 14:32] LABS: Urine Appearance Cloudy (CLEAR); Urine Color Straw (Yellow); pH Urine 7 (5-7)
[2023-03-19 14:33] LABS: Add Urine Microscopic? YES; Bilirubin Urine Neg (Negative); Blood Urine 2+ (Negative); Glucose Urine UA Norm (Normal); Ketones Urine Negative (Negative); Leukocyte Esterase Urine 2+ (Negative); Nitrate Urine Negative (Negative); Protein Urine Neg (Negative); RBC Urine 0-4 /hpf (0-2); Squamous Epithelial Cell Urine 0-4 /hpf (0-5); Urobilinogen Urine Norm (Negative); WBC Urine 15-25 /hpf (0-5)
[2023-03-19 14:34] LABS: Add Urine Culture? Yes; Bacteria Urine 2+ /hpf
[2023-03-19] MEDS: lurasidone 20 mg Tablet PO (18:14)
[2023-03-19] MEDS: acetaminophen 325 mg Tablet 650 MG PO (18:14)
[2023-03-19 19:54] VITALS: BP 115/74; PULSE 93; RESP 16; TEMP 36.8; O2SAT 100
[2023-03-19] MEDS: prazosin 1 mg Capsule 2 MG PO (19:56)
[2023-03-20 06:00] VITALS: RESP 15
[2023-03-20] MEDS: venlafaxine 75 mg Tablet 37.5 MG PO ×3 (08:32→19:57)
[2023-03-20] MEDS: folic acid 1 mg Tablet PO (08:33)
[2023-03-20] MEDS: pantoprazole DR 40 mg Tablet PO (08:33)
[2023-03-20] MEDS: baclofen 10 mg Tablet PO ×3 (08:33→19:58)
[2023-03-20] MEDS: naltrexone hcl 50 mg Tablet PO (08:33)
[2023-03-20] MEDS: thiamine 100 mg Tablet PO (08:33)
[2023-03-20] MEDS: multivitamin therapeutic Tablet 1 TAB PO (08:33)
[2023-03-20] MEDS: gabapentin 300 mg Capsule PO ×3 (08:33→19:58)
[2023-03-20] MEDS: hyDROXYzine 25 mg Capsule 50 MG PO ×2 (08:36→14:55)
[2023-03-20] MEDS: NON-FORMULARY MEDICATION 1 EACH IM (11:19)
[2023-03-20 14:00] VITALS: BP 97/74; PULSE 100; RESP 16; TEMP 36.5; O2SAT 98
[2023-03-20] MEDS: OLANZapine 5 mg ODT PO (17:43)
--- NOTE | 2023-03-20 17:50 | W.PM.NPUPNS ---
Subjective NPU Subjective: Patient presented today reporting that she is feeling better. She expressed significant optimism about moving forward and her sobriety. She reports that she has a home and significant other to return to. She did get her Vivitrol injection today and she reports feeling that is an additional layer of protection. She endorsed a desire to discharge sooner rather than later and we discussed considering discharge in the next 48 hours. Mental Status Exam MSE Comments: This is an overweight, well-developed white female in hospital scrubs with limited grooming and eye contact. No abnormal movements except for mild psychomotor retardation Cooperative with exam in mild distress. Speech was normal rate and volume. Mood described as better, affect congruent. Thought process organized. Thought contact: patient denies suicidal or homicidal ideation, there were no delusions reported or noted, patient denied auditory or visual hallucinations. Attention and concentration appeared intact and memory appeared reliable but none were formally tested. Patient is alert and oriented times three. Insight and judgment appear fair and impulse control appears limited. Vitals/I&O/Wt Last Vital Signs Temp 97.7 F 03/20/23 14:00 Pulse 100 03/20/23 14:00 Resp 16 03/20/23 14:00 BP 97/74 03/20/23 14:00 Pulse Ox 98 03/20/23 14:00 O2 Del Method Room Air 03/20/23 14:00 Data NPU 03/16/23 12:53 03/16/23 12:53 Micro: Microbiology 03/19/23 11:56 Urine Culture - Preliminary Urine,Clean Catch Gram Negative Rods Microbiology 03/19/23 11:56 Urine,Clean Catch Urine Culture - Preliminary Gram Negative Rods A&P Assessment and plan (1) Bipolar disorder, current episode mixed, severe, without psychotic features: (2) Borderline personality disorder: (3) Panic attack: (4) Post-traumatic stress disorder, chronic: (5) Suicidal ideation: Plan Patient is a 43-year-old white female currently not receiving psychotherapy with a history of PTSD, bipolar disorder, borderline personality disorder, and alcohol abuse admitted while intoxicated and endorsing suicidal ideation with worsening depression. 1. Encourage individual, group and milieu therapy. 2.Recommend sober living treatment at the highest level of care to which the patient is willing to commit. 3.Continue q-15 minute checks for safety.? 4. Discussed complications of gastric sleeve surgery and medication metabolism. It was recommended that the patient avoid extended release formulations of medications and Effexor will be switched from extended release to 37.5 mg 3 times a day immediate release. 5. CIWA protocol 6. Add naltrexone oral 50mg with plan to initiated Vivitrol 380 mg IM today, 03/20/2023. 7. Continue latuda 20mg with increase to 40mg 03/20/2023. Involuntary Hold Information 96 Hour Hold: 96 Hour Involuntary Admission: Yes 96 Hour Hold Ending Date: 03/22/23 96 Hour Hold Ending Time: 15:15 Attestations NPU Medical Necessity Statement*: Inpatient hospitalization is medically necessary and the clinically appropriate intervention at this time. We will monitor medication to make changes as indicated.The patient's likely length of stay 1-3 days. Coding Level of Care Code Acute Code for [facility] Fwd Diagnoses Bipolar disorder, current episode mixed, severe, without psychotic features F31.63 Borderline personality disorder F60.3 Panic attack F41.0 Post-traumatic stress disorder, chronic F43.12 Suicidal ideation R45.851
[2023-03-20] MEDS: lurasidone 20 mg Tablet 40 MG PO (18:33)
[2023-03-20] MEDS: prazosin 1 mg Capsule 2 MG PO (19:58)
[2023-03-20 20:24] VITALS: BP 117/79; PULSE 88; RESP 16; TEMP 36.7; O2SAT 100
[2023-03-21] MEDS: multivitamin therapeutic Tablet 1 TAB PO (09:33)
[2023-03-21] MEDS: baclofen 10 mg Tablet PO (09:33)
[2023-03-21] MEDS: venlafaxine 75 mg Tablet 37.5 MG PO (09:34)
[2023-03-21] MEDS: gabapentin 300 mg Capsule PO (09:34)
[2023-03-21] MEDS: thiamine 100 mg Tablet PO (09:34)
[2023-03-21] MEDS: naltrexone hcl 50 mg Tablet PO (09:34)
[2023-03-21] MEDS: pantoprazole DR 40 mg Tablet PO (09:34)
[2023-03-21] MEDS: folic acid 1 mg Tablet PO (09:34)
[2023-03-21] MEDS: hyDROXYzine 25 mg Capsule 50 MG PO (09:40)
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
[2023-03-21] MEDS: NON-FORMULARY MEDICATION (Linaclotide [Linzess] 145 mcg capsule) 145 EACH PO (10:16)
[2023-03-21 10:29] VITALS: BP 117/79; PULSE 88; RESP 16; TEMP 36.7; O2SAT 100
[2023-03-21] MEDS: OLANZapine 5 mg ODT PO (11:38)
--- NOTE | 2023-03-21 12:34 | DCPLANNER ---
IMM completed verbally with pt 03/21/2023 @ 1234.
--- NOTE | 2023-03-21 15:21 | PC.NURSE ---
Pt's lab reports stated that pt had developed a UTI. Dr. Giron had this nurse call in a script for Macrobid 100mg BID PO x5 days.
== END 2023-03-21 12:27 | disposition home or self-care (01) | DRG 885 ==
LOC: ER 15:19 → NP 16:49
PROVIDERS: Psychiatry & Neurology Psychiatry; Admitting Provider Psychiatry & Neurology Psychiatry; Emergency Provider Emergency Medicine; PCP Nurse Practitioner Family; Visit Provider Psychiatry & Neurology Psychiatry
DX: F31.63 Bipolar disorder, current episode mixed, severe, without psychotic features (principal); R45.851 Suicidal ideations; F43.12 Post-traumatic stress disorder, chronic; F12.20 Cannabis dependence, uncomplicated; F10.10 Alcohol abuse, uncomplicated; Y90.8 Blood alcohol level of 240 mg/100 ml or more; G47.30 Sleep apnea, unspecified; K58.9 Irritable bowel syndrome, unspecified; H91.93 Unspecified hearing loss, bilateral; F60.3 Borderline personality disorder; F41.0 Panic disorder [episodic paroxysmal anxiety]; F17.210 Nicotine dependence, cigarettes, uncomplicated; E66.9 Obesity, unspecified; Z68.28 Body mass index [BMI] 28.0-28.9, adult; Z81.1 Family history of alcohol abuse and dependence; Z81.8 Family history of other mental and behavioral disorders; Z91.410 Personal history of adult physical and sexual abuse
CPT/HCPCS: 36416; 71045; 80053; 80306; 80307; 81001; 81003; 81025; 82962; 83735; 83880; 84443; 84484; 85025; 87077; 87086; 87186; 96372; 97150; 97165; 99285; J7030

== ENCOUNTER 2023-07-14 07:16 | Observation (INO) | payer MEDICARE, MEDICAID, SELFPAY ==
[2022-02-16 16:10] VITALS: BP 111/73; BMI 27.4
[2023-07-14] VITALS (10 sets, daily range): BP systolic 97–129; BP diastolic 63–91; PULSE 75–101; RESP 16–20; TEMP 36.4–37.7; O2SAT 94–100; BMI 27.4
--- NOTE | 2023-07-14 07:30 | CTR_ITS ---
PROCEDURE INFORMATION: Exam: CT Abdomen And Pelvis With Contrast Exam date and time: 07/14/2023 8:10 AM Age: 43 years old Clinical indication: Nausea and vomiting; Abdominal pain; Generalized; Prior surgery; Surgery date: 6+ months; Surgery type: Gastric sleeve, hysto; Additional info: Abd pain TECHNIQUE: Imaging protocol: Computed tomography of the abdomen and pelvis with contrast. Radiation optimization: All CT scans at this facility use at least one of these dose optimization techniques: automated exposure control; mA and/or kV adjustment per patient size (includes targeted exams where dose is matched to clinical indication); or iterative reconstruction. Contrast material: OMNI 350; Contrast volume: 100 ml; Contrast route: INTRAVENOUS (IV); COMPARISON: XA FL upper GI series [id number] 11/18/2019 8:37 AM RADIATION DOSE METRICS: Total DLP (mGy-cm): 622.73 FINDINGS: Diaphragm: There is a small hiatal hernia. Liver: There is a 1.1 cm hypodense lesion in segment 3 of the liver, too small to characterize. Gallbladder and bile ducts: Normal. No calcified stones. No ductal dilation. Pancreas: Normal. No ductal dilation. Spleen: Normal. No splenomegaly. Adrenal glands: Normal. No mass. Kidneys and ureters: Normal. No hydronephrosis. Stomach and bowel: Post sleeve gastrectomy. No bowel dilatation. Appendix: No evidence of appendicitis. Intraperitoneal space: Unremarkable. No free air. No significant fluid collection. Vasculature: Pelvic phleboliths. Lymph nodes: Unremarkable. No enlarged lymph nodes. Urinary bladder: Unremarkable as visualized. Reproductive: Post hysterectomy. Bones/joints: Mild degenerative disease of bilateral sacroiliac joints. Soft tissues: There is a small fat containing inguinal hernia. CT/CT abdomen pelvis w con* [id number] IMPRESSION: No acute intra-abdominal process.
--- NOTE | 2023-07-14 07:36 | ED_ITS ---
HPI - Nausea/Vomiting/Diarrhea 2 General: Chief complaint: Nausea/Vomiting/Diarrhea Stated complaint: abd pain, n/v, diarrhea Time Seen by Provider: 07/14/23 07:21 Source: patient Mode of arrival: ambulatory Limitations: no limitations History of Present Illness: 43-year-old female states that over the last 5 to 6 days she been having nausea vomiting along with diarrhea. States she been having some diffuse abdominal cramping as well. States she has not been able to tolerate anything p.o. and has had multiple episodes of vomiting. She had low-grade fevers. She denies any worsening proving factors. Had a history of a gastric sleeve roughly 4 years ago. Associated nausea: Yes Associated symtoms: Reports nausea; Denies chest pain, dysuria or headache(s) Review of Systems 2 Const: Denies: fever(s), chills, body aches or change in appetite ENMT: Denies: throat pain or dental pain Card: Denies: chest pain Resp: Denies: dyspnea GI: Reports: abdominal pain, nausea, vomiting and diarrhea : Denies: dysuria Musc: Denies: neck pain or back pain Skin/Breast: Denies: rash Neuro: Denies: headache(s) PFSH ED 2 PFSH: Medical History Acute post-traumatic stress disorder Bleeding per rectum Cannabis dependence, episodic use Alcohol abuse, episodic drinking behavior Obesity Sleep apnea Irritable bowel syndrome 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 Grandmother , COPD COPD (chronic obstructive pulmonary disease) Grandfather , CHF Congestive heart failure (CHF) Denies family history of Anesthesia complication Bleeding disorder Social History Smoking and tobacco/nicotine status: current every day tobacco/nicotine user cigarettes Packs smoked per day: 0.5 Second hand smoke exposure: Yes Alcohol intake: current Alcohol intake frequency: few times a month Alcohol type: wine Substance/Drug Use: never Adopted: No Caregiver/support person: No Lives independently: Yes Household members: children Housing: Manufactured/Mobile home Marital status: Legally Number of children: 2 Number of grandchildren: 0 Highest education level completed: Associate Degree: Occupational, Technical, Vocational Program Education level details: Business service: No Current occupational status: disabled Current occupational exposures/hazards: No Pets and animals: Yes Pets & animals: cat(s), dog(s) and turtle(s) Leisure activites: music, reading and other Leisure activities details: clean Sexually active: Yes Are you practicing safe sex: Yes Do you think of yourself as: Straight/Heterosexual Current gender identity: Female Kristy/Uatsdin: Yazidism Special kristy needs: No Agree to transfusion: Yes Female Reproductive History: Para: 2 Spontaneous abortions: No Physical Exam 2 Const: COMMON NORMALS: no acute distress, patient oriented x3 and healthy appearing HENMT: COMMON NORMALS: normocephalic and atraumatic HEAD & SCALP: n ormocephalic and atraumatic Eye: COMMON NORMALS: conjunctivae normal CONJUNCTIVA: Yes conjunctivae normal Neck/C-Spine: COMMON NORMALS: full ROM and supple Chest: COMMONS NORMALS: normal inspection of the chest Resp: COMMON NORMALS: normal respiratory effort, No retractions, No use of accessory muscles and clear to auscultation bilaterally AUSCULTATION: clear to auscultation bilaterally Cardio: COMMON NORMALS: regular rate, regular rhythm and No murmurs present (Cardio) RATE: regular rate RHYTHM: regular rhythm GI: COMMON NORMALS: Normal to inspection, nondistended, normoactive bowel sounds present, Soft to palpation, non-tender and no masses PALPATION: Yes Soft to palpation Extremity: COMMON NORMALS: normal to inspection and full ROM Neuro: COMMON NORMALS: patient oriented x3, moves all extremities and no focal motor deficits Psych: COMMON NORMALS: mental status grossly normal, Normal thought process present and cooperative THOUGHT PROCESS: Normal thought process present Skin: COMMON NORMALS: no rashes or lesions noted and no wounds GENERAL SKIN EXAM: no rashes or lesions noted Course 2 Vital Signs: Vital signs: Vital Signs Temperature 99.8 F H 07/14/23 07:26 Pulse Rate 86 07/14/23 07:57 Respiratory Rate 16 07/14/23 07:57 Blood Pressure 116/85 07/14/23 07:57 Pulse Oximetry 95 07/14/23 07:57 Oxygen Delivery Me thod Room Air 07/14/23 07:26 MDM - Nausea/Vomiting/Diarrhea Medical Decision Making Patient presents here with vomiting she is hypokalemic at 2.3 along with hypomagnesia. Will admit this time for electrolyte replacement her vomiting is improved her CT scan showed no acute findings. Medical Records I reviewed the patient's medical records. Lab Data I reviewed the patient's lab results. 07/14/23 07:47 07/14/23 09:54 Radiology Impressions Abdomen/Pelvis CT 07/14/23 07:30 IMPRESSION: No acute intra-abdominal process. Laboratory Results WBC 5.80 10^3/uL (3.29-11.43) 07/14/23 07:47 RBC 3.52 10^6/uL (3.85-5.65) L 07/14/23 07:47 Hgb 12.30 g/dL (11.27-16.99) 07/14/23 07:47 Hct 33.9 % (36-47) L 07/14/23 07:47 MCV 96.3 fl (85-98) 07/14/23 07:47 MCH 34.9 pg (27-33) H 07/14/23 07:47 MCHC 36.3 g/dL (30-55) 07/14/23 07:47 RDW 17.2 % (12.1-15.1) H 07/14/23 07:47 Plt Count 172 10^3/cmm (157-399) 07/14/23 07:47 MPV 10.3 fL (7.4-10.4) 07/14/23 07:47 Neut % (Auto) 63.4 % 07/14/23 07:47 Lymph % (Auto) 30.3 % 07/14/23 07:47 [place] % (Auto) 4.8 % 07/14/23 07:47 Eos % (Auto) 1.0 % 07/14/23 07:47 Baso % (Auto) 0.3 % 07/14/23 07:47 Neut # (Auto) 3.67 10^3/uL (1.8-7.7) 07/14/23 07:47 Lymph # (Auto) 1.8 10^3/uL (0.8-4.8) 07/14/23 07:47 [place] # (Auto) 0.3 10^3/uL (0.2-0.9) 07/14/23 07:47 Eos # (Auto) 0.1 10^3/uL (0.0-0.8) 07/14/23 07:47 Baso # (Auto) 0.0 10^3/uL (0.0-0.1) 07/14/23 07:47 Nucleated RBC % (auto) 0 % 07/14/23 07:47 Nucleated RBCs # 0.0 /100WBC 07/14/23 07:47 Sodium 136 mmol/L (136-145) 07/14/23 09:54 Potassium 2.3 mmol/L (3.5-5.1) L* 07/14/23 09:54 Chloride 102 mmol/L (98-107) 07/14/23 09:54 Carbon Dioxide 21 mmol/L (22-29) L 07/14/23 09:54 Anion Gap 15.3 (5-19) 07/14/23 09:54 BUN 12 mg/dL (6-20) 07/14/23 09:54 Creatinine 0.5 mg/dL (0.5-0.9) 07/14/23 09:54 GFR Calculation 134.7 mL/min (90-130) H 07/14/23 09:54 Glucose 102 mg/dL (65-115) 07/14/23 09:54 Calculated Osmolality 282 mOsm/kg (285-295) L 07/14/23 09:54 Calcium 7.3 mg/dL (8.5-10.5) L 07/14/23 09:54 Magnesium 1.4 mg/dL (1.7-2.3) L 07/14/23 09:54 Total Bilirubin 1.0 mg/dL (0.15-1.2) 07/14/23 09:54 AST 32 U/L (0-32) 07/14/23 09:54 ALT 10 U/L (0-33) 07/14/23 09:54 Alkaline Phosphatase 160 U/L (35-105) H 07/14/23 09:54 Total Protein 5.2 g/dL (6.6-8.7) L 07/14/23 09:54 Albumin 3.1 g/dL (3.5-5.2) L 07/14/23 09:54 Globulin 2.1 g/dL (1.3-4.6) 07/14/23 09:54 Lipase 136 U/L (13-60) H 07/14/23 09:54 Urine Color Yellow (Yellow) 07/14/23 09:07 Urine Appearance Clear (CLEAR) 07/14/23 09:07 Urine pH 9 (5-7) H 07/14/23 09:07 Ur Specific [place] 1.010 (1.005-1.030) 07/14/23 09:07 Urine Protein Neg (Negative) 07/14/23 09:07 Urine Glucose (UA) Norm (Normal) 07/14/23 09:07 Urine Ketones 1+ (Negative) H 07/14/23 09:07 Urine Blood Neg (Negative) 07/14/23 09:07 Urine Nitrate Negative (Negative) 07/14/23 09:07 Urine Bilirubin Neg (Negative) 07/14/23 09:07 Prot Sulfosalicylic Acd Negative (Negative) 07/14/23 09:07 Urine Urobilinogen 1 mg/dL (Negative) H 07/14/23 09:07 Ur Leukocyte Esterase Negative (Negative) 07/14/23 09:07 All radiology interpretation(s) finalized by discharge Discharge Plan Discharge Patient Disposition: Admitted As Inpatient Clinical Impression: Hypokalemia, Hypomagnesemia Vomiting Qualifiers: Vomiting type: unspecified Nausea presence: with nausea Qualified Code(s): R 11.2 - Nausea with vomiting, unspecified Condition: Stable Coding Level of Care Code ED [employer] for Cristhian Lu
[2023-07-14 07:53] LABS: Basophils % 0.3 %; Eosinophils # 0.1 10^3/uL (0.0-0.8); Hematocrit 33.9 % (36-47); Lymphocytes # 1.8 10^3/uL (0.8-4.8); Lymphocytes % 30.3 %; Mean Corpuscular HGB Conc 36.3 g/dL (30-55); Mean Corpuscular Hemoglobin 34.9 pg (27-33); Mean Corpuscular Volume 96.3 fl (85-98); Mean Platelet Volume 10.3 fL (7.4-10.4); Monocytes # 0.3 10^3/uL (0.2-0.9); Monocytes % 4.8 %; Neutrophils # 3.67 10^3/uL (1.8-7.7); Neutrophils % 63.4 %; Nucleated Red Blood Cells % 0 %; Platelet Count 172 10^3/cmm (157-399); Red Blood Count 3.52 10^6/uL (3.85-5.65); Red Cell Distribution Width 17.2 % (12.1-15.1)
[2023-07-14] MEDS: sodium chloride 0.9% 1,000 ML 999 ML IV (07:54)
[2023-07-14] MEDS: ondansetron 2 mg/ML SDV 2 mL 4 MG IVP ×3 (07:54→20:07)
[2023-07-14] MEDS: LORazepam 2 mg/mL INJ 10 mL MDV 1 MG IVP (07:55)
[2023-07-14] MEDS: morphine 4 mg/mL SDV 1 mL IVP (07:56)
[2023-07-14] MEDS: acetaminophen 325 mg Tablet 650 MG PO ×2 (07:56→23:06)
[2023-07-14] MEDS: iohexol 350 mg/mL 500 mL Btl (per mL) IV (08:12)
[2023-07-14 09:23] LABS: Add Urine Microscopic? NO; Charge for UA Resulting for Rev
[2023-07-14 09:30] LABS: Bilirubin Urine Neg (Negative); Blood Urine Neg (Negative); Glucose Urine UA Norm (Normal); Ketones Urine 1+ (Negative); Leukocyte Esterase Urine Negative (Negative); Nitrate Urine Negative (Negative); Protein Urine Neg (Negative); Sulfosalicylic Acid Urine Negative (Negative); Urine Appearance Clear (CLEAR); Urine Color Yellow (Yellow); Urobilinogen Urine 1 mg/dL (Negative); pH Urine 9 (5-7)
[2023-07-14 10:15] LABS: Alanine Aminotransferase 10 U/L (0-33); Albumin Level 3.1 g/dL (3.5-5.2); Alkaline Phosphatase 160 U/L (35-105); Anion Gap 15.3 (5-19); Aspartate Amino Transferase 32 U/L (0-32); Blood Urea Nitrogen 12 mg/dL (6-20); Calcium 7.3 mg/dL (8.5-10.5); Carbon Dioxide 21 mmol/L (22-29); Chloride 102 mmol/L (98-107); Creatinine Clr Calc Pharmacy 152.1303; Globulin 2.1 g/dL (1.3-4.6); Glomerular Filtration Rate 134.7 mL/min (90-130); Glucose 102 mg/dL (65-115); Lipase 136 U/L (13-60); Magnesium 1.4 mg/dL (1.7-2.3); Osmolality Calculated 282 mOsm/kg (285-295); Sodium 136 mmol/L (136-145); Total Protein 5.2 g/dL (6.6-8.7)
[2023-07-14 10:17] LABS: Potassium 2.3 mmol/L (3.5-5.1)
[2023-07-14] MEDS: potassium phosphate (mEq K) 40 MEQ in sodium chloride 0.9% (100 ml) 100 ML 27.2699999999999996 MEQ IV (10:29)
[2023-07-14] MEDS: magnesium sulfate premix 2 GM/50 ML PIGGYBACK IV (10:32)
[2023-07-14] MEDS: potassium chloride ER 20 mEq Tablet 40 MEQ PO (10:33)
--- NOTE | 2023-07-14 12:00 | P.HP_ITS ---
Providers/Chief Complaint 2 Admitting Physician: Keo Fuentes Primary Care Provider: Antoinette Purdy APN Chief Complaint: abd pain, n/v, diarrhea History of Present Illness Kristy Saba is a 43 year old female who has been having intractable nausea and vomiting over the last week, unable to keep food, drink or her medications or potassium, magnesium or vitamin D supplements which she is supposed to be taking. She has a history of gastric sleeve surgery. She takes diclofenac due to chronic back problems. Only occasional EtOH. Review of Systems 2 Const: Denies: fever(s) Card: Denies: chest pain Resp: Denies: dyspnea or productive cough GI: Reports: abdominal pain (Epigastric), nausea and vomiting; Denies: diarrhea Medications/Allergies Home Medications Medication Instructions Recorded Confirmed Last Taken Type pair of crutches #1 ea 11/24/20 07/14/23 Unknown Rx omeprazole 20 mg capsule,delayed 40 mg PO QAM 05/25/21 07/14/23 09/10/21 History release baclofen 10 mg tablet 10 mg PO TID 12/26/21 07/14/23 Unknown History fast form #1 ea 11/16/22 07/14/23 Unknown Rx juan splint #1 ea 11/16/22 07/14/23 Unknown Rx albuterol sulfate 90 mcg/actuation 2 inh inhalation Q6H PRN Shortness 03/16/23 07/14/23 Unknown History aerosol inhaler Of Breath diclofenac sodium 75 mg 75 mg PO DAILY PRN inflammatory 03/16/23 07/14/23 Unknown History tablet,delayed release pain linaclotide 145 mcg capsule 145 mcg PO DAILY 03/16/23 07/14/23 Unknown History (Linzess) ondansetron HCl 4 mg tablet 4 mg PO Q6H PRN Nausea 03/16/23 07/14/23 Unknown History gabapentin 300 mg capsule 300 mg PO TID 30 days #90 caps 03/21/23 07/14/23 Unknown Rx hydroxyzine pamoate 50 mg capsule 50 mg PO TID PRN Anxiety 30 days 03/21/23 07/14/23 Unknown Rx #90 caps prazosin 2 mg capsule 2 mg PO BEDTIME 30 days #30 caps 03/21/23 07/14/23 Unknown Rx thiamine mononitrate (vit B1) 100 100 mg PO DAILY 30 days #30 tabs 03/21/23 07/14/23 Unknown Rx mg tablet (Vitamin B-1 (mononitrate)) furosemide 20 mg tablet 20 mg PO BID 07/14/23 07/14/23 Unknown History lorazepam 0.5 mg tablet 0.5 mg PO TID PRN Anxiety 07/14/23 07/14/23 Unknown History magnesium 250 mg tablet 250 mg PO BID 07/14/23 07/14/23 Unknown History potassium chloride 10 mEq 10 meq PO BID 07/14/23 07/14/23 Unknown History tablet,extended release topiramate 50 mg tablet 50 mg PO BID 07/14/23 07/14/23 Unknown History triamterene 37.5 1 tab PO DAILY 07/14/23 07/14/23 Unknown History mg-hydrochlorothiazide 25 mg tablet venlafaxine 150 mg 150 mg PO DAILY 07/14/23 07/14/23 Unknown History capsule,extended release 24 hr Allergies Allergy/AdvReac Type Severity Reaction Status Date / Time monosodium glutamate Allergy Severe ALGY-Anaphy Verified 07/14/23 07:30 laxis duloxetine Allergy Intermediate Break out/ Verified 07/14/23 07:30 Hives gluten Allergy Intermediate Break out/ Verified 07/14/23 07:30 Hives lactase [From Dairy Aid] Allergy Intermediate Break out/ Verified 07/14/23 07:30 Hives paroxetine Allergy Intermediate Break out/ Verified 07/14/23 07:30 Hives soy Allergy Intermediate Break out/ Verified 07/14/23 07:30 Hives scopolamine Allergy Unknown Verified 07/14/23 07:30 [From Transderm-Scop] atropine AdvReac Intermediate Break out Verified 07/14/23 07:30 /Hives citalopram AdvReac Intermediate Hives Verified 07/14/23 07:30 PFSH Acute 2 PFSH: Medical History Acute post-traumatic stress disorder Bleeding per rectum Cannabis dependence, episodic use Alcohol abuse, episodic drinking behavior Obesity Sleep apnea Irritable bowel syndrome 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 Grandmother , COPD COPD (chronic obstructive pulmonary disease) Grandfather , CHF Congestive heart failure (CHF) Denies family history of Anesthesia complication Bleeding disorder Social History Smoking and tobacco/nicotine status: current every day tobacco/nicotine user cigarettes Packs smoked per day: 0.5 Second hand smoke exposure: Yes Alcohol intake: current Alcohol intake frequency: few times a month Alcohol type: wine Substance/Drug Use: never Adopted: No Caregiver/support person: No Lives independently: Yes Household members: children Housing: Manufactured/Mobile home Marital status: Legally Number of children: 2 Number of grandchildren: 0 Highest education level completed: Associate Degree: Occupational, Technical, Vocational Program Education level details: Business service: No Current occupational status: disabled Current occupational exposures/hazards: No Pets and animals: Yes Pets & animals: cat(s), dog(s) and turtle(s) Leisure activites: music, reading and other Leisure activities details: clean Sexually active: Yes Are you practicing safe sex: Yes Do you think of yourself as: Straight/Heterosexual Current gender identity: Female Kristy/Alevism: Sabianist Special kristy needs: No Agree to transfusion: Yes Female Reproductive History: Para: 2 Spontaneous abortions: No Vitals/I&O/Wt Last Vital Signs Temp 99.8 F H 07/14/23 07:26 Pulse 75 07/14/23 11:00 Resp 16 07/14/23 11:00 BP 104/72 07/14/23 11:00 Pulse Ox 100 07/14/23 11:00 O2 Del Method Room Air 07/14/23 11:00 Weight last 48 hrs Weight 77.111 kg Physical Exam 2 Narrative: Accompanied by her . Uncomfortable due to nausea. Const: COMMON NORMALS: patient oriented x3 and alert GENERAL APPEARANCE: c ooperative ORIENTATION/CONSCIOUSNESS: Yes awake HENMT: COMMON NORMALS: oropharynx normal Neck/C-Spine: COMMON NORMALS: no JVD Resp: COMMON NORMALS: normal respiratory effort and clear to auscultation bilaterally AUSCULTATION: clear to auscultation bilaterally Cardio: COMMON NORMALS: no JVD, regular rhythm, S1 normal heart sound present, S2 normal heart sound present and No murmurs present (Cardio) RHYTHM: regular rhythm HEART SOUNDS: S1 normal heart sound present and S2 normal heart sound present GI: COMMON NORMALS: Normal to inspection, nondistended, normoactive bowel sounds present and Soft to palpation PALPATION: Yes Soft to palpation and Yes Tenderness to palpation present (GI) (Epigastric) Extremity: COMMON NORMALS: no joint enlargement and no pedal edema Neuro: COMMON NORMALS: patient oriented x3 and moves all extremities S ENSORIUM/ORIENTATION: Yes alert Skin: COMMON NORMALS: no rashes or lesions noted GENERAL SKIN EXAM: no rashes or lesions noted Data 07/14/23 07:47 07/14/23 09:54 A&P Assessment and plan (1) Gastritis: Gastritis with Severe complications and comorbidities, unable to tolerate oral intake of food, drink or her medications. Severe hypokalemia 2.3, hypomagnesemia 1.4. At risk of life-threatening arrhythmia. Reviewed vitals, CBC, CMP, UA, CT abdomen pelvis, ED provider note, discussed with ED provider. Suspected severe gastritis in the setting of gastrically surgery taking diclofenac, occasional alcohol. Discussed and counseled both her and her on avoiding any NSAIDs, avoiding any alcohol. Quitting smoking. PPI IV twice daily. Monitor for any GI bleeding signs. Bowel rest for now sips, chips, meds as discussed with her. IV hydration. Follow-up symptoms. Severe electrolyte deficiency, received potassium, magnesium, recheck potassium, magnesium. At risk of arrhythmia with severe electrolyte deficiency, monitor on telemetry. (2) Nausea and vomiting: As above, as well as Zofran as needed for nausea and vomiting. (3) Unable to eat: Bowel rest for now, treat gastritis. (4) Unable to take medication: Has been unable to keep anything down. (5) Hypomagnesemia: Received replacement, recheck level. (6) Hypokalemia: Received replacement, recheck level. (7) Nicotine dependence, cigarettes, uncomplicated: Counseled for 4 minutes on smoking cessation, this may contribute to GERD and her symptoms, as well as risk complication including cancer including gastric cancer. She verbalized that she would like to quit and has been trying to as she is also preparing for abdominoplasty. Plan Anxiety, PTSD, depression: Has been unable to tolerate her medications including venlafaxine, topiramate, lorazepam as needed, hydroxyzine. Resume as tolerating. With how bad her anxiety is and she cannot tolerate oral medications at the moment she request for IV Ativan to make sure that she has this for her severe anxiety with panic attacks. Requested IV Ativan. History of sleeve gastrectomy: Long-term she needs additional supplementation including thiamine, folic acid, iron, calcium, vitamin D, zinc, copper, vitamin B12. Please consult dietitian once she is able to tolerate oral intake. Needs to avoid any NSAIDs whatsoever, avoid any alcohol. Stop smoking. Requesting to confirm home medications, please review and reconcile once available. Attestations 2 Medical Necessity Statement*: Place in observation for additional assessment management of intractable nausea and vomiting, inability to tolerate oral intake of food drink or medications with severe electrolyte deficiency due to this in a lady with history of sleeve gastrectomy. Diagnoses Gastritis K29.70 Nausea and vomiting R11.2 Unable to eat R63.8 Unable to take medication Z91.148 Hypomagnesemia E83.42 Hypokalemia E87.6 Nicotine dependence, cigarettes, uncomplicated F17.210
[2023-07-14] MEDS: lactated ringers 1,000 ML 75 ML IV (14:42)
[2023-07-14] MEDS: hyDROXYzine 25 mg Capsule 50 MG PO ×2 (14:43→23:06)
[2023-07-14] MEDS: baclofen 10 mg Tablet PO ×2 (14:43→21:07)
[2023-07-14] MEDS: pantoprazole 40 mg SDV IVP (14:43)
[2023-07-14] MEDS: morphine 4 mg/mL SDV 1 mL 2 MG IVP ×2 (15:15→20:08)
[2023-07-14] MEDS: LORazepam 2 mg/mL INJ 10 mL MDV 0.5 MG IVP ×2 (16:47→23:07)
[2023-07-15] VITALS (12 sets, daily range): BP systolic 103–108; BP diastolic 66–71; PULSE 73–97; RESP 16–20; TEMP 36.4–37.1; O2SAT 98–100; BMI 29.0
[2023-07-15] MEDS: ondansetron 2 mg/ML SDV 2 mL 4 MG IVP ×5 (00:19→21:58)
[2023-07-15] MEDS: morphine 4 mg/mL SDV 1 mL 2 MG IVP ×3 (00:19→09:38)
[2023-07-15] MEDS: pantoprazole 40 mg SDV IVP ×2 (00:20→15:34)
[2023-07-15] MEDS: lactated ringers 1,000 ML 75 ML IV ×2 (02:27→15:34)
[2023-07-15] MEDS: LORazepam 2 mg/mL INJ 10 mL MDV 0.5 MG IVP (04:50)
[2023-07-15 04:59] LABS: Basophils % 0.2 %; Eosinophils # 0.1 10^3/uL (0.0-0.8); Eosinophils % 2.6 %; Hematocrit 31.4 % (36-47); Lymphocytes % 40.5 %; Mean Corpuscular HGB Conc 34.7 g/dL (30-55); Mean Corpuscular Hemoglobin 35.3 pg (27-33); Mean Corpuscular Volume 101.6 fl (85-98); Mean Platelet Volume 10.1 fL (7.4-10.4); Monocytes # 0.2 10^3/uL (0.2-0.9); Monocytes % 3.4 %; Neutrophils # 2.65 10^3/uL (1.8-7.7); Neutrophils % 53.1 %; Nucleated Red Blood Cells % 0 %; Platelet Count 142 10^3/cmm (157-399); Red Blood Count 3.09 10^6/uL (3.85-5.65); Red Cell Distribution Width 17.5 % (12.1-15.1); White Blood Count 4.99 10^3/uL (3.29-11.43)
[2023-07-15 05:13] LABS: Alanine Aminotransferase 9 U/L (0-33); Albumin Level 3.1 g/dL (3.5-5.2); Alkaline Phosphatase 141 U/L (35-105); Anion Gap 12.8 (5-19); Aspartate Amino Transferase 30 U/L (0-32); Blood Urea Nitrogen 7 mg/dL (6-20); Calcium 7.4 mg/dL (8.5-10.5); Carbon Dioxide 23 mmol/L (22-29); Chloride 107 mmol/L (98-107); Creatinine Clr Calc Pharmacy 156.1612; Globulin 1.7 g/dL (1.3-4.6); Glomerular Filtration Rate 134.7 mL/min (90-130); Glucose 100 mg/dL (65-115); Magnesium 1.8 mg/dL (1.7-2.3); Osmolality Calculated 288 mOsm/kg (285-295); Phosphorus 4.4 mg/dL (2.5-4.5); Sodium 140 mmol/L (136-145); Total Bilirubin 0.4 mg/dL (0.15-1.2); Total Protein 4.8 g/dL (6.6-8.7)
[2023-07-15 05:40] LABS: Potassium 2.8 mmol/L (3.5-5.1)
[2023-07-15] MEDS: lidocaine 1% 5 ML in potassium chloride premix 100 ML 26.3000000000000007 ML IV (06:35)
[2023-07-15] MEDS: albuterol 2.5 mg/3 mL Neb INHALATION (07:33)
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
[2023-07-15] MEDS: hyDROXYzine 25 mg Capsule 50 MG PO ×2 (09:36→15:34)
[2023-07-15] MEDS: baclofen 10 mg Tablet PO ×3 (09:37→21:23)
[2023-07-15] MEDS: topiramate 25 mg Tablet 50 MG PO ×2 (09:37→17:32)
[2023-07-15] MEDS: venlafaxine ER (24HR) 150 mg Capsule PO (09:37)
[2023-07-15] MEDS: LORazepam 0.5 mg Tablet PO ×2 (11:57→21:25)
[2023-07-15] MEDS: lidocaine 1% 5 ML in potassium chloride premix 100 ML 26.25 ML IV ×2 (11:58→15:34)
--- NOTE | 2023-07-15 12:05 | CTR_ITS ---
PROCEDURE INFORMATION: Exam: CT Head Without Contrast Exam date and time: 07/15/2023 12:21 PM Age: 43 years old Clinical indication: Other: Nausea/vomitting; Additional info: Persistent nausea and vomiting TECHNIQUE: Imaging protocol: Computed tomography of the head without contrast. Radiation optimization: All CT scans at this facility use at least one of these dose optimization techniques: automated exposure control; mA and/or kV adjustment per patient size (includes targeted exams where dose is matched to clinical indication); or iterative reconstruction. COMPARISON: CT head wo con* [id number] 12/16/2021 9:58 PM RADIATION DOSE METRICS: Total DLP (mGy-cm): 1037.38 FINDINGS: Brain: There is no significant mass effect or midline shift. There is no acute intracranial hemorrhage. Cerebral ventricles: There is no significant ventricular dilation. The basal cisterns are unremarkable. Paranasal sinuses: The paranasal sinuses are clear. Mastoid air cells: The mastoid air cells are clear. Bones/joints: The calvarium is intact. Soft tissues: The visible extracranial soft tissues are unremarkable. CT/CT head wo con* [id number] IMPRESSION: No acute intracranial abnormality.
[2023-07-15 12:15] LABS: Iron 82 ug/dL (37-145); Percent Saturation 36.9 % (20-50); Total Iron Binding Capacity 222 mcg/dl; Unsaturated Iron Binding 140 ug/dL (112-347); Vitamin B12 231 pg/mL (232-1245)
--- NOTE | 2023-07-15 12:52 | ECG_ITS ---
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 Measurements Intervals [place] Rate: 89 P: 29 AK: 138 QRS: 36 QRSD: 90 T: 29 QT: 381 QTc: 464 Interpretive Statements SINUS RHYTHM Compared to ECG 12/16/2021 21:39:18 Prolonged QT interval no longer present Electronically Signed On 07-15-2023 22:53:58 CDT by Dany Aguirre M.D. [email or web address]
--- NOTE | 2023-07-15 15:24 | P.PN_ITS ---
Subjective 2 Subjective: Hospital course, labs appreciated. Seen with family member at bedside. Patient states she is feeling slightly better but continues to remain anxious. Able to tolerate oral medications today. States she is hungry. Has been getting IV Ativan, morphine and Zofran as per schedule for as needed medications. Has remained hemodynamically stable. Vitals/I&O/Wt Last Vital Signs Temp 97.5 F L 07/15/23 13:01 Pulse 97 07/15/23 13:01 Resp 20 H 07/15/23 13:01 BP 103/67 07/15/23 13:01 Pulse Ox 99 07/15/23 13:01 O2 Del Method Room Air 07/15/23 13:01 07/15/23 07/15/23 07/15/23 06:59 14:59 22:59 Intake Total 1001.25 / 2399.7606 155 / 155 Balance 1001.25 / 2399.7606 155 / 155 Weight last 48 hrs Weight 81.511 kg Weight 77.111 kg Weight 77.111 kg Physical Exam 2 Narrative: Accompanied by her . Anxious. Const: COMMON NORMALS: patient oriented x3 and alert GENERAL APPEARANCE: c ooperative ORIENTATION/CONSCIOUSNESS: Yes awake HENMT: COMMON NORMALS: oropharynx normal Neck/C-Spine: COMMON NORMALS: no JVD Resp: COMMON NORMALS: normal respiratory effort and clear to auscultation bilaterally AUSCULTATION: clear to auscultation bilaterally Cardio: COMMON NORMALS: no JVD, regular rhythm, S1 normal heart sound present, S2 normal heart sound present and No murmurs present (Cardio) RHYTHM: regular rhythm HEART SOUNDS: S1 normal heart sound present and S2 normal heart sound present GI: COMMON NORMALS: Normal to inspection, nondistended, normoactive bowel sounds present and Soft to palpation PALPATION: Yes Soft to palpation and Yes Tenderness to palpation present (GI) (Epigastric) Extremity: COMMON NORMALS: no joint enlargement and no pedal edema Neuro: COMMON NORMALS: patient oriented x3 and moves all extremities S ENSORIUM/ORIENTATION: Yes alert Skin: COMMON NORMALS: no rashes or lesions noted GENERAL SKIN EXAM: no rashes or lesions noted Data 07/15/23 04:46 07/15/23 04:46 A&P Assessment and plan (1) Nausea and vomiting: In setting of severe gastritis. Treatment as below. (2) Gastritis: Most likely in setting of NSAID for diclofenac in setting of gastric sleeve. Also gives history of occasional alcohol intake. Associated with severe electrolyte abnormalities. Start on clear liquid diet. Able to tolerate oral meds. Continue with IV Protonix twice daily. Add Carafate ACHS. Discussed in detail with patient regarding avoidance of NSAIDs along with alcohol going forward. Discussed in detail with the patient regarding multiple small meals. Zofran as needed. Changed to every 6 hours as patient is at high risk of prolonged QTc with multiple psych medications as an outpatient. Check EKG. (3) Unable to eat: (4) Unable to take medication: Able to tolerate some oral medications today. Restart all home medications except oral potassium. (5) Hypomagnesemia: Appreciate. Repeat magnesium level daily. (6) Hypokalemia: Mild improvement of 2.8. Replete 80 mg IV. Repeat potassium level in evening. (7) Nicotine dependence, cigarettes, uncomplicated: Counseled for 4 minutes on smoking cessation, this may contribute to GERD and her symptoms, as well as risk complication including cancer including gastric cancer. She verbalized that she would like to quit and has been trying to as she is also preparing for abdominoplasty. Plan Anxiety, PTSD, depression: Able to tolerate oral medications. Restart all home oral medications including baclofen, gabapentin, topiramate, along with oral Ativan as needed. IV Ativan. History of sleeve gastrectomy: Long-term she needs additional supplementation including thiamine, folic acid, iron, calcium, vitamin D, zinc, copper, vitamin B12. Will consult dietitian stop smoking. Clear liquid diet Ringer lactate at 75 cc/h Protonix twice daily for PUD prophylaxis SCDs for DVT prophylaxis Attestations 2 Medical Necessity Statement*: Requires further hospitalization for management of severe gastritis leading to nausea and vomiting and multiple severe electrolyte abnormalities Diagnoses Nausea and vomiting R11.2 Gastritis K29.70 Unable to eat R63.8 Unable to take medication Z91.148 Hypomagnesemia E83.42 Hypokalemia E87.6 Nicotine dependence, cigarettes, uncomplicated F17.210
[2023-07-15] MEDS: gabapentin 300 mg Capsule PO ×2 (15:34→21:24)
[2023-07-15] MEDS: morphine 4 mg/mL SDV 1 mL 1 MG IVP ×2 (15:35→22:00)
[2023-07-15 16:22] LABS: Potassium 3.2 mmol/L (3.5-5.1)
[2023-07-15] MEDS: sucralfate 1 gm/10 mL Oral Liq UDC PO ×2 (17:31→21:25)
[2023-07-15] MEDS: potassium chloride ER 10 mEq Tablet PO (17:32)
[2023-07-15] MEDS: prazosin 1 mg Capsule 2 MG PO (21:24)
[2023-07-16] VITALS (10 sets, daily range): BP systolic 90–115; BP diastolic 60–78; PULSE 70–103; RESP 16–20; TEMP 36.6–36.9; O2SAT 94–100
--- NOTE | 2023-07-16 02:07 | PC.NURSE ---
This nurse administered Zofran 4mg IVP at 2158, followed by Morphine 1 mg IVP at 2200 for patient reports of abdominal pain and nausea. Nurse had to manually document administration because she discarded vial before scanning by accident.
[2023-07-16] MEDS: pantoprazole 40 mg SDV IVP ×2 (04:19→15:24)
[2023-07-16] MEDS: lactated ringers 1,000 ML 75 ML IV ×2 (04:20→20:50)
[2023-07-16] MEDS: ondansetron 2 mg/ML SDV 2 mL 4 MG IVP ×3 (04:48→18:10)
[2023-07-16] MEDS: morphine 4 mg/mL SDV 1 mL 1 MG IVP ×3 (04:48→18:09)
[2023-07-16] MEDS: hyDROXYzine 25 mg Capsule 50 MG PO ×2 (04:49→15:21)
[2023-07-16 06:21] LABS: Basophils % 0.3 %; Eosinophils # 0.2 10^3/uL (0.0-0.8); Eosinophils % 2.6 %; Hematocrit 30.9 % (36-47); Lymphocytes # 2.3 10^3/uL (0.8-4.8); Lymphocytes % 39.8 %; Mean Corpuscular HGB Conc 33.3 g/dL (30-55); Mean Corpuscular Hemoglobin 34.8 pg (27-33); Mean Corpuscular Volume 104.4 fl (85-98); Mean Platelet Volume 10.4 fL (7.4-10.4); Monocytes # 0.2 10^3/uL (0.2-0.9); Monocytes % 3.1 %; Neutrophils # 3.15 10^3/uL (1.8-7.7); Nucleated Red Blood Cells % 0 %; Platelet Count 134 10^3/cmm (157-399); Red Blood Count 2.96 10^6/uL (3.85-5.65); Red Cell Distribution Width 17.2 % (12.1-15.1); White Blood Count 5.83 10^3/uL (3.29-11.43)
[2023-07-16 06:33] LABS: Alanine Aminotransferase 7 U/L (0-33); Alkaline Phosphatase 124 U/L (35-105); Anion Gap 10.3 (5-19); Aspartate Amino Transferase 18 U/L (0-32); Blood Urea Nitrogen 6 mg/dL (6-20); Calcium 7.9 mg/dL (8.5-10.5); Carbon Dioxide 22 mmol/L (22-29); Chloride 108 mmol/L (98-107); Creatinine Clr Calc Pharmacy 158.9343; Globulin 2.1 g/dL (1.3-4.6); Glomerular Filtration Rate 134.7 mL/min (90-130); Glucose 86 mg/dL (65-115); Osmolality Calculated 281 mOsm/kg (285-295); Potassium 3.3 mmol/L (3.5-5.1); Sodium 137 mmol/L (136-145); Total Bilirubin 0.3 mg/dL (0.15-1.2); Total Protein 5.1 g/dL (6.6-8.7)
[2023-07-16 06:34] LABS: Chol HDL Ratio 2.52 mg/dL (0.0-4.40); Cholesterol 131 mg/dL (0-200); HDL Cholesterol 52 mg/dL (60-100); LDL Cholesterol Calculated 62 mg/dL (50-129); Magnesium 1.6 mg/dL (1.7-2.3); Triglycerides 86 mg/dL (0-150); VLDL Cholestrol Calculation 17 mg/dL (0-30)
[2023-07-16 06:43] LABS: Folate Level 4.1 ng/mL (4.8-37.3)
[2023-07-16] MEDS: sucralfate 1 gm/10 mL Oral Liq UDC PO ×4 (06:51→20:53)
[2023-07-16 07:00] LABS: Estmated Average Glucose 88; Hemoglobin A1C 4.7 % (4.0-6.0)
[2023-07-16] MEDS: gabapentin 300 mg Capsule PO ×3 (10:55→20:53)
[2023-07-16] MEDS: topiramate 25 mg Tablet 50 MG PO ×2 (10:55→18:03)
[2023-07-16] MEDS: venlafaxine ER (24HR) 150 mg Capsule PO (10:55)
[2023-07-16] MEDS: potassium chloride ER 10 mEq Tablet PO ×2 (10:55→18:03)
[2023-07-16] MEDS: thiamine 100 mg Tablet PO (10:56)
[2023-07-16] MEDS: baclofen 10 mg Tablet PO ×3 (10:56→20:52)
[2023-07-16] MEDS: LORazepam 0.5 mg Tablet PO ×2 (11:01→18:09)
[2023-07-16] MEDS: NON-FORMULARY MEDICATION (Linaclotide [Linzess] 145 mcg capsule) 145 EACH PO (11:37)
--- NOTE | 2023-07-16 15:01 | P.PN_ITS ---
Subjective 2 Subjective: No acute vents overnight. Patient has tolerated liquid diet well. No episode of vomiting. Did have episode of diarrhea overnight and earlier today morning. Abdominal pain is stable. Hemodynamically stable and afebrile. Vitals/I&O/Wt Last Vital Signs Temp 98.0 F 07/16/23 11:36 Pulse 77 07/16/23 11:36 Resp 17 07/16/23 11:36 BP 115/78 07/16/23 11:36 Pulse Ox 100 07/16/23 11:36 O2 Del Method Room Air 07/16/23 11:36 07/16/23 07/16/23 07/16/23 06:59 14:59 22:59 Intake Total 1197.5 / 3255.75 Balance 1197.5 / 3255.75 Weight last 48 hrs Weight 84.538 kg Weight 84.538 kg Weight 81.511 kg Physical Exam 2 Narrative: Accompanied by her . Anxious. Const: COMMON NORMALS: patient oriented x3 and alert GENERAL APPEARANCE: c ooperative ORIENTATION/CONSCIOUSNESS: Yes awake HENMT: COMMON NORMALS: oropharynx normal Neck/C-Spine: COMMON NORMALS: no JVD Resp: COMMON NORMALS: normal respiratory effort and clear to auscultation bilaterally AUSCULTATION: clear to auscultation bilaterally Cardio: COMMON NORMALS: no JVD, regular rhythm, S1 normal heart sound present, S2 normal heart sound present and No murmurs present (Cardio) RHYTHM: regular rhythm HEART SOUNDS: S1 normal heart sound present and S2 normal heart sound present GI: COMMON NORMALS: Normal to inspection, nondistended, normoactive bowel sounds present and Soft to palpation PALPATION: Yes Soft to palpation and Yes Tenderness to palpation present (GI) (Epigastric) Extremity: COMMON NORMALS: no joint enlargement and no pedal edema Neuro: COMMON NORMALS: patient oriented x3 and moves all extremities S ENSORIUM/ORIENTATION: Yes alert Skin: COMMON NORMALS: no rashes or lesions noted GENERAL SKIN EXAM: no rashes or lesions noted Data 07/16/23 05:12 07/16/23 05:12 A&P Assessment and plan (1) Nausea and vomiting: In setting of severe gastritis. Treatment as below. (2) Gastritis: Most likely in setting of NSAID for diclofenac in setting of gastric sleeve. Also gives history of occasional alcohol intake. Associated with severe electrolyte abnormalities. Start on clear liquid diet. Able to tolerate oral meds. Continue with IV Protonix twice daily. Add Carafate ACHS. Discussed in detail with patient regarding avoidance of NSAIDs along with alcohol going forward. Discussed in detail with the patient regarding multiple small meals. Zofran as needed. Changed to every 6 hours as patient is at high risk of prolonged QTc with multiple psych medications as an outpatient. Check EKG. (3) Unable to eat: (4) Unable to take medication: Able to tolerate some oral medications today. Restart all home medications except oral potassium. (5) Hypomagnesemia: Appreciate. Repeat magnesium level daily. (6) Hypokalemia: Mild improvement of 2.8. Replete 80 mg IV. Repeat potassium level in evening. (7) Nicotine dependence, cigarettes, uncomplicated: Counseled for 4 minutes on smoking cessation, this may contribute to GERD and her symptoms, as well as risk complication including cancer including gastric cancer. She verbalized that she would like to quit and has been trying to as she is also preparing for abdominoplasty. Plan Anxiety, PTSD, depression: Able to tolerate oral medications. Restart all home oral medications including baclofen, gabapentin, topiramate, along with oral Ativan as needed. IV Ativan. History of sleeve gastrectomy: Long-term she needs additional supplementation including thiamine, folic acid, iron, calcium, vitamin D, zinc, copper, vitamin B12. Will consult dietitian stop smoking. Plan for the day: Continue with clear liquid diet. Continue with twice daily PPI and Carafate ACHS. Continue multiple small meals. Check stool studies to rule out C. difficile. Unlikely. Continue with current anxiety medications. Hold off on IV Ativan. Replace 80 mg of IV potassium. Patient unable to tolerate oral potassium because of nausea vomiting. Replace 2 g of IV magnesium Discharge plan: Plan to discharge in next 24 hours if C. difficile is negative and patient continues to tolerate oral liquid diet on current diet for next 1 week and advancing gradually within next 1 week to regular diet. Clear liquid diet Ringer lactate at 75 cc/h Protonix twice daily for PUD prophylaxis SCDs for DVT prophylaxis Attestations 2 Medical Necessity Statement*: Requires further hospitalization for management of intractable nausea and vomiting leading to poor oral intake in a patient with baseline severe anxiety, diarrhea by C. difficile ruled out Diagnoses Nausea and vomiting R11.2 Gastritis K29.70 Unable to eat R63.8 Unable to take medication Z91.148 Hypomagnesemia E83.42 Hypokalemia E87.6 Nicotine dependence, cigarettes, uncomplicated F17.210
[2023-07-16] MEDS: lidocaine 1% 5 ML in potassium chloride premix 100 ML 26.25 ML IV ×2 (15:28→20:51)
[2023-07-16] MEDS: magnesium sulfate premix 2 GM/50 ML PIGGYBACK IV (15:29)
[2023-07-16 17:37] LABS: C.Diff PCR (Lab) NEGATIVE (Negative)
[2023-07-16] MEDS: prazosin 1 mg Capsule 2 MG PO (20:53)
[2023-07-17] VITALS (7 sets, daily range): BP systolic 103–123; BP diastolic 64–82; PULSE 79–100; RESP 15–20; TEMP 36.6–37; O2SAT 92–100
[2023-07-17] MEDS: morphine 4 mg/mL SDV 1 mL 1 MG IVP ×2 (03:43→09:53)
[2023-07-17] MEDS: pantoprazole 40 mg SDV IVP (03:43)
[2023-07-17] MEDS: ondansetron 2 mg/ML SDV 2 mL 4 MG IVP ×2 (03:43→10:00)
[2023-07-17 05:05] LABS: Basophils % 0.5 %; Eosinophils # 0.2 10^3/uL (0.0-0.8); Eosinophils % 2.7 %; Lymphocytes % 35.9 %; Mean Corpuscular Hemoglobin 35.5 pg (27-33); Mean Corpuscular Volume 104.5 fl (85-98); Mean Platelet Volume 9.9 fL (7.4-10.4); Monocytes # 0.3 10^3/uL (0.2-0.9); Monocytes % 4.5 %; Neutrophils # 3.07 10^3/uL (1.8-7.7); Neutrophils % 55.9 %; Nucleated Red Blood Cells % 0 %; Platelet Count 122 10^3/cmm (157-399); Red Blood Count 2.87 10^6/uL (3.85-5.65); Red Cell Distribution Width 17.3 % (12.1-15.1); White Blood Count 5.51 10^3/uL (3.29-11.43)
[2023-07-17] MEDS: LORazepam 0.5 mg Tablet PO (05:18)
[2023-07-17 05:22] LABS: Magnesium 1.7 mg/dL (1.7-2.3)
[2023-07-17 05:23] LABS: Alanine Aminotransferase 7 U/L (0-33); Albumin Level 2.9 g/dL (3.5-5.2); Alkaline Phosphatase 117 U/L (35-105); Anion Gap 10.7 (5-19); Aspartate Amino Transferase 18 U/L (0-32); Blood Urea Nitrogen 3 mg/dL (6-20); Carbon Dioxide 23 mmol/L (22-29); Chloride 109 mmol/L (98-107); Creatinine Clr Calc Pharmacy 161.8695; Globulin 2.1 g/dL (1.3-4.6); Glomerular Filtration Rate 134.7 mL/min (90-130); Glucose 81 mg/dL (65-115); Osmolality Calculated 284 mOsm/kg (285-295); Potassium 3.7 mmol/L (3.5-5.1); Sodium 139 mmol/L (136-145); Total Bilirubin 0.2 mg/dL (0.15-1.2)
--- NOTE | 2023-07-17 05:32 | PC.NURSE ---
Pt called for nurse to come and speak with her. I entered the room and asked her her questions and/or concerns. She asked who her hospitalist would be for the day. I looked in her chart and saw that Dr. Wren had been providing her care. When I told her this, she requested a new physician. When asked why, she stated that she did not feel he was answering her questions appropriately and was not explaining her plan of care to her to the point she could understand. I apologized to her for her feeling this way and that I would speak with the community engagement coordinator about her concerns. The patient seemed happy with this. I also took this time to educate her on some of her questions, to which she again seemed satisfied. The pt expressed concerns of being sent home before she is well enough and expressed obvious anxiety to this. Again I took the opportunity to ease her concern and anxiety as best I could at this time. She denied any other questions or concerns at this time.
[2023-07-17] MEDS: sucralfate 1 gm/10 mL Oral Liq UDC PO (06:06)
[2023-07-17] MEDS: topiramate 25 mg Tablet 50 MG PO (08:11)
[2023-07-17] MEDS: thiamine 100 mg Tablet PO (08:11)
[2023-07-17] MEDS: baclofen 10 mg Tablet PO (08:11)
[2023-07-17] MEDS: venlafaxine ER (24HR) 150 mg Capsule PO (08:12)
[2023-07-17] MEDS: NON-FORMULARY MEDICATION (Linaclotide [Linzess] 145 mcg capsule) 145 EACH PO (08:12)
[2023-07-17] MEDS: gabapentin 300 mg Capsule PO (08:12)
[2023-07-17] MEDS: lactated ringers 1,000 ML 75 ML IV (08:26)
[2023-07-17] MEDS: potassium chloride ER 10 mEq Tablet PO (08:27)
--- NOTE | 2023-07-17 11:50 | PM.DCS ---
Discharge Providers Date of Admission: 07/14/23 11:37 Date of Discharge: July 17, 2023 Attending Provider at Admission: Keo Fuentes Attending Provider at Discharge: Srinivasa Miller MD Primary Care Provider: Antoinette Purdy APN Diagnoses at Discharge Discharge Diagnosis (1) Nausea and vomiting: Status: Acute (2) Gastritis: Status: Acute (3) Unable to eat: Status: Acute (4) Unable to take medication: Status: Acute (5) Hypomagnesemia: Status: Acute (6) Hypokalemia: Status: Acute (7) Nicotine dependence, cigarettes, uncomplicated: Status: Acute Reason for Visit Reason for Visit: abd pain, n/v, diarrhea Brief History: History as per HPI: Kristy Saba is a 43 year old female who has been having intractable nausea and vomiting over the last week, unable to keep food, drink or her medications or potassium, magnesium or vitamin D supplements which she is supposed to be taking. She has a history of gastric sleeve surgery. She takes diclofenac due to chronic back problems. Only occasional EtOH. Hospital Course Hospital Course Patient was admitted to the hospital further evaluation and management of intractable nausea and vomiting in setting of history of gastric sleeve. Patient was treated conservatively with keeping her n.p.o., IV hydration along with PPIs. It is believed her symptoms of nausea and vomiting is secondary to gastritis due to excessive NSAID use. Her hospitalization was complicated by her developing anxiety given her baseline history of PTSD and anxiety along with borderline personality disorder. Eventually he responded well to the treatment and she was started back on her oral medications along with clear liquid diet. On admission patient was also found to have severe left abnormalities which were replaced. During hospitalization her electrolytes were continuously monitored. Patient is able to tolerate clear liquid diet for last 36 to 48 hours. Patient was counseled in detail about maintaining oral hydration, avoiding further NSAIDs and alcohol along with food products which can increase acid production in the stomach including caffeine, chocolate and milk. She was advised to continue doing clear liquid diet for next 4 to 5 days and then advance gradually to a full liquid and regular softer diet within next 2 weeks. She is also advised to follow-up with her outpatient bariatric surgeon for possible need of endoscopy given her recurrence of nausea and vomiting. H. pylori study has been sent and is awaited. Physical Exam Narrative: Accompanied by her . Anxious. Const: COMMON NORMALS: patient oriented x3 and alert GENERAL APPEARANCE: cooperative ORIENTATION/CONSCIOUSNESS: Yes awake HENMT: COMMON NORMALS: oropharynx normal Neck/C-Spine: COMMON NORMALS: no JVD Resp: COMMON NORMALS: normal respiratory effort and clear to auscultation bilaterally AUSCULTATION: clear to auscultation bilaterally Cardio: COMMON NORMALS: no JVD, regular rhythm, S1 normal heart sound present, S2 normal heart sound present and No murmurs present (Cardio) RHYTHM: regular rhythm HEART SOUNDS: S1 normal heart sound present and S2 normal heart sound present GI: COMMON NORMALS: Normal to inspection, nondistended, normoactive bowel sounds present and Soft to palpation PALPATION: Yes Soft to palpation and Yes Tenderness to palpation present (GI) (Epigastric) Extremity: COMMON NORMALS: no joint enlargement and no pedal edema Neuro: COMMON NORMALS: patient oriented x3 and moves all extremities SENSORIUM/ORIENTATION: Yes alert Skin: COMMON NORMALS: no rashes or lesions noted GENERAL SKIN EXAM: no rashes or lesions noted Discharge Data Studies Completed and Pending Completed Studies During Hospitalization Category Date Time Status CT abdomen pelvis w con* [id number] Stat Cat Scan 07/14/23 07:[address] head wo con* [id number] Routine Cat Scan 07/15/23 12:05 Completed Pending at discharge Category Date Time Status MAG [Magnesium] AM LABS Lab 07/18/23 04:00 Ordered Radiology Impressions Abdomen/Pelvis CT 07/14/23 07:30 IMPRESSION: No acute intra-abdominal process. Head CT 07/15/23 12:05 IMPRESSION: No acute intracranial abnormality. Laboratory Results WBC 5.51 10^3/uL (3.29-11.43) 07/17/23 04:50 RBC 2.87 10^6/uL (3.85-5.65) L 07/17/23 04:50 Hgb 10.20 g/dL (11.27-16.99) L 07/17/23 04:50 Hct 30.0 % (36-47) L 07/17/23 04:50 MCV 104.5 fl (85-98) H 07/17/23 04:50 MCH 35.5 pg (27-33) H 07/17/23 04:50 MCHC 34.0 g/dL (30-55) 07/17/23 04:50 RDW 17.3 % (12.1-15.1) H 07/17/23 04:50 Plt Count 122 10^3/cmm (157-399) L 07/17/23 04:50 MPV 9.9 fL (7.4-10.4) 07/17/23 04:50 Neut % (Auto) 55.9 % 07/17/23 04:50 Lymph % (Auto) 35.9 % 07/17/23 04:50 [place] % (Auto) 4.5 % 07/17/23 04:50 Eos % (Auto) 2.7 % 07/17/23 04:50 Baso % (Auto) 0.5 % 07/17/23 04:50 Neut # (Auto) 3.07 10^3/uL (1.8-7.7) 07/17/23 04:50 Lymph # (Auto) 2.0 10^3/uL (0.8-4.8) 07/17/23 04:50 [place] # (Auto) 0.3 10^3/uL (0.2-0.9) 07/17/23 04:50 Eos # (Auto) 0.2 10^3/uL (0.0-0.8) 07/17/23 04:50 Baso # (Auto) 0.0 10^3/uL (0.0-0.1) 07/17/23 04:50 Nucleated RBC % (auto) 0 % 07/17/23 04:50 Nucleated RBCs # 0.0 /100WBC 07/17/23 04:50 Sodium 139 mmol/L (136-145) 07/17/23 04:50 Potassium 3.7 mmol/L (3.5-5.1) 07/17/23 04:50 Chloride 109 mmol/L (98-107) H 07/17/23 04:50 Carbon Dioxide 23 mmol/L (22-29) 07/17/23 04:50 Anion Gap 10.7 (5-19) 07/17/23 04:50 BUN 3 mg/dL (6-20) L 07/17/23 04:50 Creatinine 0.5 mg/dL (0.5-0.9) 07/17/23 04:50 GFR Calculation 134.7 mL/min (90-130) H 07/17/23 04:50 Glucose 81 mg/dL (65-115) 07/17/23 04:50 Estimat Average Glucose 88 07/16/23 05:12 Hemoglobin A1c 4.7 % (4.0-6.0) 07/16/23 05:12 Calculated Osmolality 284 mOsm/kg (285-295) L 07/17/23 04:50 Calcium 8.0 mg/dL (8.5-10.5) L 07/17/23 04:50 Phosphorus 4.4 mg/dL (2.5-4.5) 07/15/23 04:46 Magnesium 1.7 mg/dL (1.7-2.3) 07/17/23 04:50 Iron 82 ug/dL (37-145) 07/15/23 04:46 TIBC 222 mcg/dl 07/15/23 04:46 % Saturation 36.9 % (20-50) 07/15/23 04:46 Unsat Iron Binding 140 ug/dL (112-347) 07/15/23 04:46 Total Bilirubin 0.2 mg/dL (0.15-1.2) 07/17/23 04:50 AST 18 U/L (0-32) 07/17/23 04:50 ALT 7 U/L (0-33) 07/17/23 04:50 Alkaline Phosphatase 117 U/L (35-105) H 07/17/23 04:50 Total Protein 5.0 g/dL (6.6-8.7) L 07/17/23 04:50 Albumin 2.9 g/dL (3.5-5.2) L 07/17/23 04:50 Globulin 2.1 g/dL (1.3-4.6) 07/17/23 04:50 Triglycerides 86 mg/dL (0-150) 07/16/23 05:12 Cholesterol 131 mg/dL (0-200) 07/16/23 05:12 LDL Cholesterol, Calc 62 mg/dL (50-129) 07/16/23 05:12 Total VLDL Cholesterol 17 mg/dL (0-30) 07/16/23 05:12 HDL Cholesterol 52 mg/dL (60-100) L 07/16/23 05:12 Cholesterol/HDL Ratio 2.52 mg/dL (0.0-4.40) 07/16/23 05:12 Lipase 136 U/L (13-60) H 07/14/23 09:54 Vitamin B12 231 pg/mL (232-1245) L 07/15/23 04:46 Folate 4.1 ng/mL (4.8-37.3) L 07/16/23 05:12 TSH 2.50 uIU/mL (0.27-4.20) 07/15/23 04:46 Urine Color Yellow (Yellow) 07/14/23 09:07 Urine Appearance Clear (CLEAR) 07/14/23 09:07 Urine pH 9 (5-7) H 07/14/23 09:07 Ur Specific [place] 1.010 (1.005-1.030) 07/14/23 09:07 Urine Protein Neg (Negative) 07/14/23 09:07 Urine Glucose (UA) Norm (Normal) 07/14/23 09:07 Urine Ketones 1+ (Negative) H 07/14/23 09:07 Urine Blood Neg (Negative) 07/14/23 09:07 Urine Nitrate Negative (Negative) 07/14/23 09:07 Urine Bilirubin Neg (Negative) 07/14/23 09:07 Prot Sulfosalicylic Acd Negative (Negative) 07/14/23 09:07 Urine Urobilinogen 1 mg/dL (Negative) H 07/14/23 09:07 Ur Leukocyte Esterase Negative (Negative) 07/14/23 09:07 C. difficile (PCR) Negative (Negative) 07/16/23 16:05 Vitals Last Vital Signs Temp 97.9 F 07/17/23 07:21 Pulse 79 07/17/23 08:01 Resp 16 07/17/23 08:01 BP 114/77 07/17/23 07:21 Pulse Ox 92 07/17/23 08:01 O2 Del Method Room Air 07/17/23 08:01 Discharge Plan Discharge Patient Disposition: Home Condition: Stable Prescriptions: New sucralfate 100 mg/mL Suspension 1 g PO AC&BEDTIME Qty: 1000 0RF Protonix 40 mg tablet,delayed release (DR/EC) 40 mg PO DAILY Qty: 60 0RF Rx Instructions: twice daily for 2 weeks and then daily hydrocodone-acetaminophen 5-300 mg tablet 1 tab PO Q8H PRN (Reason: pain) Qty: 10 0RF Continued (DME) pair of crutches See Rx Instructions .Route .MEDSUPPLY Qty: 1 0RF Rx Instructions: As directed baclofen 10 mg tablet 10 mg PO TID (DME) fast form See Rx Instructions .Route .MEDSUPPLY Qty: 1 0RF Rx Instructions: As directet (DME) juan splint See Rx Instructions .Route .MEDSUPPLY Qty: 1 0RF Rx Instructions: As directed Linzess 145 mcg capsule 145 mcg PO DAILY ondansetron HCl 4 mg tablet 4 mg PO Q6H PRN (Reason: Nausea) albuterol sulfate 90 mcg/actuation HFA aerosol inhaler 2 inh INHALATION Q6H PRN (Reason: Shortness Of Breath) gabapentin 300 mg Capsule 300 mg PO TID 30 Days Qty: 90 1RF prazosin 2 mg capsule 2 mg PO BEDTIME 30 Days Qty: 30 1RF thiamine mononitrate (vit B1) [Vitamin B-1 (mononitrate)] 100 mg Tablet 100 mg PO DAILY 30 Days Qty: 30 1RF hydroxyzine pamoate 50 mg capsule 50 mg PO TID PRN (Reason: Anxiety) 30 Days Qty: 90 1RF venlafaxine 150 mg capsule,extended release 24hr 150 mg PO DAILY potassium chloride 10 mEq tablet extended release 10 meq PO BID lorazepam 0.5 mg tablet 0.5 mg PO TID PRN (Reason: Anxiety) magnesium 250 mg Tablet 250 mg PO BID topiramate 50 mg tablet 50 mg PO BID Held triamterene-hydrochlorothiazid 37.5-25 mg tablet 1 tab PO DAILY Hold Instructions: Resume on 07/31/23. furosemide 20 mg tablet 20 mg PO BID Hold Instructions: Resume on 07/31/23. Discontinued omeprazole 20 mg capsule,delayed release(DR/EC) 40 mg PO QAM diclofenac sodium 75 mg tablet,delayed release (DR/EC) 75 mg PO DAILY PRN (Reason: inflammatory pain) Discharge Orders: Discharge Order (Routine); Ordered 07/17/23 Ordered By: Srinivasa Miller Referrals: Antoinette Purdy APN [Primary Care Provider] - 07/25/23 10:00 am Discharge Diet: Advance as tolerated and Clear Liquid Patient Instructions: Sucralfate (By mouth), Hydrocodone/Acetaminophen (By mouth), Pantoprazole (By mouth), Gastritis (GEN), Opioid Safety Activity Restrictions/Additional Instructions: Continue clear liquid diet going forward for next 1 week and advance very gradually to a full liquid and a softer diet within next 2 weeks. Try to avoid diclofenac, alcohol, caffeine or chocolate as all of them templates increase gastritis. Takes Protonix twice daily. Please follow-up with Dr. Pacheco who was the surgeon for recurrent nausea and vomiting. Do not take your medications including Lasix and hydrochlorothiazide for now. Discharge Attestations Time Spent in Discharge Care*: greater than 30 min Specific Discharge Activities: educating patient, educating and/or supporting family/caregiver, discussing with director of casework department/social workers/dc planners, documenting/other paperwork and evaluating patient/reviewing data Status at Discharge: Cognitive status at discharge: cognitively intact, Behavioral status at discharge: cooperative and can be uncooperative, Functional status at discharge: independent ambulation, Overall status at discharge: patient is progressing back to baseline Quality Metrics Clinical Quality Measures [ No reported AMI, CVA or VTE this stay] Coding Level of Care Code 68329 Total time (in minutes) for Discharge: 60 Diagnoses Nausea and vomiting R11.2 Gastritis K29.70 Unable to eat R63.8 Unable to take medication Z91.148 Hypomagnesemia E83.42 Hypokalemia E87.6 Nicotine dependence, cigarettes, uncomplicated F17.210
[2023-07-17 15:52] LABS: H. Pylori IgG Antibody Negative (Negative)
== END 2023-07-17 12:56 | disposition home or self-care (01) ==
LOC: ER 11:37 → MEDSURG 14:24
PROVIDERS: Admitting Provider Internal Medicine; Emergency Provider Emergency Medicine; PCP Nurse Practitioner Family; Visit Provider Student in an Organized Health Care Education/Training Program
DX: K29.70 Gastritis, unspecified, without bleeding (principal); R63.8 Other symptoms and signs concerning food and fluid intake; Z91.148 Patient's other noncompliance with medication regimen for other reason; E83.42 Hypomagnesemia; E87.6 Hypokalemia; F17.210 Nicotine dependence, cigarettes, uncomplicated; Z98.84 Bariatric surgery status; F41.9 Anxiety disorder, unspecified
CPT/HCPCS: 36415; 70450; 74177; 80053; 80061; 81003; 82607; 82746; 83036; 83540; 83550; 83690; 83735; 84100; 84132; 84443; 85025; 86677; 87493; 93005; 94640; 96365; 96366; 96367; 96375; 96376; 99285; C9113; G0378; J2060; J2270; J2405; J3475; J3480; J7030; J7120; J7613; Q9967

== ENCOUNTER 2023-10-23 13:13 | Outpatient (CLI) | payer MEDICARE, MEDICAID, SELFPAY ==
[2022-02-16 16:10] VITALS: BP 111/73; BMI 27.4
--- NOTE | 2023-10-23 13:58 | XR_ITS ---
WS: [id number] XR lumbar spine 2-3V* [id number] REASON FOR EXAM: LUMBAR PAIN FINDINGS: Normal lumbar spine curvatures. No significant vertebral body abnormality Intervertebral disc spaces are intact and without significant narrowing. No significant spondylolisthesis. Moderate degenerative arthropathy in the facet joints L4-S1. XR/XR lumbar spine 2-3V* [id number] IMPRESSION: Minimal degenerative spondylosis as above.
== END 2023-10-23 13:14 | disposition home or self-care (01) ==
PROVIDERS: PCP Nurse Practitioner Family; Visit Provider Nurse Practitioner Family
DX: M47.896 Other spondylosis, lumbar region (principal); M47.898 Other spondylosis, sacral and sacrococcygeal region
CPT/HCPCS: 72100

== ENCOUNTER 2023-11-21 09:36 | Outpatient (CLI) | payer MEDICARE, MEDICAID, SELFPAY ==
[2022-02-16 16:10] VITALS: BP 111/73; BMI 27.4
--- NOTE | 2023-11-21 09:45 | XR_ITS ---
WS: [id number] Examination: XR cervical spine 3V* [id number] Reason for Exam: NECK PAIN Date: 11/21/2023 Comparison: 05/10/2011 Findings: The DANIEL is intact. There is no prevertebral swelling. There is no wedging or compression. There is no subluxation Disc space heights are maintained. XR/XR cervical spine 3V* [id number] Impression: There is no compression or subluxation.
--- NOTE | 2023-11-21 09:50 | MM_ITS ---
WS: [id number] BILATERAL SCREENING DIGITAL TOMOSYNTHESIS MAMMOGRAM WITH CAD HISTORY: SCREENING COMPARISON: None available. Bilateral CC and MLO views with tomosynthesis and synthetic mammography submitted. Computer aided det ection analyzed. Breast composition: There are scattered areas of fibroglandular density. No suspicious masses, microc alcifications or architectural distortion. MM/[place] [id number] IMPRESSION: BI-RADS: 2 - Benign. FOLLOW UP: 1 Year Follow-up
== END 2023-11-21 09:37 | disposition home or self-care (01) ==
PROVIDERS: PCP Nurse Practitioner Family; Visit Provider Nurse Practitioner Family
DX: Z12.31 Encounter for screening mammogram for malignant neoplasm of breast (principal); R92.323 Mammographic fibroglandular density, bilateral breasts; M54.2 Cervicalgia
CPT/HCPCS: 72040; 77063; 77067

== ENCOUNTER → 2024-02-07 08:33 | Outpatient (BNVA) | payer MEDICARE, MEDICAID, SELFPAY ==
[2022-02-16 16:10] VITALS: BP 111/73; BMI 27.4
== END ==
PROVIDERS: PCP Nurse Practitioner Family; Referring Provider Nurse Practitioner Family; Visit Provider Nurse Practitioner Family
DX: L90.5 Scar conditions and fibrosis of skin (principal); L72.0 Epidermal cyst; F17.200 Nicotine dependence, unspecified, uncomplicated; L81.4 Other melanin hyperpigmentation; L91.8 Other hypertrophic disorders of the skin; L29.89 Other pruritus; H53.451 Other localized visual field defect, right eye
CPT/HCPCS: 17110; 99203

== ENCOUNTER 2024-02-25 20:19 | Inpatient (IN) | payer MEDICARE, MEDICAID, SELFPAY ==
[2022-02-16 16:10] VITALS: BP 111/73; BMI 27.4
[2024-02-25] VITALS (14 sets, daily range): BP systolic 96–150; BP diastolic 50–90; PULSE 65–76; RESP 18–36; TEMP 35.7; O2SAT 98–100; BMI 32.3
--- NOTE | 2024-02-25 20:21 | XRR_ITS ---
PROCEDURE INFORMATION: Exam: XR Chest Exam date and time: 02/25/2024 8:45 PM Age: 43 years old Clinical indication: Other: ETOH AMS; Patient HX: PT would not hold still got best i could TECHNIQUE: Imaging protocol: Radiologic exam of the chest. Views: 1 view. COMPARISON: CR (CHEST, ) 03/16/2023 1:43 PM FINDINGS: Lungs: Unremarkable. No consolidation. Pleural spaces: Unremarkable. No pleural effusion. No pneumothorax. Heart/Mediastinum: Unremarkable. No cardiomegaly. Bones/joints: Unremarkable. XR/XR chest 1V portable [id number] IMPRESSION: No acute cardiopulmonary process.
--- NOTE | 2024-02-25 20:32 | ED_ITS ---
HPI - Alcohol 2 General: Chief Complaint: Alcohol Stated Complaint: AMS Time Seen by Provider: 02/25/24 20:27 Source: EMS Mode of arrival: EMS Limitations: altered mental status History of Present Illness: 43-year-old female has a history alcohol ism family states had been gone for 3 days drinking returned today since she has been home he states she had been altered vomiting her last known normal was 3 days ago. Patient here will awake but will not answer any questions has vomited on herself. Patient also has extensive psychiatric history in the past and some drug use Related Data Home Medications Medication Instructions Recorded Confirmed baclofen 10 mg tablet 10 mg PO TID 12/26/21 02/26/24 albuterol sulfate 90 mcg/actuation 2 inh inhalation Q6H PRN Shortness 03/16/23 02/26/24 aerosol inhaler Of Breath linaclotide 145 mcg capsule 145 mcg PO DAILY 03/16/23 02/26/24 (Linzess) ondansetron HCl 4 mg tablet 4 mg PO Q6H PRN Nausea 03/16/23 02/26/24 furosemide 20 mg tablet 20 mg PO BID 07/14/23 02/26/24 lorazepam 0.5 mg tablet 0.5 mg PO TID PRN Anxiety 07/14/23 02/26/24 potassium chloride 10 mEq 10 meq PO BID 07/14/23 02/26/24 tablet,extended release venlafaxine 150 mg 150 mg PO DAILY 07/14/23 02/26/24 capsule,extended release 24 hr acetaminophen 300 mg-codeine 15 mg 1.5 tab PO DAILY 02/26/24 02/26/24 tablet gabapentin 600 mg tablet 600 mg PO DAILY 02/26/24 02/26/24 hydrocortisone 2.5 % topical cream 1 applic topical DAILY 02/26/24 02/26/24 with perineal applicator (Procto-Med ) propranolol 20 mg tablet 20 mg PO DAILY 02/26/24 02/26/24 Previous Rx's Medication Instructions Recorded pair of crutches #1 ea 11/24/20 fast form #1 ea 11/16/22 juan splint #1 ea 11/16/22 pantoprazole 40 mg tablet,delayed 40 mg PO DAILY #60 tabs 07/17/23 release (Protonix) Allergies Allergy/AdvReac Type Severity Reaction Status Date / Time monosodium glutamate Allergy Severe ALGY-Anaphy Verified 07/14/23 07:30 laxis duloxetine Allergy Intermediate Break out/ Verified 07/14/23 07:30 Hives gluten Allergy Intermediate Break out/ Verified 07/14/23 07:30 Hives lactase [From Dairy Aid] Allergy Intermediate Break out/ Verified 07/14/23 07:30 Hives paroxetine Allergy Intermediate Break out/ Verified 07/14/23 07:30 Hives soy Allergy Intermediate Break out/ Verified 07/14/23 07:30 Hives lactose Allergy ADR-Diarrhe Verified 02/27/24 08:35 a scopolamine Allergy Unknown Verified 07/14/23 07:30 [From Transderm-Scop] atropine AdvReac Intermediate Break out Verified 07/14/23 07:30 /Hives citalopram AdvReac Intermediate Hives Verified 07/14/23 07:30 Review of Systems 2 General: Reports: ROS unobtainable due to mental status PFSH ED 2 PFSH: Medical History Acute post-traumatic stress disorder Bleeding per rectum Cannabis dependence, episodic use Alcohol abuse, episodic drinking behavior Obesity Sleep apnea Irritable bowel syndrome 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 Grandmother , COPD COPD (chronic obstructive pulmonary disease) Grandfather , CHF Congestive heart failure (CHF) Denies family history of Anesthesia complication Bleeding disorder Social History Smoking and tobacco/nicotine status: current every day tobacco/nicotine user cigarettes Packs smoked per day: 0.5 Second hand smoke exposure: Yes Alcohol intake: current Alcohol intake frequency: few times a month Alcohol type: wine Substance/Drug Use: never Adopted: No Caregiver/support person: No Lives independently: Yes Household members: children Housing: Manufactured/Mobile home Marital status: Legally Number of children: 2 Number of grandchildren: 0 Highest education level completed: Associate Degree: Occupational, Technical, Vocational Program Education level details: Business service: No Current occupational status: disabled Current occupational exposures/hazards: No Pets and animals: Yes Pets & animals: cat(s), dog(s) and turtle(s) Leisure activites: music, reading and other Leisure activities details: clean Sexually active: Yes Are you practicing safe sex: Yes Do you think of yourself as: Straight/Heterosexual Current gender identity: Female Kristy/Religious: Scientology Special kristy needs: No Agree to transfusion: Yes Female Reproductive History: Para: 2 Spontaneous abortions: No Physical Exam 2 Const: COMMON NORMALS: negative for patient oriented x3 EXAM LIMITATIONS: a ltered mental status HENMT: COMMON NORMALS: normocephalic and atraumatic HEAD & SCALP: n ormocephalic and atraumatic Eye: COMMON NORMALS: conjunctivae normal CONJUNCTIVA: Yes conjunctivae normal Neck/C-Spine: COMMON NORMALS: full ROM and supple Chest: COMMONS NORMALS: normal inspection of the chest Resp: COMMON NORMALS: normal respiratory effort Cardio: COMMON NORMALS: regular rate RATE: regular rate Extremity: COMMON NORMALS: normal to inspection Neuro: COMMON NORMALS: moves all extremities and no focal motor deficits; negative for patient oriented x3 Psych: COMMON NORMALS: negative for mental status grossly normal Skin: COMMON NORMALS: no rashes or lesions noted and no wounds GENERAL SKIN EXAM: no rashes or lesions noted Course 2 Vital Signs: Vital signs: Vital Signs Temperature 98.3 F 02/28/24 04:00 Pulse Rate 77 02/28/24 04:00 Respiratory Rate 17 02/28/24 04:00 Blood Pressure 128/83 02/28/24 04:00 Pulse Oximetry 98 02/28/24 04:00 Oxygen Delivery Me thod Room Air 02/28/24 04:00 MDM - Alcohol Medical Decision Making Patient presents here with altered mental status alpha level here is normal does have a UTI head CT is normal has a history of psychiatric issues no signs of meningitis or brain bleed and spoke to the hospitalist will admit to ICU at this time. Medical Records I reviewed the patient's medical records. Lab Data I reviewed the patient's lab results. 02/27/24 07:59 02/27/24 12:56 Radiology Impressions Chest X-Ray 02/25/24 20:21 IMPRESSION: No acute cardiopulmonary process. Head CT 02/25/24 21:21 IMPRESSION: No large territorial infarct or intracranial bleed. ASSESSMENT: ASPECTS ([place] Stroke Program Early CT Score) is 10. ADDENDUM: 02/25/24 2300 THIS REPORT CONTAINS FINDINGS THAT MAY BE CRITICAL TO PATIENT CARE. The findings were verbally communicated via telephone conference with Dr. Saba at 10:58 PM MEDIA INTERN on 02/25/2024. The findings were acknowledged and understood. Laboratory Results WBC 10.24 10^3/uL (3.29-11.43) 02/25/24 20:32 RBC 4.33 10^6/uL (3.85-5.65) 02/25/24 20:32 Hgb 14.10 g/dL (11.27-16.99) 02/25/24 20:32 Hct 42.6 % (36-47) 02/25/24 20:32 MCV 98.4 fl (85-98) H 02/25/24 20:32 MCH 32.6 pg (27-33) 02/25/24 20:32 MCHC 33.1 g/dL (30-55) 02/25/24 20:32 RDW 13.0 % (12.1-15.1) 02/25/24 20:32 Plt Count 254 10^3/cmm (157-399) 02/25/24 20:32 MPV 9.6 fL (7.4-10.4) 02/25/24 20:32 Neut % (Auto) 77.0 % 02/25/24 20:32 Lymph % (Auto) 18.8 % 02/25/24 20:32 [place] % (Auto) 3.2 % 02/25/24 20:32 Eos % (Auto) 0.2 % 02/25/24 20:32 Baso % (Auto) 0.5 % 02/25/24 20:32 Neut # (Auto) 7.89 10^3/uL (1.8-7.7) H 02/25/24 20:32 Lymph # (Auto) 1.9 10^3/uL (0.8-4.8) 02/25/24 20:32 [place] # (Auto) 0.3 10^3/uL (0.2-0.9) 02/25/24 20: Eos # (Auto) 0.0 10^3/uL (0.0-0.8) 02/25/24 20: Baso # (Auto) 0.1 10^3/uL (0.0-0.1) 02/25/24: Nucleated RBC % (auto) 0 % 02/25/24: Nucleated RBCs # 0.0 /100WBC 02/25/24 20:32 Specimen Type Arterial 02/25/24: Sample Site Brachial, right 02/25/24: ABG pH 7.34 (7.35-7.45) L 02/25/24: ABG pCO2 36.8 mmHg (35-45) 02/25/24: ABG pO2 98.0 mmHg (80.0-100.0) 02/25/24: ABG PO2/FiO2 Ratio 466 02/25/24: ABG HCO3 20.0 mmol/L (22-26) L 02/25/24: ABG O2 Saturation 97.9 02/25/24: ABG Base Excess -5.1 mmol/L (-2.0-2.0) L 02/25/24 22: Enoch Test N/a 02/25/24: A-a O2 Gradient 0.7 mmHg (5-10) L 02/25/24 22: Hematocrit 41.7 % (37-47) 02/25/24 22: Hgb O2 Saturation 96.2 % (95-100) 02/25/24 22: Carboxyhemoglobin 1.4 %THgb (0.4-20.1) 02/25/24: Methemoglobin 0.4 % (0.4-1.5) 02/25/24 22: Total Hemoglobin 13.6 g/dL (12-16) 02/25/24 22: Sodium 146.0 mmol/L (131-143) H 02/25/24 22: Potassium 3.6 mmol/L (3.5-5.0) 02/25/24 22:25 Glucose 113.0 mg/dL (70-115) 02/25/24 22:25 Ionized Calcium 1.2 mmol/L (1.1-1.4) 02/25/24 22:25 O2 Delivery Device Room air 02/25/24 22:25 FiO2 21.0 % 02/25/24 22:25 Kennel Supervisor ID [id number] 02/25/24 22:25 Sodium 143 mmol/L (136-145) 02/25/24 20:32 Potassium 3.9 mmol/L (3.5-5.1) 02/25/24 20:32 Chloride 107 mmol/L (98-107) 02/25/24 20:32 Carbon Dioxide 21 mmol/L (22-29) L 02/25/24 20:32 Anion Gap 18.9 (5-19) 02/25/24 20:32 BUN 9 mg/dL (6-20) 02/25/24 20:32 Creatinine 0.4 mg/dL (0.5-0.9) L 02/25/24 20:32 GFR Calculation 174.2 mL/min (90-130) H 02/25/24 20:32 Glucose 118 mg/dL (65-115) H 02/25/24 20:32 Calculated Osmolality 296 mOsm/kg (285-295) H 02/25/24 20:32 Calcium 8.9 mg/dL (8.5-10.5) 02/25/24 20:32 Total Bilirubin 0.4 mg/dL (0.15-1.2) 02/25/24 20:32 AST 18 U/L (0-32) 02/25/24 20:32 ALT < 5 U/L (0-33) 02/25/24 20:32 Alkaline Phosphatase 123 U/L (35-105) H 02/25/24 20:32 Ammonia 15 umol/L (11-51) 02/25/24 20:32 Total Protein 6.8 g/dL (6.6-8.7) 02/25/24 20:32 Albumin 4.2 g/dL (3.5-5.2) 02/25/24 20:32 Globulin 2.6 g/dL (1.3-4.6) 02/25/24 20:32 Vitamin B12 166 pg/mL (232-1245) L 02/25/24 20:32 TSH 0.69 uIU/mL (0.27-4.20) 02/25/24 20:32 HCG, Qual Negative (Negative) 02/25/24 20:32 Urine Color Yellow (Yellow) 02/25/24 20:43 Urine Appearance Turbid (CLEAR) A 02/25/24 20:43 Urine pH 5.5 (5-7) 02/25/24 20:43 Ur Specific [place] 1.023 (1.005-1.030) 02/25/24 20:43 Urine Protein 1+ (Negative) A 02/25/24 20:43 Urine Glucose (UA) Negative (Normal) 02/25/24 20:43 Urine Ketones 2+ (Negative) H 02/25/24 20:43 Urine Blood Negative (Negative) 02/25/24 20:43 Urine Nitrate Negative (Negative) 02/25/24 20:43 Urine Bilirubin Negative (Negative) 02/25/24 20:43 Urine Urobilinogen 1.0 mg/dL (Negative) 02/25/24 20:43 Ur Leukocyte Esterase Negative (Negative) 02/25/24 20:43 Urine RBC 6-10 /hpf (0-2) 02/25/24 20:43 Urine WBC 21-50 /hpf (0-5) H 02/25/24 20:43 Ur Squamous Epith Cells 21-50 /hpf (0-5) 02/25/24 20:43 Amorphous Sediment Not Reportable 02/25/24 20:43 Urine Bacteria 4+ /hpf (NONE) H 02/25/24 20:43 Hyaline Casts 16.12 /lpf 02/25/24 20:43 Salicylates < 0.3 mg/dL (3-10) L 02/25/24 20:32 Urine Opiates Screen Negative ng/mL (Negative) 02/25/24 20:43 Acetaminophen 13.8 ug/mL (10-30) 02/25/24 20:32 Ur Barbiturates Screen Negative ng/mL (Negative) 02/25/24 20:43 Ur Phencyclidine Scrn Negative ng/mL (Negative) 02/25/24 20:43 Ur Amphetamines Screen Negative ng/mL (Negative) 02/25/24 20:43 U Benzodiazepines Scrn Positive ng/mL (Negative) H 02/25/24 20:43 Urine Cocaine Screen Negative ng/mL (Negative) 02/25/24 20:43 U Marijuana (THC) Screen Positive ng/mL (Negative) H 02/25/24 20:43 Ethyl Alcohol < 10 mg/dL (0-10) 02/25/24 20:32 All radiology interpretation(s) finalized by discharge Discharge Plan Discharge Patient Disposition: Admitted As Inpatient Admit Provider: Rena Fisher Clinical Impression: Altered mental status Condition: Stable Coding Level of Care Code ED Rare/Endangered Species Specialist for Cristhian Lu
--- NOTE | 2024-02-25 20:32 | PC.NURSE ---
pt is not able to answer SI/HI questions at this time
[2024-02-25 20:39] LABS: Basophils # 0.1 10^3/uL (0.0-0.1); Basophils % 0.5 %; Eosinophils % 0.2 %; Hematocrit 42.6 % (36-47); Lymphocytes # 1.9 10^3/uL (0.8-4.8); Lymphocytes % 18.8 %; Mean Corpuscular HGB Conc 33.1 g/dL (30-55); Mean Corpuscular Hemoglobin 32.6 pg (27-33); Mean Corpuscular Volume 98.4 fl (85-98); Mean Platelet Volume 9.6 fL (7.4-10.4); Monocytes # 0.3 10^3/uL (0.2-0.9); Monocytes % 3.2 %; Neutrophils # 7.89 10^3/uL (1.8-7.7); Nucleated Red Blood Cells % 0 %; Platelet Count 254 10^3/cmm (157-399); Red Blood Count 4.33 10^6/uL (3.85-5.65); White Blood Count 10.24 10^3/uL (3.29-11.43)
--- NOTE | 2024-02-25 20:48 | PC.NURSE ---
pts belongings were cut off of her d/t being soiled with vomit and stool. PT was not able to follow commands to remove the clothing. The gown and leggings were thrown in the trash at this time
[2024-02-25 20:54] LABS: Bilirubin Urine Negative (Negative); Blood Urine Negative (Negative); Glucose Urine UA Negative (Normal); Ketones Urine 2+ (Negative); Leukocyte Esterase Urine Negative (Negative); Nitrate Urine Negative (Negative); Protein Urine 1+ (Negative); Specific Gravity, Urine 1.023 (1.005-1.030); Urine Appearance Turbid (CLEAR); Urine Color Yellow (Yellow); pH Urine 5.5 (5-7)
[2024-02-25 20:56] LABS: Acetaminophen 13.8 ug/mL (10-30); Alanine Aminotransferase < 5 U/L (0-33); Albumin Level 4.2 g/dL (3.5-5.2); Alkaline Phosphatase 123 U/L (35-105); Anion Gap 18.9 (5-19); Aspartate Amino Transferase 18 U/L (0-32); Blood Urea Nitrogen 9 mg/dL (6-20); Calcium 8.9 mg/dL (8.5-10.5); Carbon Dioxide 21 mmol/L (22-29); Chloride 107 mmol/L (98-107); Creatinine Clr Calc Pharmacy 205.7448; Globulin 2.6 g/dL (1.3-4.6); Glomerular Filtration Rate 174.2 mL/min (90-130); Glucose 118 mg/dL (65-115); Osmolality Calculated 296 mOsm/kg (285-295); Potassium 3.9 mmol/L (3.5-5.1); Sodium 143 mmol/L (136-145); Total Bilirubin 0.4 mg/dL (0.15-1.2); Total Protein 6.8 g/dL (6.6-8.7)
[2024-02-25 20:57] LABS: Add Urine Microscopic? YES; Bacteria Urine 4+ /hpf; Hyaline Casts Urine 16.12 /lpf; Squamous Epithelial Cell Urine 21-50 /hpf (0-5); WBC Urine 21-50 /hpf (0-5)
[2024-02-25 21:00] LABS: HCG, Serum Qual Negative (Negative)
[2024-02-25 21:01] LABS: Ammonia 15 umol/L (11-51)
[2024-02-25 21:01] LABS: Amphetamines Screen Urine Negative (Negative); Barbiturates Screen Urine Negative (Negative); Benzodiazepines Screen Urine Positive (Negative); Cocaine Screen Urine Negative (Negative); Opiate Screen Urine Negative (Negative); PCP Screen Urine Negative (Negative); THC Screen Urine Positive (Negative)
[2024-02-25 21:02] LABS: Alcohol Level < 10 mg/dL (0-10); Salicylate < 0.3 mg/dL (3-10)
--- NOTE | 2024-02-25 21:21 | CTR_ITS ---
PROCEDURE INFORMATION: Exam: CT Head Without Contrast Exam date and time: 02/25/2024 10:34 PM Age: 43 years old Clinical indication: Stroke-like symptoms; Altered mental status/memory loss; Additional info: AMS TECHNIQUE: Imaging protocol: Computed tomography of the head without contrast. Radiation optimization: All CT scans at this facility use at least one of these dose optimization techniques: automated exposure control; mA and/or kV adjustment per patient size (includes targeted exams where dose is matched to clinical indication); or iterative reconstruction. Other technique: STROKE PROTOCOL was implemented. COMPARISON: CT head wo con* [id number] 07/15/2023 12:21 PM RADIATION DOSE METRICS: Total DLP (mGy-cm): 1140.54 FINDINGS: Brain: Normal. No hemorrhage. Unremarkable white matter. No mass effect. Cerebral ventricles: No ventriculomegaly. Paranasal sinuses: Visualized sinuses are unremarkable. No fluid levels. Mastoid air cells: Visualized mastoid air cells are well aerated. Bones: Unremarkable. No acute fracture. Soft tissues: Unremarkable. CT/CT head wo con* [id number] IMPRESSION: No large territorial infarct or intracranial bleed. ASSESSMENT: ASPECTS ([place] Stroke Program Early CT Score) is 10.
--- NOTE | 2024-02-25 21:39 | ECG_ITS ---
[facility] Data Test Date: 2024-02-25 Pat Name: Kristy Saba Department: Room: Gender: Female Freight Representative: : 1980 Requested By: Rik Downey Order Number: [id number] MD: Dany Aguirre M.D. Measurements Intervals [place] Rate: 61 P: -9 LA: 152 QRS: -21 QRSD: 95 T: -5 QT: 442 QTc: 446 Interpretive Statements SINUS RHYTHM WITH SINUS ARRHYTHMIA.Leads V1 to V3 are missing BORDERLINE LEFT AXIS DEVIATION [QRS AXIS < -20] MINIMAL VOLTAGE CRITERIA FOR LVH, CONSIDER NORMAL VARIANT [MEETS CRITERIA IN ONE OF: R(aVL), S(V1), R(V5), R(V5/V6)+S(V1)] WARNING: DATA QUALITY MAY AFFECT INTERPRETATION INTERPRETATION BASED ON A DEFAULT AGE OF 40 YEARS Compared to ECG 07/15/2023 12:52:24 No significant changes Electronically Signed On 02-26-2024 00:59:37 [employer]PERVISOR [employer] by Dany Aguirre M.D. [email or web address]
[2024-02-25] MEDS: LORazepam 2 mg/mL INJ 1 mL IM (22:30)
--- NOTE | 2024-02-25 22:31 | P.HP_ITS ---
Providers/Chief Complaint 2 Primary Care Provider: Antoinette Purdy APN Chief Complaint: AMS History of Present Illness Kristy Saba is a 43 year old female w gastric sleeve, bipolar disorder, alcohol abuse and borderline personality disorder along with PTSD who is a poor historian, presented to the hospital with state of confusion. Patient was asleep for good 3 hours, she was not able to provide any history, as per her mother she went missing for about 3 days. At the time of my evaluation patient is awake, answering my questions, she is able to tell me her name, date of name of her , but she has no recall of events from today, she is not endorsing suicidal attempts, taking any drugs, she is not sure when was her last alcoholic drink. She looks anxious keeps covering her body with blankets. She was examined in presence of nurse/female graduate internship I did not notice any tick bites or rash. Skin has normal color, she does not look extremely dehydrated. She is not complaining any active chest pain shortness of breath nausea vomiting abdominal pain or signs of UTI. CBC BMP unremarkable, UA showing pyuria, drug seen positive for benzodiazepines and marijuana. Head CT unremarkable ammonia level normal, ABG unremarkable she is not , Review of Systems 2 General: Reports: ROS unobtainable due to medical condition Medications/Allergies Home Medications Medication Instructions Recorded Confirmed Last Taken Type pair of crutches #1 ea 11/24/20 07/14/23 Unknown Rx baclofen 10 mg tablet 10 mg PO TID 12/26/21 07/14/23 Unknown History fast form #1 ea 11/16/22 07/14/23 Unknown Rx jaun splint #1 ea 11/16/22 07/14/23 Unknown Rx albuterol sulfate 90 mcg/actuation 2 inh inhalation Q6H PRN Shortness 03/16/23 07/14/23 Unknown History aerosol inhaler Of Breath linaclotide 145 mcg capsule 145 mcg PO DAILY 03/16/23 07/14/23 Unknown History (Linzess) ondansetron HCl 4 mg tablet 4 mg PO Q6H PRN Nausea 03/16/23 07/14/23 Unknown History gabapentin 300 mg capsule 300 mg PO TID 30 days #90 caps 03/21/23 07/14/23 Unknown Rx hydroxyzine pamoate 50 mg capsule 50 mg PO TID PRN Anxiety 30 days 03/21/23 07/14/23 Unknown Rx #90 caps prazosin 2 mg capsule 2 mg PO BEDTIME 30 days #30 caps 03/21/23 07/14/23 Unknown Rx thiamine mononitrate (vit B1) 100 100 mg PO DAILY 30 days #30 tabs 03/21/23 07/14/23 Unknown Rx mg tablet (Vitamin B-1 (mononitrate)) furosemide 20 mg tablet 20 mg PO BID 07/14/23 07/14/23 Unknown History lorazepam 0.5 mg tablet 0.5 mg PO TID PRN Anxiety 07/14/23 07/14/23 Unknown History magnesium 250 mg tablet 250 mg PO BID 07/14/23 07/14/23 Unknown History potassium chloride 10 mEq 10 meq PO BID 07/14/23 07/14/23 Unknown History tablet,extended release topiramate 50 mg tablet 50 mg PO BID 07/14/23 07/14/23 Unknown History triamterene 37.5 1 tab PO DAILY 07/14/23 07/14/23 Unknown History mg-hydrochlorothiazide 25 mg tablet venlafaxine 150 mg 150 mg PO DAILY 07/14/23 07/14/23 Unknown History capsule,extended release 24 hr hydrocodone 5 mg-acetaminophen 300 1 tab PO Q8H PRN pain #10 tabs 07/17/23 Unknown Rx mg tablet pantoprazole 40 mg tablet,delayed 40 mg PO DAILY #60 tabs 07/17/23 Unknown Rx release (Protonix) sucralfate 100 mg/mL oral 1 g (10 mL) PO AC&BEDTIME #1,000 mL 07/17/23 Unknown Rx suspension Allergies Allergy/AdvReac Type Severity Reaction Status Date / Time monosodium glutamate Allergy Severe ALGY-Anaphy Verified 07/14/23 07:30 laxis duloxetine Allergy Intermediate Break out/ Verified 07/14/23 07:30 Hives gluten Allergy Intermediate Break out/ Verified 07/14/23 07:30 Hives lactase [From Dairy Aid] Allergy Intermediate Break out/ Verified 07/14/23 07:30 Hives paroxetine Allergy Intermediate Break out/ Verified 07/14/23 07:30 Hives soy Allergy Intermediate Break out/ Verified 07/14/23 07:30 Hives scopolamine Allergy Unknown Verified 07/14/23 07:30 [From Transderm-Scop] atropine AdvReac Intermediate Break out Verified 07/14/23 07:30 /Hives citalopram AdvReac Intermediate Hives Verified 07/14/23 07:30 PFSH Acute 2 PFSH: Medical History Acute post-traumatic stress disorder Bleeding per rectum Cannabis dependence, episodic use Alcohol abuse, episodic drinking behavior Obesity Sleep apnea Irritable bowel syndrome 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 Grandmother , COPD COPD (chronic obstructive pulmonary disease) Grandfather , CHF Congestive heart failure (CHF) Denies family history of Anesthesia complication Bleeding disorder Social History Smoking and tobacco/nicotine status: current every day tobacco/nicotine user cigarettes Packs smoked per day: 0.5 Second hand smoke exposure: Yes Alcohol intake: current Alcohol intake frequency: few times a month Alcohol type: wine Substance/Drug Use: never Adopted: No Caregiver/support person: No Lives independently: Yes Household members: children Housing: Manufactured/Mobile home Marital status: Legally Number of children: 2 Number of grandchildren: 0 Highest education level completed: Associate Degree: Occupational, Technical, Vocational Program Education level details: Business service: No Current occupational status: disabled Current occupational exposures/hazards: No Pets and animals: Yes Pets & animals: cat(s), dog(s) and turtle(s) Leisure activites: music, reading and other Leisure activities details: clean Sexually active: Yes Are you practicing safe sex: Yes Do you think of yourself as: Straight/Heterosexual Current gender identity: Female Kristy/Spiritism: Evangelical Special kristy needs: No Agree to transfusion: Yes Female Reproductive History: Para: 2 Spontaneous abortions: No Vitals/I&O/Wt Last Vital Signs Temp 96.3 F L 02/25/24 20:27 Pulse 71 02/25/24 21:16 Resp 25 H 02/25/24 21:16 BP 96/53 02/25/24 21:16 Pulse Ox 100 02/25/24 21:16 O2 Del Method Room Air 02/25/24 21:16 02/25/24 02/25/24 02/25/24 06:59 14:59 22:59 Intake Total 600 / 600 Balance 600 / 600 Weight last 48 hrs Weight 90.718 kg Physical Exam 2 Narrative: Patient was examined in presence of female nurse She is covered in multiple blankets I do not appreciate any skin rash or tick bite Skin color is normal She is moving her extremities No signs of encephalopathy or stroke Nonfocal neuroexam S1, S2 Currently on room air Pleasant and cooperative Able to answer simple questions Anxious appearing Data 02/25/24 20:32 02/25/24 20:32 A&P Assessment and plan (1) Bipolar disorder, current episode mixed, severe, without psychotic features: (2) Post-traumatic stress disorder, chronic: (3) Panic attack: (4) Borderline personality disorder: (5) Depression: (6) Alcohol abuse, episodic drinking behavior: (7) Cannabis dependence, episodic use: (8) S/P laparoscopic sleeve gastrectomy: (9) UTI (urinary tract infection): Plan Metabolic encephalopathy Polysubstance abuse versus UTI Will keep her on IV fluids, will given ceftriaxone Patient able to answer simple questions Nonfocal neuroexam Head CT unremarkable Monitor in ICU overnight, transferred to neuropsychiatric unit in the morning Patient not endorsing suicidal attempt not endorsing recent drug overdose, she is not able to tell me when was her last alcoholic drink, will keep her on CIWA protocol Cardiac diet DVT prophylaxis added Full code Attestations 2 Medical Necessity Statement*: Anticipating discharge within 48 hours Diagnoses Bipolar disorder, current episode mixed, severe, without psychotic features F31.63 Post-traumatic stress disorder, chronic F43.12 Panic attack F41.0 Borderline personality disorder F60.3 Depression F32.A Alcohol abuse, episodic drinking behavior F10.10 Cannabis dependence, episodic use F12.20 S/P laparoscopic sleeve gastrectomy Z98.84 UTI (urinary tract infection) N39.0
[2024-02-25 22:32] LABS: ABG PCO2 36.8 mmHg (35-45); ABG PH Result 7.34 (7.35-7.45); Arterial Blood Gas Hematocrit 41.7 % (37-47); Base Excess ABG -5.1 mmol/L (-2.0-2.0); Carboxyhemoglobin 1.4 %THgb (0.4-20.1); HGB O2 Sat 96.2 % (95-100); Ionized Calcium Level - ABG 1.2 mmol/L (1.1-1.4); Methemoglobin 0.4 % (0.4-1.5); Oxygen Saturation ABG 97.9; Potassium Level - ABG 3.6 mmol/L (3.5-5.0); Total Hemoglobin 13.6 g/dL (12-16)
[2024-02-25 22:33] LABS: Alveolar-Arterial Oxygen Gradi 0.7 mmHg (5-10); Blood Gas Operator Identificat 600455; Blood Gas Sample Site Brachial, right; Blood Gas Sample Type Arterial; Oxygen Device ROOM AIR; PO2 FiO2 Ratio Arterial Blood 466
[2024-02-25] MEDS: ondansetron 2 mg/ML SDV 2 mL 4 MG IVP (23:00)
[2024-02-25] MEDS: cefTRIAXone 1,000 MG in sodium chloride 0.9% (plus) 50 ML 100 MG IV (23:43)
[2024-02-25] MEDS: sodium chloride 0.9% 1,000 ML 75 ML IV (23:44)
[2024-02-26] VITALS (43 sets, daily range): BP systolic 102–133; BP diastolic 54–82; PULSE 75–110; RESP 7–23; TEMP 37.1–37.5; O2SAT 92–100; BMI 32.3; BMI 27.0
[2024-02-26 00:26] LABS: Thyroid Stimulating Hormone 0.69 uIU/mL (0.27-4.20); Vitamin B12 166 pg/mL (232-1245)
[2024-02-26] MEDS: enoxaparin 40 mg/0.4 mL Syringe SUBCUT ×2 (01:52→23:21)
[2024-02-26 04:18] LABS: Basophils % 0.2 %; Hematocrit 38.2 % (36-47); Lymphocytes # 1.4 10^3/uL (0.8-4.8); Lymphocytes % 14.9 %; Mean Corpuscular HGB Conc 32.7 g/dL (30-55); Mean Corpuscular Hemoglobin 33.1 pg (27-33); Mean Corpuscular Volume 101.1 fl (85-98); Mean Platelet Volume 10.3 fL (7.4-10.4); Monocytes # 0.3 10^3/uL (0.2-0.9); Monocytes % 2.9 %; Neutrophils % 81.7 %; Nucleated Red Blood Cells % 0 %; Platelet Count 237 10^3/cmm (157-399); Red Blood Count 3.78 10^6/uL (3.85-5.65); Red Cell Distribution Width 12.9 % (12.1-15.1); White Blood Count 9.67 10^3/uL (3.29-11.43)
[2024-02-26 04:44] LABS: Alanine Aminotransferase < 5 U/L (0-33); Albumin Level 3.7 g/dL (3.5-5.2); Alkaline Phosphatase 121 U/L (35-105); Anion Gap 22.7 (5-19); Aspartate Amino Transferase 16 U/L (0-32); Blood Urea Nitrogen 9 mg/dL (6-20); Calcium 8.7 mg/dL (8.5-10.5); Carbon Dioxide 16 mmol/L (22-29); Chloride 108 mmol/L (98-107); Globulin 2.1 g/dL (1.3-4.6); Glucose 95 mg/dL (65-115); Magnesium 1.8 mg/dL (1.7-2.3); Osmolality Calculated 294 mOsm/kg (285-295); Phosphorus 3.5 mg/dL (2.5-4.5); Potassium 3.7 mmol/L (3.5-5.1); Sodium 143 mmol/L (136-145); Total Bilirubin 0.6 mg/dL (0.15-1.2); Total Protein 5.8 g/dL (6.6-8.7)
[2024-02-26] MEDS: pantoprazole 40 mg SDV IVP ×2 (07:58→17:39)
[2024-02-26] MEDS: thiamine 100 mg Tablet PO (07:58)
[2024-02-26] MEDS: folic acid 1 mg Tablet PO (07:59)
[2024-02-26] MEDS: multivitamin therapeutic Tablet 1 TAB PO (07:59)
[2024-02-26] MEDS: cyanocobalamin 1,000 mcg/mL SDV 1000 MCG IM (10:20)
[2024-02-26] MEDS: LORazepam 2 mg Tablet PO ×3 (12:09→20:24)
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
[2024-02-26] MEDS: thiamine 500 MG in sodium chloride 0.9% (100 ml) 100 ML 210 MG IV ×2 (16:06→20:30)
[2024-02-26] MEDS: sodium chloride 0.9% 1,000 ML 75 ML IV (16:10)
[2024-02-26] MEDS: acetaminophen 500 mg Tablet PO (20:24)
[2024-02-26] MEDS: cefTRIAXone 1,000 MG in sodium chloride 0.9% (plus) 50 ML 100 MG IV (23:17)
[2024-02-27] VITALS (15 sets, daily range): BP systolic 111–132; BP diastolic 60–82; PULSE 69–92; RESP 10–23; TEMP 36.7–36.9; O2SAT 94–100
[2024-02-27] MEDS: acetaminophen 500 mg Tablet PO ×2 (03:21→12:48)
[2024-02-27] MEDS: LORazepam 2 mg Tablet PO ×2 (03:21→12:47)
[2024-02-27] MEDS: sodium chloride 0.9% 1,000 ML 75 ML IV ×2 (05:02→17:12)
[2024-02-27 08:33] LABS: Basophils % 0.4 %; Eosinophils # 0.1 10^3/uL (0.0-0.8); Hematocrit 34.9 % (36-47); Lymphocytes # 1.6 10^3/uL (0.8-4.8); Lymphocytes % 34.3 %; Mean Corpuscular HGB Conc 34.1 g/dL (30-55); Mean Corpuscular Hemoglobin 34.3 pg (27-33); Mean Corpuscular Volume 100.6 fl (85-98); Mean Platelet Volume 10.5 fL (7.4-10.4); Monocytes # 0.3 10^3/uL (0.2-0.9); Monocytes % 6.4 %; Neutrophils # 2.59 10^3/uL (1.8-7.7); Neutrophils % 56.9 %; Nucleated Red Blood Cells % 0 %; Platelet Count 178 10^3/cmm (157-399); Red Blood Count 3.47 10^6/uL (3.85-5.65); White Blood Count 4.55 10^3/uL (3.29-11.43)
[2024-02-27] MEDS: multivitamin therapeutic Tablet 1 TAB PO (08:36)
[2024-02-27] MEDS: folic acid 1 mg Tablet PO (08:36)
[2024-02-27] MEDS: pantoprazole 40 mg SDV IVP ×2 (08:36→17:12)
[2024-02-27] MEDS: cyanocobalamin 1,000 mcg/mL SDV 1000 MCG IM (08:37)
[2024-02-27] MEDS: sennosides-docusate Tablet 1 TAB PO (08:37)
[2024-02-27] MEDS: thiamine 500 MG in sodium chloride 0.9% (100 ml) 100 ML 210 MG IV ×3 (09:12→20:41)
--- NOTE | 2024-02-27 09:44 | PC.NURSE ---
[id number] -- Dr. Foley at bedside, plan of care discussed with family.
--- NOTE | 2024-02-27 11:46 | PC.NURSE ---
Report called to RAYSA Kaufman. Transferred to room 255-2 via wheelchair. Tolerated well.
[2024-02-27 13:34] LABS: Alanine Aminotransferase < 5 U/L (0-33); Albumin Level 3.6 g/dL (3.5-5.2); Alkaline Phosphatase 104 U/L (35-105); Aspartate Amino Transferase 15 U/L (0-32); Blood Urea Nitrogen 5 mg/dL (6-20); Calcium 8.4 mg/dL (8.5-10.5); Carbon Dioxide 20 mmol/L (22-29); Chloride 107 mmol/L (98-107); Creatinine Clr Calc Pharmacy 193.7433; Glomerular Filtration Rate 173.4 mL/min (90-130); Glucose 100 mg/dL (65-115); Magnesium 1.6 mg/dL (1.7-2.3); Osmolality Calculated 287 mOsm/kg (285-295); Sodium 140 mmol/L (136-145); Total Bilirubin 0.4 mg/dL (0.15-1.2); Total Protein 5.6 g/dL (6.6-8.7)
--- NOTE | 2024-02-27 14:34 | P.NPUPN_ITS ---
Subjective NPU 2 Subjective: Patient presented today reporting that she is doing okay. She was very adamant that she needed something to treat her anxiety and was very focused on the idea that that be a benzodiazepine. She reports that the 2 mg Ativan that she is receiving for the CIWA protocol is working well and that Xanax also has worked well in the past. We discussed the reasons why a benzodiazepine is a poor option in this situation. We discussed that there is no evidence that a benzodiazepine for a person like her and mostly anyone as a daily or multiple times a day medication is effective treatment plan for anxiety especially with history of addiction. She denied any specific side effects to the medications. Mental Status Exam 2 MSE Comments: This is an overweight, well-developed white female in hospital gown with limited grooming and eye contact. No abnormal movements except for psychomotor retardation Cooperative with exam in mild moderate distress. Speech was normal rate and volume. Mood described as depressed and anxious, affect congruent, slightly subdued and tearful. Thought process organized. Thought contact: patient denies suicidal or homicidal ideation, there were no delusions reported or noted, patient denied auditory or visual hallucinations. Attention and concentration appeared intact and memory appeared reliable but none were formally tested. Patient is alert and oriented times three. Insight and judgment appear limited and impulse control appears impaired. Vitals/I&O/Wt Last Vital Signs Temp 98.1 F 02/27/24 12:00 Pulse 85 02/27/24 12:00 Resp 15 02/27/24 12:00 BP 119/76 02/27/24 12:00 Pulse Ox 100 02/27/24 12:00 O2 Del Method Room Air 02/27/24 12:00 02/26/24 02/27/24 02/27/24 22:59 06:59 14:59 Intake Total 422.5 / 1277.5 802.50 / 2080.00 405 / 405 Output Total 250 / 250 Balance 172.5 / 1027.5 802.50 / 1830.00 405 / 405 Weight last 48 hrs Weight 82 kg Weight 76 kg Weight 76 kg Weight 76 kg Weight 76 kg Weight 90.718 kg Weight 90.718 kg Data NPU 02/27/24 07:59 02/27/24 12:56 Micro: Microbiology 02/25/24 20:30 Urine Culture - Preliminary Urine,Clean Catch Microbiology 02/25/24 20:30 Urine,Clean Catch Urine Culture - Preliminary A&P Assessment and plan (1) Bipolar disorder, current episode mixed, severe, without psychotic features: (2) Borderline personality disorder: (3) Panic attack: (4) Post-traumatic stress disorder, chronic: (5) Suicidal ideation: (6) Alcohol use disorder, severe, dependence: (7) Bereavement: Plan Patient is a 44-year-old white female known through past inpatient and outpatient services with a history of PTSD, bipolar disorder, borderline personality disorder, and alcohol use disorder severe admitted to the ICU after being intoxicated a few days ago with confusion for the past several days after a significant drinking event. 1. Continue current medication. Patient lobbying for high dose Ativan or Xanax as a treatment for her anxiety. Recommend propranolol 20 mg p.o. 3 times daily as needed or scheduled dosing. Also discussed SSRI versus SNRI at an appropriate dose prior to getting into benzodiazepines. 2. Recommend sober living treatment at the highest level of care to which the patient is willing to commit. 3. Transfer to the neuropsychiatric unit once medically cleared. 4. Consider medication changes. 5. CIWA protocol. Nurses advised that the patient is not scoring to discontinue and change her Ativan dosing to 1 mg versus 2 mg. 6. Consider Vivitrol prior to discharge. Involuntary Hold Information 2 96 Hour Hold: 96 Hour Involuntary Admission: Yes Attestations NPU 2 Medical Necessity Statement*: N/A. Please see primary team note for medical necessity but agree with inpatient psychiatric services after medically stable. Likely transfer to the neuropsychiatric unit tomorrow. Coding Level of Care Code Acute Code for [facility] Diagnoses Bipolar disorder, current episode mixed, severe, without psychotic features F31.63 Borderline personality disorder F60.3 Panic attack F41.0 Post-traumatic stress disorder, chronic F43.12 Suicidal ideation R45.851 Alcohol use disorder, severe, dependence F10.20 Bereavement Z63.4
--- NOTE | 2024-02-27 16:13 | PM.PN ---
Subjective Subjective: seen today completing IV thiamine Vitals/I&O/Wt Last Vital Signs Temp 98.1 F 02/27/24 12:00 Pulse 85 02/27/24 12:00 Resp 15 02/27/24 12:00 BP 119/76 02/27/24 12:00 Pulse Ox 100 02/27/24 12:00 O2 Del Method Room Air 02/27/24 12:00 02/27/24 02/27/24 02/27/24 06:59 14:59 22:59 Intake Total 802.50 / 2080.00 405 / 405 Balance 802.50 / 1830.00 405 / 405 Weight last 48 hrs Weight 82 kg Weight 76 kg Weight 76 kg Weight 76 kg Weight 76 kg Weight 90.718 kg Weight 90.718 kg Physical Exam Narrative: General: Alert oriented x3, appears anxious HEENT: Normocephalic, atraumatic, EOMI, breathing room air. Cardio: Regular rate rhythm, normal S1-S2, Respiratory: Good bilateral air entry, no wheezes no rhonchi appreciated GI: Abdomen soft, nontender, nondistended, bowel sounds + Behavior: Appropriate and cooperative Extremities: No edema bilateral lower extremities. Data 02/27/24 07:59 02/28/24 09:09 Micro: Microbiology 02/25/24 20:30 Urine Culture - Preliminary Urine,Clean Catch A&P Assessment and plan (1) Bipolar disorder, current episode mixed, severe, without psychotic features: (2) Post-traumatic stress disorder, chronic: (3) Panic attack: (4) Borderline personality disorder: (5) Depression: (6) Alcohol abuse, episodic drinking behavior: (7) Cannabis dependence, episodic use: (8) S/P laparoscopic sleeve gastrectomy: (9) UTI (urinary tract infection): Plan Metabolic encephalopathy Polysubstance abuse versus UTI Will keep her on IV fluids, will given ceftriaxone Patient able to answer simple questions Nonfocal neuroexam Head CT unremarkable Monitor in ICU overnight, transferred to neuropsychiatric unit in the morning Patient not endorsing suicidal attempt not endorsing recent drug overdose, she is not able to tell me when was her last alcoholic drink, will keep her on CIWA protocol Cardiac diet DVT prophylaxis added Full code 02/26/2024 -Chart reviewed ? Consult psychiatry ? Placed on high-dose thiamine 500 IV 3 times daily x 48 hours and then reduce dose to 250 daily x 5 days. ? Patient may be experiencing Warnicke's encephalopathy. ? Continue CIWA protocol ? Will continue to monitor for now. ? Vitamin B12 level 166 ? Continue vitamin B12 1000 subcu daily -Patient may transfer to [facility] ? Continue to treat for UTI ceftriaxone 1 g daily ? Await urine culture ? Patient denies being suicidal at this time. Did not try to hurt herself. She just does not remember what happened last few days. 02/27/2024 - psych consulted - continue IV thiamine as per regimen above - continue vit b12 x7 days subcu - ceftriaxone for UTI, awaiting urine culture - plan to transfer to psych once IV thiamine completes Attestations Medical Necessity Statement*: transfer to psych once medically stable Diagnoses Bipolar disorder, current episode mixed, severe, without psychotic features F31.63 Post-traumatic stress disorder, chronic F43.12 Panic attack F41.0 Borderline personality disorder F60.3 Depression F32.A Alcohol abuse, episodic drinking behavior F10.10 Cannabis dependence, episodic use F12.20 S/P laparoscopic sleeve gastrectomy Z98.84 UTI (urinary tract infection) N39.0
[2024-02-27] MEDS: LORazepam 1 mg Tablet PO (20:41)
[2024-02-28] VITALS (7 sets, daily range): BP systolic 110–136; BP diastolic 69–88; PULSE 77–100; RESP 14–18; TEMP 36.7–37; O2SAT 97–100; BMI 29.0
[2024-02-28] MEDS: cefTRIAXone 1,000 MG in sodium chloride 0.9% (plus) 50 ML 100 MG IV (00:13)
[2024-02-28] MEDS: enoxaparin 40 mg/0.4 mL Syringe SUBCUT (00:14)
[2024-02-28] MEDS: thiamine 500 MG in sodium chloride 0.9% (100 ml) 100 ML 210 MG IV (08:58)
[2024-02-28] MEDS: magnesium sulfate premix 4 GM/100 ML PREMIX IV (08:59)
[2024-02-28] MEDS: nicotine 14 mg Patch 1 PATCH TRANSDERMA (09:01)
[2024-02-28] MEDS: sennosides-docusate Tablet 1 TAB PO (09:02)
[2024-02-28] MEDS: folic acid 1 mg Tablet PO (09:02)
[2024-02-28] MEDS: potassium chloride ER 20 mEq Tablet 40 MEQ PO ×2 (09:02→17:46)
[2024-02-28] MEDS: pantoprazole 40 mg SDV IVP (09:02)
[2024-02-28] MEDS: cyanocobalamin 1,000 mcg/mL SDV 1000 MCG IM (09:02)
[2024-02-28] MEDS: multivitamin therapeutic Tablet 1 TAB PO (09:02)
[2024-02-28] MEDS: LORazepam 1 mg Tablet PO ×2 (09:21→23:20)
[2024-02-28] MEDS: acetaminophen 500 mg Tablet PO (09:21)
[2024-02-28 09:41] LABS: Blood Urea Nitrogen 3 mg/dL (6-20); Calcium 8.3 mg/dL (8.5-10.5); Carbon Dioxide 22 mmol/L (22-29); Chloride 106 mmol/L (98-107); Creatinine Clr Calc Pharmacy 193.7433; Glomerular Filtration Rate 173.4 mL/min (90-130); Glucose 106 mg/dL (65-115); Magnesium 1.6 mg/dL (1.7-2.3); Osmolality Calculated 285 mOsm/kg (285-295); Phosphorus 1.5 mg/dL (2.5-4.5); Sodium 139 mmol/L (136-145)
--- NOTE | 2024-02-28 09:58 | P.NPUPN_ITS ---
Subjective NPU 2 Subjective: Patient presented today reporting that she is not doing well. She was being very emotional per staff reports and direct observation. She was reporting frustration that some medication that had not been started in the ICU or previously was still not being initiated. We had restarted the Effexor XR but she was talking about the other medication. At the heart of this again was that she really would like to see a process where a higher dose of a benzodiazepine is started to assist her with her anxiety which we discussed would not happen. She alluded to the fact that she would just go home because she was voluntary. We discussed the risks, benefits alternatives of me working with the nurses to make sure that there are active prescriptions for medications that she discussed and that those were restarted. She understood and agreed to proceed as documented in this note. She denied any side effects to the medications. Mental Status Exam 2 MSE Comments: This is an overweight, well-developed white female in hospital gown with limited grooming and eye contact. No abnormal movements except for psychomotor retardation Cooperative with exam in mild moderate distress. Speech was normal rate and volume. Mood described as depressed and anxious, affect congruent, slightly subdued and tearful. Thought process organized. Thought contact: patient denies suicidal or homicidal ideation, there were no delusions reported or noted, patient denied auditory or visual hallucinations. Attention and concentration appeared intact and memory appeared reliable but none were formally tested. Patient is alert and oriented times three. Insight and judgment appear limited and impulse control appears impaired. Vitals/I&O/Wt Last Vital Signs Temp 98.6 F 02/28/24 08:00 Pulse 100 02/28/24 08:44 Resp 16 02/28/24 08:44 BP 115/78 02/28/24 08:00 Pulse Ox 99 02/28/24 08:44 O2 Del Method Room Air 02/28/24 08:44 02/27/24 02/28/24 02/28/24 22:59 06:59 14:59 Intake Total 1182.5 / 1587.5 50 / 1637.5 1045 / 1045 Balance 1182.5 / 1587.5 50 / 1637.5 1045 / 1045 Weight last 48 hrs Weight 82 kg Data NPU 02/27/24 07:59 02/28/24 09:09 Micro: Microbiology 02/25/24 20:30 Urine Culture - Final Urine,Clean Catch Microbiology 02/25/24 20:30 Urine,Clean Catch Urine Culture - Final A&P Assessment and plan (1) Bipolar disorder, current episode mixed, severe, without psychotic features: (2) Borderline personality disorder: (3) Panic attack: (4) Post-traumatic stress disorder, chronic: (5) Suicidal ideation: (6) Alcohol use disorder, severe, dependence: (7) Bereavement: Plan Patient is a 44-year-old white female known through past inpatient and outpatient services with a history of PTSD, bipolar disorder, borderline personality disorder, and alcohol use disorder severe admitted to the ICU after being intoxicated a few days ago with confusion for the past several days after a significant drinking event. 1. Continue current medication. Patient lobbying for high dose Ativan or Xanax as a treatment for her anxiety. Recommend propranolol 20 mg p.o. 3 times daily as needed or scheduled dosing. Also discussed increasing SSRI versus SNRI at an appropriate dose prior to getting into benzodiazepines. 2. Recommend sober living treatment at the highest level of care to which the patient is willing to commit. 3. Transfer to the neuropsychiatric unit once medically cleared. 4. Consider medication changes. 5. CIWA protocol. Nurses advised that the patient is not scoring to discontinue and change her Ativan dosing to 1 mg versus 2 mg. 6. Consider Vivitrol prior to discharge. Involuntary Hold Information 2 96 Hour Hold: 96 Hour Involuntary Admission: Yes Attestations NPU 2 Medical Necessity Statement*: Inpatient hospitalization is medically necessary and the clinically appropriate intervention at this time. We will monitor medication to make changes as indicated. Patient will be in the hospital for over two midnights. The patient's likely length of stay 3 to 5 days. Coding Level of Care Code Acute Code for [facility] Fwd Diagnoses Bipolar disorder, current episode mixed, severe, without psychotic features F31.63 Borderline personality disorder F60.3 Panic attack F41.0 Post-traumatic stress disorder, chronic F43.12 Suicidal ideation R45.851 Alcohol use disorder, severe, dependence F10.20 Bereavement Z63.4
[2024-02-28] MEDS: propranolol 20 mg Tablet PO ×3 (10:39→21:32)
[2024-02-28] MEDS: venlafaxine 75 mg Tablet 150 MG PO (10:39)
[2024-02-28] MEDS: hyDROXYzine 25 mg Capsule 50 MG PO ×2 (13:34→21:33)
--- NOTE | 2024-02-28 15:34 | P.PN_ITS ---
Subjective 2 Subjective: seen today sitting up in bed, requesting regular diet Vitals/I&O/Wt Last Vital Signs Temp 98.3 F 02/28/24 11:47 Pulse 85 02/28/24 11:47 Resp 14 02/28/24 11:47 BP 136/88 02/28/24 11:47 Pulse Ox 100 02/28/24 11:47 O2 Del Method Room Air 02/28/24 13:17 02/28/24 02/28/24 02/28/24 06:59 14:59 22:59 Intake Total 50 / 1637.5 1145 / 1145 Balance 50 / 1637.5 1145 / 1145 Weight last 48 hrs Weight 81.647 kg Weight 82 kg Physical Exam 2 Narrative: General: Alert oriented x3, appears anxious HEENT: Normocephalic, atraumatic, EOMI, breathing room air. Cardio: Regular rate rhythm, normal S1-S2, Respiratory: Good bilateral air entry, no wheezes no rhonchi appreciated GI: Abdomen soft, nontender, nondistended, bowel sounds + Behavior: Appropriate and cooperative Extremities: No edema bilateral lower extremities. Data 02/27/24 07:59 02/28/24 09:09 Micro: Microbiology 02/25/24 20:30 Urine Culture - Final Urine,Clean Catch A&P Assessment and plan (1) Bipolar disorder, current episode mixed, severe, without psychotic features: (2) Post-traumatic stress disorder, chronic: (3) Panic attack: (4) Borderline personality disorder: (5) Depression: (6) Alcohol abuse, episodic drinking behavior: (7) Cannabis dependence, episodic use: (8) S/P laparoscopic sleeve gastrectomy: (9) UTI (urinary tract infection): Plan Metabolic encephalopathy Polysubstance abuse versus UTI Will keep her on IV fluids, will given ceftriaxone Patient able to answer simple questions Nonfocal neuroexam Head CT unremarkable Monitor in ICU overnight, transferred to neuropsychiatric unit in the morning Patient not endorsing suicidal attempt not endorsing recent drug overdose, she is not able to tell me when was her last alcoholic drink, will keep her on CIWA protocol Cardiac diet DVT prophylaxis added Full code 02/26/2024 -Chart reviewed ? Consult psychiatry ? Placed on high-dose thiamine 500 IV 3 times daily x 48 hours and then reduce dose to 250 daily x 5 days. ? Patient may be experiencing Warnicke's encephalopathy. ? Continue CIWA protocol ? Will continue to monitor for now. ? Vitamin B12 level 166 ? Continue vitamin B12 1000 subcu daily -Patient may transfer to [facility] ? Continue to treat for UTI ceftriaxone 1 g daily ? Await urine culture ? Patient denies being suicidal at this time. Did not try to hurt herself. She just does not remember what happened last few days. 02/28/2024 - psych consulted - continue IV thiamine as per regimen above. pt to complete IM thiamine next 3 days, may have at psych floor. - continue vit b12 x7 days subcu - ceftriaxone for UTI, awaiting urine culture. switch to oral cefdinir - plan to transfer to psych today - medicine will sign off, please recall as needed -electrolytes repleted. consider rechecking BMP and mag level in 2-3 days. Attestations 2 Medical Necessity Statement*: transfer to psych floor today Diagnoses Bipolar disorder, current episode mixed, severe, without psychotic features F31.63 Post-traumatic stress disorder, chronic F43.12 Panic attack F41.0 Borderline personality disorder F60.3 Depression F32.A Alcohol abuse, episodic drinking behavior F10.10 Cannabis dependence, episodic use F12.20 S/P laparoscopic sleeve gastrectomy Z98.84 UTI (urinary tract infection) N39.0
[2024-02-28] MEDS: cefdinir 300 MG CAPSULE PO (17:47)
[2024-02-28] MEDS: pantoprazole DR 40 mg Tablet PO (17:47)
[2024-02-28] MEDS: baclofen 10 mg Tablet PO (23:20)
[2024-02-29 06:00] VITALS: BP 115/75; PULSE 93; RESP 16; TEMP 36.6; O2SAT 98
[2024-02-29] MEDS: acetaminophen 325 mg Tablet 650 MG PO ×3 (06:23→23:24)
[2024-02-29] MEDS: nicotine 21 mg Patch 1 PATCH TRANSDERMA (08:33)
[2024-02-29] MEDS: LORazepam 1 mg Tablet PO ×2 (08:33→20:44)
[2024-02-29] MEDS: venlafaxine ER (24HR) 150 mg Capsule PO (08:33)
[2024-02-29] MEDS: propranolol 20 mg Tablet PO ×3 (08:34→20:45)
[2024-02-29] MEDS: sennosides-docusate Tablet 1 TAB PO (08:34)
[2024-02-29] MEDS: folic acid 1 mg Tablet PO (08:34)
[2024-02-29] MEDS: multivitamin therapeutic Tablet 1 TAB PO (08:34)
[2024-02-29] MEDS: baclofen 10 mg Tablet PO ×3 (08:34→20:45)
[2024-02-29] MEDS: FUROsemide 20 mg Tablet PO ×2 (08:34→17:05)
[2024-02-29] MEDS: gabapentin 300 mg Capsule 600 MG PO (08:34)
[2024-02-29] MEDS: cefdinir 300 MG CAPSULE PO ×2 (08:34→17:06)
[2024-02-29] MEDS: potassium chloride ER 10 mEq Tablet PO ×2 (08:35→17:05)
[2024-02-29] MEDS: pantoprazole DR 40 mg Tablet PO ×2 (08:35→17:06)
[2024-02-29] MEDS: cyanocobalamin 1,000 mcg/mL SDV 1000 MCG IM (08:48)
--- NOTE | 2024-02-29 09:33 | P.NPUPN_ITS ---
Subjective NPU 2 Subjective: Patient presented today reporting that she is doing well. She was being less emotional per staff reports and direct observation. We had restarted the Effexor XR but she was talking about the other medication. She reported being okay with working with Dr Mccloud when he returns tomorrow when before she was trying to say she wanted discharge. We made sure that her active prescriptions were restarted. She denied any side effects to the medications. Mental Status Exam 2 MSE Comments: This is an overweight, well-developed white female in hospital gown with limited grooming and eye contact. No abnormal movements except for psychomotor retardation Cooperative with exam in mild distress. Speech was normal rate and volume. Mood described as depressed and anxious, affect congruent, slightly subdued and tearful. Thought process organized. Thought contact: patient denies suicidal or homicidal ideation, there were no delusions reported or noted, patient denied auditory or visual hallucinations. Attention and concentration appeared intact and memory appeared reliable but none were formally tested. Patient is alert and oriented times three. Insight and judgment appear limited and impulse control appears limited but improving. Vitals/I&O/Wt Last Vital Signs Temp 97.9 F 02/29/24 06:00 Pulse 93 02/29/24 06:00 Resp 16 02/29/24 06:00 BP 115/75 02/29/24 06:00 Pulse Ox 98 02/29/24 06:00 O2 Del Method Room Air 02/28/24 15:00 Weight last 48 hrs Weight 81.647 kg Data NPU 02/27/24 07:59 02/28/24 09:09 Micro: Microbiology 02/25/24 20:30 Urine Culture - Final Urine,Clean Catch Microbiology 02/25/24 20:30 Urine,Clean Catch Urine Culture - Final A&P Assessment and plan (1) Bipolar disorder, current episode mixed, severe, without psychotic features: (2) Borderline personality disorder: (3) Panic attack: (4) Post-traumatic stress disorder, chronic: (5) Suicidal ideation: (6) Alcohol use disorder, severe, dependence: (7) Bereavement: Plan Patient is a 44-year-old white female known through past inpatient and outpatient services with a history of PTSD, bipolar disorder, borderline personality disorder, and alcohol use disorder severe admitted to the ICU after being intoxicated a few days ago with confusion for the past several days after a significant drinking event. 1. Continue current medication. Patient lobbying for high dose Ativan or Xanax as a treatment for her anxiety. Recommend propranolol 20 mg p.o. 3 times daily as needed or scheduled dosing. Also discussed increasing SSRI versus SNRI at an appropriate dose prior to getting into benzodiazepines. 2. Recommend sober living treatment at the highest level of care to which the patient is willing to commit. 3. Transfer to the neuropsychiatric unit once medically cleared. 4. Consider medication changes. 5. CIWA protocol. Nurses advised that the patient is not scoring to discontinue and change her Ativan dosing to 1 mg versus 2 mg. 6. Consider Vivitrol prior to discharge. Involuntary Hold Information 2 96 Hour Hold: 96 Hour Involuntary Admission: Yes Attestations NPU 2 Medical Necessity Statement*: Inpatient hospitalization is medically necessary and the clinically appropriate intervention at this time. We will monitor medication to make changes as indicated. The patient's likely length of stay 2-4 days. Coding Level of Care Code Acute Code for [facility] Diagnoses Bipolar disorder, current episode mixed, severe, without psychotic features F31.63 Borderline personality disorder F60.3 Panic attack F41.0 Post-traumatic stress disorder, chronic F43.12 Suicidal ideation R45.851 Alcohol use disorder, severe, dependence F10.20 Bereavement Z63.4
[2024-02-29] MEDS: hyDROXYzine 25 mg Capsule 50 MG PO ×2 (13:37→20:45)
[2024-02-29 14:00] VITALS: BP 125/87; PULSE 85; RESP 14; TEMP 36.8; O2SAT 100
[2024-02-29] MEDS: LORazepam 0.5 mg Tablet PO (17:05)
[2024-02-29 20:52] VITALS: BP 115/75; PULSE 90; RESP 16; TEMP 37.2; O2SAT 95
[2024-03-01] MEDS: ibuprofen 600 mg Tablet PO (03:50)
[2024-03-01 06:00] VITALS: BP 123/75; PULSE 69; RESP 16; TEMP 36.6; O2SAT 100
[2024-03-01] MEDS: LORazepam 0.5 mg Tablet PO (06:28)
[2024-03-01] MEDS: nicotine 4 mg lozenge MUCOUS MEM (06:42)
[2024-03-01] MEDS: hyDROXYzine 25 mg Capsule 50 MG PO ×2 (09:07→22:43)
[2024-03-01] MEDS: gabapentin 300 mg Capsule 600 MG PO (09:08)
[2024-03-01] MEDS: baclofen 10 mg Tablet PO ×3 (09:08→21:07)
[2024-03-01] MEDS: cyanocobalamin 1,000 mcg/mL SDV 1000 MCG IM (09:08)
[2024-03-01] MEDS: propranolol 20 mg Tablet PO ×3 (09:08→21:07)
[2024-03-01] MEDS: cefdinir 300 MG CAPSULE PO ×2 (09:08→17:45)
[2024-03-01] MEDS: sennosides-docusate Tablet 1 TAB PO (09:08)
[2024-03-01] MEDS: potassium chloride ER 10 mEq Tablet PO ×2 (09:09→17:46)
[2024-03-01] MEDS: FUROsemide 20 mg Tablet PO ×2 (09:09→17:46)
[2024-03-01] MEDS: venlafaxine ER (24HR) 150 mg Capsule PO (09:09)
[2024-03-01] MEDS: pantoprazole DR 40 mg Tablet PO ×2 (09:09→17:46)
[2024-03-01] MEDS: folic acid 1 mg Tablet PO (09:09)
[2024-03-01] MEDS: multivitamin therapeutic Tablet 1 TAB PO (09:09)
[2024-03-01] MEDS: ondansetron 4 MG Tablet PO (09:19)
[2024-03-01 10:00] VITALS: PULSE 68; O2SAT 96
[2024-03-01] MEDS: acetaminophen 325 mg Tablet 650 MG PO ×2 (11:41→18:43)
--- NOTE | 2024-03-01 11:59 | PC.NURSE ---
zyprexa Patient reports anxiety. Administered zyprexa 5mg ODT per patient
[2024-03-01 14:00] VITALS: BP 140/74; PULSE 68; RESP 16; TEMP 36.6; O2SAT 96
[2024-03-01] MEDS: LORazepam 1 mg Tablet PO ×2 (15:02→21:08)
--- NOTE | 2024-03-01 15:57 | W.PM.NPUPNS ---
Subjective NPU Subjective: 44-year-old female with a history of alcohol abuse and PTSD currently reporting active PTSD symptoms. She stated that she had not been suicidal. She stated that she had needed help with managing her PTSD. She denied having active alcohol related problems and reported no alcohol related withdrawal symptoms. She states that she had used alcohol consistently over the past 5 years since the of a family member. She had stated that she had not been in any inpatient rehabilitation for her binge drinking. Mental Status Exam MSE Comments: This is an overweight, well-developed white female in hospital gown with limited grooming and eye contact. No abnormal movements except for psychomotor retardation. She was cooperative with exam in mild distress. Speech was normal in rate and volume. Mood described as anxious. Her affect was restricted in range. Thought process was linear and organized. Thought contact: patient denies suicidal or homicidal ideation, there were no delusions reported or noted, patient denied auditory or visual hallucinations. Attention and concentration appeared intact and memory appeared reliable but none were formally tested. Patient is alert and oriented x3. Insight and judgment appear limited and impulse control appears limited but improving. Vitals/I&O/Wt Last Vital Signs Temp 98 F 03/01/24 14:00 Pulse 68 03/01/24 14:00 Resp 16 03/01/24 14:00 BP 140/74 03/01/24 14:00 Pulse Ox 96 03/01/24 14:00 O2 Del Method Room Air 03/01/24 14:00 Weight last 48 hrs Weight 78.199 kg Data NPU 02/27/24 07:59 02/28/24 09:09 A&P Assessment and plan (1) Depression: (2) Borderline personality disorder: (3) Panic attack: (4) Post-traumatic stress disorder, chronic: (5) Suicidal ideation: (6) Alcohol use disorder, severe, dependence: Plan Patient is a 44-year-old white female known through past inpatient and outpatient services with a history of PTSD, bipolar disorder, borderline personality disorder, and alcohol use disorder severe admitted to the ICU after being intoxicated a few days ago with confusion for the past several days after a significant drinking event. 1. Effexor XR 150mg in am, prazosin 2mg at night for ptsd nightmares. Add abilify adjunctively for depression. 2. Recommend sober living treatment at the highest level of care to which the patient is willing to commit. 3. Transfer to the neuropsychiatric unit once medically cleared. 4. Consider medication changes. 5. CIWA protocol. Nurses advised that the patient is not scoring to discontinue and change her Ativan dosing to 1 mg versus 2 mg. 6. Consider Vivitrol prior to discharge. Involuntary Hold Information 96 Hour Hold: 96 Hour Involuntary Admission: Yes Attestations NPU Medical Necessity Statement*: Inpatient hospitalization is medically necessary and the clinically appropriate intervention at this time. We will monitor medication to make changes as indicated. The patient's likely length of stay 2-4 days. Coding Level of Care Code Acute Code for [facility] Fwd Diagnoses Depression F32.A Borderline personality disorder F60.3 Panic attack F41.0 Post-traumatic stress disorder, chronic F43.12 Suicidal ideation R45.851 Alcohol use disorder, severe, dependence F10.20
[2024-03-01] MEDS: OLANZapine 5 mg ODT PO (18:43)
[2024-03-01] MEDS: prazosin 1 mg Capsule 2 MG PO (21:07)
[2024-03-01 21:36] VITALS: BP 106/68; PULSE 69; RESP 17; TEMP 36.7; O2SAT 100
[2024-03-02] MEDS: acetaminophen 325 mg Tablet 650 MG PO ×3 (01:58→14:15)
[2024-03-02] MEDS: OLANZapine 5 mg ODT PO ×2 (05:51→17:02)
[2024-03-02 06:00] VITALS: BP 116/76; PULSE 66; RESP 18; TEMP 36.6; O2SAT 98
[2024-03-02] MEDS: folic acid 1 mg Tablet PO (08:59)
[2024-03-02] MEDS: propranolol 20 mg Tablet PO ×3 (08:59→20:37)
[2024-03-02] MEDS: cefdinir 300 MG CAPSULE PO ×2 (08:59→17:01)
[2024-03-02] MEDS: venlafaxine ER (24HR) 150 mg Capsule PO (08:59)
[2024-03-02] MEDS: multivitamin therapeutic Tablet 1 TAB PO (08:59)
[2024-03-02] MEDS: sennosides-docusate Tablet 1 TAB PO (08:59)
[2024-03-02] MEDS: potassium chloride ER 10 mEq Tablet PO ×2 (08:59→17:02)
[2024-03-02] MEDS: cyanocobalamin 1,000 mcg/mL SDV 1000 MCG IM (09:00)
[2024-03-02] MEDS: FUROsemide 20 mg Tablet PO ×2 (09:00→17:02)
[2024-03-02] MEDS: gabapentin 300 mg Capsule 600 MG PO (09:00)
[2024-03-02] MEDS: pantoprazole DR 40 mg Tablet PO ×2 (09:00→17:02)
[2024-03-02] MEDS: ARIPiprazole 10 mg Tablet 5 MG PO (09:01)
[2024-03-02] MEDS: baclofen 10 mg Tablet PO ×3 (09:01→20:37)
[2024-03-02] MEDS: hyDROXYzine 25 mg Capsule 50 MG PO ×2 (09:18→23:58)
[2024-03-02 14:00] VITALS: BP 113/78; PULSE 74; RESP 16; TEMP 37.1; O2SAT 97
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
[2024-03-02] MEDS: prazosin 1 mg Capsule 2 MG PO (20:37)
[2024-03-02] MEDS: ibuprofen 600 mg Tablet PO (20:37)
[2024-03-02] MEDS: LORazepam 1 mg Tablet PO (20:37)
[2024-03-02 22:00] VITALS: BP 110/79; PULSE 89; RESP 17; TEMP 36.7; O2SAT 100
[2024-03-03 05:57] VITALS: BP 112/67; PULSE 69; RESP 17; TEMP 36.7; O2SAT 100
[2024-03-03] MEDS: hyDROXYzine 25 mg Capsule 50 MG PO ×3 (06:43→20:46)
[2024-03-03] MEDS: acetaminophen 325 mg Tablet 650 MG PO (06:43)
[2024-03-03] MEDS: nicotine 21 mg Patch 1 PATCH TRANSDERMA (07:39)
[2024-03-03] MEDS: folic acid 1 mg Tablet PO (08:37)
[2024-03-03] MEDS: pantoprazole DR 40 mg Tablet PO ×2 (08:37→17:34)
[2024-03-03] MEDS: FUROsemide 20 mg Tablet PO ×2 (08:37→17:34)
[2024-03-03] MEDS: propranolol 20 mg Tablet PO ×3 (08:37→19:44)
[2024-03-03] MEDS: cefdinir 300 MG CAPSULE PO ×2 (08:37→17:34)
[2024-03-03] MEDS: gabapentin 300 mg Capsule 600 MG PO (08:37)
[2024-03-03] MEDS: multivitamin therapeutic Tablet 1 TAB PO (08:37)
[2024-03-03] MEDS: venlafaxine ER (24HR) 150 mg Capsule PO ×2 (08:37→17:33)
[2024-03-03] MEDS: potassium chloride ER 10 mEq Tablet PO ×2 (08:37→17:34)
[2024-03-03] MEDS: baclofen 10 mg Tablet PO ×3 (08:37→19:44)
[2024-03-03] MEDS: ARIPiprazole 10 mg Tablet 5 MG PO (08:38)
[2024-03-03] MEDS: sennosides-docusate Tablet 1 TAB PO (08:38)
[2024-03-03] MEDS: cyanocobalamin 1,000 mcg/mL SDV 1000 MCG IM (08:45)
[2024-03-03] MEDS: LORazepam 0.5 mg Tablet PO ×2 (08:51→17:33)
[2024-03-03] MEDS: OLANZapine 5 mg ODT PO ×2 (10:21→19:44)
--- NOTE | 2024-03-03 12:28 | DCPLANNER ---
Imm was given to pt and rights explained and copy placed in pts file.
[2024-03-03 14:00] VITALS: BP 125/84; PULSE 77; RESP 17; TEMP 36.5; O2SAT 100
--- NOTE | 2024-03-03 15:33 | W.PM.NPUPNS ---
Subjective NPU Subjective: 44-year-old female with a history of alcohol abuse and PTSD currently reporting active depression, and worsening anxiety. Patient continued to endorse depression. She had stated that she was uncertain about receiving treatment for her alcohol abuse but wished to remain in intensive outpatient psychotherapy for her PTSD. She had continued to endorse nightmares. Patient had reported some continued nerve pain issues as she had requested that she be placed back on pregabalin. She reported no side effects from her medication regimen. Patient was able to attend groups. Mental Status Exam MSE Comments: This is an overweight, well-developed white female in hospital gown with limited grooming and eye contact. No abnormal movements except for psychomotor retardation. She was cooperative with exam in mild distress. Speech was normal in rate and volume. Mood described as better. Her affect was restricted in range. Thought process was linear and organized. Thought contact: patient denies suicidal or homicidal ideation, there were no delusions reported or noted, patient denied auditory or visual hallucinations. Attention and concentration appeared intact and memory appeared reliable but none were formally tested. Patient is alert and oriented x3. Insight and judgment appear to be improving and impulse control appears limited but improving. Vitals/I&O/Wt Last Vital Signs Temp 97.7 F 03/03/24 14:00 Pulse 77 03/03/24 14:00 Resp 17 03/03/24 14:00 BP 125/84 03/03/24 14:00 Pulse Ox 100 03/03/24 14:00 O2 Del Method Room Air 03/03/24 05:57 Data NPU 02/27/24 07:59 02/28/24 09:09 A&P Assessment and plan (1) Depression: (2) Borderline personality disorder: (3) Panic attack: (4) Post-traumatic stress disorder, chronic: (5) Suicidal ideation: (6) Alcohol use disorder, severe, dependence: Plan Patient is a 44-year-old white female known through past inpatient and outpatient services with a history of PTSD, bipolar disorder, borderline personality disorder, and alcohol use disorder severe admitted to the ICU after being intoxicated a few days ago with confusion for the past several days after a significant drinking event. 1. Switch to immediately acting medications versus extended release medications given history of gastric sleeve surgery. Increase prazosin 4mg at night for ptsd nightmares. Continue abilify 5mg to target depression. Check vitamin D, B12, folate, 2. Recommend sober living treatment at the highest level of care to which the patient is willing to commit. Increase effexor xr 300mg daily as it had been confirmed to be given at this dose on outpatient basis. 3. Transfer to the neuropsychiatric unit once medically cleared. 4. Consider medication changes. 5. CIWA protocol. Nurses advised that the patient is not scoring to discontinue and change her Ativan dosing to 1 mg versus 2 mg. 6. Consider Vivitrol prior to discharge. Involuntary Hold Information 96 Hour Hold: 96 Hour Involuntary Admission: Yes Attestations NPU Medical Necessity Statement*: Inpatient hospitalization is medically necessary and the clinically appropriate intervention at this time. We will monitor medication to make changes as indicated. The patient's likely length of stay 1-2 days. Coding Level of Care Code Acute Code for [facility] Fwd Diagnoses Depression F32.A Borderline personality disorder F60.3 Panic attack F41.0 Post-traumatic stress disorder, chronic F43.12 Suicidal ideation R45.851 Alcohol use disorder, severe, dependence F10.20
[2024-03-03] MEDS: ibuprofen 600 mg Tablet PO (17:33)
[2024-03-03] MEDS: prazosin 1 mg Capsule 4 MG PO (19:43)
[2024-03-03 22:00] VITALS: BP 158/81; PULSE 87; RESP 16; O2SAT 100
[2024-03-04] MEDS: OLANZapine 5 mg ODT PO ×3 (00:24→18:45)
[2024-03-04] MEDS: acetaminophen 325 mg Tablet 650 MG PO ×2 (00:27→08:30)
[2024-03-04 05:37] VITALS: BP 106/71; PULSE 92; RESP 17; TEMP 36.6; O2SAT 100
[2024-03-04] MEDS: multivitamin therapeutic Tablet 1 TAB PO (08:29)
[2024-03-04] MEDS: FUROsemide 20 mg Tablet PO ×2 (08:29→17:53)
[2024-03-04] MEDS: propranolol 20 mg Tablet PO ×2 (08:29→14:12)
[2024-03-04] MEDS: cefdinir 300 MG CAPSULE PO (08:29)
[2024-03-04] MEDS: LORazepam 0.5 mg Tablet PO ×2 (08:29→14:12)
[2024-03-04] MEDS: pantoprazole DR 40 mg Tablet PO ×2 (08:29→17:53)
[2024-03-04] MEDS: folic acid 1 mg Tablet PO (08:29)
[2024-03-04] MEDS: gabapentin 300 mg Capsule 600 MG PO (08:29)
[2024-03-04] MEDS: potassium chloride ER 10 mEq Tablet PO ×2 (08:29→17:53)
[2024-03-04] MEDS: ARIPiprazole 10 mg Tablet 5 MG PO (08:29)
[2024-03-04] MEDS: baclofen 10 mg Tablet PO ×2 (08:30→14:12)
[2024-03-04] MEDS: sennosides-docusate Tablet 1 TAB PO (08:30)
[2024-03-04] MEDS: venlafaxine ER (24HR) 150 mg Capsule 300 MG PO (08:30)
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
[2024-03-04 14:00] VITALS: BP 124/81; PULSE 78; RESP 17; O2SAT 100
[2024-03-04] MEDS: LORazepam 1 mg Tablet PO (16:46)
[2024-03-04 16:53] VITALS: BP 124/81; PULSE 78; RESP 17; TEMP 36.5; O2SAT 100
[2024-03-04] MEDS: ibuprofen 600 mg Tablet PO (18:44)
== END 2024-03-04 19:05 | disposition home or self-care (01) | DRG 885 ==
LOC: ER 23:02 → ICU 02-26 09:07 → MEDSURG 02-27 12:01 → NP 02-28 12:41
PROVIDERS: Internal Medicine; Admitting Provider Internal Medicine; Emergency Provider Emergency Medicine; PCP Nurse Practitioner Family; Visit Provider Psychiatry & Neurology Psychiatry
DX: F31.63 Bipolar disorder, current episode mixed, severe, without psychotic features (principal); G93.41 Metabolic encephalopathy; R45.851 Suicidal ideations; N39.0 Urinary tract infection, site not specified; E51.2 Wernicke's encephalopathy; F60.3 Borderline personality disorder; F41.0 Panic disorder [episodic paroxysmal anxiety]; F43.12 Post-traumatic stress disorder, chronic; F10.20 Alcohol dependence, uncomplicated; F17.210 Nicotine dependence, cigarettes, uncomplicated; F12.20 Cannabis dependence, uncomplicated; K58.9 Irritable bowel syndrome, unspecified; E86.0 Dehydration; E66.3 Overweight; Z68.27 Body mass index [BMI] 27.0-27.9, adult; Z98.84 Bariatric surgery status; Z63.4 Disappearance and death of family member
CPT/HCPCS: 36415; 51701; 70450; 71045; 80048; 80051; 80053; 80306; 80307; 81001; 82140; 82330; 82607; 82805; 83735; 84100; 84443; 84703; 85025; 86140; 87086; 93005; 96361; 96372; 96374; 96375; 96376; 97150; 97165; 99285; G0378; J0696; J1650; J2060; J2405; J2470; J3411; J3420; J3475; J7030; Q0162

== ENCOUNTER → 2024-07-06 10:34 | Outpatient (BNVA) | payer MEDICARE, MEDICAID, SELFPAY ==
[2024-07-06 11:01] VITALS: BP 111/73; BMI 27.4
== END ==
PROVIDERS: PCP Nurse Practitioner Family; Visit Provider Student in an Organized Health Care Education/Training Program
DX: K64.9 Unspecified hemorrhoids (principal)
CPT/HCPCS: 99204

== ENCOUNTER 2024-07-16 13:08 | Emergency (ER) | payer MEDICARE, MEDICAID, SELFPAY ==
[2024-07-06 11:01] VITALS: BP 111/73; BMI 27.4
[2024-07-16 13:13] VITALS: BP 97/66; PULSE 86; RESP 18; TEMP 36.6; O2SAT 100
[2024-07-16 13:35] LABS: Bilirubin Urine Negative (Negative); Blood Urine Negative (Negative); Glucose Urine UA Negative (Normal); Ketones Urine Negative (Negative); Leukocyte Esterase Urine Trace (Negative); Nitrate Urine Negative (Negative); Protein Urine Negative (Negative); Specific Gravity, Urine 1.018 (1.005-1.030); Urine Appearance Cloudy (CLEAR); Urine Color Yellow (Yellow); pH Urine 7.5 (5-7)
[2024-07-16 13:37] LABS: Bacteria Urine 1+ /hpf; RBC Urine 0-2 /hpf (0-2)
--- NOTE | 2024-07-16 13:50 | W.ED.GENADLT ---
HPI - General Adult General: Chief complaint: General Medical Stated complaint: muscle cramping Time Seen by Provider: 07/16/24 13:47 History of Present Illness: 44-year-old female presents emergency room planing of muscle cramping and anxiety. She states she has been being treated for bladder infection intermittently for the last month. She denies any vomiting or diarrhea generally quite anxious at this time. Denies any chest pain or abdominal pain felt low back pain intermittently which she associates with her bladder infection Associated symptoms: Deny chest pain, dyspnea or rash Related Data Home Medications ?Medication ?Instructions ?Recorded ?Confirmed baclofen 10 mg tablet 10 mg PO TID 12/26/21 07/16/24 albuterol sulfate 90 mcg/actuation 2 inh inhalation Q6H PRN Shortness 03/16/23 07/16/24 aerosol inhaler Of Breath furosemide 20 mg tablet 20 mg PO BID PRN Edema 07/14/23 07/16/24 lorazepam 0.5 mg tablet 0.5 mg PO TID PRN Anxiety 07/14/23 07/16/24 potassium chloride 10 mEq 10 meq PO BID 07/14/23 07/16/24 tablet,extended release hydrocortisone 2.5 % topical cream 1 applic topical DAILY PRN pain 02/26/24 07/16/24 with perineal applicator and inflamation (Procto-Med HC) acetaminophen 300 mg-codeine 15 mg 1 tab PO Q6H PRN Pain 07/06/24 07/16/24 tablet gabapentin 600 mg tablet 600 mg PO DAILY PRN nerve pain 07/06/24 07/16/24 hydroxyzine pamoate 50 mg capsule 50 mg PO TID PRN bp 07/06/24 07/16/24 magnesium oxide 400 mg (241.3 mg 400 mg PO TID 07/06/24 07/16/24 magnesium) tablet topiramate 50 mg tablet 50 mg PO DAILY 07/06/24 07/16/24 linaclotide 145 mcg capsule 145 mcg PO DAILY 07/16/24 07/16/24 (Linzess) ondansetron HCl 4 mg tablet 4 mg PO Q6H PRN Nausea And Vomiting 07/16/24 07/16/24 pantoprazole 40 mg tablet,delayed 40 - 80 mg PO DAILY PRN Acid Reflux 07/16/24 07/16/24 release (Protonix) Previous Rx's ?Medication ?Instructions ?Recorded aripiprazole 10 mg tablet 10 mg PO DAILY 30 days #30 tabs 03/04/24 prazosin 2 mg capsule 4 mg (2 x 2 mg) PO QPM #60 caps 03/04/24 propranolol 20 mg tablet 20 mg PO TID 30 days #90 tabs 03/04/24 venlafaxine 150 mg 300 mg (2 x 150 mg) PO DAILY 30 03/04/24 capsule,extended release 24 hr days #60 caps Allergies Allergy/AdvReac Type Severity Reaction Status Date / Time monosodium glutamate Allergy Severe ALGY-Anaphy Verified 07/06/24 10:41 laxis trazodone Allergy Severe ADR-Muscle Verified 07/06/24 10:41 Pain duloxetine Allergy Intermediate Break out/ Verified 07/06/24 10:41 Hives gluten Allergy Intermediate Break out/ Verified 07/06/24 10:41 Hives lactase (From Dairy Aid) Allergy Intermediate Break out/ Verified 07/06/24 10:41 Hives paroxetine Allergy Intermediate Break out/ Verified 07/06/24 10:41 Hives soy Allergy Intermediate Break out/ Verified 07/06/24 10:41 Hives lactose Allergy ADR-Diarrhe Verified 07/06/24 10:41 a scopolamine (From Allergy Unknown Verified 07/06/24 10:41 Transderm-Scop) atropine AdvReac Intermediate Break out Verified 07/06/24 10:41 /Hives citalopram AdvReac Intermediate Hives Verified 07/06/24 10:41 Review of Systems Const: Denies: fever(s) or chills Card: Denies: chest pain Resp: Denies: dyspnea GI: Denies: abdominal pain : Denies: dysuria, urinary frequency or urinary urgency Musc: Reports: muscle cramps; Denies: neck pain or back pain Skin/Breast: Denies: rash PFSH ED PFSH: Medical History Acute post-traumatic stress disorder Bleeding per rectum Cannabis dependence, episodic use Alcohol abuse, episodic drinking behavior Obesity Sleep apnea Irritable bowel syndrome 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 Grandmother , COPD COPD (chronic obstructive pulmonary disease) Grandfather , CHF Congestive heart failure (CHF) Denies family history of Anesthesia complication Bleeding disorder Social History Smoking and tobacco/nicotine status: current every day tobacco/nicotine user cigarettes Packs smoked per day: 0.5 Second hand smoke exposure: Yes Alcohol intake: current Alcohol intake frequency: few times a month Alcohol type: wine Substance/Drug Use: never Adopted: No Caregiver/support person: No Lives independently: Yes Household members: children Housing: Manufactured/Mobile home Marital status: Legally Number of children: 2 Number of grandchildren: 0 Highest education level completed: Associate Degree: Occupational, Technical, Vocational Program Education level details: Business service: No Current occupational status: disabled Current occupational exposures/hazards: No Pets and animals: Yes Pets & animals: cat(s), dog(s) and turtle(s) Leisure activites: music, reading and other Leisure activities details: clean Sexually active: Yes Are you practicing safe sex: Yes Do you think of yourself as: Straight/Heterosexual Current gender identity: Female Kristy/Rastafari: Confucianist Special kristy needs: No Agree to transfusion: Yes Female Reproductive History: Para: 2 Spontaneous abortions: No Physical Exam Const: COMMON NORMALS: no acute distress GENERAL APPEARANCE: cooperative and comfortable ORIENTATION/CONSCIOUSNESS: Yes awake, Yes oriented to person, Yes oriented to place and Yes oriented to time HENMT: COMMON NORMALS: normocephalic, atraumatic and hearing grossly normal bilaterally HEAD & SCALP: normocephalic and atraumatic Resp: COMMON NORMALS: normal respiratory effort, No retractions, No use of accessory muscles and clear to auscultation bilaterally AUSCULTATION: clear to auscultation bilaterally Cardio: COMMON NORMALS: regular rate, regular rhythm and No murmurs present (Cardio) RATE: regular rate RHYTHM: regular rhythm GI: COMMON NORMALS: Soft to palpation and No hepatosplenomegaly present AUSCULTATION: Yes normoactive bowel sounds PALPATION: Yes Soft to palpation, No Tenderness to palpation present (GI), No Guarding due to palpation present (GI) and Yes No hepatosplenomegaly present Extremity: COMMON NORMALS: normal to inspection, capillary refill normal, no clubbing, cyanosis or edema, no calf tenderness and no pedal edema Neuro: SENSORIUM/ORIENTATION: Yes oriented to person, Yes oriented to place and Yes oriented to time Skin: COMMON NORMALS: no rashes or lesions noted GENERAL SKIN EXAM: no rashes or lesions noted Course Vital Signs: Vital signs: Vital Signs Temperature 97.9 F 07/16/24 13:13 Pulse Rate 65 07/16/24 18:21 Respiratory Rate 18 07/16/24 13:13 Blood Pressure 125/64 07/16/24 18:21 Pulse Oximetry 97 07/16/24 18:21 Oxygen Delivery Me thod Room Air 07/16/24 17:00 MDM - General Adult Medical Decision Making Patient tolerated oral potassium supplement given 2 L of fluids her blood pressure still decreased when she stands but she is asymptomatic she feels much better and like to go home. Reviewing her chart she is on Lasix as needed additionally she is on triamterene hydrochlorothiazide her blood pressure is borderline low while she was here. I recommend that she stop the triamterene hydrochlorothiazide is probably just contributing to her hypokalemia without any real benefit and may actually be lowering her blood pressure to the point where she becomes symptomatic. She uses Lasix as needed she has no significant edema at all on her extremities. Would caution her even to the frequency with which she uses that Medical Records I reviewed the patient's medical records. Lab Data I reviewed the patient's lab results. 07/16/24 14:04 07/16/24 14:04 Laboratory Results WBC 7.87 10^3/uL (3.29-11.43) 07/16/24 14:04 RBC 4.40 10^6/uL (3.85-5.65) 07/16/24 14:04 Hgb 13.50 g/dL (11.27-16.99) 07/16/24 14:04 Hct 40.2 % (36-47) 07/16/24 14:04 MCV 91.4 fl (85-98) 07/16/24 14:04 MCH 30.7 pg (27-33) 07/16/24 14:04 MCHC 33.6 g/dL (30-55) 07/16/24 14:04 RDW 13.2 % (12.1-15.1) 07/16/24 14:04 Plt Count 242 10^3/cmm (157-399) 07/16/24 14:04 MPV 11.7 fL (7.4-10.4) H 07/16/24 14:04 Neut % (Auto) 63.8 % 07/16/24 14:04 Lymph % (Auto) 26.4 % 07/16/24 14:04 Graves % (Auto) 5.7 % 07/16/24 14:04 Eos % (Auto) 3.4 % 07/16/24 14:04 Baso % (Auto) 0.6 % 07/16/24 14:04 Neut # (Auto) 5.01 10^3/uL (1.8-7.7) 07/16/24 14:04 Lymph # (Auto) 2.1 10^3/uL (0.8-4.8) 07/16/24 14:04 Graves # (Auto) 0.5 10^3/uL (0.2-0.9) 07/16/24 14:04 Eos # (Auto) 0.3 10^3/uL (0.0-0.8) 07/16/24 14:04 Baso # (Auto) 0.1 10^3/uL (0.0-0.1) 07/16/24 14:04 Nucleated RBC % (auto) 0 % 07/16/24 14:04 Nucleated RBCs # 0.0 /100WBC 07/16/24 14:04 Sodium 143 mmol/L (136-145) 07/16/24 14:04 Potassium 2.7 mmol/L (3.5-5.1) L* 07/16/24 14:04 Chloride 107 mmol/L (98-107) 07/16/24 14:04 Carbon Dioxide 24 mmol/L (22-29) 07/16/24 14:04 Anion Gap 14.7 (5-19) 07/16/24 14:04 BUN 11 mg/dL (6-20) 07/16/24 14:04 Creatinine 0.6 mg/dL (0.5-0.9) 07/16/24 14:04 GFR Calculation 108.6 mL/min (90-130) 07/16/24 14:04 Glucose 96 mg/dL (65-115) 07/16/24 14:04 Calculated Osmolality 295 mOsm/kg (285-295) 07/16/24 14:04 Calcium 9.1 mg/dL (8.5-10.5) 07/16/24 14:04 Magnesium 2.0 mg/dL (1.7-2.3) 07/16/24 14:04 Total Bilirubin 0.4 mg/dL (0.15-1.2) 07/16/24 14:04 AST 11 U/L (0-32) 07/16/24 14:04 ALT < 5 U/L (0-33) 07/16/24 14:04 Alkaline Phosphatase 105 U/L (35-105) 07/16/24 14:04 Total Protein 6.6 g/dL (6.6-8.7) 07/16/24 14:04 Albumin 4.0 g/dL (3.5-5.2) 07/16/24 14:04 Globulin 2.6 g/dL (1.3-4.6) 07/16/24 14:04 Urine Color Yellow (Yellow) 07/16/24 13:20 Urine Appearance Cloudy (CLEAR) A 07/16/24 13:20 Urine pH 7.5 (5-7) 07/16/24 13:20 Ur Specific [place] 1.018 (1.005-1.030) 07/16/24 13:20 Urine Protein Negative (Negative) 07/16/24 13:20 Urine Glucose (UA) Negative (Normal) 07/16/24 13:20 Urine Ketones Negative (Negative) 07/16/24 13:20 Urine Blood Negative (Negative) 07/16/24 13:20 Urine Nitrate Negative (Negative) 07/16/24 13:20 Urine Bilirubin Negative (Negative) 07/16/24 13:20 Urine Urobilinogen 1.0 mg/dL (Negative) 07/16/24 13:20 Ur Leukocyte Esterase Trace (Negative) A 07/16/24 13:20 Urine RBC 0-2 /hpf (0-2) 07/16/24 13:20 Urine WBC 6-10 /hpf (0-5) 07/16/24 13:20 Ur Squamous Epith Cells 11-20 /hpf (0-5) H 07/16/24 13:20 Amorphous Sediment Not Reportable 07/16/24 13:20 Urine Bacteria 1+ /hpf (NONE) H 07/16/24 13:20 Hyaline Casts 0.40 /lpf 07/16/24 13:20 All radiology interpretation(s) finalized by discharge Discharge Plan Discharge Patient Disposition: Home Clinical Impression: Orthostasis, Hypokalemia Condition: Stable Prescriptions: Discontinued triamterene-hydrochlorothiazid 37.5-25 mg tablet 1 tab PO QAM No Action baclofen 10 mg tablet 10 mg PO TID hydroxyzine pamoate 50 mg capsule 50 mg PO TID PRN (Reason: bp) magnesium oxide 400 mg (241.3 mg magnesium) tablet 400 mg PO TID acetaminophen-codeine 300-15 mg tablet 1 tab PO Q6H PRN (Reason: Pain) gabapentin 600 mg tablet 600 mg PO DAILY PRN (Reason: nerve pain) topiramate 50 mg tablet 50 mg PO DAILY albuterol sulfate 90 mcg/actuation HFA aerosol inhaler 2 inh INHALATION Q6H PRN (Reason: Shortness Of Breath) potassium chloride 10 mEq tablet extended release 10 meq PO BID lorazepam 0.5 mg tablet 0.5 mg PO TID PRN (Reason: Anxiety) furosemide 20 mg tablet 20 mg PO BID PRN (Reason: Edema) ondansetron HCl 4 mg tablet 4 mg PO Q6H PRN (Reason: Nausea And Vomiting) Linzess 145 mcg capsule 145 mcg PO DAILY pantoprazole [Protonix] 40 mg tablet,delayed release (DR/EC) 40 - 80 mg PO DAILY PRN (Reason: Acid Reflux) hydrocortisone [Procto-Med HC] 2.5 % cream with perineal applicator 1 applic topical DAILY PRN (Reason: pain and inflamation) prazosin 2 mg capsule 4 mg PO QPM Qty: 60 1RF propranolol 20 mg Tablet 20 mg PO TID 30 Days Qty: 90 1RF aripiprazole 10 mg Tablet 10 mg PO DAILY 30 Days Qty: 30 1RF venlafaxine 150 mg Capsule,Extended Release 24hr 300 mg PO DAILY 30 Days Qty: 60 1RF Discharge Orders: Discharge ED (Routine); Ordered 07/16/24 Ordered By: Robert Cespedes Referrals: Antoinette Purdy APN [Primary Care Provider, Nurse Practitioner] Discharge Diet: Usual diet Discharge Activity: Increase activity as tolerated Patient Instructions: Opioid Safety, Pain Management Activity Restrictions/Additional Instructions: Thank you for choosing [facility] for your healthcare needs today. It is very important that you follow up as instructed or that you return to the Emergency Department should you have concerns or if your condition changes or worsens in any way. You are seen in the emergency room with complaints of muscle cramping. Blood pressure was noted to be slightly low as well. DVT fluids which improved here symptoms as well as getting a potassium supplement. I would recommend that you stop the triamterene hydrochlorothiazide as this will exacerbate potassium loss. You should recheck with your doctor in the next week. Print Language: Uzbek Coding Level of Care Code ED Automation Driver for Cristhian Lu
[2024-07-16 13:52] LABS: UA Slide Review UA Slide Review Perf
[2024-07-16 13:54] LABS: Add Urine Culture? No
[2024-07-16 14:00] VITALS: BP 98/66; PULSE 78; O2SAT 98
[2024-07-16 14:10] LABS: Basophils # 0.1 10^3/uL (0.0-0.1); Basophils % 0.6 %; Eosinophils # 0.3 10^3/uL (0.0-0.8); Eosinophils % 3.4 %; Hematocrit 40.2 % (36-47); Lymphocytes # 2.1 10^3/uL (0.8-4.8); Lymphocytes % 26.4 %; Mean Corpuscular HGB Conc 33.6 g/dL (30-55); Mean Corpuscular Hemoglobin 30.7 pg (27-33); Mean Corpuscular Volume 91.4 fl (85-98); Mean Platelet Volume 11.7 fL (7.4-10.4); Monocytes # 0.5 10^3/uL (0.2-0.9); Monocytes % 5.7 %; Neutrophils # 5.01 10^3/uL (1.8-7.7); Neutrophils % 63.8 %; Nucleated Red Blood Cells % 0 %; Platelet Count 242 10^3/cmm (157-399); Red Cell Distribution Width 13.2 % (12.1-15.1); White Blood Count 7.87 10^3/uL (3.29-11.43)
[2024-07-16 14:26] LABS: Alanine Aminotransferase < 5 U/L (0-33); Alkaline Phosphatase 105 U/L (35-105); Anion Gap 14.7 (5-19); Aspartate Amino Transferase 11 U/L (0-32); Blood Urea Nitrogen 11 mg/dL (6-20); Calcium 9.1 mg/dL (8.5-10.5); Carbon Dioxide 24 mmol/L (22-29); Chloride 107 mmol/L (98-107); Creatinine Clr Calc Pharmacy 122.0411; Globulin 2.6 g/dL (1.3-4.6); Glomerular Filtration Rate 108.6 mL/min (90-130); Glucose 96 mg/dL (65-115); Osmolality Calculated 295 mOsm/kg (285-295); Sodium 143 mmol/L (136-145); Total Bilirubin 0.4 mg/dL (0.15-1.2); Total Protein 6.6 g/dL (6.6-8.7)
[2024-07-16 14:28] LABS: Potassium 2.7 mmol/L (3.5-5.1)
[2024-07-16] MEDS: sodium chloride 0.9% 1,000 ML 999 ML IV ×2 (14:47→16:06)
[2024-07-16] MEDS: potassium chloride oral liq 20 mEq/15 mL UDC PO (14:59)
[2024-07-16] MEDS: potassium chloride oral liq 20 mEq/15 mL UDC 40 MEQ PO (14:59)
[2024-07-16] MEDS: LORazepam 2 mg Tablet PO (15:00)
--- NOTE | 2024-07-16 15:15 | ECG_ITS ---
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 Measurements Intervals Grady Rate: 54 P: 80 ID: [id number] QRS: 89 QRSD: 96 T: 78 QT: 468 QTc: 446 Interpretive Statements SINUS BRADYCARDIA Compared to ECG 02/25/2024 21:39:31 Sinus rhythm no longer present Sinus arrhythmia no longer present Electronically Signed On 07-20-2024 09:27:55 CDT by Fadi Gar M.D. [email or web address]
--- NOTE | 2024-07-16 15:22 | PC.PHAR ---
Pt went over all her medications but has older last fill dates. Pt states takes most of them as needed. Pt has only taken Effexor today.
[2024-07-16 15:53] VITALS: BP 94/62; BP 96/65; BP 97/62; PULSE 79; PULSE 89; PULSE 95
[2024-07-16 16:00] VITALS: BP 111/67; PULSE 71; O2SAT 95
[2024-07-16 17:00] VITALS: BP 92/57; PULSE 77; O2SAT 98
[2024-07-16 18:21] VITALS: BP 125/64; PULSE 65; O2SAT 97
== END 2024-07-16 18:23 | disposition home or self-care (01) ==
PROVIDERS: Emergency Provider Family Medicine; PCP Nurse Practitioner Family
DX: I95.1 Orthostatic hypotension (principal); E87.6 Hypokalemia; F17.210 Nicotine dependence, cigarettes, uncomplicated
CPT/HCPCS: 36415; 80053; 81001; 83735; 85025; 93005; 96360; 96361; 99284; J7030; J9999

== ENCOUNTER 2024-07-18 16:56 | Emergency (ER) | payer OTHER, MEDICAID, SELFPAY ==
[2024-07-06 11:01] VITALS: BP 111/73; BMI 27.4
[2024-07-18 16:59] VITALS: BP 109/70; PULSE 77; RESP 16; TEMP 36.6; O2SAT 98; BMI 25.8
--- NOTE | 2024-07-18 17:11 | ED_ITS ---
Documented by User: Rik Downey MD 07/18/24 17:13 HPI - Female Genitourinary 2 General: Chief complaint: Urogenital-Female Stated complaint: back and abd pain, pain when urinating Time Seen by Provider: 07/18/24 17:01 Source: patient Mode of arrival: ambulatory Limitations: no limitations History of Present Illness: 44-year-old female who states that she h as been having some lower abdominal pain she states she has had and battling UTIs over the last 2 months and feels like she still has a UTI has had some dysuria. She states that the pain is mild in nature rates it a 2 out of 10 denies any vomiting or diarrhea denies any fever denies any vaginal discharge. She states she also had a picture frame following her right index finger at the very tip and has had some slight pain in the index finger Associated symptoms: Reports abdominal pain; Deny headache(s) or nausea Related Data Home Medications ?Medication ?Instructions ?Recorded ?Confirmed baclofen 10 mg tablet 10 mg PO TID 12/26/21 albuterol sulfate 90 mcg/actuation 2 inh inhalation Q6 H PRN Shortness 03/16/23 07/16/24 aerosol inhaler Of Breath furosemide 20 mg tablet 20 mg PO BID PRN Edema 07/1307/16/24 lorazepam 0.5 mg tablet 0.5 mg PO TID PRN Anxiety 07/16/24 hydrocortisone 2.5 % topical cream 1 applic topical DA SAHRA PRN pain 02/26/24 07/16/24 with perineal applicator and inflamation (Procto-Med HC) acetaminophen 300 mg-codeine 15 mg 1 tab PO Q6H PRN Pa in 07/06/24 07/16/24 tablet gabapentin 600 mg tablet 600 mg PO DAILY PRN nerve pa in 07/06/24 07/16/24 hydroxyzine pamoate 50 mg capsule 50 mg PO TID PRN bp 07/06/24 07/16/24 magnesium oxide 400 mg (241.3 mg 400 mg PO TID 5 07/16/24 magnesium) tablet topiramate 50 mg tablet 50 mg PO DAILY 07/06/2404/11 linaclotide 145 mcg capsule 145 mcg PO DAILY 07/16/24 07/16/24 (Linzess) ondansetron HCl 4 mg tablet 4 mg PO Q6H PRN Nausea And Vomiting 07/16/24 07/16/24 pantoprazole 40 mg tablet,delayed 40 - 80 mg PO DAILY PRN Acid Reflux 07/16/24 07/16/24 release (Protonix) Previous Rx's ?Medication ?Instructions ?Recorded aripiprazole 10 mg tablet 10 mg PO DAILY 30 days #30 t abs 03/04/24 prazosin 2 mg capsule 4 mg (2 x 2 mg) PO QPM #60 c aps 03/04/24 propranolol 20 mg tablet 20 mg PO TID 30 days #90 tab s 03/04/24 venlafaxine 150 mg 300 mg (2 x 150 mg) PO DAILY 30 03/04/24 capsule,extended release 24 hr days #60 caps potassium chloride 10 mEq 10 meq PO BID #60 tabs 07/18 tablet,extended release Allergies Allergy/AdvReac Type Severity Reaction Status Date / Time monosodium glutamate Allergy Severe ALGY-Anaphy Verified 07/06/24 10:41 laxis trazodone Allergy Severe ADR-Muscle Verified 07/06/24 10:41 Pain duloxetine Allergy Intermediate Break out/ Verified 07/06/24 10:41 Hives gluten Allergy Intermediate Break out/ Verified 07/06/24 10:41 Hives lactase (From Dairy Aid) Allergy Intermediate Break out/ Verified 07/06/24 10:41 Hives paroxetine Allergy Intermediate Break out/ Verified 07/06/24 10:41 Hives soy Allergy Intermediate Break out/ Verified 07/06/24 10:41 Hives lactose Allergy ADR-Diarrhe Verified 07/06/24 10:41 a scopolamine (From Allergy Unknown Verified 07/06/24 10:41 Transderm-Scop) atropine AdvReac Intermediate Break out Verified 07/06/24 10:41 /Hives citalopram AdvReac Intermediate Hives Verified 07/06/24 10:41 Review of Systems 2 Const: Denies: fever(s), chills, body aches or change in appetite ENMT: Denies: throat pain or dental pain Card: Denies: chest pain Resp: Denies: dyspnea GI: Reports: abdominal pain; Denies: nausea, vomiting or diarrhea : Reports: dysuria Musc: Reports: extremity pain; Denies: neck pain or back pain Skin/Breast: Denies: rash Neuro: Denies: headache(s) PFSH ED 2 PFSH: Medical History Acute post-traumatic stress disorder Bleeding per rectum Cannabis dependence, episodic use Alcohol abuse, episodic drinking behavior Obesity Sleep apnea Irritable bowel syndrome 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 Grandmother , COPD COPD (chronic obstructive pulmonary disease) Grandfather , CHF Congestive heart failure (CHF) Denies family history of Anesthesia complication Bleeding disorder Social History Smoking and tobacco/nicotine status: current every day tobacco/nicotine user cigarettes Packs smoked per day: 0.5 Second hand smoke exposure: Yes Alcohol intake: current Alcohol intake frequency: few times a month Alcohol type: wine Substance/Drug Use: never Adopted: No Caregiver/support person: No Lives independently: Yes Household members: children Housing: Manufactured/Mobile home Marital status: Legally Number of children: 2 Number of grandchildren: 0 Highest education level completed: Associate Degree: Occupational, Technical, Vocational Program Education level details: Business service: No Current occupational status: disabled Current occupational exposures/hazards: No Pets and animals: Yes Pets & animals: cat(s), dog(s) and turtle(s) Leisure activites: music, reading and other Leisure activities details: clean Sexually active: Yes Are you practicing safe sex: Yes Do you think of yourself as: Straight/Heterosexual Current gender identity: Female Kristy/Temple: Rastafarian Special kristy needs: No Agree to transfusion: Yes Female Reproductive History: Para: 2 Spontaneous abortions: No Physical Exam 2 Const: COMMON NORMALS: no acute distress, patient oriented x3 and healthy appearing HENMT: COMMON NORMALS: normocephalic and atraumatic HEAD & SCALP: n ormocephalic and atraumatic Eye: COMMON NORMALS: conjunctivae normal CONJUNCTIVA: Yes conjunctivae normal Neck/C-Spine: COMMON NORMALS: full ROM and supple Chest: COMMONS NORMALS: normal inspection of the chest Resp: COMMON NORMALS: normal respiratory effort, No retractions, No use of accessory muscles and clear to auscultation bilaterally AUSCULTATION: clear to auscultation bilaterally Cardio: COMMON NORMALS: regular rate, regular rhythm and No murmurs present (Cardio) RATE: regular rate RHYTHM: regular rhythm GI: COMMON NORMALS: Normal to inspection, nondistended, normoactive bowel sounds present, Soft to palpation, non-tender and no masses PALPATION: Yes Soft to palpation Extremity: COMMON NORMALS: full ROM NARRATIVE EXTREMITY EXAM: slight tenderness to distal tip of right index finger no obvious deformity Neuro: COMMON NORMALS: patient oriented x3, moves all extremities and no focal motor deficits Psych: COMMON NORMALS: mental status grossly normal, Normal thought process present and cooperative THOUGHT PROCESS: Normal thought process present Skin: COMMON NORMALS: no rashes or lesions noted and no wounds GENERAL SKIN EXAM: no rashes or lesions noted Course 2 Vital Signs: Vital signs: Vital Signs Temperature 97.9 F 07/18/24 16:59 Pulse Rate 67 07/18/24 19:10 Respiratory Rate 18 07/18/24 18:01 Blood Pressure 99/69 07/18/24 19:10 Pulse Oximetry 98 07/18/24 19:10 Oxygen Delivery Me thod Room Air 07/18/24 16:59 MDM - Female Lab Data 07/18/24 17:18 07/18/24 17:18 Radiology Impressions Hand X-Ray 07/18/24 17:11 IMPRESSION: No acute displaced fracture or dislocation. Laboratory Results WBC 8.48 10^3/uL (3.29-11.43) 07/18/24 17:18 RBC 4.31 10^6/uL (3.85-5.65) 07/18/24 17:18 Hgb 13.40 g/dL (11.27-16.99) 07/18/24 17:18 Hct 39.4 % (36-47) 07/18/24 17:18 MCV 91.4 fl (85-98) 07/18/24 17:18 MCH 31.1 pg (27-33) 07/18/24 17:18 MCHC 34.0 g/dL (30-55) 07/18/24 17:18 RDW 13.3 % (12.1-15.1) 07/18/24 17:18 Plt Count 238 10^3/cmm (157-399) 07/18/24 17:18 MPV 11.5 fL (7.4-10.4) H 07/18/24 17:18 Neut % (Auto) 52.9 % 07/18/24 17:18 Lymph % (Auto) 37.1 % 07/18/24 17:18 [place] % (Auto) 5.5 % 07/18/24 17:18 Eos % (Auto) 3.8 % 07/18/24 17:18 Baso % (Auto) 0.5 % 07/18/24 17:18 Neut # (Auto) 4.48 10^3/uL (1.8-7.7) 07/18/24 17:18 Lymph # (Auto) 3.2 10^3/uL (0.8-4.8) 07/18/24 17:18 [place] # (Auto) 0.5 10^3/uL (0.2-0.9) 07/18/24 17:18 Eos # (Auto) 0.3 10^3/uL (0.0-0.8) 07/18/24 17:18 Baso # (Auto) 0.0 10^3/uL (0.0-0.1) 07/18/24 17:18 Nucleated RBC % (auto) 0 % 07/18/24 17:18 Nucleated RBCs # 0.0 /100WBC 07/18/24 17:18 Sodium 141 mmol/L (136-145) 07/18/24 17:18 Potassium 2.7 mmol/L (3.5-5.1) L* 07/18/24 17:18 Chloride 104 mmol/L (98-107) 07/18/24 17:18 Carbon Dioxide 25 mmol/L (22-29) 07/18/24 17:18 Anion Gap 14.7 (5-19) 07/18/24 17:18 BUN 10 mg/dL (6-20) 07/18/24 17:18 Creatinine 0.6 mg/dL (0.5-0.9) 07/18/24 17:18 GFR Calculation 108.6 mL/min (90-130) 07/18/24 17:18 Glucose 64 mg/dL (65-115) L 07/18/24 17:18 Calculated Osmolality 289 mOsm/kg (285-295) 07/18/24 17:18 Calcium 9.5 mg/dL (8.5-10.5) 07/18/24 17:18 Total Bilirubin 0.4 mg/dL (0.15-1.2) 07/18/24 17:18 AST 12 U/L (0-32) 07/18/24 17:18 ALT < 5 U/L (0-33) 07/18/24 17:18 Alkaline Phosphatase 109 U/L (35-105) H 07/18/24 17:18 Total Protein 7.1 g/dL (6.6-8.7) 07/18/24 17:18 Albumin 4.4 g/dL (3.5-5.2) 07/18/24 17:18 Globulin 2.7 g/dL (1.3-4.6) 07/18/24 17:18 Lipase 20 U/L (13-60) 07/18/24 17:18 HCG, Qual Negative (Negative) 07/18/24 17:18 Urine Color Yellow (Yellow) 07/18/24 17:10 Urine Appearance Clear (CLEAR) 07/18/24 17:10 Urine pH 7.0 (5-7) 07/18/24 17:10 Ur Specific [place] 1.010 (1.005-1.030) 07/18/24 17:10 Urine Protein Neg (Negative) 07/18/24 17:10 Urine Glucose (UA) Norm (Normal) 07/18/24 17:10 Urine Ketones Negative (Negative) 07/18/24 17:10 Urine Blood Neg (Negative) 07/18/24 17:10 Urine Nitrate Negative (Negative) 07/18/24 17:10 Urine Bilirubin Neg (Negative) 07/18/24 17:10 Urine Urobilinogen 0.2 mg/dL (Negative) 07/18/24 17:10 Ur Leukocyte Esterase Negative (Negative) 07/18/24 17:10 Urine RBC 0-2 /hpf (0-2) 07/18/24 17:10 Urine WBC 0-5 /hpf (0-5) 07/18/24 17:10 Ur Squamous Epith Cells 0-5 /hpf (0-5) 07/18/24 17:10 Amorphous Sediment Not Reportable 07/18/24 17:10 Urine Bacteria None seen /hpf (NONE) 07/18/24 17:10 Hyaline Casts 13.22 /lpf 07/18/24 17:10 Discharge Plan Discharge Patient Disposition: Home Clinical Impression: Hypokalemia, Dysuria Condition: Stable Prescriptions: Continued potassium chloride 10 mEq tablet extended release 10 meq PO BID Qty: 60 0RF No Action baclofen 10 mg tablet 10 mg PO TID hydroxyzine pamoate 50 mg capsule 50 mg PO TID PRN (Reason: bp) magnesium oxide 400 mg (241.3 mg magnesium) tablet 400 mg PO TID acetaminophen-codeine 300-15 mg tablet 1 tab PO Q6H PRN (Reason: Pain) gabapentin 600 mg tablet 600 mg PO DAILY PRN (Reason: nerve pain) topiramate 50 mg tablet 50 mg PO DAILY albuterol sulfate 90 mcg/actuation HFA aerosol inhaler 2 inh INHALATION Q6H PRN (Reason: Shortness Of Breath) lorazepam 0.5 mg tablet 0.5 mg PO TID PRN (Reason: Anxiety) furosemide 20 mg tablet 20 mg PO BID PRN (Reason: Edema) ondansetron HCl 4 mg tablet 4 mg PO Q6H PRN (Reason: Nausea And Vomiting) Linzess 145 mcg capsule 145 mcg PO DAILY pantoprazole [Protonix] 40 mg tablet,delayed release (DR/EC) 40 - 80 mg PO DAILY PRN (Reason: Acid Reflux) hydrocortisone [Procto-Med HC] 2.5 % cream with perineal applicator 1 applic topical DAILY PRN (Reason: pain and inflamation) prazosin 2 mg capsule 4 mg PO QPM Qty: 60 1RF propranolol 20 mg Tablet 20 mg PO TID 30 Days Qty: 90 1RF aripiprazole 10 mg Tablet 10 mg PO DAILY 30 Days Qty: 30 1RF venlafaxine 150 mg Capsule,Extended Release 24hr 300 mg PO DAILY 30 Days Qty: 60 1RF Discharge Orders: Discharge ED (Routine); Ordered 07/18/24 Ordered By: Dima Ellis Referrals: Gurwinder,Antoinette, [employer]OC[employer] [Primary Care Provider, Nurse Practitioner] - 4-7 days Patient Instructions: Hypokalemia (ED), Dysuria (ED), Opioid Safety, Pain Management Activity Restrictions/Additional Instructions: As instructed before, ensure you are not taking your hydrochlorothiazide/triamterene, or even furosemide, as both can significantly lower potassium levels which are likely the source of your cramping, and even could be the source of continued flank pain. Make sure you stay hydrated. You should have your potassium rechecked next week. Potassium supplementation has been provided via prescription. Return for problems. Print Language: Belarusian Coding Level of Care Code ED Infantry Unit Leader for Chg Fwd Documented by User: Dima Ellis, 07/19/24 02:12 HPI - Female Genitourinary 2 General: Chief complaint: Urogenital-Female Stated complaint: back and abd pain, pain when urinating Time Seen by Provider: 07/18/24 17:01 Related Data Home Medications ?Medication ?Instructions ?Recorded ?Confirmed baclofen 10 mg tablet 10 mg PO TID 12/26/21 albuterol sulfate 90 mcg/actuation 2 inh inhalation Q6 H PRN Shortness 03/16/23 07/16/24 aerosol inhaler Of Breath furosemide 20 mg tablet 20 mg PO BID PRN Edema 07/1307/16/24 lorazepam 0.5 mg tablet 0.5 mg PO TID PRN Anxiety 07/16/24 hydrocortisone 2.5 % topical cream 1 applic topical DA SAHRA PRN pain 02/26/24 07/16/24 with perineal applicator and inflamation (Procto-Med HC) acetaminophen 300 mg-codeine 15 mg 1 tab PO Q6H PRN Pa in 07/06/24 07/16/24 tablet gabapentin 600 mg tablet 600 mg PO DAILY PRN nerve pa in 07/06/24 07/16/24 hydroxyzine pamoate 50 mg capsule 50 mg PO TID PRN bp 07/06/24 07/16/24 magnesium oxide 400 mg (241.3 mg 400 mg PO TID 5 07/16/24 magnesium) tablet topiramate 50 mg tablet 50 mg PO DAILY 07/06/24 0504/11 linaclotide 145 mcg capsule 145 mcg PO DAILY 07/16/24 07/16/24 (Linzess) ondansetron HCl 4 mg tablet 4 mg PO Q6H PRN Nausea And Vomiting 07/16/24 07/16/24 pantoprazole 40 mg tablet,delayed 40 - 80 mg PO DAILY PRN Acid Reflux 07/16/24 07/16/24 release (Protonix) Previous Rx's ?Medication ?Instructions ?Recorded aripiprazole 10 mg tablet 10 mg PO DAILY 30 days #30 t abs 03/04/24 prazosin 2 mg capsule 4 mg (2 x 2 mg) PO QPM #60 c aps 03/04/24 propranolol 20 mg tablet 20 mg PO TID 30 days #90 tab s 03/04/24 venlafaxine 150 mg 300 mg (2 x 150 mg) PO DAILY 30 03/04/24 capsule,extended release 24 hr days #60 caps potassium chloride 10 mEq 10 meq PO BID #60 tabs 07/18 tablet,extended release Allergies Allergy/AdvReac Type Severity Reaction Status Date / Time monosodium glutamate Allergy Severe ALGY-Anaphy Verified 07/06/24 10:41 laxis trazodone Allergy Severe ADR-Muscle Verified 07/06/24 10:41 Pain duloxetine Allergy Intermediate Break out/ Verified 07/06/24 10:41 Hives gluten Allergy Intermediate Break out/ Verified 07/06/24 10:41 Hives lactase (From Dairy Aid) Allergy Intermediate Break out/ Verified 07/06/24 10:41 Hives paroxetine Allergy Intermediate Break out/ Verified 07/06/24 10:41 Hives soy Allergy Intermediate Break out/ Verified 07/06/24 10:41 Hives lactose Allergy ADR-Diarrhe Verified 07/06/24 10:41 a scopolamine (From Allergy Unknown Verified 07/06/24 10:41 Transderm-Scop) atropine AdvReac Intermediate Break out Verified 07/06/24 10:41 /Hives citalopram AdvReac Intermediate Hives Verified 07/06/24 10:41 PFSH ED 2 PFSH: Medical History Acute post-traumatic stress disorder Bleeding per rectum Cannabis dependence, episodic use Alcohol abuse, episodic drinking behavior Obesity Sleep apnea Irritable bowel syndrome 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 Grandmother , COPD COPD (chronic obstructive pulmonary disease) Grandfather , CHF Congestive heart failure (CHF) Denies family history of Anesthesia complication Bleeding disorder Social History Smoking and tobacco/nicotine status: current every day tobacco/nicotine user cigarettes Packs smoked per day: 0.5 Second hand smoke exposure: Yes Alcohol intake: current Alcohol intake frequency: few times a month Alcohol type: wine Substance/Drug Use: never Adopted: No Caregiver/support person: No Lives independently: Yes Household members: children Housing: Manufactured/Mobile home Marital status: Legally Number of children: 2 Number of grandchildren: 0 Highest education level completed: Associate Degree: Occupational, Technical, Vocational Program Education level details: Business service: No Current occupational status: disabled Current occupational exposures/hazards: No Pets and animals: Yes Pets & animals: cat(s), dog(s) and turtle(s) Leisure activites: music, reading and other Leisure activities details: clean Sexually active: Yes Are you practicing safe sex: Yes Do you think of yourself as: Straight/Heterosexual Current gender identity: Female Kristy/Temple: Rastafarian Special kristy needs: No Agree to transfusion: Yes Course 2 Vital Signs: Vital signs: Vital Signs Temperature 97.9 F 07/18/24 16:59 Pulse Rate 67 07/18/24 19:10 Respiratory Rate 18 07/18/24 18:01 Blood Pressure 99/69 07/18/24 19:10 Pulse Oximetry 98 07/18/24 19:10 Oxygen Delivery Me thod Room Air 07/18/24 16:59 MDM - Female Medical Decision Making 44-year-old female complaining of flank pain, dysuria, cramping. She has a history of hypokalemia. She has been treated with Keflex for a urinary tract infection recently. She was here 48 hours ago, no urinary tract infection at that point. No urinary tract infection today. Her potassium is 2.7, and is repleted orally with liquid, and orange juice, as her blood sugar was low at 64. She complained of index finger pain. No fracture on x-ray. She has no hematuria. Suspect flank pain may be from continued hypokalemia. She was encouraged to stop using triamterene/hydrochlorothiazide and Lasix on her last visit. She will be encouraged to stop this again. Will fill potassium supplementation for her, and have her recheck her potassium next week. Lab Data 07/18/24 17:18 07/18/24 17:18 Radiology Impressions Hand X-Ray 07/18/24 17:11 IMPRESSION: No acute displaced fracture or dislocation. Laboratory Results WBC 8.48 10^3/uL (3.29-11.43) 07/18/24 17:18 RBC 4.31 10^6/uL (3.85-5.65) 07/18/24 17:18 Hgb 13.40 g/dL (11.27-16.99) 07/18/24 17:18 Hct 39.4 % (36-47) 07/18/24 17:18 MCV 91.4 fl (85-98) 07/18/24 17:18 MCH 31.1 pg (27-33) 07/18/24 17:18 MCHC 34.0 g/dL (30-55) 07/18/24 17:18 RDW 13.3 % (12.1-15.1) 07/18/24 17:18 Plt Count 238 10^3/cmm (157-399) 07/18/24 17:18 MPV 11.5 fL (7.4-10.4) H 07/18/24 17:18 Neut % (Auto) 52.9 % 07/18/24 17:18 Lymph % (Auto) 37.1 % 07/18/24 17:18 [place] % (Auto) 5.5 % 07/18/24 17:18 Eos % (Auto) 3.8 % 07/18/24 17:18 Baso % (Auto) 0.5 % 07/18/24 17:18 Neut # (Auto) 4.48 10^3/uL (1.8-7.7) 07/18/24 17:18 Lymph # (Auto) 3.2 10^3/uL (0.8-4.8) 07/18/24 17:18 [place] # (Auto) 0.5 10^3/uL (0.2-0.9) 07/18/24 17:18 Eos # (Auto) 0.3 10^3/uL (0.0-0.8) 07/18/24 17:18 Baso # (Auto) 0.0 10^3/uL (0.0-0.1) 07/18/24 17:18 Nucleated RBC % (auto) 0 % 07/18/24 17:18 Nucleated RBCs # 0.0 /100WBC 07/18/24 17:18 Sodium 141 mmol/L (136-145) 07/18/24 17:18 Potassium 2.7 mmol/L (3.5-5.1) L* 07/18/24 17:18 Chloride 104 mmol/L (98-107) 07/18/24 17:18 Carbon Dioxide 25 mmol/L (22-29) 07/18/24 17:18 Anion Gap 14.7 (5-19) 07/18/24 17:18 BUN 10 mg/dL (6-20) 07/18/24 17:18 Creatinine 0.6 mg/dL (0.5-0.9) 07/18/24 17:18 GFR Calculation 108.6 mL/min (90-130) 07/18/24 17:18 Glucose 64 mg/dL (65-115) L 07/18/24 17:18 Calculated Osmolality 289 mOsm/kg (285-295) 07/18/24 17:18 Calcium 9.5 mg/dL (8.5-10.5) 07/18/24 17:18 Total Bilirubin 0.4 mg/dL (0.15-1.2) 07/18/24 17:18 AST 12 U/L (0-32) 07/18/24 17:18 ALT < 5 U/L (0-33) 07/18/24 17:18 Alkaline Phosphatase 109 U/L (35-105) H 07/18/24 17:18 Total Protein 7.1 g/dL (6.6-8.7) 07/18/24 17:18 Albumin 4.4 g/dL (3.5-5.2) 07/18/24 17:18 Globulin 2.7 g/dL (1.3-4.6) 07/18/24 17:18 Lipase 20 U/L (13-60) 07/18/24 17:18 HCG, Qual Negative (Negative) 07/18/24 17:18 Urine Color Yellow (Yellow) 07/18/24 17:10 Urine Appearance Clear (CLEAR) 07/18/24 17:10 Urine pH 7.0 (5-7) 07/18/24 17:10 Ur Specific [place] 1.010 (1.005-1.030) 07/18/24 17:10 Urine Protein Neg (Negative) 07/18/24 17:10 Urine Glucose (UA) Norm (Normal) 07/18/24 17:10 Urine Ketones Negative (Negative) 07/18/24 17:10 Urine Blood Neg (Negative) 07/18/24 17:10 Urine Nitrate Negative (Negative) 07/18/24 17:10 Urine Bilirubin Neg (Negative) 07/18/24 17:10 Urine Urobilinogen 0.2 mg/dL (Negative) 07/18/24 17:10 Ur Leukocyte Esterase Negative (Negative) 07/18/24 17:10 Urine RBC 0-2 /hpf (0-2) 07/18/24 17:10 Urine WBC 0-5 /hpf (0-5) 07/18/24 17:10 Ur Squamous Epith Cells 0-5 /hpf (0-5) 07/18/24 17:10 Amorphous Sediment Not Reportable 07/18/24 17:10 Urine Bacteria None seen /hpf (NONE) 07/18/24 17:10 Hyaline Casts 13.22 /lpf 07/18/24 17:10 All radiology interpretation(s) finalized by discharge Discharge Plan Discharge Patient Disposition: Home Clinical Impression: Hypokalemia, Dysuria Condition: Stable Prescriptions: Continued potassium chloride 10 mEq tablet extended release 10 meq PO BID Qty: 60 0RF No Action baclofen 10 mg tablet 10 mg PO TID hydroxyzine pamoate 50 mg capsule 50 mg PO TID PRN (Reason: bp) magnesium oxide 400 mg (241.3 mg magnesium) tablet 400 mg PO TID acetaminophen-codeine 300-15 mg tablet 1 tab PO Q6H PRN (Reason: Pain) gabapentin 600 mg tablet 600 mg PO DAILY PRN (Reason: nerve pain) topiramate 50 mg tablet 50 mg PO DAILY albuterol sulfate 90 mcg/actuation HFA aerosol inhaler 2 inh INHALATION Q6H PRN (Reason: Shortness Of Breath) lorazepam 0.5 mg tablet 0.5 mg PO TID PRN (Reason: Anxiety) furosemide 20 mg tablet 20 mg PO BID PRN (Reason: Edema) ondansetron HCl 4 mg tablet 4 mg PO Q6H PRN (Reason: Nausea And Vomiting) Linzess 145 mcg capsule 145 mcg PO DAILY pantoprazole [Protonix] 40 mg tablet,delayed release (DR/EC) 40 - 80 mg PO DAILY PRN (Reason: Acid Reflux) hydrocortisone [Procto-Med HC] 2.5 % cream with perineal applicator 1 applic topical DAILY PRN (Reason: pain and inflamation) prazosin 2 mg capsule 4 mg PO QPM Qty: 60 1RF propranolol 20 mg Tablet 20 mg PO TID 30 Days Qty: 90 1RF aripiprazole 10 mg Tablet 10 mg PO DAILY 30 Days Qty: 30 1RF venlafaxine 150 mg Capsule,Extended Release 24hr 300 mg PO DAILY 30 Days Qty: 60 1RF Discharge Orders: Discharge ED (Routine); Ordered 07/18/24 Ordered By: Dima Ellis Referrals: Gurwinder,MICHELLE CurryN [Primary Care Provider, Nurse Practitioner] - 4-7 days Patient Instructions: Hypokalemia (ED), Dysuria (ED), Opioid Safety, Pain Management Activity Restrictions/Additional Instructions: As instructed before, ensure you are not taking your hydrochlorothiazide/triamterene, or even furosemide, as both can significantly lower potassium levels which are likely the source of your cramping, and even could be the source of continued flank pain. Make sure you stay hydrated. You should have your potassium rechecked next week. Potassium supplementation has been provided via prescription. Return for problems. Print Language: Bel[place]ian Coding Level of Care Code ED Infantry Unit Leader for Cristhian Lu
--- NOTE | 2024-07-18 17:11 | XRR_ITS ---
PROCEDURE INFORMATION: Exam: XR Right Hand Exam date and time: 07/18/2024 5:14 PM Age: 44 years old Clinical indication: Injury or trauma; Blunt trauma (contusions or hematomas); Right; RT index finger injury TECHNIQUE: Imaging protocol: Radiologic exam of the right hand. Views: 3 or more views. COMPARISON: No relevant prior studies available. FINDINGS: Bones/joints: Normal. No acute displaced fracture or dislocation. Soft tissues: Normal. No radiopaque foreign bodies. XR/XR hand RT min 3V* [id number] IMPRESSION: No acute displaced fracture or dislocation.
[2024-07-18 17:23] LABS: Basophils % 0.5 %; Eosinophils # 0.3 10^3/uL (0.0-0.8); Eosinophils % 3.8 %; Hematocrit 39.4 % (36-47); Lymphocytes # 3.2 10^3/uL (0.8-4.8); Lymphocytes % 37.1 %; Mean Corpuscular Hemoglobin 31.1 pg (27-33); Mean Corpuscular Volume 91.4 fl (85-98); Mean Platelet Volume 11.5 fL (7.4-10.4); Monocytes # 0.5 10^3/uL (0.2-0.9); Monocytes % 5.5 %; Neutrophils # 4.48 10^3/uL (1.8-7.7); Neutrophils % 52.9 %; Nucleated Red Blood Cells % 0 %; Platelet Count 238 10^3/cmm (157-399); Red Blood Count 4.31 10^6/uL (3.85-5.65); Red Cell Distribution Width 13.3 % (12.1-15.1); White Blood Count 8.48 10^3/uL (3.29-11.43)
[2024-07-18 17:34] LABS: HCG, Serum Qual Negative (Negative)
[2024-07-18 17:36] LABS: Bacteria Urine None Seen /hpf; Hyaline Casts Urine 13.22 /lpf; RBC Urine 0-2 /hpf (0-2); Squamous Epithelial Cell Urine 0-5 /hpf (0-5); Universal Test for UA Present (0); WBC Urine 0-5 /hpf (0-5)
[2024-07-18] MEDS: ketorolac 30 mg/mL INJ 15 MG IVP (17:37)
[2024-07-18 17:42] LABS: Alanine Aminotransferase < 5 U/L (0-33); Albumin Level 4.4 g/dL (3.5-5.2); Alkaline Phosphatase 109 U/L (35-105); Anion Gap 14.7 (5-19); Aspartate Amino Transferase 12 U/L (0-32); Blood Urea Nitrogen 10 mg/dL (6-20); Calcium 9.5 mg/dL (8.5-10.5); Carbon Dioxide 25 mmol/L (22-29); Chloride 104 mmol/L (98-107); Creatinine Clr Calc Pharmacy 122.0411; Globulin 2.7 g/dL (1.3-4.6); Glomerular Filtration Rate 108.6 mL/min (90-130); Glucose 64 mg/dL (65-115); Lipase 20 U/L (13-60); Osmolality Calculated 289 mOsm/kg (285-295); Sodium 141 mmol/L (136-145); Total Bilirubin 0.4 mg/dL (0.15-1.2); Total Protein 7.1 g/dL (6.6-8.7)
[2024-07-18 17:50] LABS: Potassium 2.7 mmol/L (3.5-5.1)
[2024-07-18 17:51] LABS: Add Urine Microscopic? YES; Bilirubin Urine Neg (Negative); Blood Urine Neg (Negative); Glucose Urine UA Norm (Normal); Ketones Urine Negative (Negative); Leukocyte Esterase Urine Negative (Negative); Nitrate Urine Negative (Negative); Protein Urine Neg (Negative); UA Slide Review UA Slide Review Perf; Urine Appearance Clear (CLEAR); Urine Color Yellow (Yellow); Urobilinogen Urine 0.2 mg/dL (Negative)
[2024-07-18] MEDS: potassium chloride oral liq 20 mEq/15 mL UDC 60 MEQ PO (17:58)
[2024-07-18 18:01] VITALS: BP 125/72; PULSE 58; RESP 18; O2SAT 100
[2024-07-18] MEDS: ondansetron 2 mg/ML SDV 2 mL 4 MG IVP (18:07)
[2024-07-18 18:32] VITALS: BP 108/70; PULSE 71; O2SAT 100
[2024-07-18] MEDS: HYDROmorphone 0.5 MG/0.5 ML INJ 1 MG (18:45)
[2024-07-18 19:10] VITALS: BP 99/69; PULSE 67; O2SAT 98
== END 2024-07-18 19:11 | disposition home or self-care (01) ==
PROVIDERS: Emergency Medicine; Emergency Provider Emergency Medicine; PCP Nurse Practitioner Family
DX: E87.6 Hypokalemia (principal); R30.0 Dysuria; F17.210 Nicotine dependence, cigarettes, uncomplicated
CPT/HCPCS: 36415; 73130; 80053; 81001; 83690; 84703; 85025; 96374; 96375; 99284; J1171; J1885; J2405; J9999

== ENCOUNTER 2024-07-22 09:37 | Day surgery (SDC) | payer OTHER, MEDICAID, SELFPAY ==
[2024-07-06 11:01] VITALS: BP 111/73; BMI 27.4
[2024-07-22] VITALS (14 sets, daily range): BP systolic 101–134; BP diastolic 58–81; PULSE 51–68; RESP 16–18; TEMP 36.2–36.4; O2SAT 90–100
[2024-07-22] MEDS: sodium chloride 0.9% 1,000 ML 30 ML IV (10:14)
--- NOTE | 2024-07-22 10:30 | ANES.PREANE2 ---
Pre-Anesthetic Assessment Height/Weight: Height 5 ft 6 in Weight 160 lb Temp Pulse Resp BP Pulse Ox O2 Del Method 97.6 F 59 L 16 101/58 100 Room Air 07/22/24 10:07/22/24 10:07/22/24 10:07/22/24 10:07/22/24 10:07/22/24 10:09 Preop Diagnosis: Hemorrhoids Operation Date: 07/22/24 11:55 Proposed Procedures p Rectum Exam Under Anesthesia 23375 [id number] K64.9(Not Applicable) - Aniket Ayers MD s POSSIBLE Hemorrhoidectomy(Not Applicable) - Aniket Ayers MD s POSSIBLE Hemorrhoid Banding(Not Applicable) - Aniket Ayers MD Was Beta Hesham taken within 24 hours: N/A Was Clonidine taken within 24 hours: N/A Last intake: Intake Last Liquid Date 07/21/24 Last Liquid Time 23:00 Last Solid Date 07/21/24 Last Solid Time 22:30 Social Tobacco and No alcohol Exam alert, oriented x 3, clear to auscultation bilaterally and regular rate & rhythm Airway Submandibular: within normal limits Cervical ROM: within normal limits Mallampati: Class III Dentition: full Anesthetic Plan ASA status: 3 Anesthesia: General Other: No prior issues with anesthesia NPO since yesterday evening History of GERD, on Protonix Patient takes propranolol for panic attacks Current everyday smoker S/p gastric sleeve Patient recently seen in the ER for hypokalemia. K+ 2.7 at that time. Patient was sent home with oral potassium and told to stop taking her hydrochlorothiazide Repeat potassium 3.0 today Plan for general anesthesia Medications/Allergies Home Medications ?Medication ?Instructions ?Recorded ?Confirmed ?Last Taken ?Type baclofen 10 mg tablet 10 mg PO TID 12/26/21 07/21/24 06/18/24 History albuterol sulfate 90 mcg/actuation 2 inh inhalation Q6H PRN Shortness 03/16/23 07/21/24 07/20/24 History aerosol inhaler Of Breath furosemide 20 mg tablet 20 mg PO BID PRN Edema 07/14/23 07/22/24 07/22/24 History lorazepam 0.5 mg tablet 0.5 mg PO TID PRN Anxiety 07/14/23 07/21/24 07/21/24 History hydrocortisone 2.5 % topical cream 1 applic topical DAILY PRN pain 02/26/24 07/21/24 07/18/24 History with perineal applicator and inflamation (Procto-Med HC) aripiprazole 10 mg tablet 10 mg PO DAILY 30 days #30 tabs 03/04/24 07/22/24 07/22/24 Rx prazosin 2 mg capsule 4 mg (2 x 2 mg) PO QPM #60 caps 03/04/24 07/22/24 07/22/24 Rx propranolol 20 mg tablet 20 mg PO TID 30 days #90 tabs 03/04/24 07/22/24 07/22/24 Rx venlafaxine 150 mg 300 mg (2 x 150 mg) PO DAILY 30 03/04/24 07/22/24 07/22/24 Rx capsule,extended release 24 hr days #60 caps acetaminophen 300 mg-codeine 15 mg 1 tab PO Q6H PRN Pain 07/06/24 07/21/24 07/21/24 History tablet gabapentin 600 mg tablet 600 mg PO DAILY nerve pain 07/06/24 07/22/24 07/22/24 History hydroxyzine pamoate 50 mg capsule 50 mg PO TID PRN bp 07/06/24 07/21/24 07/14/24 History magnesium oxide 400 mg (241.3 mg 400 mg PO TID 07/06/24 07/21/24 07/21/24 History magnesium) tablet topiramate 50 mg tablet 50 mg PO DAILY 07/06/24 07/22/24 07/22/24 History linaclotide 145 mcg capsule 145 mcg PO DAILY 07/16/24 07/22/24 07/22/24 History (Linzess) ondansetron HCl 4 mg tablet 4 mg PO Q6H PRN Nausea And Vomiting 07/16/24 07/21/24 07/21/24 History pantoprazole 40 mg tablet,delayed 40 - 80 mg PO DAILY PRN Acid Reflux 07/16/24 07/22/24 07/22/24 History release (Protonix) potassium chloride 10 mEq 10 meq PO BID #60 tabs 07/18/24 07/22/24 07/22/24 Rx tablet,extended release Allergies Allergy/AdvReac Type Severity Reaction Status Date / Time monosodium glutamate Allergy Severe ALGY-Anaphy Verified 07/22/24 09:48 laxis trazodone Allergy Severe ADR-Muscle Verified 07/22/24 09:48 Pain duloxetine Allergy Intermediate Break out/ Verified 07/22/24 09:48 Hives gluten Allergy Intermediate Break out/ Verified 07/22/24 09:48 Hives lactase (From Dairy Aid) Allergy Intermediate Break out/ Verified 07/22/24 09:48 Hives paroxetine Allergy Intermediate Break out/ Verified 07/22/24 09:48 Hives soy Allergy Intermediate Break out/ Verified 07/22/24 09:48 Hives lactose Allergy ADR-Diarrhe Verified 07/22/24 09:48 a scopolamine (From Allergy ALGY-Rash Verified 07/22/24 09:48 Transderm-Scop) atropine AdvReac Intermediate Break out Verified 07/22/24 09:48 /Hives citalopram AdvReac Intermediate Hives Verified 07/22/24 09:48 Current Medications Generic Name Dose Route Start Last Admin Trade Name Freq PRN Reason Stop Dose Admin Sodium Chloride 1,000 mls @ 30 mls/hr 07/22/24 09:45 07/22/24 10:14 Sodium Chloride 0.9% IV 07/23/24 09:44 30 mls/hr .Q24H MARTÍN Administration PFSH Anesthesia Medical History Acute post-traumatic stress disorder Bleeding per rectum Cannabis dependence, episodic use Alcohol abuse, episodic drinking behavior Obesity Sleep apnea Irritable bowel syndrome 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 Grandmother , COPD COPD (chronic obstructive pulmonary disease) Grandfather , CHF Congestive heart failure (CHF) Denies family history of Anesthesia complication Bleeding disorder Social History Smoking and tobacco/nicotine status: current every day tobacco/nicotine user cigarettes Packs smoked per day: 0.5 Second hand smoke exposure: Yes Alcohol intake: current Alcohol intake frequency: few times a month Alcohol type: wine Substance/Drug Use: never Adopted: No Caregiver/support person: No Lives independently: Yes Household members: children Housing: Manufactured/Mobile home Marital status: Legally Number of children: 2 Number of grandchildren: 0 Highest education level completed: Associate Degree: Occupational, Technical, Vocational Program Education level details: Business service: No Current occupational status: disabled Current occupational exposures/hazards: No Pets and animals: Yes Pets & animals: cat(s), dog(s) and turtle(s) Leisure activites: music, reading and other Leisure activities details: clean Sexually active: Yes Are you practicing safe sex: Yes Do you think of yourself as: Straight/Heterosexual Current gender identity: Female Kristy/Presybeterian: Sikh Special kristy needs: No Agree to transfusion: Yes Female Reproductive History Para: 2 Spontaneous abortions: No Data Anesthesia 07/22/24 10:49
--- NOTE | 2024-07-22 10:37 | W.PM.OPSUD ---
Surgery/Procedure H&P Update DATE OF PROCEDURE: July 22, 2024 DATE H&P PERFORMED: 07/06/24 H&P UPDATE INFORMATION: I have reviewed H&P completed within last 30 days, I have examined patient prior to procedure and No changes to prior documentation PREOP DIAGNOSIS: Hemorrhoids PLANNED PROCEDURE: Operation Date: 07/22/24 11:55 Proposed Procedures p Rectum Exam Under Anesthesia [id number] K64.9(Not Applicable) - Aniket Ayers MD s POSSIBLE Hemorrhoidectomy(Not Applicable) - Aniket Ayers MD s POSSIBLE Hemorrhoid Banding(Not Applicable) - Aniket Ayers MD
[2024-07-22] MEDS: ceFAZolin 2,000 mg SDV 2000 MG IVP (11:32)
[2024-07-22] MEDS: lidocaine 1% 10 ML INJ SUBCUT (11:51)
[2024-07-22] MEDS: BUPivacaine 0.25% INJ 10 mL INJECTION (11:51)
--- NOTE | 2024-07-22 12:26 | W.PM.BPON ---
Date of Procedure: 07/22/2024 Surgeon: Dr. Ayers Veneer Measurer(s): N/A Procedure(s) performed: Right anterior column hemorrhoidectomy Findings of the procedure(s): Prominent right anterior column hemorrhoid. Estimated blood loss: 10 cc Specimen(s) removed: Right anterior column hemorrhoid sent to pathology Post-operative diagnosis: Internal/external hemorrhoids right anterior column.
[2024-07-22] MEDS: fentaNYL 50 mcg/mL INJ 2mL IVP (12:35)
[2024-07-22] MEDS: ketorolac 30 mg/mL INJ IVP (12:44)
[2024-07-22] MEDS: morphine 4 mg/mL SDV 1 mL IVP (13:06)
[2024-07-22] MEDS: oxyCODONE 5 mg IR Tab/Cap PO (13:20)
--- NOTE | 2024-07-22 14:14 | ANE.PACU2 ---
Inpatient post-anesthesia follow up: Airway intact: Yes Vital signs: Temperature 97.4 F Pulse Rate 59 Respiratory Rate 18 Blood Pressure 113/69 Pulse Oximetry 100 Oxygen Delivery Me thod Room Air Oxygen Flow Rate 8 Fraction of Inspir ed Oxygen Hydration adequate: Yes Nausea and vomiting: No Pain level: 1 Mental status: Baseline
--- NOTE | 2024-07-23 09:17 | P.OP_ITS ---
Operative Report Date of procedure: July 23, 2024 Pre-op diagnosis: Right posterior column internal and external hemorrhoids Post-op diagnosis: same Post-op findings: Right posterior column internal and external hemorrhoids Procedure done: Right posterior column hemorrhoidectomy Implants: NA Specimens removed/disposition: Right posterior column hemorrhoids sent to pathology Pathology: Right posterior column hemorrhoids sent to pathology Surgeon: Aniket Ayers MD Tone Regulator: GET Anesthesia: MAC Estimated blood loss (mL): 10 Complications: NA Findings: Right posterior column internal and external hemorrhoids Condition: stable Disposition: same day Brief History: 44yo female who presented with painful and bleeding internal and external hemorrhoids. Discussed risks and benefits and patient agreed to proceed with exam under anesthesia of the rectum, possible hemorrhoid banding, possible hemorrhoidectomy. The risks and benefits of procedure, including but not limited to, bleeding, infection, recurrence, anal stenosis, incontinence of stool and/or flatus, scar, numbness, pain, were explained to the patient. who is understanding of the risks and wishes to proceed. Procedure: Patient was brought in to the operating room. MAC was induced. Patient positioned in left lateral decubitus. The perineum was prepped with betadine and draped. A timeout was performed. All present were in agreement. Retractor was used to examine the anus and patient had sizable hemorrhoids of the right anterior and posterior columns. The largest pillar was the right posterior column. I proceeded to excise the right posterior column. The exterior most edge of the hemorrhoid was grabbed using an Allis clamp. Electrocautery was used to incise the anoderm and subsequently to dissect the hemorrhoid pack off the muscle layer. Dissection proceeded cephalad until the pedicle of the hemorrhoid was encountered. At this point, a 3-0 chromic stick-tie was used to ligate the hemorrhoidal pedicle. The specimen was passed off and sent to pathology. The 3-0 chromic was ran distally in order to close the mucosal defect as well as the anoderm. There was minimal bleeding. Thrombin-soaked Gelfoam was then placed into the anus. Fluffs were applied on top and these were secured using mesh underwear. Patient tolerated procedure well.
== END 2024-07-22 14:14 | disposition home or self-care (01) ==
PROVIDERS: Student in an Organized Health Care Education/Training Program; PCP Nurse Practitioner Family; Visit Provider Student in an Organized Health Care Education/Training Program
PROC: (CPT 46255; principal; 2024-07-22 11:55)
PROC: (CPT 46255; 2024-07-22 11:55)
DX: K64.8 Other hemorrhoids (principal); K64.4 Residual hemorrhoidal skin tags; F41.0 Panic disorder [episodic paroxysmal anxiety]; F17.210 Nicotine dependence, cigarettes, uncomplicated; K21.9 Gastro-esophageal reflux disease without esophagitis; Z98.84 Bariatric surgery status; Z88.8 Allergy status to other drugs, medicaments and biological substances; Z79.899 Other long term (current) drug therapy
CPT/HCPCS: 46255; 36415; 84132; 88304; A4216; J0690; J1100; J1885; J2250; J2270; J2405; J2704; J3010; J3490; J7030; J9999

== ENCOUNTER 2024-07-29 14:26 | Emergency (ER) | payer OTHER, MEDICAID, SELFPAY ==
[2024-07-06 11:01] VITALS: BP 111/73; BMI 27.4
[2024-07-29 14:53] VITALS: BP 119/73; PULSE 78; RESP 16; TEMP 36.4; O2SAT 99; BMI 25.8
[2024-07-29 15:19] LABS: Basophils % 0.4 %; Eosinophils % 0.4 %; Hematocrit 45.7 % (36-47); Lymphocytes # 3.2 10^3/uL (0.8-4.8); Lymphocytes % 29.6 %; Mean Corpuscular HGB Conc 34.8 g/dL (30-55); Mean Corpuscular Hemoglobin 31.5 pg (27-33); Mean Corpuscular Volume 90.7 fl (85-98); Mean Platelet Volume 10.7 fL (7.4-10.4); Monocytes # 0.6 10^3/uL (0.2-0.9); Monocytes % 5.9 %; Neutrophils # 6.86 10^3/uL (1.8-7.7); Neutrophils % 63.3 %; Nucleated Red Blood Cells % 0 %; Platelet Count 300 10^3/cmm (157-399); Red Blood Count 5.04 10^6/uL (3.85-5.65); Red Cell Distribution Width 13.8 % (12.1-15.1); White Blood Count 10.82 10^3/uL (3.29-11.43)
[2024-07-29 15:58] LABS: Blood Urea Nitrogen 10 mg/dL (6-20); Calcium 9.2 mg/dL (8.5-10.5); Carbon Dioxide 20 mmol/L (22-29); Chloride 100 mmol/L (98-107); Creatinine Clr Calc Pharmacy 122.0411; Glomerular Filtration Rate 108.6 mL/min (90-130); Glucose 101 mg/dL (65-115); Osmolality Calculated 289 mOsm/kg (285-295); Sodium 140 mmol/L (136-145)
--- NOTE | 2024-07-29 16:08 | W.ED.RECABL ---
HPI - Recheck/Abnormal Lab/Rx General: Chief Complaint: Recheck/Abnormal Lab/Rx Stated Complaint: trouble with hands Time Seen by Provider: 07/29/24 15:10 History of Present Illness: This patient is a 44-year-old white female who presents to the emergency department complaining of her hands cramping up. Patient is concerned that her potassium may be low. She states she had surgery last week and her potassium was low and it was replaced at that time. Patient also states that she has panic disorder and she has been anxious recently as well. Related Data Home Medications ?Medication ?Instructions ?Recorded ?Confirmed baclofen 10 mg tablet 10 mg PO TID 12/26/21 07/21/24 albuterol sulfate 90 mcg/actuation 2 inh inhalation Q6H PRN Shortness 03/16/23 07/21/24 aerosol inhaler Of Breath furosemide 20 mg tablet 20 mg PO BID PRN Edema 07/14/23 07/22/24 lorazepam 0.5 mg tablet 0.5 mg PO TID PRN Anxiety 07/14/23 07/21/24 hydrocortisone 2.5 % topical cream 1 applic topical DAILY PRN pain 02/26/24 07/21/24 with perineal applicator and inflamation (Procto-Med HC) acetaminophen 300 mg-codeine 15 mg 1 tab PO Q6H PRN Pain 07/06/24 07/21/24 tablet gabapentin 600 mg tablet 600 mg PO DAILY nerve pain 07/06/24 07/22/24 hydroxyzine pamoate 50 mg capsule 50 mg PO TID PRN bp 07/06/24 07/21/24 magnesium oxide 400 mg (241.3 mg 400 mg PO TID 07/06/24 07/21/24 magnesium) tablet topiramate 50 mg tablet 50 mg PO DAILY 07/06/24 07/22/24 linaclotide 145 mcg capsule 145 mcg PO DAILY 07/16/24 07/22/24 (Linzess) ondansetron HCl 4 mg tablet 4 mg PO Q6H PRN Nausea And Vomiting 07/16/24 07/21/24 pantoprazole 40 mg tablet,delayed 40 - 80 mg PO DAILY PRN Acid Reflux 07/16/24 07/22/24 release (Protonix) Previous Rx's ?Medication ?Instructions ?Recorded aripiprazole 10 mg tablet 10 mg PO DAILY 30 days #30 tabs 03/04/24 prazosin 2 mg capsule 4 mg (2 x 2 mg) PO QPM #60 caps 03/04/24 propranolol 20 mg tablet 20 mg PO TID 30 days #90 tabs 03/04/24 venlafaxine 150 mg 300 mg (2 x 150 mg) PO DAILY 30 03/04/24 capsule,extended release 24 hr days #60 caps potassium chloride 10 mEq 10 meq PO BID #60 tabs 07/18/24 tablet,extended release bisacodyl 5 mg tablet,delayed 5 mg PO BID 30 days #60 tabs 07/22/24 release (Dulcolax (bisacodyl)) oxycodone 5 mg tablet 5 mg PO Q6H PRN pain 10 days #30 07/22/24 tabs oxycodone 5 mg capsule 5 mg PO Q8H PRN pain 5 days #14 07/27/24 caps potassium chloride 20 mEq 20 meq PO BID #14 tabs 07/29/24 tablet,extended release (K-Tab) Allergies Allergy/AdvReac Type Severity Reaction Status Date / Time monosodium glutamate Allergy Severe ALGY-Anaphy Verified 07/22/24 09:48 laxis trazodone Allergy Severe ADR-Muscle Verified 07/22/24 09:48 Pain duloxetine Allergy Intermediate Break out/ Verified 07/22/24 09:48 Hives gluten Allergy Intermediate Break out/ Verified 07/22/24 09:48 Hives lactase (From Dairy Aid) Allergy Intermediate Break out/ Verified 07/22/24 09:48 Hives paroxetine Allergy Intermediate Break out/ Verified 07/22/24 09:48 Hives soy Allergy Intermediate Break out/ Verified 07/22/24 09:48 Hives lactose Allergy ADR-Diarrhe Verified 07/22/24 09:48 a scopolamine (From Allergy ALGY-Rash Verified 07/22/24 09:48 Transderm-Scop) atropine AdvReac Intermediate Break out Verified 07/22/24 09:48 /Hives citalopram AdvReac Intermediate Hives Verified 07/22/24 09:48 Review of Systems General: Reports: 10 or more systems reviewed and unremarkable except in HPI and below PFSH ED PFSH: Medical History Acute post-traumatic stress disorder Bleeding per rectum Cannabis dependence, episodic use Alcohol abuse, episodic drinking behavior Obesity Sleep apnea Irritable bowel syndrome 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 Grandmother , COPD COPD (chronic obstructive pulmonary disease) Grandfather , CHF Congestive heart failure (CHF) Denies family history of Anesthesia complication Bleeding disorder Social History Smoking and tobacco/nicotine status: current every day tobacco/nicotine user cigarettes Packs smoked per day: 0.5 Second hand smoke exposure: Yes Alcohol intake: current Alcohol intake frequency: few times a month Alcohol type: wine Substance/Drug Use: never Adopted: No Caregiver/support person: No Lives independently: Yes Household members: children Housing: Manufactured/Mobile home Marital status: Legally Number of children: 2 Number of grandchildren: 0 Highest education level completed: Associate Degree: Occupational, Technical, Vocational Program Education level details: Business service: No Current occupational status: disabled Current occupational exposures/hazards: No Pets and animals: Yes Pets & animals: cat(s), dog(s) and turtle(s) Leisure activites: music, reading and other Leisure activities details: clean Sexually active: Yes Are you practicing safe sex: Yes Do you think of yourself as: Straight/Heterosexual Current gender identity: Female Kristy/Buddhist: Sabianist Special kristy needs: No Agree to transfusion: Yes Female Reproductive History: Para: 2 Spontaneous abortions: No Physical Exam Const: COMMON NORMALS: no acute distress, patient oriented x3 and no limitations GENERAL APPEARANCE: cooperative and comfortable HENMT: COMMON NORMALS: normocephalic, atraumatic, Normal nasal mucous membranes and turbinates present, moist oral mucous membranes and oropharynx normal HEAD & SCALP: normal to inspection, normocephalic and atraumatic FACE & SINUS: normal facial exam NOSE: Normal nasal mucous membranes and turbinates present Eye: COMMON NORMALS: Equal, round and reactive pupils present, EOMs intact bilaterally and conjunctivae normal GENERAL EYE: appearance normal, both eyes and all related structures CONJUNCTIVA: Yes conjunctivae normal PUPIL: Yes Equal, round and reactive pupils present Neck/C-Spine: COMMON NORMALS: supple and no JVD Chest: COMMONS NORMALS: normal inspection of the chest Resp: COMMON NORMALS: normal respiratory effort and clear to auscultation bilaterally AUSCULTATION: clear to auscultation bilaterally Cardio: COMMON NORMALS: no JVD, regular rate, regular rhythm, No gallops present (Cardio), No murmurs present (Cardio) and No rub (Cardio) RATE: regular rate RHYTHM: regular rhythm GI: COMMON NORMALS: Normal to inspection, nondistended, normoactive bowel sounds present, Soft to palpation and non-tender AUSCULTATION: Yes normoactive bowel sounds PALPATION: Yes Soft to palpation : COMMON NORMALS: Yes no CVA tenderness BLADDER/KIDNEY EXAM: Yes no CVA tenderness Back/Pelvis: COMMON NORMALS: no CVA tenderness and thoracic and lumbar spine normal to inspection Extremity: COMMON NORMALS: normal to inspection Neuro: COMMON NORMALS: patient oriented x3 and CN's II-XII intact bilaterally Psych: COMMON NORMALS: mental status grossly normal, Normal thought process present and cooperative MOOD & AFFECT: Yes anxious THOUGHT PROCESS: Normal thought process present Skin: COMMON NORMALS: no rashes or lesions noted, turgor normal and no jaundice GENERAL SKIN EXAM: no rashes or lesions noted and turgor normal Course Vital Signs: Vital signs: Vital Signs Temperature 97.5 F L 07/29/24 14:53 Pulse Rate 78 07/29/24 14:53 Respiratory Rate 16 07/29/24 14:53 Blood Pressure 119/73 07/29/24 14:53 Pulse Oximetry 99 07/29/24 14:53 Oxygen Delivery Me thod Room Air 07/29/24 14:53 MDM - Recheck/Abnormal Lab/Rx Medical Decision Making CBC was normal. BMP revealed a potassium of 3.0. Patient has been taking 10 mill equivalents of potassium chloride per day. I placed her on 20 mill equivalents twice daily for 1 week and recommended she follow-up with her primary care provider in 1 week for recheck. Also discussed with her that when she is having a panic attack and if she is hyperventilating she has to breathe in and out into a paper bag and this should get it to resolve. I told her I did not think the low potassium was causing the carpal spasms. She was discharged in stable condition. Lab Data 07/29/24 15:07 07/29/24 15:36 Laboratory Results WBC 10.82 10^3/uL (3.29-11.43) 07/29/24 15:07 RBC 5.04 10^6/uL (3.85-5.65) 07/29/24 15:07 Hgb 15.90 g/dL (11.27-16.99) 07/29/24 15:07 Hct 45.7 % (36-47) 07/29/24 15:07 MCV 90.7 fl (85-98) 07/29/24 15:07 MCH 31.5 pg (27-33) 07/29/24 15:07 MCHC 34.8 g/dL (30-55) 07/29/24 15:07 RDW 13.8 % (12.1-15.1) 07/29/24 15:07 Plt Count 300 10^3/cmm (157-399) 07/29/24 15:07 MPV 10.7 fL (7.4-10.4) H 07/29/24 15:07 Neut % (Auto) 63.3 % 07/29/24 15:07 Lymph % (Auto) 29.6 % 07/29/24 15:07 [place] % (Auto) 5.9 % 07/29/24 15:07 Eos % (Auto) 0.4 % 07/29/24 15:07 Baso % (Auto) 0.4 % 07/29/24 15:07 Neut # (Auto) 6.86 10^3/uL (1.8-7.7) 07/29/24 15:07 Lymph # (Auto) 3.2 10^3/uL (0.8-4.8) 07/29/24 15:07 [place] # (Auto) 0.6 10^3/uL (0.2-0.9) 07/29/24 15:07 Eos # (Auto) 0.0 10^3/uL (0.0-0.8) 07/29/24 15:07 Baso # (Auto) 0.0 10^3/uL (0.0-0.1) 07/29/24 15:07 Nucleated RBC % (auto) 0 % 07/29/24 15:07 Nucleated RBCs # 0.0 /100WBC 07/29/24 15:07 Sodium 140 mmol/L (136-145) 07/29/24 15:36 Potassium 3.0 mmol/L (3.5-5.1) L 07/29/24 15:36 Chloride 100 mmol/L (98-107) 07/29/24 15:36 Carbon Dioxide 20 mmol/L (22-29) L 07/29/24 15:36 Anion Gap 23.0 (5-19) H 07/29/24 15:36 BUN 10 mg/dL (6-20) 07/29/24 15:36 Creatinine 0.6 mg/dL (0.5-0.9) 07/29/24 15:36 GFR Calculation 108.6 mL/min (90-130) 07/29/24 15:36 Glucose 101 mg/dL (65-115) 07/29/24 15:36 Calculated Osmolality 289 mOsm/kg (285-295) 07/29/24 15:36 Calcium 9.2 mg/dL (8.5-10.5) 07/29/24 15:36 No radiology studies performed this visit Discharge Plan Discharge Patient Disposition: Home Clinical Impression: Hypokalemia, Panic attack Condition: Stable Prescriptions: New potassium chloride [K-Tab] 20 mEq tablet extended release 20 meq PO BID Qty: 14 0RF No Action baclofen 10 mg tablet 10 mg PO TID hydroxyzine pamoate 50 mg capsule 50 mg PO TID PRN (Reason: bp) magnesium oxide 400 mg (241.3 mg magnesium) tablet 400 mg PO TID acetaminophen-codeine 300-15 mg tablet 1 tab PO Q6H PRN (Reason: Pain) gabapentin 600 mg tablet 600 mg PO DAILY topiramate 50 mg tablet 50 mg PO DAILY oxycodone 5 mg capsule 5 mg PO Q8H PRN (Reason: pain) 5 Days Qty: 14 0RF albuterol sulfate 90 mcg/actuation HFA aerosol inhaler 2 inh INHALATION Q6H PRN (Reason: Shortness Of Breath) lorazepam 0.5 mg tablet 0.5 mg PO TID PRN (Reason: Anxiety) furosemide 20 mg tablet 20 mg PO BID PRN (Reason: Edema) oxycodone 5 mg tablet 5 mg PO Q6H PRN (Reason: pain) 10 Days Qty: 30 0RF bisacodyl [Dulcolax (bisacodyl)] 5 mg tablet,delayed release (DR/EC) 5 mg PO BID 30 Days Qty: 60 0RF ondansetron HCl 4 mg tablet 4 mg PO Q6H PRN (Reason: Nausea And Vomiting) Linzess 145 mcg capsule 145 mcg PO DAILY pantoprazole [Protonix] 40 mg tablet,delayed release (DR/EC) 40 - 80 mg PO DAILY PRN (Reason: Acid Reflux) potassium chloride 10 mEq tablet extended release 10 meq PO BID Qty: 60 0RF hydrocortisone [Procto-Med HC] 2.5 % cream with perineal applicator 1 applic topical DAILY PRN (Reason: pain and inflamation) prazosin 2 mg capsule 4 mg PO QPM Qty: 60 1RF propranolol 20 mg Tablet 20 mg PO TID 30 Days Qty: 90 1RF aripiprazole 10 mg Tablet 10 mg PO DAILY 30 Days Qty: 30 1RF venlafaxine 150 mg Capsule,Extended Release 24hr 300 mg PO DAILY 30 Days Qty: 60 1RF Discharge Orders: Discharge ED (Routine); Ordered 07/29/24 Ordered By: Jose Gutierrez Referrals: Purdy,Antoinette, [employer] [Primary Care Provider, Nurse Practitioner] Patient Instructions: Hypokalemia, Panic Disorder Activity Restrictions/Additional Instructions: Follow-up with your primary care provider in 1 week for recheck. Print Language: British Coding Level of Care Code ED Csw for Cristhian Lu
[2024-07-29 16:13] VITALS: BP 106/60; PULSE 76; O2SAT 100
== END 2024-07-29 16:19 | disposition home or self-care (01) ==
PROVIDERS: Emergency Medicine; Emergency Provider Emergency Medicine; PCP Nurse Practitioner Family
DX: E87.6 Hypokalemia (principal); F41.0 Panic disorder [episodic paroxysmal anxiety]; F17.210 Nicotine dependence, cigarettes, uncomplicated
CPT/HCPCS: 36415; 80048; 85025; 99283

== ENCOUNTER → 2024-08-13 09:22 | Outpatient (BNVA) | payer MEDICARE, MEDICAID, SELFPAY ==
[2024-07-06 11:01] VITALS: BP 111/73; BMI 27.4
== END ==
PROVIDERS: PCP Nurse Practitioner Family; Visit Provider Student in an Organized Health Care Education/Training Program
DX: K64.5 Perianal venous thrombosis (principal)
CPT/HCPCS: 99024

== ENCOUNTER 2024-10-11 21:13 | Emergency (ER) | payer OTHER, MEDICAID, SELFPAY ==
--- OUTSIDE RECORDS SUMMARY | 2015-03-31 10:56 | XMS_ITS | Continuity of Care Document ---
Author Organization [facility] Address [address] [place] [phone] Phone Care Team Providers Care Quality Control Expert Name Role Phone Speak DOJean Carlos Unavailable Unavailable Advance Directives Directive Yes / No Effective Date File Name No Information Encounters Encounter Description Practice Location Reason(s) For Visit Diagnoses Date Provider Providers Copied on Encounter [facility], [address] [place] [address], [id number], [place] tel:[phone] [facility] No Information Speak Jean Carlos. [address], [place], [id number]. tel:[phone] Family History Family Member Type Diagnosis Age At Onset No Information Payers Payer name Insurance type Covered libertarian ID Authoriza tion(s) No Information Social History Type Description Quantity Date Captured Comments Sex Female Smoking Status No Information Chief Complaint And Reason For Visit No Information Reason For Referral Reason For Referral No Information History Of Present Illness Encounter Date Complaint History Of Prese nt Illness No Information Functional Status Date Functional Assessmen t No Information Instructions Date Instruction Additional Infor mation No Information Assessments Type Assessment Date No Information Patient Care Teams Name Effective Dates (start - stop) Status Members No Information
--- OUTSIDE RECORDS SUMMARY | 2019-01-31 06:45 | XMS_ITS | Continuity of Care Document ---
Author Organization [facility] Address [address] [id number] [address] Phone Care Team Providers Care Facility Assistant Name Role Phone Jonnie Juares DDS Unavailable Unavailable Allergies, Adverse Reactions, Alerts Substance Reaction Status Criticality lactase Active No Information latex Active No Information soy Active No Information gluten Active No Information Medications Medication Instructions Dosage Effective Dates (start - stop) Status Comments Effexor XR 150 mg capsule,extended release take 1 capsule by oral route every day 150 MG - Active [place] 5 mg-325 mg tablet take 1 tablet by oral route every 6 hours as needed for pain - Active Haldol 5 mg/mL injection solution inject 0.4 milliliter by intramuscular route every 8 hours as needed - Active Lasix 20 mg tablet take 1 tablet by ora l route every day 20 MG - Active Lamictal 25 mg tablet take 2 tablet by oral route 2 times every day 50 MG - Active gabapentin 100 mg capsule take 1 capsule by oral route 3 times every day 100 MG - Active potassium 99 mg tablet - Active Effexor XR 75 mg capsule,extended release take 1 capsule by oral route every day with food 75 MG - Active Ativan 2 mg/mL injection solution inject 1 milliliter by intravenous route 30 minutes before chemotherapy 2 MG - Active Procedures Procedure Date Limited Oral Evaluation Problem Focused Intraoral Periapical First Film Extraction, Erupted Tooth Or Exposed Christa t (Elevati EDR Approval Note EDR Approval Note Advance Directives Directive Yes / No Effective Date File Name No Information Encounters Encounter Description Practice Location Reason(s) For Visit Diagnoses Date Provider Providers Copied on Encounter [facility], [id number] [facility], [place], [place], [id number], [place] tel:[phone] [facility] Encounter for dental exam and cleaning w/o abnormal findings Mor Cristina. [address], [place], [id number], [place]. tel:[phone] Referring Provider: Jonnie Juares, [address] [place], [address]. tel:[phone] Family History Family Member Type Diagnosis Age At Onset No Information Payers Payer name Insurance type Covered democrat ID Authoriza titere(s) No Information Social History Type Description Quantity Date Captured Comments Alcohol Use Details No Caffeine Use Details Unknown Tobacco Use Status Occasional cigarette smoker Smoking Status Heavy tobacco smoker Smoking Tobacco Use Details Cigarette: No Details Available Cigarette: 0.5 Packs per day Sex Female Vital Signs Date / Time: Height Weight BMI Pulse Rate Blood Pressure Temperature Respiratory Rate Body Surface Area Head Circumference Head Circ. Percentile Wt./John. Percentile BMI percentile Pulse Ox Inhaled Ox 12:12 PM 120/78 mm[Hg] Chief Complaint And Reason For Visit No Information Reason For Referral Reason For Referral No Information Plan Of Treatment Date Type Action Status Goal Tobacco cessation counseling completed History Of Present Illness Encounter Date Complaint History Of Prese nt Illness No Information Functional Status Date Functional Assessmen t No Information Instructions Date Instruction Additional Infor mation Lifestyle education Related to D ental Examination Assessments Type Assessment Date No Information Patient Care Teams Name Effective Dates (start - stop) Status Members No Information
[2024-07-06 11:01] VITALS: BP 111/73; BMI 27.4
--- OUTSIDE RECORDS SUMMARY | 2024-08-24 08:20 | XMS_ITS ---
Author Organization [facility] Address [address] [place] [address] Care Team Providers Care Rail Manager Name Role Phone Gurwinder [facility] Primary Care Provider GURWINDER [facility] Unavailable Unavailable REASON FOR VISIT 2 Week F/U Medications Medication SIG (Take, Route, Frequency, Duration) Notes Start Date End Date Status Furosemide 20 MG Tablet Take 1 tablet by mouth once daily; Duration: 30 Active Acetaminophen-Codeine 300-15 MG Tablet TAKE 1 TABLET BY MOUTH EVERY 6 HOURS NEEDED FOR SEVERE PAIN (MUST LAST 30 DAYS); Duration: 30 07/31/2024 Active Gabapentin 600 MG Tablet Take 1 tablet b y mouth once daily; Duration: 30 Active Ondansetron HCl 4 MG Tablet TAKE 1 TABLET BY MOUTH EVERY 6 HOURS NEEDED FOR NAUSEA; Duration: 8 Active Venlafaxine HCl ER 150 MG Capsule Extended Release 24 Hour Take 2 capsules by mouth once daily; Duration: 15 Active Nystatin 395144 UNIT/ML Suspension SWISH AND SPIT 4 ML IN MOUTH/ THROAT FOUR TIMES DAILY FOR 30 DAYS; Duration: 30 Active Pantoprazole Sodium 40 MG Tablet Delayed Release Take 1 tablet by mouth twice daily for 30 days; Duration: 30 Active Baclofen 10 MG Tablet Take 1 tablet by m outh three times daily as needed; Duration: 30 days Active Potassium Chloride ER 10 MEQ Tablet Extended Release 4 tabs Orally once a day; Duration: 30 days Active Linzess 145 MCG Capsule Take 1 capsule b y mouth once daily; Duration: 30 Active Topiramate 50 MG Tablet 1 tablet Orally Twice a day; Duration: 30 days Active Thiamine HCl 100 MG Tablet TAKE ONE TABLET BY MOUTH DAILY FOR 30 DAYS Oral; Duration: 30 Days Active hydrOXYzine Pamoate 50 MG Capsule Take 1 capsule by mouth three times daily as needed; Duration: 15 Active MAGnesium-Oxide 400 (240 Mg) MG Tablet TAKE 1 TABLET BY MOUTH THREE TIMES DAILY; Duration: 10 days Active Propranolol HCl 20 MG Tablet 1 tablet Orally three times a day; Duration: 30 days Active Ibuprofen 800 MG Tablet Oral; Duration: 5 Days Active ARIPiprazole 10 MG Tablet 1 tablet Oral Once a day in am; Duration: 30 days Active Prazosin HCl 2 MG Capsule take 2 capsules BY MOUTH EVERY EVENING Oral; Duration: 30 Days Active Fluticasone Propionate 50 MCG/ACT Suspension 2 spray in each nostril Nasally Once a day; Duration: 30 days 09/27/2022 Active Albuterol Sulfate HFA 108 (90 Base) MCG/ACT Aerosol Solution 2 puffs Inhalation four times a day prn; Duration: 30 days Active Omeprazole 20 MG Capsule Delayed Release Take 1 capsule by mouth once daily; Duration: 30 Not-Taking Bisacodyl EC 5 MG Tablet Delayed Release TAKE ONE TABLET BY MOUTH TWICE DAILY for 30 days Oral; Duration: 30 Days Active Vivitrol 380 MG Suspension Reconstituted Intramuscular; Duration: 30 Days Not-Taking Clotrimazole-Betamethaso ne 1-0.05 % Cream 1 application Externally Twice a day; Duration: 30 days 08/04/2024 11/02/2024 Active LORazepam 0.5 MG Tablet TAKE 1/2 TO 1 (ONE-HALF TO ONE) TABLET BY MOUTH ONCE DAILY NEEDED FOR ANXIETY MUST LAST 30 DAYS; Duration: 30 days 08/21/2024 Active Lurasidone HCl 40 MG Tablet TAKE ONE TABLET BY MOUTH DAILY AT 7pm FOR 30 DAYS Oral; Duration: 30 Days Not-Taking Lurasidone HCl 40 MG Tablet TAKE ONE TABLET BY MOUTH DAILY AT 7pm FOR 30 DAYS Oral; Duration: 30 Days Not-Taking Cetirizine HCl 10 MG Tablet TAKE 1 TABLET BY MOUTH ONCE DAILY FOR ALLERGIES Oral; Duration: 30 Not-Taking M-Chavez Plus 27-1 MG Tablet 1 tablet Orally Once a day; Duration: 30 days 08/02/2023 Not-Takin g Diclofenac Sodium 75 MG Tablet Delayed Release TAKE 1 TABLET BY MOUTH ONCE DAILY AFTER A MEAL NEEDED FOR INFLAMMATORY PAIN; Duration: 30 Not-Taking Triamterene-HCTZ 37.5-25 MG Tablet TAKE 1 TABLET BY MOUTH ONCE DAILY IN THE MORNING; Duration: 30 days Not-Taking Prazosin HCl 2 MG Capsule TAKE ONE CAPSULE BY MOUTH at bedtime FOR 30 DAYS Oral; Duration: 30 days Not-Taking oxyCODONE HCl 5 MG Tablet TAKE ONE TABLET BY MOUTH EVERY 6 HOURS NEEDED FOR PAIN Oral; Duration: 7 Days Not-Taking Maxitrol 3.5-59250-7.1 Suspension 1 drop into affected eye Ophthalmic Four times a day; Duration: 7 days 12/31/2023 Not-Taking Encounters Encounter Location Date Provider Diagnosis [facility] Office [address] [address] 08/24/2024 Antoinette Purdy Plan Of Treatment Next Appt Details Provider Name:Antoinette Purdy, 10/13/2024 02:40:00 PM, [address] [facility], [place], [address], Progress Notes * Kristy SABA MDOB:1980 (44 yo F)Acc No.[id number]:08/24/2024 Progress Notes Patient: Lexis Kristy calles Provider: Cindy Purdy SUPERVISOR BUILDING MAINTENANCE :1980 A ge:44 Y S ex:Female Date:08/24/2024 Address:[facility] [id number] Subjective: * Chief Complaints: * 2 Week F/U * Medications: T akingClotrimazole-Betamethasone 1-0.05 % Cream 1 application Externally Twice a day , stop date 11/02/2024isacodyl EC 5 MG Tablet Delayed Release TAKE ONE TABLET BY MOUTH TWICE DAILY for 30 days Oral Ibuprofen 800 MG Tablet Oral Fluticasone Propionate 50 MCG/ACT Suspension 2 spray in each nostril Nasally Once a day Albuterol Sulfate HFA 108 (90 Base) MCG/ACT Aerosol Solution 2 puffs Inhalation four times a day prn ARIPiprazole 10 MG Tablet 1 tablet Oral Once a day in am Prazosin HCl 2 MG Capsule take 2 capsules BY MOUTH EVERY EVENING Oral MAGnesium-Oxide 400 (240 Mg) MG Tablet TAKE 1 TABLET BY MOUTH THREE TIMES DAILY Propranolol HCl 20 MG Tablet 1 tablet Orally three times a day hydrOXYzine Pamoate 50 MG Capsule Take 1 capsule by mouth three times daily as needed Topiramate 50 MG Tablet 1 tablet Orally Twice a day Thiamine HCl 100 MG Tablet TAKE ONE TABLET BY MOUTH DAILY FOR 30 DAYS Oral Nystatin 153318 UNIT/ML Suspension SWISH AND SPIT 4 ML IN MOUTH/ THROAT FOUR TIMES DAILY FOR 30 DAYS Pantoprazole Sodium 40 MG Tablet Delayed Release Take 1 tablet by mouth twice daily for 30 days Potassium Chloride ER 10 MEQ Tablet Extended Release 4 tabs Orally once a day Linzess 145 MCG Capsule Take 1 capsule by mouth once daily Baclofen 10 MG Tablet Take 1 tablet by mouth three times daily as needed Gabapentin 600 MG Tablet Take 1 tablet by mouth once daily Ondansetron HCl 4 MG Tablet TAKE 1 TABLET BY MOUTH EVERY 6 HOURS NEEDED FOR NAUSEA Venlafaxine HCl ER 150 MG Capsule Extended Release 24 Hour Take 2 capsules by mouth once daily Furosemide 20 MG Tablet Take 1 tablet by mouth once daily Acetaminophen-Codeine 300-15 MG Tablet TAKE 1 TABLET BY MOUTH EVERY 6 HOURS NEEDED FOR SEVERE PAIN (MUST LAST 30 DAYS) LORazepam 0.5 MG Tablet TAKE 1/2 TO 1 (ONE-HALF TO ONE) TABLET BY MOUTH ONCE DAILY NEEDED FOR ANXIETY MUST LAST 30 DAYS Taking Clotrimazole-Betamethasone 1-0.05 % Cream 1 application Externally Twice a day , stop date 11/02/2024Taking Bisacodyl EC 5 MG Tablet Delayed Release TAKE ONE TABLET BY MOUTH TWICE DAILY for 30 days Oral Taking Ibuprofen 800 MG Tablet Oral Taking Fluticasone Propionate 50 MCG/ACT Suspension 2 spray in each nostril Nasally Once a day Taking Albuterol Sulfate HFA 108 (90 Base) MCG/ACT Aerosol Solution 2 puffs Inhalation four times a day prn Taking ARIPiprazole 10 MG Tablet 1 tablet Oral Once a day in am Taking Prazosin HCl 2 MG Capsule take 2 capsules BY MOUTH EVERY EVENING Oral Taking MAGnesium-Oxide 400 (240 Mg) MG Tablet TAKE 1 TABLET BY MOUTH THREE TIMES DAILY Taking Propranolol HCl 20 MG Tablet 1 tablet Orally three times a day Taking hydrOXYzine Pamoate 50 MG Capsule Take 1 capsule by mouth three times daily as needed Taking Topiramate 50 MG Tablet 1 tablet Orally Twice a day Taking Thiamine HCl 100 MG Tablet TAKE ONE TABLET BY MOUTH DAILY FOR 30 DAYS Oral Taking Nystatin 658782 UNIT/ML Suspension SWISH AND SPIT 4 ML IN MOUTH/ THROAT FOUR TIMES DAILY FOR 30 DAYS Taking Pantoprazole Sodium 40 MG Tablet Delayed Release Take 1 tablet by mouth twice daily for 30 days Taking Potassium Chloride ER 10 MEQ Tablet Extended Release 4 tabs Orally once a day Taking Linzess 145 MCG Capsule Take 1 capsule by mouth once daily Taking Baclofen 10 MG Tablet Take 1 tablet by mouth three times daily as needed Taking Gabapentin 600 MG Tablet Take 1 tablet by mouth once daily Taking Ondansetron HCl 4 MG Tablet TAKE 1 TABLET BY MOUTH EVERY 6 HOURS NEEDED FOR NAUSEA Taking Venlafaxine HCl ER 150 MG Capsule Extended Release 24 Hour Take 2 capsules by mouth once daily Taking Furosemide 20 MG Tablet Take 1 tablet by mouth once daily Taking Acetaminophen-Codeine 300-15 MG Tablet TAKE 1 TABLET BY MOUTH EVERY 6 HOURS NEEDED FOR SEVERE PAIN (MUST LAST 30 DAYS) Taking LORazepam 0.5 MG Tablet TAKE 1/2 TO 1 (ONE-HALF TO ONE) TABLET BY MOUTH ONCE DAILY NEEDED FOR ANXIETY MUST LAST 30 DAYS Not-TakingoxyCODONE HCl 5 MG Tablet TAKE ONE TABLET BY MOUTH EVERY 6 HOURS NEEDED FOR PAIN Oral Triamterene-HCTZ 37.5-25 MG Tablet TAKE 1 TABLET BY MOUTH ONCE DAILY IN THE MORNING Prazosin HCl 2 MG Capsule TAKE ONE CAPSULE BY MOUTH at bedtime FOR 30 DAYS Oral Maxitrol 3.5-93449-4.1 Suspension 1 drop into affected eye Ophthalmic Four times a day M- Plus 27-1 MG Tablet 1 tablet Orally Once a day Lurasidone HCl 40 MG Tablet TAKE ONE TABLET BY MOUTH DAILY AT 7pm FOR 30 DAYS Oral Cetirizine HCl 10 MG Tablet TAKE 1 TABLET BY MOUTH ONCE DAILY FOR ALLERGIES Oral Diclofenac Sodium 75 MG Tablet Delayed Release TAKE 1 TABLET BY MOUTH ONCE DAILY AFTER A MEAL NEEDED FOR INFLAMMATORY PAIN Lurasidone HCl 40 MG Tablet TAKE ONE TABLET BY MOUTH DAILY AT 7pm FOR 30 DAYS Oral Omeprazole 20 MG Capsule Delayed Release Take 1 capsule by mouth once daily Vivitrol 380 MG Suspension Reconstituted Intramuscular Not-Taking oxyCODONE HCl 5 MG Tablet TAKE ONE TABLET BY MOUTH EVERY 6 HOURS NEEDED FOR PAIN Oral Not-Taking Triamterene-HCTZ 37.5-25 MG Tablet TAKE 1 TABLET BY MOUTH ONCE DAILY IN THE MORNING Not-Taking Prazosin HCl 2 MG Capsule TAKE ONE CAPSULE BY MOUTH at bedtime FOR 30 DAYS Oral Not-Taking Maxitrol 3.5-90374-6.1 Suspension 1 drop into affected eye Ophthalmic Four times a day Not-Taking M- Plus 27-1 MG Tablet 1 tablet Orally Once a day Not-Taking Lurasidone HCl 40 MG Tablet TAKE ONE TABLET BY MOUTH DAILY AT 7pm FOR 30 DAYS Oral Not-Taking Cetirizine HCl 10 MG Tablet TAKE 1 TABLET BY MOUTH ONCE DAILY FOR ALLERGIES Oral Not-Taking Diclofenac Sodium 75 MG Tablet Delayed Release TAKE 1 TABLET BY MOUTH ONCE DAILY AFTER A MEAL NEEDED FOR INFLAMMATORY PAIN Not-Taking Lurasidone HCl 40 MG Tablet TAKE ONE TABLET BY MOUTH DAILY AT 7pm FOR 30 DAYS Oral Not-Taking Omeprazole 20 MG Capsule Delayed Release Take 1 capsule by mouth once daily Not-Taking Vivitrol 380 MG Suspension Reconstituted Intramuscular Plan: * Preventive Medicine: Screenings: A s Listed Below * . L AST WELLNESS VISIT (if today's visit is wellness, use today's date): Date: 0 11/14/2023 B REAST CANCER SCREENING: Date of most recent screenin 11/21/2023 Normal repeat in 1 year. C ERVICAL CANCER SCREENING: Cancer screening cervical (age 21-64)?Annual pap smear Date of the last PAP Smear : 0 04/13/2022 Is s/p hysterectomy Provider recommendation: i s s/p hysterectomy C OLORECTAL CANCER SCREENING: Colorectal screening: w as done a year ago Colonoscopy at [facility] D EPRESSION SCREENING: Date of most recent screenin 11/14/2023 The patient denies: l ack of interest in things that were enjoyable, thoughts of harming him/herself, thought of harming someone else, trouble concentrating, weight gain, weight loss Suicidal ideation: h as never been expressed/considered Homicidal ideation: h as never been expressed/considered PHQ inventory: w ith score of 0-4 F ALL RISK SCREENING Screening: O ne fall with injury in the past year F UNCTIONAL CAPACITY: Patient mobility: i s normal The patient maintains ability to: b athe herself, feed herself, get dressed, groom herself, lift arms above head, lift legs, move in the house/home, use the toilet, walk Independent self care: i s still possible V ACCINATIONS: Completed vaccinations include: C ovid, Moderna x2 Influenza vaccinations: o ccur routinely Flu vaccine on 11/29/2023 at [facility] Billing Information: * Procedure Codes: Care Plan Details* * Electronic signature of Flor Purdy APN on 10/11/2024 at 09:18 PM CDT Sign off status: Pending * Provider: Cindy Purdy SUPERVISOR BUILDING MAINTENANCE Date: 0 08/24/2024 Generated for Ximena rasheed/Emmanuel/Rajinder on: 0 10/11/2024 09:18 PM CDT
--- OUTSIDE RECORDS SUMMARY | 2024-09-08 06:20 | XMS_ITS ---
Author Organization [facility] Address [address] [place] [address] Care Team Providers Care Visual Education Director Name Role Phone Lauren Purdy Primary Care Provider [phone] LAUREN PURDY Unavailable Unavailable REASON FOR VISIT 2 Week F/U Encounters Encounter Location Date Provider Diagnosis [facility] Office [address] [place] [address] 09/08/2024 Lauren Purdy Plan Of Treatment Next Appt Details Provider Name:Lauren Purdy, 10/13/2024 02:40:00 PM, [address], [address], [place], [address], Progress Notes * Kristy SABA MDOB:1980 (44 yo F)Acc No.[id number]:09/08/2024 Progress Notes Patient: Lexis Kristy calles Provider: Cindy Purdy TECHNOLOGY INTERNSHIP :1980 A ge:44 Y S ex:Female Date:09/08/2024 Address:[address], [place] Subjective: * Chief Complaints: * 2 Week F/U Plan: * Preventive Medicine: Screenings: A s [...] as done a year ago Colonoscopy at [facility] D EPRESSION SCREENING: Date of most recent [...] ccur routinely Flu vaccine on 11/29/2023 at [facility] Billing Information: * Procedure Codes: Care Plan Details* * Electronic signature of Flor Purdy APN on 10/11/2024 at 09:18 PM CDT Sign off status: Pending * Provider: Cindy Purdy TECHNOLOGY INTERNSHIP Date: 0 09/08/2024 Generated for Ximena rasheed/Emmanuel/Rajinder on: 0 10/11/2024 09:18 PM CDT
--- OUTSIDE RECORDS SUMMARY | 2024-09-29 06:40 | XMS_ITS ---
Author Organization [facility] Address [address] [place] [address] Care Team Providers Care College Athlete Name Role Phone Lauren Purdy Primary Care Provider [phone] LAUREN PURDY Unavailable Unavailable REASON FOR VISIT f/u Encounters Encounter Location Date Provider Diagnosis [facility] Office [address] [place] [address] 09/29/2024 Lauren Purdy Plan Of Treatment Next Appt Details Provider Name:Lauren Purdy, 10/13/2024 02:40:00 PM, [address], [address], [place], [address], Progress Notes * Kristy SABA MDOB:1980 (44 yo F)Acc No.[id number]:09/29/2024 Progress Notes Patient: Lexis Kristy calles Provider: Cindy Purdy APRN :1980 A ge:44 Y S ex:Female Date:09/29/2024 Address:[address], [place] Subjective: * Chief Complaints: * F /u Plan: * Preventive Medicine: Screenings: A s [...] s s/p hysterectomy C OLORECTAL CANCER SCREENING: Date of last colonoscopy 1 Colorectal screening: w as done a year [...] ccur routinely Flu vaccine on 11/29/2023 at [facility] Billing Information: * Procedure Codes: Care Plan Details* * Electronic signature of Flor Purdy APN on 10/11/2024 at 09:17 PM CDT Sign off status: Pending * Provider: Cindy Purdy CITY DISTRIBUTION CLERK Date: 0 09/29/2024 Generated for Ximena rasheed/Emmanuel/Rajinder on: 0 10/11/2024 09:17 PM CDT
--- OUTSIDE RECORDS SUMMARY | 2024-10-11 21:17 | XMS_ITS | Clinical Summary ---
Author Organization [employer] Address [address] [facility] Attn: [place] [address] Care Team Providers Care Postal Inspector Name Role Phone Non-Staff, Physician Primary Care Provider Unava ilable Allergies Active Allergy Reactions Criticality Noted Date Comments Atropine Rash Low 01/06/2016 Citalopram Rash Low 01/06/2016 Duloxetine Rash Low 01/06/2016 Gluten Nausea and Vomiting Low 01/06/2016 Lactase Other (See Comments) 01/06/2016 Distention, pain Latex Rash Medium 06/16/2010 Information from scheduling fax and patient/office verification Monosodium Glutamate Anaphylaxis High 11/29/2008 Paroxetine Hcl Nausea and Vomiting Low 01/06/2016 Soy Anaphylaxis High 11/29/2008 Medications prazosin (MINIPRESS) 1 mg capsuleIndicati ons:AVRIL (generalized anxiety disorder),PTSD (post-traumatic stress disorder) Take 3 Capsule (3 mg) by mouth daily at bedtime. 90 Capsule 1 6 Active busPIRone (BUSPAR) 15 mg Tablet Take 1 Tablet (15 mg) by mouth 3 times daily. 90 Tablet 1 6 Active fluticasone propionate (FLONASE) 50 mcg/spray [place], Suspension nasal inhalerIndicati ons:Seasonal allergic rhinitis due to other allergic trigger Administer 2 Sprays in each nostril daily. 16 Gram 1 6 Active raNITIdine (ZANTAC) 150 mg tablet Take 150 mg by mouth 2 times daily. 6 Active potassium chloride (KLOR-CON) 10 mEq Extended Release tablet Take 10 mEq by mouth daily with breakfast. 6 Active Active Problems Problem Noted Date Diagnosed Date Anxiety hyperventilation 09/11/2024 Hyperkalemia 09/11/2024 Hypomagnesemia 09/11/2024 PTSD (post-traumatic stress disorder) 01/12/2016 AVRIL (generalized anxiety disorder) 01/12/2016 Seasonal allergic rhinitis 01/12/2016 Cigarette dependence 01/06/2016 Obesity 09/09/2007 Polycystic ovaries 09/09/2007 Resolved Problems Problem Noted Date Diagnosed Date Resolved Date Pelvic pain in female 06/15/20102010 Menopausal menorrhagia 12/02/200808/17 Encounters Date Type Department Care Team Description 09/15/2024 External Device Data [facility] ABSTRACTION Provider, Abstract 09/15/2024 External Device Data [facility] Provider, Abstract 09/11/2024 10:08 AM CDT - 09/11/2024 1:03 PM CDT Emergency [facility] Emergency Medicine [address] [facility] [address] [place] [address] Inna Lowry MD Anxiety hyperventilation (Primary Dx); Hyperkalemia; Hypomagnesemia Discharge Disposition: Home or Self Care 09/02/2024 External Device Data [facility] ABSTRACTION Provider, Abstract 08/25/2024 External Device Data [facility]STRA[facility] Provider, Abstract 08/25/2024 External Device Data [facility]STRACTION Provider, Abstract 08/25/2024 External Device Data [facility]STRA[facility] Provider, Abstract 08/22/2024 4:31 PM CDT - 08/22/2024 6:47 PM CDT [facility] Emergency Medicine [address] [facility] [address] [place] [address] Jerry Yin DO Acute pain of left knee (Primary Dx) Discharge Disposition: Home or Self Care 08/22/2024 Travel from Last 3 Months Family History Medical History Relation Name Comments Hypertension Mother Relation Name Status Comments Mother Social History Tobacco Use Types Packs/Day Years Used Date Smoking Tobacco: Every Day Cigarettes Smokeless Tobacco: Never Comments:Quit smokin/4 p ack weekly Alcohol Use Standard Drinks/Week Comments No 0 (1 standard drink = 0.6 oz pur e alcohol) Comments No Sex and Gender Information Value Date Recorded Sex Assigned at Not on file Legal Sex Female 6:43 AM 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 Gender Identity Not on file Sexual Orientation Not on file Last Filed Vital Signs Vital Sign Reading Time Taken Comments Blood Pressure 115/72 09/11/2024 12:45 PM CDT Pulse 65 09/11/2024 12:45 PM CDT Temperature 37 C (98.6 F) 09/11/2024 10:11 AM CDT Respiratory Rate 15 09/11/2024 12:4 5 PM CDT Oxygen Saturation 100% 09/11/2024 12: 45 PM CDT Inhaled Oxygen Concentration - - Weight 70.7 kg (155 lb 12.8 oz) 025 10:11 AM CDT Height 167.6 cm (5' 6 ) 09/11/2024 10:1 1 AM CDT Body Mass Index 25.15 09/11/2024 10:11 AM CDT Plan of Treatment Health Maintenance Due Date Last Done Comments Pre-Diabetes and Diabetes Screening 1980 HPV VACCINES (1 - 3-dose series) 02/25/1995 DTAP/TDAP/TD VACCINES (1 - Tdap) 02/25/1999 HEPATITIS B VACCINES (1 of 3 - 19+ 3-dose series) 02/15 BREAST CANCER SCREENING 2020 INFLUENZA VACCINE (#1) 2024 Procedures Procedure Name Priority Date/Time Associated Diagnosis Comments BRAIN NATRIURETIC PEPTIDE, BNP OR PROBNP Stat 09/11/2024 10:54 AM CDT MAGNESIUM LEVEL Stat 09/11/2024 10:54 AM CDT COMPREHENSIVE METABOLIC PANEL Stat 09/11/2024 10:54 AM CDT CBC WITH DIFFERENTIAL Stat 09/11/2024 10:54 AM CDT XR KNEE 3 VW LEFT Stat 08/22/2024 5:5 1 PM CDT from Last 3 Months Results * (ABNORMAL) CBC WITH DIFFERENTIAL (09/11/2024 10:54 AM CDT) WBC 11.4(H) 4.0 - 10.0 K/uL 09/11/2024 11:11 AM CDT [facility] RBC 4.34 3.93 - 5.22 M/uL 09/11/2024 11:11 AM [facility] HEMOGLOBIN 13.9 11.2 - 15.7 g/dL 09/11/2024 11:11 AM [facility] HEMATOCRIT 40.2 34.1 - 44.9 % 09/11/2024 11:11 AM [facility] MCV 92.6 79.4 - 94.8 fL 09/11/2024 11:11 AM [facility] MCH 32.0 25.6 - 32.2 pg 09/11/2024 11:11 AM [facility] MCHC 34.6 32.2 - 35.5 g/dL 09/11/2024 11:11 AM [facility] RDW 14.1 11.0 - 14.5 % 09/11/2024 11:11 AM [facility] RDW-STDEV 48.0 36.9 - 56.9 fL 09/11/2024 11:11 AM [facility] PLATELETS 326 163 - 337 K/uL 09/11/2024 11:11 AM [facility] MPV 10.6 10.0 - 14.8 fL 09/11/2024 11:11 AM [facility] NEUTROPHILS 77(H) 34 - 71 % 09/11/2024 11:11 AM [facility] LYMPHOCYTES 16(L) 19 - 52 % 09/11/2024 11:11 AM [facility] MONOCYTES 5 5 - 13 % 09/11/2024 11:11 AM [facility] EOSINOPHILS 0(L) 1 - 6 % 09/11/2024 11:11 AM [facility] BASOPHILS 0 0 - 1 % 09/11/2024 11:11 AM [facility] IMMATURE GRANULOCYTES 1 % 09/11/2024 11:11 AM [facility] NEUTROPHIL ABSOLUTE 8.80(H) 1.56 - 6.13 K/uL 09/11/2024 11:11 AM [facility] LYMPHOCYTE ABSOLUTE 1.87 1.20 - 3.40 K/uL 09/11/2024 11:11 AM CDT [facility] MONOCYTE ABSOLUTE 0.56(H) 0.24 - 0.36 K/uL 09/11/2024 11:11 AM CDT [facility] EOSINOPHIL ABSOLUTE 0.04 0.04 - 0.36 K/uL 09/11/2024 11:11 AM CDT [facility] BASOPHILS ABSOLUTE 0.04 0.01 - 0.08 K/uL 09/11/2024 11:11 AM CDT [facility] IMMATURE GRANULOCYTES ABSOLUTE 0.07 K/uL 09/11/2024 11:11 AM CDT [facility] Blood Venipuncture / Unknown 09/11/2024 10:54 AM CDT 09/11/2024 11:07 AM CDT us Inna Lowry MD HEMATOLOGY ORDERABLES Final Res ult [facility] # [id number] [address] [place] [id number] * BRAIN NATRIURETIC PEPTIDE, BNP OR PROBNP (09/11/2024 10:54 AM CDT) PROBNP, N TERMINAL <36 0 - 125 pg/mL 09/11/2024 11:26 AM T [facility] Comment: INTERPRETIVE COMMENT based on diagnosis: Diagnostic NT pro-BNP cutoffs for Heart Failure in the absence of renal failure is suggested for the following ranges <75 years: <125 pg/mL >=75 years: <450 pg/mL Exclusionary rule out cut-point for Acute Decompensated Heart Failure(ADHF) All ages: <300 pg/mL Diagnostic NT pro-BNP cutoffs for Acute Decompensated Heart Failure(ADHF) in the absence of renal failure is suggested for the following ages <50 years: > 450 pg/mL 50-75 years: > 900 pg/mL >75 years: >1800 pg/mL Blood Venipuncture / Unknown 09/11/2024 10:54 AM CDT 09/11/2024 11:07 AM CDT us Inna Lowry MD CHEMISTRY ORDERABLES Final Resu lt Performing Organization Address City/[facility]/ZIP Co de Phone Number [facility] CLIA # [id number] [address] [place] [phone] * MAGNESIUM LEVEL (09/11/2024 10:54 AM CDT) MAGNESIUM 1.6 1.6 - 2.6 mg/dL 09/11/2024 11:26 AM CDT [facility] Blood Venipuncture / Unknown 09/11/2024 10:54 AM CDT 09/11/2024 11:07 AM CDT us Inna Lowry MD CHEMISTRY ORDERABLES Final Resu lt Performing Organization Address [facility] Co de Phone Number [facility] CLIA # [id number] [address] [place] [id number] * (ABNORMAL) COMPREHENSIVE METABOLIC PANEL (09/11/2024 10:54 AM CDT) SODIUM 137 136 - 145 mmol/L 09/11/2024 11:26 AM [facility] POTASSIUM 5.2(H) 3.5 - 5.1 mmol/L 09/11/2024 11:26 AM [facility] CHLORIDE 104 98 - 107 mmol/L 09/11/2024 11:26 AM [facility] CO2 17(L) 22 - 29 mmol/L 09/11/2024 11:26 AM [facility] CALCIUM 9.7 8.6 - 10.0 mg/dL 09/11/2024 11:26 AM [facility] BUN 14 6 - 20 mg/dL 09/11/2024 11:26 AM [facility] CREATININE 0.54 0.51 - 0.95 mg/dL 09/11/2024 11:26 AM [facility] GLUCOSE 101(H) 74 - 99 mg/dL 09/11/2024 11:26 AM [facility] TOTAL PROTEIN 7.1 6.6 - 8.7 g/dL 09/11/2024 11:26 AM [facility] ALBUMIN 4.5 3.5 - 5.2 g/dL 09/11/2024 11:26 AM [facility] BILIRUBIN TOTAL 1.1 0.0 - 1.2 mg/dL 09/11/2024 11:26 AM [facility] ALKALINE PHOSPHATASE 114(H) 35 - 104 U/L 09/11/2024 11:26 AM [facility] AST 46(H) 0 - 35 U/L 09/11/2024 11:26 AM [facility] Comment:Hemolysis present. R esult may be falsely elevated. ALT 14 0 - 35 U/L 09/11/2024 11:26 AM [facility] GFR >60 >=60 mL/min/1.7 3 sq meter 09/11/2024 11:26 AM [facility] Comment:eGFR calculated with 2020 CKD-EPI equation. Vegetarian diet, extremely high or low muscle mass, and may affect results. Cystatin C with Glomerular Filtration Rate is a suitable alternative for these patients. ANION GAP 16 5 - 20 mmol/L 09/11/2024 11:26 AM [facility] Blood Venipuncture / Unknown 09/11/2024 10:54 AM CDT 09/11/2024 11:07 AM CDT us Inna Lowry MD CHEMISTRY ORDERABLES Final Resu lt [facility] CLIA # [id number] [address] [place] [id number] * XR KNEE 3 VW LEFT (08/22/2024 5:51 PM CDT) Anatomical Region Laterality Modality Lower Extremity Computed Radiogr aphy 08/22/2024 5:51 PM CDT Impressions 08/22/2024 6:13 PM CDT Impression: No acute fracture. Narrative 08/22/2024 6:13 PM CDT Exam: XR KNEE 3 VW LEFT Date/Time of Exam: 08/22/2024 5:51 PM Reason For Exam: Injury Diagnosis: See Reason for Exam Three views of the left knee are submitted. No acute fracture, dislocation or other bony abnormality is seen. Procedure Note Roland Winters MD - 08/22/2024 Exam: XR KNEE 3 VW LEFT Date/Time of Exam: 08/22/2024 5:51 PM Reason For Exam: Injury Diagnosis: See Reason for Exam Three views of the left knee are submitted. No acute fracture, dislocation or other bony abnormality is seen. Impression: No acute fracture. Jerry Yin DO DIAGNOSTIC IMAGING ORDERABLES F inal Result from Last 3 Months Insurance [facility] DUAL COMPLETE [facility] [id number] [facility] PLAN [facility] [id number] Care Teams Postal Inspector Relationship Specialty Start Date End Date Non-Staff, Physician NO ADDRESS ON FILE PCP - General 11/15/17
--- OUTSIDE RECORDS SUMMARY | 2024-10-11 21:18 | XMS_ITS | Clinical Summary ---
Author Organization [facility] Address [address] [place] [address] Phone Care Team Providers Care Information Systems Security Officer Name Role Phone Antoinette Purdy GROUT PUMP OPERATOR Primary Care Provider [phone] Social History Tobacco Use Types Packs/Day Years Used Date Smoking Tobacco: Never Assessed Comments Unknown Sex and Gender Information Value Date Recorded Sex Assigned at Not on file Legal Sex Female 11:16 AM CDT Gender Identity Not on file Sexual Orientation Not on file Plan of Treatment Health Maintenance Due Date Last Done Comments Annual Depression Screening 02/25/1991 Hepatitis C Antibody Screen 02/25/1998 DTap/Tdap/Td Vaccines (1 - Tdap) 02/25/1999 Cervical Cancer Screening 02/25/2001 Mammogram 2020 Medicare Subsequent AWV [id number] 03/18/2023 Influenza Vaccine 11/16/2024 02/10/[address] [facility] DUAL COMPLETE [id number] Care Teams Information Systems Security Officer Relationship Specialty Start Date End Date Antoinette Purdy NP [address] [facility] [place] [address] PCP - General Nurse Practitioner 07/24/23
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
[2024-10-11 21:25] VITALS: BP 116/67; PULSE 66; RESP 16; TEMP 36.5; O2SAT 92; BMI 25.0
--- NOTE | 2024-10-11 21:43 | XRR_ITS ---
PROCEDURE INFORMATION: Exam: XR Left Knee Exam date and time: 10/11/2024 9:44 PM Age: 44 years old Clinical indication: Injury or trauma; Fall; Blunt trauma; Patient tripped and fell directly onto gravel with both knees. C/O bilateral knee pain left worse than right. Abrasion to anterior left knee. ; Additional info: Fall and pain TECHNIQUE: Imaging protocol: Radiologic exam of the left knee. Views: 3 views. COMPARISON: No relevant prior studies available. FINDINGS: Bones/joints: Normal. Soft tissues: Normal. XR/XR knee LT 3V* [id number] IMPRESSION: No acute findings.
--- NOTE | 2024-10-11 21:43 | XRR_ITS ---
PROCEDURE INFORMATION: Exam: XR Right Knee Exam date and time: 10/11/2024 9:48 PM Age: 44 years old Clinical indication: Injury or trauma; Fall; Blunt trauma; Patient tripped and fell directly onto gravel with both knees. C/O bilateral knee pain left worse than right. Abrasion to anterior left knee. ; Additional info: Fall and pain TECHNIQUE: Imaging protocol: Radiologic exam of the right knee. Views: 3 views. COMPARISON: CR XR tibia fibula RT 2V [id number] 11/24/2020 12:08 PM FINDINGS: Bones/joints: Normal. Soft tissues: Normal. XR/XR knee RT 3V* [id number] IMPRESSION: No acute findings.
--- NOTE | 2024-10-11 22:06 | W.ED.EXTPRO ---
HPI - Extremity Problem General: Chief complaint: Extremity Injury, Lower Stated complaint: Fell at work, Both knee pain, LT swelling Time Seen by Provider: 10/11/24 21:35 History of Present Illness: Kristy Saba presents to the emergency department after a fall outside a restaurant. The patient reports tripping over a wooden box-like structure, approximately 2.5 feet tall, that covers a spigot or gas line. She fell from a height of about 2 feet, primarily impacting her left knee, with minor involvement of the right knee. The patient describes significant pain in her left knee, characterizing it as a lot of pain and like waves. She mentions that the left knee took the majority of the impact. The right knee was also affected but to a lesser extent, with the patient noting, I just got a little bit on that one here. The patient has not taken any pain medication prior to her arrival at the emergency department. The fall occurred either today or tonight, though the exact timing is unclear from the patient's account. The patient expresses difficulty and uncertainty about the situation, stating, This has been difficult for me and I'm not sure what I'm doing here. Related Data Home Medications ?Medication ?Instructions ?Recorded ?Confirmed baclofen 10 mg tablet 10 mg PO TID 12/26/21 08/13/24 albuterol sulfate 90 mcg/actuation 2 inh inhalation Q6H PRN Shortness 03/16/23 08/13/24 aerosol inhaler Of Breath furosemide 20 mg tablet 20 mg PO BID PRN Edema 07/14/23 08/13/24 lorazepam 0.5 mg tablet 0.5 mg PO TID PRN Anxiety 07/14/23 08/13/24 hydrocortisone 2.5 % topical cream 1 applic topical DAILY PRN pain 02/26/24 08/13/24 with perineal applicator and inflamation (Procto-Med HC) acetaminophen 300 mg-codeine 15 mg 1 tab PO Q6H PRN Pain 07/06/24 08/13/24 tablet gabapentin 600 mg tablet 600 mg PO DAILY nerve pain 07/06/24 08/13/24 hydroxyzine pamoate 50 mg capsule 50 mg PO TID PRN bp 07/06/24 08/13/24 magnesium oxide 400 mg (241.3 mg 400 mg PO TID 04/21/25 05/29/25 magnesium) tablet topiramate 50 mg tablet 50 mg PO DAILY 07/06/24 08/13/24 linaclotide 145 mcg capsule 145 mcg PO DAILY 07/16/24 08/13/24 (Linzess) ondansetron HCl 4 mg tablet 4 mg PO Q6H PRN Nausea And Vomiting 07/16/24 08/13/24 pantoprazole 40 mg tablet,delayed 40 - 80 mg PO DAILY PRN Acid Reflux 07/16/24 08/13/24 release (Protonix) triamterene 37.5 1 tab PO QAM 07/29/24 08/13/24 mg-hydrochlorothiazide 25 mg tablet Previous Rx's ?Medication ?Instructions ?Recorded aripiprazole 10 mg tablet 10 mg PO DAILY 30 days #30 tabs 03/04/24 propranolol 20 mg tablet 20 mg PO TID 30 days #90 tabs 03/04/24 venlafaxine 150 mg 300 mg (2 x 150 mg) PO DAILY 30 03/04/24 capsule,extended release 24 hr days #60 caps potassium chloride 10 mEq 10 meq PO BID #60 tabs 07/18/24 tablet,extended release potassium chloride 20 mEq 20 meq PO BID #14 tabs 07/29/24 tablet,extended release (K-Tab) oxycodone 5 mg tablet 5 mg PO Q6H PRN pain 15 days #30 08/13/24 tabs Allergies Allergy/AdvReac Type Severity Reaction Status Date / Time monosodium glutamate Allergy Severe ALGY-Anaphy Verified 08/13/24 09:25 laxis trazodone Allergy Severe ADR-Muscle Verified 08/13/24 09:25 Pain duloxetine Allergy Intermediate Break out/ Verified 08/13/24 09:25 Hives gluten Allergy Intermediate Break out/ Verified 08/13/24 09:25 Hives lactase (From Dairy Aid) Allergy Intermediate Break out/ Verified 08/13/24 09:25 Hives paroxetine Allergy Intermediate Break out/ Verified 08/13/24 09:25 Hives soy Allergy Intermediate Break out/ Verified 08/13/24 09:25 Hives lactose Allergy ADR-Diarrhe Verified 08/13/24 09:25 a scopolamine (From Allergy ALGY-Rash Verified 08/13/24 09:25 Transderm-Scop) atropine AdvReac Intermediate Break out Verified 08/13/24 09:25 /Hives citalopram AdvReac Intermediate Hives Verified 08/13/24 09:25 [facility] ED [facility]: Medical History (Updated 10/11/24 @ 22:36 by Polo Copeland DO) Acute post-traumatic stress disorder Bleeding per rectum Cannabis dependence, episodic use Alcohol abuse, episodic drinking behavior Obesity Sleep apnea Irritable bowel syndrome 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 Grandmother , COPD COPD (chronic obstructive pulmonary disease) Grandfather , CHF Congestive heart failure (CHF) Denies family history of Anesthesia complication Bleeding disorder Social History Smoking and tobacco/nicotine status: current every day tobacco/nicotine user (1/2 ppd) cigarettes Packs smoked per day: 0.5 Second hand smoke exposure: Yes Alcohol intake: current Alcohol intake frequency: few times a month Alcohol type: wine Substance/Drug Use: never Adopted: No Caregiver/support person: No Lives independently: Yes Household members: children Housing: Manufactured/Mobile home Marital status: Legally Number of children: 2 Number of grandchildren: 0 Highest education level completed: Associate Degree: Occupational, Technical, Vocational Program Education level details: Business service: No Current occupational status: disabled Current occupational exposures/hazards: No Pets and animals: Yes Pets & animals: cat(s), dog(s) and turtle(s) Leisure activites: music, reading and other Leisure activities details: clean Sexually active: Yes Are you practicing safe sex: Yes Do you think of yourself as: Straight/Heterosexual Current gender identity: Female Kristy/Anabaptist: [employer] Special kristy needs: No Agree to transfusion: Yes Female Reproductive History: Para: 2 Spontaneous abortions: No Physical Exam Const: COMMON NORMALS: no acute distress, patient oriented x3, healthy appearing, alert and well nourished HENMT: COMMON NORMALS: normocephalic HEAD & SCALP: normocephalic Eye: COMMON NORMALS: EOMs intact bilaterally Neck/C-Spine: COMMON NORMALS: full ROM and supple Resp: COMMON NORMALS: normal respiratory effort, No retractions and clear to auscultation bilaterally AUSCULTATION: clear to auscultation bilaterally Cardio: COMMON NORMALS: regular rate, regular rhythm, No gallops present (Cardio) and No murmurs present (Cardio) RATE: regular rate RHYTHM: regular rhythm GI: COMMON NORMALS: Soft to palpation and non-tender PALPATION: Yes Soft to palpation Extremity: GENERAL: Yes normal exam except as noted RIGHT LOWER EXTREMITY: Yes knee joint Right knee: Yes inspection, Yes palpation, Yes ROM and Yes neurovascular exam LEFT LOWER EXTREMITY: Yes knee joint Left knee: Yes inspection (Ecchymosis over the anterior portion of the leg just inferior to the patell), Yes palpation (Diffuse tenderness to palpation), Yes ROM, Yes neurovascular exam and Yes special tests Left knee special tests: Posterior sag (gravity drawer) test: Negative, Anterior Girish test: Negative, Posterior Girish test: Negative, Valgus stress test: Negative and Varus stress test: Negative Neuro: COMMON NORMALS: patient oriented x3 SENSORIUM/ORIENTATION: Yes alert Skin: COMMON NORMALS: no rashes or lesions noted GENERAL SKIN EXAM: no rashes or lesions noted Course Vital Signs: Vital signs: Vital Signs Temperature 97.7 F 10/11/24 21:25 Pulse Rate 66 10/11/24 21:25 Respiratory Rate 16 10/11/24 21:25 Blood Pressure 116/67 10/11/24 21:25 Pulse Oximetry 92 10/11/24 21:25 Oxygen Delivery Me thod Room Air 10/11/24 21:25 MDM - Extremity (Nontraumatic) Medical Decision Making Left knee injury: Patient reports falling from a height of approximately 2 feet after tripping over a wooden box-like structure outside a restaurant. The left knee took the majority of the impact and is causing significant pain. Physical examination revealed bruising on the inside of the left knee. Ligament testing was performed and suggested intact ligaments, though there is a possibility of a sprain. There is concern for potential meniscal damage, though this cannot be fully evaluated in the emergency department setting. - X-rays negative fracture - Administer IM Toradol - Patient educated on possibility of soft tissue injury, including potential meniscal damage Right knee minor injury: Patient reports minor involvement of the right knee during the fall, though it appears to be less severe than the left knee injury. - No specific interventions mentioned for the right knee Lab Data Radiology Impressions Knee X-Ray 10/11/24 21:43 IMPRESSION: No acute findings. All radiology interpretation(s) finalized by discharge Discharge Plan Discharge Patient Disposition: Home Clinical Impression: Acute bilateral knee pain Condition: Stable Prescriptions: No Action baclofen 10 mg tablet 10 mg PO TID hydroxyzine pamoate 50 mg capsule 50 mg PO TID PRN (Reason: bp) magnesium oxide 400 mg (241.3 mg magnesium) tablet 400 mg PO TID acetaminophen-codeine 300-15 mg tablet 1 tab PO Q6H PRN (Reason: Pain) gabapentin 600 mg tablet 600 mg PO DAILY topiramate 50 mg tablet 50 mg PO DAILY oxycodone 5 mg tablet 5 mg PO Q6H PRN (Reason: pain) 15 Days Qty: 30 0RF albuterol sulfate 90 mcg/actuation HFA aerosol inhaler 2 inh INHALATION Q6H PRN (Reason: Shortness Of Breath) lorazepam 0.5 mg tablet 0.5 mg PO TID PRN (Reason: Anxiety) furosemide 20 mg tablet 20 mg PO BID PRN (Reason: Edema) ondansetron HCl 4 mg tablet 4 mg PO Q6H PRN (Reason: Nausea And Vomiting) Linzess 145 mcg capsule 145 mcg PO DAILY pantoprazole [Protonix] 40 mg tablet,delayed release (DR/EC) 40 - 80 mg PO DAILY PRN (Reason: Acid Reflux) potassium chloride 10 mEq tablet extended release 10 meq PO BID Qty: 60 0RF potassium chloride [K-Tab] 20 mEq tablet extended release 20 meq PO BID Qty: 14 0RF triamterene-hydrochlorothiazid 37.5-25 mg tablet 1 tab PO QAM hydrocortisone [Procto-Med HC] 2.5 % cream with perineal applicator 1 applic topical DAILY PRN (Reason: pain and inflamation) propranolol 20 mg Tablet 20 mg PO TID 30 Days Qty: 90 1RF aripiprazole 10 mg Tablet 10 mg PO DAILY 30 Days Qty: 30 1RF venlafaxine 150 mg Capsule,Extended Release 24hr 300 mg PO DAILY 30 Days Qty: 60 1RF Discharge Orders: Discharge ED (Routine); Ordered 10/11/24 Ordered By: Polo Copeland Referrals: Antoinette Purdy APN [Primary Care Provider, Nurse Practitioner] Discharge Diet: Advance as tolerated Discharge Activity: Increase activity as tolerated Patient Instructions: Opioid Safety, Pain Management, Patient Portal & Cuong Instructions Activity Restrictions/Additional Instructions: Follow-up with your primary care doctor for persistent knee pain. Return to the emergency department with any new or worsening pain. Print Language: Italian Coding Level of Care Code ED Etcher Electrolytic for Cristhian Lu
[2024-10-11 23:05] VITALS: BP 104/70; PULSE 67; RESP 16; O2SAT 100
== END 2024-10-11 23:06 | disposition home or self-care (01) ==
PROVIDERS: Emergency Provider General Practice; PCP Nurse Practitioner Family
DX: M25.562 Pain in left knee (principal); M25.561 Pain in right knee; F17.210 Nicotine dependence, cigarettes, uncomplicated
CPT/HCPCS: 73562; 96372; 99284; J1885

== ENCOUNTER 2024-12-25 11:19 | Inpatient (IN) | payer OTHER, MEDICAID, SELFPAY ==
[2024-07-06 11:01] VITALS: BP 111/73; BMI 27.4
--- NOTE | 2024-12-25 11:26 | ECG_ITS ---
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
[2024-12-25 11:30] VITALS: BP 105/70; PULSE 80; RESP 23; TEMP 36.6; O2SAT 100
--- NOTE | 2024-12-25 11:31 | W.ED.PSYCHS ---
Documented by User: ANU Lopez 12/25/24 12:46 HPI - Psych General: Chief Complaint: Psychiatric Symptoms Stated Complaint: mhe Time Seen by Provider: 12/25/24 11:23 History of Present Illness: Patient is 44-year-old female with history of anxiety presents to the emergency room with acute anxiety and suicidal ideations. She will not give a plan. She is tearful. She has a lot of social issues on her plate. Her is apparently going to long term long-term for murder. She has been sober from alcohol for 2 months, and had 8 shots this morning. Daughter brought her to the emergency room with fear of suicide. Patient did admit she was suicide to triage. She will not further discuss this with myself. She does agree to take something for anxiety. She is wailing crying in the room. Selected Entries 12/25/24 11:30 ED Triage Comment patients daughter reports patient dugan s been sober x 2 m onths and states t his morning she dr ank approx 8 shots . patient presents crying and statin g she is suicidal and wants to be ad mitted to get away from her who is a murderer. patient admits to being intoxicated . patient has mome nts of being uncoo perative and verba lized fuck you t owards staff. geovanni ent is alert and o riented but appear s highly intoxicat ed. Associated symptoms: Reports depression and suicidal ideation Related Data Home Medications ?Medication ?Instructions ?Recorded ?Confirmed baclofen 10 mg tablet 10 mg PO TID 12/26/21 11/04/24 albuterol sulfate 90 mcg/actuation 2 inh inhalation Q6H PRN Shortness 03/16/23 11/04/24 aerosol inhaler Of Breath furosemide 20 mg tablet 20 mg PO BID PRN Edema 07/14/23 11/04/24 lorazepam 0.5 mg tablet 0.5 mg PO TID PRN Anxiety 07/14/23 11/04/24 hydrocortisone 2.5 % topical cream 1 applic topical DAILY PRN pain 02/26/24 11/04/24 with perineal applicator and inflamation (Procto-Med HC) acetaminophen 300 mg-codeine 15 mg 1 tab PO Q6H PRN Pain 07/06/24 11/04/24 tablet gabapentin 600 mg tablet 600 mg PO DAILY nerve pain 07/06/24 11/04/24 hydroxyzine pamoate 50 mg capsule 50 mg PO TID PRN bp 07/06/24 11/04/24 magnesium oxide 400 mg (241.3 mg 400 mg PO TID 07/06/24 11/04/24 magnesium) tablet topiramate 50 mg tablet 50 mg PO DAILY 07/06/24 11/04/24 linaclotide 145 mcg capsule 145 mcg PO DAILY 07/16/24 11/04/24 (Linzess) ondansetron HCl 4 mg tablet 4 mg PO Q6H PRN Nausea And Vomiting 07/16/24 11/04/24 pantoprazole 40 mg tablet,delayed 40 - 80 mg PO DAILY PRN Acid Reflux 07/16/24 11/04/24 release (Protonix) triamterene 37.5 1 tab PO QAM 07/29/24 11/04/24 mg-hydrochlorothiazide 25 mg tablet Previous Rx's ?Medication ?Instructions ?Recorded aripiprazole 10 mg tablet 10 mg PO DAILY 30 days #30 tabs 03/04/24 propranolol 20 mg tablet 20 mg PO TID 30 days #90 tabs 03/04/24 venlafaxine 150 mg 300 mg (2 x 150 mg) PO DAILY 30 03/04/24 capsule,extended release 24 hr days #60 caps potassium chloride 10 mEq 10 meq PO BID #60 tabs 07/18/24 tablet,extended release potassium chloride 20 mEq 20 meq PO BID #14 tabs 07/29/24 tablet,extended release (K-Tab) oxycodone 5 mg tablet 5 mg PO Q6H PRN pain 15 days #30 08/13/24 tabs Allergies Allergy/AdvReac Type Severity Reaction Status Date / Time monosodium glutamate Allergy Severe ALGY-Anaphy Verified 11/04/24 07:24 laxis trazodone Allergy Severe ADR-Muscle Verified 11/04/24 07:24 Pain duloxetine Allergy Intermediate Break out/ Verified 11/04/24 07:24 Hives gluten Allergy Intermediate Break out/ Verified 11/04/24 07:24 Hives lactase (From Dairy Aid) Allergy Intermediate Break out/ Verified 11/04/24 07:24 Hives paroxetine Allergy Intermediate Break out/ Verified 11/04/24 07:24 Hives soy Allergy Intermediate Break out/ Verified 11/04/24 07:24 Hives lactose Allergy ADR-Diarrhe Verified 11/04/24 07:24 a scopolamine (From Allergy ALGY-Rash Verified 11/04/24 07:24 Transderm-Scop) atropine AdvReac Intermediate Break out Verified 11/04/24 07:24 /Hives citalopram AdvReac Intermediate Hives Verified 11/04/24 07:24 Review of Systems General: Reports: 10 or more systems reviewed and unremarkable except in HPI and below Const: Denies: fever(s) or chills Card: Denies: chest pain or palpitations Resp: Denies: dyspnea or non-productive cough GI: Denies: abdominal pain, nausea or vomiting : Denies: flank pain or difficulty voiding Musc: Denies: neck pain or back pain Neuro: Denies: headache(s) or numbness in extremities Psych: Reports: anxiety, depression, mood swings, hopelessness and suicidal ideation PFSH ED PFSH: Medical History Acute post-traumatic stress disorder Bleeding per rectum Cannabis dependence, episodic use Alcohol abuse, episodic drinking behavior Obesity Sleep apnea Irritable bowel syndrome 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 Grandmother , COPD COPD (chronic obstructive pulmonary disease) Grandfather , CHF Congestive heart failure (CHF) Denies family history of Anesthesia complication Bleeding disorder Social History Smoking and tobacco/nicotine status: current every day tobacco/nicotine user (1/2 ppd) cigarettes Packs smoked per day: 0.5 Second hand smoke exposure: Yes Alcohol intake: current Alcohol intake frequency: few times a month Alcohol type: wine Substance/Drug Use: never Adopted: No Caregiver/support person: No Lives independently: Yes Household members: children Housing: Manufactured/Mobile home Marital status: Legally Number of children: 2 Number of grandchildren: 0 Highest education level completed: Associate Degree: Occupational, Technical, Vocational Program Education level details: Business service: No Current occupational status: disabled Current occupational exposures/hazards: No Pets and animals: Yes Pets & animals: cat(s), dog(s) and turtle(s) Leisure activites: music, reading and other Leisure activities details: clean Sexually active: Yes Are you practicing safe sex: Yes Do you think of yourself as: Straight/Heterosexual Current gender identity: Female Kristy/Mormonism: Restorationist Special kristy needs: No Agree to transfusion: Yes Female Reproductive History: Para: 2 Spontaneous abortions: No Physical Exam Const: COMMON NORMALS: no acute distress, average body habitus and patient oriented x3 HENMT: COMMON NORMALS: normocephalic and atraumatic HEAD & SCALP: normocephalic and atraumatic Neck/C-Spine: COMMON NORMALS: full ROM, no lymphadenopathy, supple and no meningeal signs Lymph: LYMPHATIC: no lymphadenopathy noted Chest: COMMONS NORMALS: normal inspection of the chest and normal palpation of entire chest wall Resp: COMMON NORMALS: normal respiratory effort, No retractions and clear to auscultation bilaterally AUSCULTATION: clear to auscultation bilaterally Cardio: COMMON NORMALS: regular rate and regular rhythm RATE: regular rate RHYTHM: regular rhythm GI: COMMON NORMALS: Normal to inspection, nondistended, normoactive bowel sounds present, Soft to palpation, non-tender and No hepatosplenomegaly present PALPATION: Yes Soft to palpation and Yes No hepatosplenomegaly present : COMMON NORMALS: Yes no CVA tenderness BLADDER/KIDNEY EXAM: Yes no CVA tenderness Back/Pelvis: COMMON NORMALS: no CVA tenderness Extremity: COMMON NORMALS: normal to inspection, full ROM and capillary refill normal Neuro: COMMON NORMALS: patient oriented x3 MENINGEAL SIGNS: Yes no meningeal signs Psych: APPEARANCE: Yes disheveled and Yes bizarre ATTITUDE: Yes Withdrawn affect present, Yes evasive, Yes Belligerent attititude/behavior present, Yes agitated, Yes aggressive and Yes hostile ACTIVITY/MOTOR BEHAVIOR: Yes psychomotor agitation SPEECH: Yes Pressured speech present MOOD & AFFECT: Yes anxious, Yes sad and Yes tearful THOUGHT PROCESS: disorganized and confused Course Reevaluation(s): Reevaluation #1: Patient is quiet, calm after Zyprexa and Ativan Consultations: Consultation #1: Discussed with Dr. Giron, and has accepted patient as admission Vital Signs: Vital signs: Vital Signs Temperature 97.9 F 12/25/24 11:30 Pulse Rate 59 L 12/25/24 13:15 Respiratory Rate 23 H 12/25/24 11:30 Blood Pressure 154/84 12/25/24 13:15 Pulse Oximetry 99 12/25/24 13:15 Oxygen Delivery Me thod Room Air 12/25/24 13:15 MDM - Psych Medical Decision Making Patient presents crying, wailing, indicating suicide, and belligerent. She will not give a plan. She is inconsolable. Attempted Zyprexa 10 mg p.o., however this will not be enough. Ativan 2 mg IM has been ordered. She be placed on continuous pulse ox and 96-hour hold. Lab Data 12/25/24 12:05 12/25/24 12:00 Laboratory Results WBC 7.34 10^3/uL (3.29-11.43) 12/25/24 12:05 RBC 4.30 10^6/uL (3.85-5.65) 12/25/24 12:05 Hgb 13.90 g/dL (11.27-16.99) 12/25/24 12:05 Hct 40.9 % (36-47) 12/25/24 12:05 MCV 95.1 fl (85-98) 12/25/24 12:05 MCH 32.3 pg (27-33) 12/25/24 12:05 MCHC 34.0 g/dL (30-55) 12/25/24 12:05 RDW 14.1 % (12.1-15.1) 12/25/24 12:05 Plt Count 292 10^3/cmm (157-399) 12/25/24 12:05 MPV 9.8 fL (7.4-10.4) 12/25/24 12:05 Neut % (Auto) 45.4 % 12/25/24 12:05 Lymph % (Auto) 47.5 % 12/25/24 12:05 Archer % (Auto) 4.0 % 12/25/24 12:05 Eos % (Auto) 2.0 % 12/25/24 12:05 Baso % (Auto) 0.8 % 12/25/24 12:05 Neut # (Auto) 3.33 10^3/uL (1.8-7.7) 12/25/24 12:05 Lymph # (Auto) 3.5 10^3/uL (0.8-4.8) 12/25/24 12:05 Archer # (Auto) 0.3 10^3/uL (0.2-0.9) 12/25/24 12:05 Eos # (Auto) 0.2 10^3/uL (0.0-0.8) 12/25/24 12:05 Baso # (Auto) 0.1 10^3/uL (0.0-0.1) 12/25/24 12:05 Nucleated RBC % (auto) 0 % 12/25/24 12:05 Nucleated RBCs # 0.0 /100WBC 12/25/24 12:05 Sodium 144 mmol/L (136-145) 12/25/24 12:00 Potassium 4.0 mmol/L (3.5-5.1) 12/25/24 12:00 Chloride 108 mmol/L (98-107) H 12/25/24 12:00 Carbon Dioxide 23 mmol/L (22-29) 12/25/24 12:00 Anion Gap 17.0 (5-19) 12/25/24 12:00 BUN 7 mg/dL (6-20) 12/25/24 12:00 Creatinine 0.5 mg/dL (0.5-0.9) 12/25/24 12:00 GFR Calculation 134.0 mL/min (90-130) H 12/25/24 12:00 Glucose 89 mg/dL (65-115) 12/25/24 12:00 Calculated Osmolality 295 mOsm/kg (285-295) 12/25/24 12:00 Calcium 8.7 mg/dL (8.5-10.5) 12/25/24 12:00 Total Bilirubin 0.2 mg/dL (0.15-1.2) 12/25/24 12:00 AST 17 U/L (0-32) 12/25/24 12:00 ALT 7 U/L (0-33) 12/25/24 12:00 Alkaline Phosphatase 121 U/L (35-105) H 12/25/24 12:00 Total Protein 6.5 g/dL (6.6-8.7) L 12/25/24 12:00 Albumin 4.3 g/dL (3.5-5.2) 12/25/24 12:00 Globulin 2.2 g/dL (1.3-4.6) 12/25/24 12:00 TSH 0.95 uIU/mL (0.27-4.20) 12/25/24 12:00 HCG, Qual Negative (Negative) 12/25/24 11:41 Urine Color Yellow (Yellow) 12/25/24 11:41 Urine Appearance Clear (CLEAR) 12/25/24 11:41 Urine pH 6.5 (5-7) 12/25/24 11:41 Ur Specific [place] 1.006 (1.005-1.030) 12/25/24 11:41 Urine Protein Negative (Negative) 12/25/24 11:41 Urine Glucose (UA) Negative (Normal) 12/25/24 11:41 Urine Ketones Negative (Negative) 12/25/24 11:41 Urine Blood Negative (Negative) 12/25/24 11:41 Urine Nitrate Negative (Negative) 12/25/24 11:41 Urine Bilirubin Negative (Negative) 12/25/24 11:41 Urine Urobilinogen 0.2 mg/dL (Negative) 12/25/24 11:41 Ur Leukocyte Esterase Negative (Negative) 12/25/24 11:41 Amorphous Sediment Not Reportable 12/25/24 11:41 Salicylates < 0.3 mg/dL (3-10) L 12/25/24 12:00 Urine Opiates Screen Negative ng/mL (Negative) 12/25/24 11:41 Acetaminophen < 5.0 ug/mL (10-30) L 12/25/24 12:00 Ur Barbiturates Screen Negative ng/mL (Negative) 12/25/24 11:41 Ur Phencyclidine Scrn Negative ng/mL (Negative) 12/25/24 11:41 Ur Amphetamines Screen Negative ng/mL (Negative) 12/25/24 11:41 U Benzodiazepines Scrn Positive ng/mL (Negative) H 12/25/24 11:41 Urine Cocaine Screen Negative ng/mL (Negative) 12/25/24 11:41 U Marijuana (THC) Screen Positive ng/mL (Negative) H 12/25/24 11:41 Ethyl Alcohol 335 mg/dL (0-10) H* 12/25/24 12:00 No radiology studies performed this visit Discharge Plan Discharge Patient Disposition: Xfer Psychiatric Hosp Clinical Impression: Suicidal ideation, Acute anxiety Condition: Stable Referrals: Purdy,TEOFILO Curry [Primary Care Provider, Nurse Practitioner] Discharge Diet: Usual diet Discharge Activity: Resume usual activity Print Language: Citizen Of [place] Coding Level of Care Code ED Dialysis Equipment Technician for Chg Fwd Documented by User: Robert Cespedes DO 12/25/24 13:30 HPI - Psych General: Chief Complaint: Psychiatric Symptoms Stated Complaint: mhe Time Seen by Provider: 12/25/24 11:23 Related Data Home Medications ?Medication ?Instructions ?Recorded ?Confirmed baclofen 10 mg tablet 10 mg PO TID 12/26/21 11/04/24 albuterol sulfate 90 mcg/actuation 2 inh inhalation Q6H PRN Shortness 03/16/23 11/04/24 aerosol inhaler Of Breath furosemide 20 mg tablet 20 mg PO BID PRN Edema 07/14/23 11/04/24 lorazepam 0.5 mg tablet 0.5 mg PO TID PRN Anxiety 07/14/23 11/04/24 hydrocortisone 2.5 % topical cream 1 applic topical DAILY PRN pain 02/26/24 11/04/24 with perineal applicator and inflamation (Procto-Med HC) acetaminophen 300 mg-codeine 15 mg 1 tab PO Q6H PRN Pain 07/06/24 11/04/24 tablet gabapentin 600 mg tablet 600 mg PO DAILY nerve pain 07/06/24 11/04/24 hydroxyzine pamoate 50 mg capsule 50 mg PO TID PRN bp 07/06/24 11/04/24 magnesium oxide 400 mg (241.3 mg 400 mg PO TID 07/06/24 11/04/24 magnesium) tablet topiramate 50 mg tablet 50 mg PO DAILY 07/06/24 11/04/24 linaclotide 145 mcg capsule 145 mcg PO DAILY 07/16/24 11/04/24 (Linzess) ondansetron HCl 4 mg tablet 4 mg PO Q6H PRN Nausea And Vomiting 07/16/24 11/04/24 pantoprazole 40 mg tablet,delayed 40 - 80 mg PO DAILY PRN Acid Reflux 07/16/24 11/04/24 release (Protonix) triamterene 37.5 1 tab PO QAM 07/29/24 11/04/24 mg-hydrochlorothiazide 25 mg tablet Previous Rx's ?Medication ?Instructions ?Recorded aripiprazole 10 mg tablet 10 mg PO DAILY 30 days #30 tabs 03/04/24 propranolol 20 mg tablet 20 mg PO TID 30 days #90 tabs 03/04/24 venlafaxine 150 mg 300 mg (2 x 150 mg) PO DAILY 30 03/04/24 capsule,extended release 24 hr days #60 caps potassium chloride 10 mEq 10 meq PO BID #60 tabs 07/18/24 tablet,extended release potassium chloride 20 mEq 20 meq PO BID #14 tabs 07/29/24 tablet,extended release (K-Tab) oxycodone 5 mg tablet 5 mg PO Q6H PRN pain 15 days #30 08/13/24 tabs Allergies Allergy/AdvReac Type Severity Reaction Status Date / Time monosodium glutamate Allergy Severe ALGY-Anaphy Verified 11/04/24 07:24 laxis trazodone Allergy Severe ADR-Muscle Verified 11/04/24 07:24 Pain duloxetine Allergy Intermediate Break out/ Verified 11/04/24 07:24 Hives gluten Allergy Intermediate Break out/ Verified 11/04/24 07:24 Hives lactase (From Dairy Aid) Allergy Intermediate Break out/ Verified 11/04/24 07:24 Hives paroxetine Allergy Intermediate Break out/ Verified 11/04/24 07:24 Hives soy Allergy Intermediate Break out/ Verified 11/04/24 07:24 Hives lactose Allergy ADR-Diarrhe Verified 11/04/24 07:24 a scopolamine (From Allergy ALGY-Rash Verified 11/04/24 07:24 Transderm-Scop) atropine AdvReac Intermediate Break out Verified 11/04/24 07:24 /Hives citalopram AdvReac Intermediate Hives Verified 11/04/24 07:24 PFSH ED PFSH: Medical History Acute post-traumatic stress disorder Bleeding per rectum Cannabis dependence, episodic use Alcohol abuse, episodic drinking behavior Obesity Sleep apnea Irritable bowel syndrome 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 Grandmother , COPD COPD (chronic obstructive pulmonary disease) Grandfather , CHF Congestive heart failure (CHF) Denies family history of Anesthesia complication Bleeding disorder Social History Smoking and tobacco/nicotine status: current every day tobacco/nicotine user (1/2 ppd) cigarettes Packs smoked per day: 0.5 Second hand smoke exposure: Yes Alcohol intake: current Alcohol intake frequency: few times a month Alcohol type: wine Substance/Drug Use: never Adopted: No Caregiver/support person: No Lives independently: Yes Household members: children Housing: Manufactured/Mobile home Marital status: Legally Number of children: 2 Number of grandchildren: 0 Highest education level completed: Associate Degree: Occupational, Technical, Vocational Program Education level details: Business service: No Current occupational status: disabled Current occupational exposures/hazards: No Pets and animals: Yes Pets & animals: cat(s), dog(s) and turtle(s) Leisure activites: music, reading and other Leisure activities details: clean Sexually active: Yes Are you practicing safe sex: Yes Do you think of yourself as: Straight/Heterosexual Current gender identity: Female Kristy/Mormonism: Restorationist Special kristy needs: No Agree to transfusion: Yes Course Vital Signs: Vital signs: Vital Signs Temperature 97.9 F 12/25/24 11:30 Pulse Rate 59 L 12/25/24 13:15 Respiratory Rate 23 H 12/25/24 11:30 Blood Pressure 154/84 12/25/24 13:15 Pulse Oximetry 99 12/25/24 13:15 Oxygen Delivery Me thod Room Air 12/25/24 13:15 MDM - Psych Medical Decision Making Patient presents crying, wailing, indicating suicide, and belligerent. She will not give a plan. She is inconsolable. Attempted Zyprexa 10 mg p.o., however this will not be enough. Ativan 2 mg IM has been ordered. She be placed on continuous pulse ox and 96-hour hold. Midlevel review Lab Data 12/25/24 12:05 12/25/24 12:00 Laboratory Results WBC 7.34 10^3/uL (3.29-11.43) 12/25/24 12:05 RBC 4.30 10^6/uL (3.85-5.65) 12/25/24 12:05 Hgb 13.90 g/dL (11.27-16.99) 12/25/24 12:05 Hct 40.9 % (36-47) 12/25/24 12:05 MCV 95.1 fl (85-98) 12/25/24 12:05 MCH 32.3 pg (27-33) 12/25/24 12:05 MCHC 34.0 g/dL (30-55) 12/25/24 12:05 RDW 14.1 % (12.1-15.1) 12/25/24 12:05 Plt Count 292 10^3/cmm (157-399) 12/25/24 12:05 MPV 9.8 fL (7.4-10.4) 12/25/24 12:05 Neut % (Auto) 45.4 % 12/25/24 12:05 Lymph % (Auto) 47.5 % 12/25/24 12:05 Archer % (Auto) 4.0 % 12/25/24 12:05 Eos % (Auto) 2.0 % 12/25/24 12:05 Baso % (Auto) 0.8 % 12/25/24 12:05 Neut # (Auto) 3.33 10^3/uL (1.8-7.7) 12/25/24 12:05 Lymph # (Auto) 3.5 10^3/uL (0.8-4.8) 12/25/24 12:05 Archer # (Auto) 0.3 10^3/uL (0.2-0.9) 12/25/24 12:05 Eos # (Auto) 0.2 10^3/uL (0.0-0.8) 12/25/24 12:05 Baso # (Auto) 0.1 10^3/uL (0.0-0.1) 12/25/24 12:05 Nucleated RBC % (auto) 0 % 12/25/24 12:05 Nucleated RBCs # 0.0 /100WBC 12/25/24 12:05 Sodium 144 mmol/L (136-145) 12/25/24 12:00 Potassium 4.0 mmol/L (3.5-5.1) 12/25/24 12:00 Chloride 108 mmol/L (98-107) H 12/25/24 12:00 Carbon Dioxide 23 mmol/L (22-29) 12/25/24 12:00 Anion Gap 17.0 (5-19) 12/25/24 12:00 BUN 7 mg/dL (6-20) 12/25/24 12:00 Creatinine 0.5 mg/dL (0.5-0.9) 12/25/24 12:00 GFR Calculation 134.0 mL/min (90-130) H 12/25/24 12:00 Glucose 89 mg/dL (65-115) 12/25/24 12:00 Calculated Osmolality 295 mOsm/kg (285-295) 12/25/24 12:00 Calcium 8.7 mg/dL (8.5-10.5) 12/25/24 12:00 Total Bilirubin 0.2 mg/dL (0.15-1.2) 12/25/24 12:00 AST 17 U/L (0-32) 12/25/24 12:00 ALT 7 U/L (0-33) 12/25/24 12:00 Alkaline Phosphatase 121 U/L (35-105) H 12/25/24 12:00 Total Protein 6.5 g/dL (6.6-8.7) L 12/25/24 12:00 Albumin 4.3 g/dL (3.5-5.2) 12/25/24 12:00 Globulin 2.2 g/dL (1.3-4.6) 12/25/24 12:00 TSH 0.95 uIU/mL (0.27-4.20) 12/25/24 12:00 HCG, Qual Negative (Negative) 12/25/24 11:41 Urine Color Yellow (Yellow) 12/25/24 11:41 Urine Appearance Clear (CLEAR) 12/25/24 11:41 Urine pH 6.5 (5-7) 12/25/24 11:41 Ur Specific [place] 1.006 (1.005-1.030) 12/25/24 11:41 Urine Protein Negative (Negative) 12/25/24 11:41 Urine Glucose (UA) Negative (Normal) 12/25/24 11:41 Urine Ketones Negative (Negative) 12/25/24 11:41 Urine Blood Negative (Negative) 12/25/24 11:41 Urine Nitrate Negative (Negative) 12/25/24 11:41 Urine Bilirubin Negative (Negative) 12/25/24 11:41 Urine Urobilinogen 0.2 mg/dL (Negative) 12/25/24 11:41 Ur Leukocyte Esterase Negative (Negative) 12/25/24 11:41 Amorphous Sediment Not Reportable 12/25/24 11:41 Salicylates < 0.3 mg/dL (3-10) L 12/25/24 12:00 Urine Opiates Screen Negative ng/mL (Negative) 12/25/24 11:41 Acetaminophen < 5.0 ug/mL (10-30) L 12/25/24 12:00 Ur Barbiturates Screen Negative ng/mL (Negative) 12/25/24 11:41 Ur Phencyclidine Scrn Negative ng/mL (Negative) 12/25/24 11:41 Ur Amphetamines Screen Negative ng/mL (Negative) 12/25/24 11:41 U Benzodiazepines Scrn Positive ng/mL (Negative) H 12/25/24 11:41 Urine Cocaine Screen Negative ng/mL (Negative) 12/25/24 11:41 U Marijuana (THC) Screen Positive ng/mL (Negative) H 12/25/24 11:41 Ethyl Alcohol 335 mg/dL (0-10) H* 12/25/24 12:00 Discharge Plan Discharge Patient Disposition: Xfer Psychiatric Hosp Clinical Impression: Suicidal ideation, Acute anxiety Condition: Stable Referrals: Purdy,TEOFILO Curry [Primary Care Provider, Nurse Practitioner] Discharge Diet: Usual diet Discharge Activity: Resume usual activity Print Language: Citizen Of [place] Coding Level of Care Code ED Dialysis Equipment Technician for Cristhian Lu
[2024-12-25 11:48] LABS: Add Urine Microscopic? NO
[2024-12-25 11:51] LABS: Glucose Urine UA Negative (Normal); Nitrate Urine Negative (Negative); Specific Gravity, Urine 1.006 (1.005-1.030)
[2024-12-25] MEDS: LORazepam 1 MG/0.5 ML injection 2 MG IM ×2 (11:51→13:51)
[2024-12-25 11:52] LABS: HCG Qualitative Urine. Negative (Negative)
[2024-12-25 11:56] LABS: Charge for UA Resulting for Rev
[2024-12-25 11:59] LABS: PCP Screen Urine Negative (Negative)
[2024-12-25 12:25] LABS: Hematocrit 40.9 % (36-47); Hemoglobin 13.90 g/dL (11.27-16.99); Mean Corpuscular HGB Conc 34.0 g/dL (30-55); Mean Corpuscular Hemoglobin 32.3 pg (27-33); Mean Corpuscular Volume 95.1 fl (85-98); Nucleated Red Blood Cells % 0 %; Platelet Count 292 10^3/cmm (157-399); Red Blood Count 4.30 10^6/uL (3.85-5.65); White Blood Count 7.34 10^3/uL (3.29-11.43)
--- NOTE | 2024-12-25 12:32 | PC.NURSE ---
Involuntary 96 hour hold rights read and reviewed with patient. Patient verbalized understandings and copy of rights given to patient.
[2024-12-25 12:52] LABS: Acetaminophen < 5.0 ug/mL (10-30); Alanine Aminotransferase 7 U/L (0-33); Albumin Level 4.3 g/dL (3.5-5.2); Alkaline Phosphatase 121 U/L (35-105); Anion Gap 17.0 (5-19); Aspartate Amino Transferase 17 U/L (0-32); Blood Urea Nitrogen 7 mg/dL (6-20); Calcium 8.7 mg/dL (8.5-10.5); Carbon Dioxide 23 mmol/L (22-29); Chloride 108 mmol/L (98-107); Globulin 2.2 g/dL (1.3-4.6); Glucose 89 mg/dL (65-115); Osmolality Calculated 295 mOsm/kg (285-295); Potassium 4.0 mmol/L (3.5-5.1); Salicylate < 0.3 mg/dL (3-10); Sodium 144 mmol/L (136-145); Thyroid Stimulating Hormone 0.95 uIU/mL (0.27-4.20); Total Protein 6.5 g/dL (6.6-8.7)
[2024-12-25 12:53] LABS: Alcohol Level 335 mg/dL (0-10)
[2024-12-25 13:15] VITALS: BP 154/84; PULSE 59; O2SAT 99
[2024-12-25 15:34] VITALS: BP 125/83; PULSE 65; O2SAT 98
[2024-12-25 18:17] LABS: Alcohol Level 229 mg/dL (0-10)
[2024-12-25 18:29] VITALS: BP 121/81; PULSE 94; O2SAT 96
[2024-12-26 04:00] VITALS: BP 107/65; PULSE 62; RESP 16; TEMP 36.7; O2SAT 97
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
[2024-12-26 08:00] VITALS: BP 105/62; PULSE 117; RESP 18; TEMP 36.6; O2SAT 99
[2024-12-26] MEDS: venlafaxine ER (24HR) 150 mg Capsule 300 MG PO (08:58)
[2024-12-26] MEDS: multivitamin therapeutic Tablet 1 TAB PO (08:58)
[2024-12-26 11:09] VITALS: BP 103/68; PULSE 89; RESP 14; TEMP 36.8; O2SAT 97
[2024-12-26 16:00] VITALS: BP 113/76; PULSE 94; RESP 16; TEMP 36.8; O2SAT 97
[2024-12-26 19:59] VITALS: BP 119/87; PULSE 96; RESP 17; TEMP 36.7; O2SAT 100; BMI 24.5
--- NOTE | 2024-12-27 00:34 | PC.NURSE ---
pt refused 0000 vs, nurse notified, resp 16
[2024-12-27 04:00] VITALS: BP 107/68; PULSE 87; RESP 18; TEMP 37.1; O2SAT 100
[2024-12-27 08:00] VITALS: BP 102/64; PULSE 68; RESP 14; O2SAT 97
[2024-12-27] MEDS: venlafaxine ER (24HR) 150 mg Capsule 300 MG PO (08:34)
[2024-12-27] MEDS: multivitamin therapeutic Tablet 1 TAB PO (08:34)
[2024-12-27 12:00] VITALS: BP 106/67; PULSE 91; RESP 15; TEMP 36.8; O2SAT 99
--- NOTE | 2024-12-27 14:43 | W.PM.NPUPNS ---
Subjective NPU Subjective: Patient presented today reporting that things are going okay. We discussed the fact that in reviewing her records she is not on Abilify. We had discussed starting Abilify she reported she was already on it but they have been and suggest that she has not likely had a dose since September. We discussed the risks, benefits and alternatives of restarting the Abilify at 10 mg which is the dose she stopped on and considering increasing it to 15 as well as the long-acting injectable and she understood and agreed to proceed as as is documented in this note. She denied any side effects with medication. Mental Status Exam MSE Comments: This is an overweight, well-developed white female in hospital scrubs with limited grooming and eye contact. No abnormal movements except for psychomotor retardation Cooperative with exam in mild to moderate distress. Speech was slightly decreased rate and volume. Mood described as overwhelmed and anxious, affect congruent and slightly subdued. Thought process organized. Thought contact: patient denies suicidal or homicidal ideation, there were no delusions reported or noted, patient denied auditory or visual hallucinations. Attention and concentration appeared intact and memory appeared reliable but none were formally tested. Patient is alert and oriented times three. Insight and judgment appear limited and impulse control appears impaired. Vitals/I&O/Wt Last Vital Signs Temp 98.2 F 12/27/24 12:00 Pulse 91 12/27/24 12:00 Resp 15 12/27/24 12:00 BP 106/67 12/27/24 12:00 Pulse Ox 99 12/27/24 12:00 O2 Del Method Room Air 12/27/24 04:00 12/26/24 12/27/24 12/27/24 22:59 06:59 14:59 Intake Total 240 / 480 Balance 240 / 480 Weight last 48 hrs Weight 69.059 kg Data NPU 12/25/24 12:05 12/25/24 12:00 A&P Assessment and plan 1. Bipolar disorder, current episode mixed, severe, without psychotic features: 2. Borderline personality disorder: 3. Panic attack: 4. Post-traumatic stress disorder, chronic: 5. Suicidal ideation: 6. Alcohol use disorder, severe, dependence: 7. Bereavement: Plan: Patient is a 44-year-old white female known through past inpatient and outpatient services with a history of PTSD, bipolar disorder, borderline personality disorder, and alcohol use disorder severe admitted to the [facility] after being relapsing on alcohol recently and having increased suicidal thoughts. 1. Continue current medication. Consider some medication changes. Start Abilify 10 mg p.o. daily 2. Recommend sober living treatment at the highest level of care to which the patient is willing to commit. 3. Continue every 15 minute checks for safety. 4. Encourage sober living treatment after discharge to the highest level care to which she is willing to commit. 5. CIWA protocol 6. Consider Vivitrol prior to discharge. 7. Obtain collateral information. 8. Observe against the backdrop of the 96-hour hold. PDMP PDMP Reviewed: Not Reviewed Involuntary Hold Information Hold Status: Legal Status: 96 Hour Hold Date/Time Hold Expires: 12/31/24 @11:50 96 Hour Hold: 96 Hour Involuntary Admission: Yes Attestations NPU Medical Necessity Statement*: Inpatient hospitalization is medically necessary and the clinically appropriate intervention at this time. We will monitor medication to make changes as indicated. The patient's likely length of stay 2-4 days. Coding Level of Care Code Acute Code for [facility] Fwd Diagnoses Bipolar disorder, current episode mixed, severe, without psychotic features F31.63 Borderline personality disorder F60.3 Panic attack F41.0 Post-traumatic stress disorder, chronic F43.12 Suicidal ideation R45.851 Alcohol use disorder, severe, dependence F10.20 Bereavement Z63.4
[2024-12-27 16:00] VITALS: BP 104/76; PULSE 89; RESP 14; O2SAT 100
--- NOTE | 2024-12-27 17:24 | PC.NURSE ---
Dr. Giron v/o for Abilify 10mg now and then daily there after
[2024-12-27 20:00] VITALS: BP 121/88; PULSE 101; RESP 18; TEMP 36.3; O2SAT 100
[2024-12-28] VITALS: BP 109/72; PULSE 73; RESP 17; TEMP 37.1; O2SAT 100
[2024-12-28 06:00] VITALS: BP 107/62; PULSE 75; RESP 16; TEMP 36.9; O2SAT 100
[2024-12-28] MEDS: multivitamin therapeutic Tablet 1 TAB PO (08:19)
[2024-12-28] MEDS: venlafaxine ER (24HR) 150 mg Capsule 300 MG PO (08:19)
[2024-12-28 14:00] VITALS: BP 115/73; PULSE 97; RESP 16; TEMP 36.5; O2SAT 98
--- NOTE | 2024-12-28 18:00 | P.NPUPN_ITS ---
Subjective NPU 2 Subjective: Patient presented today reporting that she is feeling a little better. We discussed the fact that it appears that she is having clear improvement per staff reports of direct observation. She identified that she was hopeful that she be able to get out if she has a grandchild on the way but that she knows that her first obligation is to get well. We discussed the risks, benefits and alternatives of possibility of increasing the Abilify to 15 mg p.o. daily at some point probably before discharge. She denied any side effects of the medication. Mental Status Exam 2 MSE Comments: This is an overweight, well-developed white female in hospital scrubs with limited grooming and eye contact. No abnormal movements except for psychomotor retardation Cooperative with exam in mild to moderate distress. Speech was slightly decreased rate and volume. Mood described as overwhelmed and anxious, affect congruent and slightly subdued. Thought process organized. Thought contact: patient denies suicidal or homicidal ideation, there were no delusions reported or noted, patient denied auditory or visual hallucinations. Attention and concentration appeared intact and memory appeared reliable but none were formally tested. Patient is alert and oriented times three. Insight and judgment appear limited and impulse control appears impaired. Vitals/I&O/Wt Last Vital Signs Temp 97.6 F 12/28/24 20:09 Pulse 102 H 12/28/24 20:09 Resp 16 12/28/24 20:09 BP 106/68 12/28/24 20:09 Pulse Ox 99 12/28/24 20:09 O2 Del Method Room Air 12/28/24 20:09 Data NPU 12/25/24 12:05 12/25/24 12:00 A&P Assessment and plan 1. Bipolar disorder, current episode mixed, severe, without psychotic features: 2. Borderline personality disorder: 3. Panic attack: 4. Post-traumatic stress disorder, chronic: 5. Suicidal ideation: 6. Alcohol use disorder, severe, dependence: 7. Bereavement: Plan: Patient is a 44-year-old white female known through past inpatient and outpatient services with a history of PTSD, bipolar disorder, borderline personality disorder, and alcohol use disorder severe admitted to the NPU after being relapsing on alcohol recently and having increased suicidal thoughts. 1. Continue current medication. Consider some medication changes. Started Abilify 10 mg p.o. daily. Will consider the long-acting injectable. 2. Recommend sober living treatment at the highest level of care to which the patient is willing to commit. 3. Continue every 15 minute checks for safety. 4. Encourage sober living treatment after discharge to the highest level care to which she is willing to commit. 5. CIKY protocol 6. Consider Vivitrol prior to discharge. 7. Obtain collateral information. 8. Observe against the backdrop of the 96-hour hold. PDMP PDMP Reviewed: Not Reviewed Involuntary Hold Information 2 Hold Status: Legal Status: 96 Hour Hold Date/Time Hold Expires: 01/01/25 @ 11:50 96 Hour Hold: 96 Hour Involuntary Admission: Yes Attestations NPU 2 Medical Necessity Statement*: Inpatient hospitalization is medically necessary and the clinically appropriate intervention at this time. We will monitor medication to make changes as indicated. The patient's likely length of stay 2-4 days. Coding Level of Care Code Acute Code for [facility] Fwd Diagnoses Bipolar disorder, current episode mixed, severe, without psychotic features F31.63 Borderline personality disorder F60.3 Panic attack F41.0 Post-traumatic stress disorder, chronic F43.12 Suicidal ideation R45.851 Alcohol use disorder, severe, dependence F10.20 Bereavement Z63.4
[2024-12-28 20:09] VITALS: BP 106/68; PULSE 102; RESP 16; TEMP 36.4; O2SAT 99
[2024-12-29] MEDS: LORazepam 1 MG/0.5 ML injection 2 MG IM ×2 (01:13→22:25)
[2024-12-29] MEDS: haloperidol inj 5 mg/mL INJ 1 mL IM ×2 (01:14→22:25)
[2024-12-29] MEDS: diphenhydrAMINE 50 mg/mL SDV 1mL IM ×2 (01:14→22:26)
--- NOTE | 2024-12-29 01:14 | PC.NURSE ---
pt b52 pt came to the desk stating she 'couldn't sleep, couldn't have a snack, I want to sign AMA and I want to go home' after some research a b52 was given per MAR for pt to be able to sleep. pt states that she had an Ambien last night and that helped her sleep . she wants to know if she can be scheduled to have Ambien nightly. This nurse educated pt that this could be discussed during heart to heart rounding.
[2024-12-29 06:00] VITALS: BP 100/56; PULSE 70; RESP 16; O2SAT 99
[2024-12-29] MEDS: venlafaxine ER (24HR) 150 mg Capsule 300 MG PO (08:09)
[2024-12-29] MEDS: multivitamin therapeutic Tablet 1 TAB PO (08:09)
--- NOTE | 2024-12-29 12:07 | PC.NURSE ---
Dr. Giron gave the verbal order to increase Abilify to 15mg PO QD.
--- NOTE | 2024-12-29 13:33 | P.NPUPN_ITS ---
Subjective NPU 2 Subjective: Patient presented today reporting that things are going better. She reports she is feeling much better now she has been taking the Abilify. We had a discussion about how the Abilify got discontinued and making sure that we avoid that kind of situation in the future. We discussed considering the long-acting injectable. She denied any side effects of the medication and we discussed the possibility of discharge in the next 48 hours. Mental Status Exam 2 MSE Comments: This is an overweight, well-developed white female in hospital scrubs with limited grooming and eye contact. No abnormal movements except for psychomotor retardation Cooperative with exam in mild to moderate distress. Speech was slightly decreased rate and volume. Mood described as feeling better, affect congruent and less subdued. Thought process organized. Thought contact: patient denies suicidal or homicidal ideation, there were no delusions reported or noted, patient denied auditory or visual hallucinations. Attention and concentration appeared intact and memory appeared reliable but none were formally tested. Patient is alert and oriented times three. Insight and judgment appear limited, but improving and impulse control is improving. Vitals/I&O/Wt Last Vital Signs Temp 97.6 F 12/28/24 20:09 Pulse 70 12/29/24 06:00 Resp 16 12/29/24 06:00 BP 100/56 12/29/24 06:00 Pulse Ox 99 12/29/24 06:00 O2 Del Method Room Air 12/29/24 06:00 Data NPU 12/25/24 12:05 12/25/24 12:00 A&P Assessment and plan 1. Bipolar disorder, current episode mixed, severe, without psychotic features: 2. Borderline personality disorder: 3. Panic attack: 4. Post-traumatic stress disorder, chronic: 5. Suicidal ideation: 6. Alcohol use disorder, severe, dependence: 7. Bereavement: Plan: Patient is a 44-year-old white female known through past inpatient and outpatient services with a history of PTSD, bipolar disorder, borderline personality disorder, and alcohol use disorder severe admitted to the NPU after being relapsing on alcohol recently and having increased suicidal thoughts. 1. Continue current medication. Consider some medication changes. Started Abilify 10 mg p.o. daily. Increase Abilify to 15 mg p.o. daily. Will consider the long-acting injectable. 2. Recommend sober living treatment at the highest level of care to which the patient is willing to commit. 3. Continue every 15 minute checks for safety. 4. Encourage sober living treatment after discharge to the highest level care to which she is willing to commit. 5. [facility]N protocol 6. Consider Vivitrol prior to discharge. 7. Obtain collateral information. 8. Observe against the backdrop of the 96-hour hold. PDMP PDMP Reviewed: Not Reviewed Involuntary Hold Information 2 Hold Status: Legal Status: 96 Hour Hold Date/Time Hold Expires: 01/01/25 @ 11:50 96 Hour Hold: 96 Hour Involuntary Admission: Yes Attestations NPU 2 Medical Necessity Statement*: Inpatient hospitalization is medically necessary and the clinically appropriate intervention at this time. We will monitor medication to make changes as indicated. The patient's likely length of stay 1-3 days. Coding Level of Care Code Acute Code for g Fwd Diagnoses Bipolar disorder, current episode mixed, severe, without psychotic features F31.63 Borderline personality disorder F60.3 Panic attack F41.0 Post-traumatic stress disorder, chronic F43.12 Suicidal ideation R45.851 Alcohol use disorder, severe, dependence F10.20 Bereavement Z63.4
[2024-12-29 13:50] VITALS: BP 101/63; PULSE 79; RESP 16; TEMP 36.7; O2SAT 96
[2024-12-29] MEDS: sennosides-docusate Tablet 2 TAB PO (17:14)
[2024-12-29 19:52] VITALS: BP 102/70; PULSE 87; RESP 16; TEMP 36.6; O2SAT 98
--- NOTE | 2024-12-29 23:53 | PC.NURSE ---
at approx [id number] it was seen on camera while the pt was in the dayroom that pt was not wearing any pants. [employer] went to check on pt as this nurse had within the hour explained to patient that she could not exit her room without a full set of green scrubs on. pt was agitated that staff was checking on her for her attire and not that she had 'fallen' staff did not see pt 'fall'
--- NOTE | 2024-12-30 00:06 | PC.NURSE ---
Patient appeared to sit down in the dayroom on the floor.She later came up to the nurses station claiming to of fell on her knee. I ooked at her left knee and there was some minor redness and a bruise.
--- NOTE | 2024-12-30 06:43 | PC.NURSE ---
pt vs not collected resp 17
[2024-12-30] MEDS: venlafaxine ER (24HR) 150 mg Capsule 300 MG PO (08:27)
[2024-12-30] MEDS: multivitamin therapeutic Tablet 1 TAB PO (08:27)
[2024-12-30 14:00] VITALS: BP 102/71; PULSE 97; RESP 15; TEMP 36.8; O2SAT 100
[2024-12-30] MEDS: sennosides-docusate Tablet 2 TAB PO (14:48)
--- NOTE | 2024-12-30 18:16 | P.NPUPN_ITS ---
Subjective NPU 2 Subjective: Patient presented today reporting that she is feeling better. She denied any problems and reported a readiness to discharge. We discussed concerns related to her use of as needed medication over the last 24 to 48 hours. We discussed the fact that if she is truly ready to discharge she should not be having as needed medications every 2-4 hours. We discussed her thinking about the fact that she is going to have to manage herself outside the hospital with limited as needed medications and see if she can do that while she is here over the next 24 hours and if so we might consider discharge as soon as tomorrow but over the next few days. She denied any side effects of medication. Mental Status Exam 2 MSE Comments: This is an overweight, well-developed white female in hospital scrubs with limited grooming and eye contact. No abnormal movements except for psychomotor retardation Cooperative with exam in mild distress. Speech was slightly decreased rate and volume. Mood described as feeling better, affect congruent and less subdued. Thought process organized. Thought contact: patient denies suicidal or homicidal ideation, there were no delusions reported or noted, patient denied auditory or visual hallucinations. Attention and concentration appeared intact and memory appeared reliable but none were formally tested. Patient is alert and oriented times three. Insight and judgment appear limited, but improving and impulse control is improving. Vitals/I&O/Wt Last Vital Signs Temp 98.2 F 12/30/24 14:00 Pulse 97 12/30/24 14:00 Resp 15 12/30/24 14:00 BP 102/71 12/30/24 14:00 Pulse Ox 100 12/30/24 14:00 O2 Del Method Room Air 12/30/24 14:00 Data NPU 12/25/24 12:05 12/25/24 12:00 A&P Assessment and plan 1. Bipolar disorder, current episode mixed, severe, without psychotic features: 2. Borderline personality disorder: 3. Panic attack: 4. Post-traumatic stress disorder, chronic: 5. Suicidal ideation: 6. Alcohol use disorder, severe, dependence: 7. Bereavement: Plan: Patient is a 44-year-old white female known through past inpatient and outpatient services with a history of PTSD, bipolar disorder, borderline personality disorder, and alcohol use disorder severe admitted to the NPU after being relapsing on alcohol recently and having increased suicidal thoughts. 1. Continue current medication. Consider some medication changes. Started Abilify 10 mg p.o. daily. Increased Abilify to 15 mg p.o. daily. Will consider the long-acting injectable. 2. Recommend sober living treatment at the highest level of care to which the patient is willing to commit. 3. Continue every 15 minute checks for safety. 4. Encourage sober living treatment after discharge to the highest level care to which she is willing to commit. 5. CIWA protocol 6. Consider Vivitrol prior to discharge. 7. Obtain collateral information. 8. Observe against the backdrop of the 96-hour hold. PDMP PDMP Reviewed: Not Reviewed Involuntary Hold Information 2 Hold Status: Legal Status: 96 Hour Hold Date/Time Hold Expires: 01/01/25 @ 11:50 96 Hour Hold: 96 Hour Involuntary Admission: Yes Attestations NPU 2 Medical Necessity Statement*: Inpatient hospitalization is medically necessary and the clinically appropriate intervention at this time. We will monitor medication to make changes as indicated. The patient's likely length of stay 1-3 days. Coding Level of Care Code Acute Code for [facility] Fwd Diagnoses Bipolar disorder, current episode mixed, severe, without psychotic features F31.63 Borderline personality disorder F60.3 Panic attack F41.0 Post-traumatic stress disorder, chronic F43.12 Suicidal ideation R45.851 Alcohol use disorder, severe, dependence F10.20 Bereavement Z63.4
[2024-12-30 22:00] VITALS: BP 111/75; PULSE 91; RESP 17; TEMP 36.7; O2SAT 98
--- NOTE | 2024-12-31 04:27 | PC.NURSE ---
pt prn meds this nurse had a discussion regarding the amount of prn medication that was being given vs dischage in the am. . She says they did talk to her about this during the day and she did refuse.
[2024-12-31 05:39] VITALS: BP 112/78; PULSE 89; RESP 18; TEMP 36.4; O2SAT 100
--- NOTE | 2024-12-31 06:27 | PC.NURSE ---
prazosin states she is supposed to be taking prazosin for nightmares.
[2024-12-31] MEDS: venlafaxine ER (24HR) 150 mg Capsule 300 MG PO (08:35)
[2024-12-31] MEDS: multivitamin therapeutic Tablet 1 TAB PO (08:36)
[2024-12-31] MEDS: sennosides-docusate Tablet 2 TAB PO (12:41)
[2024-12-31 13:56] VITALS: BP 110/72; PULSE 78; RESP 18; TEMP 36.5; O2SAT 100
--- NOTE | 2024-12-31 14:00 | P.NPUPN_ITS ---
Subjective NPU 2 Subjective: Patient presented today reporting that she is feeling better. She reported a readiness to discharge. We discussed continued concerns related to her use of as needed medication over the last 24 to 48 hours. She had less use of as needed medications every 2-4 hours, but still over using per staff reports and review of MAR. We discussed the possibility of discharge as soon as tomorrow but over the next few days. She denied any side effects of medication. Mental Status Exam 2 MSE Comments: This is an overweight, well-developed white female in hospital scrubs with limited grooming and eye contact. No abnormal movements except for psychomotor retardation Cooperative with exam in mild distress. Speech was slightly decreased rate and volume. Mood described as feeling better, affect congruent and less subdued. Thought process organized. Thought contact: patient denies suicidal or homicidal ideation, there were no delusions reported or noted, patient denied auditory or visual hallucinations. Attention and concentration appeared intact and memory appeared reliable but none were formally tested. Patient is alert and oriented times three. Insight and judgment appear limited, but improving and impulse control is improving. Vitals/I&O/Wt Last Vital Signs Temp 97.7 F 12/31/24 13:56 Pulse 78 12/31/24 13:56 Resp 18 12/31/24 13:56 BP 110/72 12/31/24 13:56 Pulse Ox 100 12/31/24 13:56 O2 Del Method Room Air 12/31/24 13:56 Data NPU 12/25/24 12:05 12/25/24 12:00 A&P Assessment and plan 1. Bipolar disorder, current episode mixed, severe, without psychotic features: 2. Borderline personality disorder: 3. Panic attack: 4. Post-traumatic stress disorder, chronic: 5. Suicidal ideation: 6. Alcohol use disorder, severe, dependence: 7. Bereavement: Plan: Patient is a 44-year-old white female known through past inpatient and outpatient services with a history of PTSD, bipolar disorder, borderline personality disorder, and alcohol use disorder severe admitted to the NPU after being relapsing on alcohol recently and having increased suicidal thoughts. 1. Continue current medication. Consider some medication changes. Started Abilify 10 mg p.o. daily. Increased Abilify to 15 mg p.o. daily. Will consider the long-acting injectable. Will insure she is taking less prn medications. 2. Recommend sober living treatment at the highest level of care to which the patient is willing to commit. 3. Continue every 15 minute checks for safety. 4. Encourage sober living treatment after discharge to the highest level care to which she is willing to commit. 5. CIMT protocol 6. Consider Vivitrol prior to discharge. 7. Obtain collateral information. 8. Observe against the backdrop of the 96-hour hold. PDMP PDMP Reviewed: Not Reviewed Involuntary Hold Information 2 Hold Status: Legal Status: 96 Hour Hold Date/Time Hold Expires: 01/01/25 @ 11:50 96 Hour Hold: 96 Hour Involuntary Admission: Yes Attestations NPU 2 Medical Necessity Statement*: Inpatient hospitalization is medically necessary and the clinically appropriate intervention at this time. We will monitor medication to make changes as indicated. The patient's likely length of stay 1-3 days. Coding Level of Care Code Acute Code for g Fwd Diagnoses Bipolar disorder, current episode mixed, severe, without psychotic features F31.63 Borderline personality disorder F60.3 Panic attack F41.0 Post-traumatic stress disorder, chronic F43.12 Suicidal ideation R45.851 Alcohol use disorder, severe, dependence F10.20 Bereavement Z63.4
[2024-12-31 19:51] VITALS: BP 116/78; PULSE 85; RESP 17; TEMP 36.4; O2SAT 100
[2025-01-01 06:00] VITALS: BP 105/72; PULSE 98; RESP 18; TEMP 36.4; O2SAT 99
[2025-01-01] MEDS: venlafaxine ER (24HR) 150 mg Capsule 300 MG PO (08:08)
[2025-01-01] MEDS: multivitamin therapeutic Tablet 1 TAB PO (08:40)
--- NOTE | 2025-01-01 08:43 | DCPLANNER ---
IMM was given to pt and rights explained. Copy was placed in pt file.
[2025-01-01] MEDS: sennosides-docusate Tablet 2 TAB PO (12:57)
[2025-01-01] MEDS: ARIPiprazole Maintena 400 MG IM (13:23)
[2025-01-01 14:00] VITALS: BP 118/80; PULSE 97; RESP 18; TEMP 36.5; O2SAT 100
[2025-01-01 15:04] VITALS: BP 118/80; PULSE 97; RESP 18; TEMP 36.5; O2SAT 95
--- NOTE | 2025-01-01 15:24 | PC.NURSE ---
Reviewed patient discharge instructions, medication instructions with patient. Patient is leaving by private vehicle to go be present at her grand daughters . All quesitons answered. Home medication and belongings returned to patient.
== END 2025-01-01 15:25 | disposition home or self-care (01) | DRG 880 ==
LOC: ER 12:52 → NP 17:18
PROVIDERS: Admitting Provider Psychiatry & Neurology Psychiatry; Emergency Provider Physician Assistant; PCP Nurse Practitioner Family; Visit Provider Psychiatry & Neurology Psychiatry
DX: F41.9 Anxiety disorder, unspecified (principal); R45.851 Suicidal ideations; F31.63 Bipolar disorder, current episode mixed, severe, without psychotic features; F17.210 Nicotine dependence, cigarettes, uncomplicated; E66.3 Overweight; Z68.24 Body mass index [BMI] 24.0-24.9, adult; F43.12 Post-traumatic stress disorder, chronic; F10.20 Alcohol dependence, uncomplicated; G47.30 Sleep apnea, unspecified; K58.9 Irritable bowel syndrome, unspecified; F60.3 Borderline personality disorder; Z81.1 Family history of alcohol abuse and dependence; H91.93 Unspecified hearing loss, bilateral; Z81.8 Family history of other mental and behavioral disorders
CPT/HCPCS: 36415; 80053; 80306; 80307; 81003; 81025; 84443; 85025; 93005; 96372; 97150; 97165; 99285; J1200; J1630; J2060; J3535; J9999; Q0162